=== PATIENT | male | born 1960 | race Caucasian/White ===

== ENCOUNTER 2016-12-15 13:41 | Emergency (ER) | payer BC ==
--- NOTE | 2016-12-15 13:54 | ED ---
General Adult HPI <Yury Green - Last Filed: 12/15/16 14:13> - General Source: patient, RN notes reviewed Mode of arrival: ambulatory Limitations: no limitations <Cruz Garcia - Last Filed: 12/15/16 14:43> - General Chief complaint: Extremity Problem,Nontraumatic Stated complaint: Knee Pain Time Seen by Provider: 12/15/16 13:47 - History of Present Illness Initial comments: Patient is a 56-year-old male who presents emergency room today with a chief complaint of increased swelling and pain to the left knee. He denies any specific injury or trauma to the left knee. Does admit that he sometimes pulls his left leg up when he sleeping to try to relieve his sciatic type pain. Patient does admit that his had increased swelling over the left knee. He states he didn't make an appointment with orthopedics but is not the next week. Patient denies any other complaints. Patient denies any recent fever, chills, shortness of breath, chest pain, back pain, abdominal pain, nausea or vomiting, dysuria or hematuria, constipation or diarrhea, headaches or visual changes, or any other complaints. (Cruz Garcia) - Related Data Home Medications Medication Instructions Recorded Confirmed Aspirin 162 mg PO ONCE 10/14/14 12/15/16 Atenolol/Chlorthalidone 1 tab PO DAILY 10/14/14 12/15/16 [Atenolol-Chlorthalidone 50-25] Hydrocodone/Acetaminophen 1 tab PO TID PRN 10/14/14 12/15/16 [Hydrocodon-Acetaminoph 7.5-325] Previous Rx's Medication Instructions Recorded Hydrocodone/Acetaminophen [[place] 1 each PO Q6HR PRN #15 tab 12/15/16 5-325] Allergies Allergy/AdvReac Type Severity Reaction Status Date / Time peanut Allergy Severe Anaphylaxis Verified 12/15/16 13:51 floxacillin Allergy Itching Verified 12/15/16 13:51 BRAZIL NUTS Allergy Anaphylaxis Uncoded 12/15/16 13:51 Review of Systems ROS Other: All systems not noted in ROS Statement are negative. <Yury Green - Last Filed: 12/15/16 14:13> ROS Other: All systems not noted in ROS Statement are negative. <Cruz Garcia - Last Filed: 12/15/16 14:43> ROS Statement: Those systems with pertinent positive or pertinent negative responses have been documented in the HPI. Past Medical History Past Medical History: Chest Pain / Angina, COPD, GERD/Reflux, Hypertension, Osteoarthritis (OA), Prostate Disorder, Thyroid Disorder Additional Past Medical History / Comment(s): 10/14/14 Pt presented to [facility] ER with chest pain and SOB which woke him up from sleep. He also took his B/p and it was elevated 178/101 with a pulse of 115. He also had bilateral feet tingling and sweating. Other HX Chest pain 2011 with admission to [facility]. "lumps on thyroid". Chronic back pain, diverticulitis, enlarged prostate, potassium deficiency, bilateral leg cramps, vitamin D deficiency, arthiritis bilateral feet/heels and lower back. History of Any Multi-Drug Resistant Organisms: None Reported Past Surgical History: Heart Catheterization Additional Past Surgical History / Comment(s): 2011 heart cath which was clear- done by Dr. VC Topete, colonoscopy. Past Anesthesia/Blood Transfusion Reactions: Previous Problems w/ Anesthesia Additional Past Anesthesia/Blood Transfusion Reaction / Comment(s): Pt states it took him a long time to wake up which he attributes to going into his procedures very tired. Past Psychological History: No Psychological Hx Reported Additional Psychological History / Comment(s): Pt lives with and 2 marty and grandchildren in his home. Pt is independent and very active. He drives a car Smoking Status: Current every day smoker Past Alcohol Use History: Rare Additional Past Alcohol Use History / Comment(s): Pt does not drink alcohol very often however yesterday he drank tequilla and beer. Past Drug Use History: None Reported - Past Family History Father Additional Family Medical History / Comment(s): Father of cirrhosis at age 62 yrs. Mother Additional Family Medical History / Comment(s): Mother of neck fracture at age 76yrs. Sister(s) Additional Family Medical History / Comment(s): Sister after a "leg operation" she developed a leg infection and family was told she of a lung problem. <Cruz Garcia - Last Filed: 12/15/16 14:43> General Exam <Yury Green - Last Filed: 12/15/16 14:13> Limitations: no limitations <Cruz Garcia - Last Filed: 12/15/16 14:43> - General Exam Comments Initial Comments: General: The patient is awake and alert, in no distress, and does not appear acutely ill. Neck: The neck is supple, there is no tenderness or JVD. Cardiovascular: There is a regular rate and rhythm. No murmur, rub or gallop is appreciated. Respiratory: Lungs are clear to auscultation, respirations are non-labored, breath sounds are equal. No wheezes, stridor, rales, or rhonchi. Musculoskeletal: Patient does have moderate swelling to the left knee above the left knee. There is no redness or erythema. The area is fluctuant. Mild tenderness over the patella. The bony tenderness. Sensations intact with pulses equal and 2+. Neurological: A&O x 3. CN II-XII intact, There are no obvious motor or sensory deficits. Coordination appears grossly intact. Speech is normal. Skin: Skin is warm and dry and no rashes or lesions are noted. Psychiatric: Normal mood and affect. (Cruz Garcia) Procedures <Yury Green - Last Filed: 12/15/16 14:13> <Cruz Garcia - Last Filed: 12/15/16 14:43> - Procedures Initial comment: Patient's left knee was wrapped in clean with Betadine. Left knee was superficially anesthetized with ethyl chloride along with 1% lidocaine to make a wheal at the superior aspect of the left bursa. 18-gauge needle was used to drain and aspirate the bursa. Approximately 8 mL of fluid was removed. Patient tolerated procedure well. (Cruz Garcia) Medical Decision Making <Yury Green - Last Filed: 12/15/16 14:13> <Cruz Garcia - Last Filed: 12/15/16 14:43> - Medical Decision Making The patient was seen and examined. All diagnostics were reviewed. The case was discussed with the PA and I agree with the findings as documented. (Yury Green) Patient's left knee bursitis drained here in emergency room. Advised that this may swell once again. Advised follow-up with orthopedics next week with his scheduled appointment. Also given on-call orthopedics as option. Given few days worth of his pain medicine of [place] as is requested. Advised patient to ice elevate the affected area. Advised return for any other concerns. (Cruz Garcia) Disposition <NormaYury - Last Filed: 12/15/16 14:13> Time of Disposition: 14:42 <Cruz Garcia - Last Filed: 12/15/16 14:43> Clinical Impression: Prepatellar bursitis Disposition: HOME SELF-CARE Condition: Good Instructions: Swollen Knee Joint (ED) Additional Instructions: Please follow-up with orthopedics next week with her scheduled appointment or with on-call orthopedics as discussed. Please continue to ice elevate the affected area. Please return to emergency and for any other concerns. Prescriptions: Hydrocodone/Acetaminophen [[place] 5-325] 1 each PO Q6HR PRN #15 tab PRN Reason: Pain Referrals: Neal Rowe MD [Primary Care Provider] - 1-2 days Truong Baptiste DO [Doctor of Osteopathic Medicine] - 1-2 days
--- NOTE | 2016-12-15 14:06 | XR ---
EXAMINATION TYPE: XR knee complete LT DATE OF EXAM: 12/15/2016 2:02 PM CLINICAL HISTORY: pain TECHNIQUE: Three views of the left knee are obtained. COMPARISON: None. FINDINGS: There is no acute fracture/dislocation. The tri-compartment joint spaces appear within no rmal limits. The overlying soft tissue appears unremarkable. IMPRESSION: There is no acute fracture or dislocation ICD 10 NO FRACTURE, INITIAL EVALUATION
[2016-12-15] MEDS ORDERED: ETHYL CHLORIDE 103.5 ML SPRAY TOPICAL STA (14:17)
[2016-12-15 14:55] VITALS: BP 140/72; PULSE 84; RESP 18; TEMP 97.8
== END 2016-12-15 14:54 | disposition home or self-care (01) ==
LOC: EC 13:41
DX: M70.42 Prepatellar bursitis, left knee (principal); I10 Essential (primary) hypertension; F17.200 Nicotine dependence, unspecified, uncomplicated; Z88.0 Allergy status to penicillin; Z98.61 Coronary angioplasty status; Z79.82 Long term (current) use of aspirin; Z91.018 Allergy to other foods; Z91.010 Allergy to peanuts; Z79.899 Other long term (current) drug therapy
CPT/HCPCS: 99283

== ENCOUNTER 2016-12-21 20:24 | Observation (INO) | payer BC ==
[2016-12-21] MEDS ORDERED: NITROGLYCERIN SL TABS 0.4 MG TAB SUBLINGUAL STA (20:46)
--- NOTE | 2016-12-21 20:49 | ED ---
Chest Pain HPI - General Chief Complaint: Chest Pain Stated Complaint: Chest Pain Time Seen by Provider: 12/21/16 20:35 Source: patient, family Mode of arrival: ambulatory Limitations: no limitations - History of Present Illness Initial Comments: This is a 56-year-old male with a history of hypertension, smoking of 2 packs a day, and family history for CAD who presents him in [facility] for left-sided chest pain. He states that it started as some back discomfort that he describes as having someone standing on his back and then developed into his left chest. It seems to come and go however is not related to movement or anything that he doesn't particular. He did have some associated nausea and also some shortness of breath. No lightheadedness. He states that he did not have any diaphoresis. No abdominal discomfort. He has been having some lower abdominal discomfort for the last few weeks is going to see a GI doctor for that however this is different. The patient states that he had a heart cath about 4 years ago which did not show any signs of CAD at the time. He states that he may have had a stress test since then but does not recall when. 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 He denies any history DVT or PE. No recent travel or surgery. No other complaints. - Related Data Home Medications Medication Instructions Recorded Confirmed Aspirin 650 mg PO ONCE 12/21/16 12/21/16 Atenolol/Chlorthalidone 1 tab PO DAILY 12/21/16 12/21/16 [Atenolol-Chlorthalidone 100-25] HYDROcodone/APAP 10-325MG [[place] 1 tab PO TID PRN 12/21/16 12/21/16 10-325] Potassium 99 mg PO DAILY PRN 12/21/16 12/21/16 Allergies Allergy/AdvReac Type Severity Reaction Status Date / Time peanut Allergy Severe Anaphylaxis Verified 12/21/16 21:13 floxacillin Allergy Itching Verified 12/21/16 21:13 BRAZIL NUTS Allergy Anaphylaxis Uncoded 12/21/16 20:31 Review of Systems ROS Statement: Those systems with pertinent positive or pertinent negative responses have been documented in the HPI. ROS Other: All systems not noted in ROS Statement are negative. EKG Findings - EKG Comments: EKG Findings:: EKG showing normal sinus rhythm with a rate of 83. No ST segment changes or T-wave inversions. QTC is 441. Other intervals are normal. No ectopy. Past Medical History Past Medical History: Chest Pain / Angina, COPD, GERD/Reflux, Hypertension, Osteoarthritis (OA), Prostate Disorder, Thyroid Disorder Additional Past Medical History / Comment(s): 10/14/14 Pt presented to [facility] ER with chest pain and SOB which woke him up from sleep. He also took his B/p and it was elevated 178/101 with a pulse of 115. He also had bilateral feet tingling and sweating. Other HX Chest pain 2011 with admission to [facility]. "lumps on thyroid". Chronic back pain, diverticulitis, enlarged prostate, potassium deficiency, bilateral leg cramps, vitamin D deficiency, arthiritis bilateral feet/heels and lower back. History of Any Multi-Drug Resistant Organisms: None Reported Past Surgical History: Heart Catheterization Additional Past Surgical History / Comment(s): 2011 heart cath which was clear- done by Dr. VC Topete, colonoscopy. Past Anesthesia/Blood Transfusion Reactions: Previous Problems w/ Anesthesia Additional Past Anesthesia/Blood Transfusion Reaction / Comment(s): Pt states it took him a long time to wake up which he attributes to going into his procedures very tired. Past Psychological History: No Psychological Hx Reported Additional Psychological History / Comment(s): Pt lives with and 2 marty and grandchildren in his home. Pt is independent and very active. He drives a car Smoking Status: Current every day smoker Past Alcohol Use History: Rare Additional Past Alcohol Use History / Comment(s): Pt does not drink alcohol very often however yesterday he drank tequilla and beer. Past Drug Use History: None Reported - Past Family History Father Additional Family Medical History / Comment(s): Father of cirrhosis at age 62 yrs. Mother Additional Family Medical History / Comment(s): Mother of neck fracture at age 76yrs. Sister(s) Additional Family Medical History / Comment(s): Sister after a "leg operation" she developed a leg infection and family was told she of a lung problem. General Exam - General Exam Comments Initial Comments: Constitutional: Awake alert Appears comfortable Head: Normocephalic atraumatic Eyes: no conjunctival injection No scleral icterus EOMI Neck: No JVD Supple Heart: Regular rate rhythm normal S1-S2 no murmurs Lungs: Clear to auscultation bilaterally No wheezing No rales Abdomen: Soft nondistended nontender Extremities: Non edematous DP pulses intact Radial pulses intact Neuro: A&Ox3 No focal neurologic deficits Psych: Appropriate mood and affect Limitations: no limitations Course Vital Signs 12/21/16 12/21/16 12/21/16 20:30 20:49 20:52 Temperature 97.6 F Pulse Rate 86 Pulse Rate [ 80 Right Radial] Respiratory 20 18 Rate Blood Pressure 180/80 154/91 O2 Sat by Pulse 100 Oximetry 12/21/16 20:55 Temperature Pulse Rate Pulse Rate [ Right Radial] Respiratory Rate Blood Pressure 117/72 O2 Sat by Pulse Oximetry Chest Pain MDM - MDM This is a 56-year-old male presents emergency department for chest pain. He was given nitroglycerin tablet which completely resolved his chest pain. He now has epigastric abdominal pain that he states is been going on for quite some time. He also has some back pain. This is also chronic. This time I feel the patient is not low risk to go home and needs to stay in the hospital for further evaluation. I spoke with Dr. Sky who accepts the admission. I put Dr. de leon on consult. The patient will be started on heparin and admitted for serial troponins and monitoring. The patient was updated and agrees with this plan. Disposition Clinical Impression: Unstable angina Disposition: ADMITTED IP TO THIS HOSP Condition: Stable
[2016-12-21 20:56] LABS: Basophils # (A) 0.2 k/uL (0-0.2); Basophils % (A) 1 %; CH 30.8; CHCM 35.2; Eosinophils # (A) 0.1 k/uL (0-0.7); Eosinophils % (A) 1 %; HCT 50.6 % (39.0-53.0); HDW 2.81; HGB 17.4 gm/dL (13.0-17.5); Luc # (Auto) 0.42; Luc % (Auto) 3; Lymphocytes # (A) 2.8 k/uL (1.0-4.8); Lymphocytes % (A) 17 %; MCH 30.3 pg (25.0-35.0); MCHC 34.4 g/dL (31.0-37.0); Mean Platelet Volume 7.9; Monocytes # (A) 0.6 k/uL (0-1.0); Monocytes % (A) 4 %; Neutrophils % (A) 74 %; RBC 5.74 m/uL (4.30-5.90); RDW 13.6 % (11.5-15.5); WBC 16.2 k/uL (3.8-10.6); WBC (Perox) 14.93
[2016-12-21 21:05] LABS: Partial Thromboplastin Time 26.3 sec (22.0-30.0); Prothrombin Time 10.5 sec (9.0-12.0)
[2016-12-21 21:06] LABS: ALT 51 U/L (21-72); AST 20 U/L (17-59); Alkaline Phosphatase 64 U/L (38-126); Amylase 61 U/L (30-110); Anion Gap 11 mmol/L; Blood Urea Nitrogen 16 mg/dL (9-20); Calcium 9.9 mg/dL (8.4-10.2); Carbon Dioxide 26 mmol/L (22-30); Chloride 103 mmol/L (98-107); Glucose 151 mg/dL (74-99); Magnesium 1.8 mg/dL (1.6-2.3); Non-African American GFR(MDRD) >60 (>60 ml/min/1.73 sqM); Potassium 3.5 mmol/L (3.5-5.1); Sodium 140 mmol/L (137-145); Total Bilirubin 1.1 mg/dL (0.2-1.3); Total Protein 7.6 g/dL (6.3-8.2)
--- NOTE | 2016-12-21 21:13 | XR ---
EXAMINATION TYPE: XR chest 2V DATE OF EXAM: 12/21/2016 9:10 PM HISTORY: Shortness of breath. COMPARISON: 10/14/2014 TECHNIQUE: Single view of the chest is submitted. FINDINGS: Demonstrated are scattered senescent parenchymal change. There is no evidence for focal infiltrate. Left basilar atelectasis noted. The heart is stable. Hilar and mediastinal structures are within normal limits. Degenerative changes are seen of the dorsal spine. IMPRESSION: 1. Chronic changes without evidence for acute pulmonary disease.
[2016-12-21 21:18] LABS: Creatine Kinase 42 U/L (55-170)
[2016-12-21 21:30] LABS: Creatine Kinase MB 0.9 ng/mL (0.0-2.4); Troponin I <0.012 ng/mL (0.000-0.034)
[2016-12-21] MEDS ORDERED: NITROGLYCERIN SL TABS 0.4 MG TAB SUBLINGUAL PRN (21:51)
[2016-12-21] MEDS ORDERED: HEPARIN SODIUM,PORCINE 5,000 UNIT/ML 1 ML VIAL IV ONE (21:51)
[2016-12-21] MEDS ORDERED: HYDROcodone/APAP 5-325MG 1 EACH TAB PO STA (21:54)
[2016-12-21] MEDS ORDERED: ONDANSETRON 4 MG/2 ML VIAL IVP STA (21:54)
[2016-12-21] MEDS ORDERED: HEPARIN SODIUM,PORCINE/D5W PMX 25,000 UNIT in DEXTROSE/WATER 1 500ML.BAG IV SCH (22:00)
[2016-12-21 22:46] VITALS: RESP 16
[2016-12-21] MEDS ORDERED: HEPARIN SODIUM,PORCINE 5,000 UNIT/ML 1 ML VIAL IV PRN (23:29)
[2016-12-21] MEDS ORDERED: ZOLPIDEM 5 MG TAB PO PRN (23:54)
[2016-12-22] MEDS: HYDROcodone/APAP 10-325MG 1 EACH TAB PO PRN ×2 (00:13→11:44)
[2016-12-22] MEDS: NICOTINE 21MG/24HR PATCH TRANSDERM SCH ×2 (00:13→13:53)
[2016-12-22 03:54] LABS: Cholesterol 184 mg/dL (<200); HDL Cholesterol 50 mg/dL (40-60); Triglycerides 94 mg/dL (<150)
[2016-12-22 03:58] LABS: Creatine Kinase 38 U/L (55-170)
[2016-12-22 04:11] LABS: Creatine Kinase MB 0.8 ng/mL (0.0-2.4); Troponin I <0.012 ng/mL (0.000-0.034)
[2016-12-22] MEDS ORDERED: DOBUTamine DRIP for NUC MED 500 MG in DEXTROSE/WATER 1 250ML.BAG IV ONE (06:51)
--- NOTE | 2016-12-22 08:25 | CONS ---
DATE OF CONSULTATION: Mr. Frost is a 56-year-old male with known history of hypertension, chronic tobacco use, who presented with back and chest discomfort. He has chronic back pain after an injury but yesterday the pain radiated to the front and he noted that his blood pressure was high, got concerned and came into the emergency room. The patient has not been active recently because of the injury. He denies any prior history of coronary artery disease. He has underwent cardiac catheterization in January 2012 that revealed no evidence of obstructive coronary artery disease and he had a stress test in October 2014 that showed no evidence of inducible ischemia. His left ventricular systolic function has been preserved. Patient has occasional dizziness. No syncope. No clear PND or orthopnea. He has occasional peripheral edema in the right lower extremity. His coronary risk factors are remarkable for smoking as well as history of hypertension. He is nondiabetic. His lipid profile according to him has been good. His medications at home include aspirin, hydrocodone and atenolol chlorthalidone 100/25 mg daily. REVIEW OF SYSTEMS: RESPIRATORY SYSTEM: He has mild dyspnea on exertion related to the chronic tobacco use. No significant cough. GI SYSTEM: No recent GI bleeding. He has abdominal pain and some change in the color of the stool. He is undergoing workup. There is a question of diverticulosis. SYSTEM: No dysuria or hematuria. NERVOUS SYSTEM: No stroke or seizure. PHYSICAL EXAMINATION: A 56-year-old male, alert, oriented, in no apparent distress. Blood pressure 130/74 with the heart rate in the 60s. HEAD: Normocephalic. EYES: Sclerae anicteric. NECK: Good upstroke. No bruit. No jugular venous distention. LUNGS: Clear to auscultation. HEART: Regular rate and rhythm. S1, S2, no S3, no S4, no murmur or rub. ABDOMEN: Soft, nontender, positive bowel sounds. No organomegaly. EXTREMITIES: No edema. Intact distal pulses. LAB DATA: EKG revealed sinus mechanism, normal axis and intervals cannot exclude inferior myocardial infarction. Troponin less than 0.012 for 2 samples. Cholesterol 184, LDL of 115, HDL of 50. BUN and creatinine 16 and 1.02. Hemoglobin of 17.4. His chest x-ray shows no acute infiltrate. IMPRESSION: 1. Chest and back discomfort appears to be musculoskeletal in etiology. 2. Hypertension, under better control. 3. Chronic tobacco use. RECOMMENDATIONS: I will stop the heparin, proceed with a stress dobutamine echocardiogram. If there is no evidence of inducible ischemia, then no further workup will be needed. Thank you for this consult. We will follow with you.
[2016-12-22] MEDS ORDERED: ASPIRIN 325 MG TAB PO SCH (09:00)
[2016-12-22] MEDS ORDERED: ATENOLOL 50 MG TAB PO SCH (09:00)
[2016-12-22] MEDS ORDERED: ASPIRIN 81 MG CHEW PO SCH (09:00)
[2016-12-22] MEDS ORDERED: CHLORTHALIDONE 25 MG TAB PO SCH (09:00)
[2016-12-22 09:04] LABS: Creatine Kinase 37 U/L (55-170)
[2016-12-22 09:16] LABS: Creatine Kinase MB 0.8 ng/mL (0.0-2.4); Troponin I <0.012 ng/mL (0.000-0.034)
[2016-12-22] MEDS ORDERED: METOPROLOL TARTRATE 5 MG/5 ML VIAL IVP ONE (09:55)
[2016-12-22] MEDS ORDERED: ATROPINE SULFATE 0.1 MG/ML 10ML SYRINGE ONE (09:55)
--- NOTE | 2016-12-22 11:33 | ECHOF ---
Referral Reason:cp MEASUREMENTS -------- HEIGHT: 177.8 cm WEIGHT: 101.6 kg BP: 130/74 RVIDd: 3.6 cm (< 3.3) IVSd: 1.1 cm (0.6 - 1.1) LVIDd: 4.4 cm (3.9 - 5.3) LVPWd: 1.1 cm (0.6 - 1.1) IVSs: 1.3 cm LVIDs: 2.6 cm LVPWs: 1.5 cm LA Diam: 4.0 cm (2.7 - 3.8) LAESV Index (A-L): 23.24 ml/m Ao Diam: 3.4 cm (2.0 - 3.7) AV Cusp: 2.3 cm (1.5 - 2.6) MV EXCURSION: 21.518 mm (> 18.000) MV EF SLOPE: 95 mm/s (70 - 150) EPSS: 0.4 cm MV E Ion: 0.99 m/s MV DecT: 216 ms MV A Ion: 0.97 m/s MV E/A Ratio: 1.03 RAP: 5.00 mmHg RVSP: 26.04 mmHg FINDINGS -------- Sinus rhythm. This was a technically adequate study. The left ventricular size is normal. The right ventricle is mildly enlarged. The left atrium is normal in size. Normal LA size by volume 22+/-6 ml/m2. The right atrium is normal in size. 1.5mg of Definity was utilized for enhancement of images The aortic valve is trileaflet and appears structurally normal. Mild mitral annular calcification present. Trace tricuspid regurgitation present. Right ventricular systolic pressure is normal at < 35 mmHg. Trace/mild (physiologic) pulmonic regurgitation. The aortic root size is normal. The inferior vena cava is mildly dilated. There is no pericardial effusion. CONCLUSIONS -------- 1. Sinus rhythm. 2. Trace tricuspid regurgitation present. 3. Right ventricular systolic pressure is normal at < 35 mmHg. 4. Trace/mild (physiologic) pulmonic regurgitation. 5. The aortic root size is normal. 6. The inferior vena cava is mildly dilated. 7. There is no pericardial effusion. 8. This was a technically adequate study. 9. The left ventricular size is normal. 10. The right ventricle is mildly enlarged. 11. The left atrium is normal in size. 12. The right atrium is normal in size. 13. 1.5mg of Definity was utilized for enhancement of images 14. The aortic valve is trileaflet and appears structurally normal. 15. Mild mitral annular calcification present. ACID BATH MIXER: Mahnaz Burger RDCS
--- NOTE | 2016-12-22 12:17 | ECHOS ---
DATE OF SERVICE: 12/22/2016 AGE: 56Y SEX: M HT: 70 WT: 224 lbs. Protocol Levi: Others: Dobutamine Stress Echo Stage: Dur. of Exercise: *Heart Rate Blood Pressure *Rest: 63 Rest: 106/61 * *Max. Achieved: 157 Maximum BP: 132/43 85% PMHR: 141 100% PMHR: 166 *METS: INDICATIONS: Chest pain. MEDICATIONS: [place], aspirin, atenolol. Patient was given dobutamine infusion according to the standard protocol. Peak heart rate of 157 was achieved. Maximum blood pressure of 132/43 mmHg was noted. EKG shows normal sinus rhythm with normal LA interval and QRS duration and normal ST-T waves. No ST segment depression suggestive of ischemia was noted. Occasional PVCs were noted. The baseline echocardiographic images reveal normal left ventricular chamber size with normal left ventricular systolic function. At the peak dose of peak heart rate normal increase in the wall thickness and contractility was noted. Intravenous contrast in the form of Definity was used. FINAL IMPRESSION: This dobutamine stress echocardiographic study is negative for stress-induced ischemia. EKG portion of the stress test is not suggestive of ischemia. Occasional PVCs are noted.
[2016-12-22 12:37] VITALS: BP 116/74; PULSE 71; TEMP 97.8
--- NOTE | 2016-12-22 13:06 | P.HPIM ---
History of Present Illness H&P Date: 12/22/16 Chief Complaint: Chest pain 56-year-old gentleman with history of tobacco use and chronic back pain secondary to cervical spondylosis(comes in the hospital with complaints of pain that started between her shoulder blades that was 10 out of 10 that radiated to the left side of his chest. Patient stated that the pain was constant in nature for 2 hours was not associated with any movement of his shoulder, deep breathing, cough. Patient apparently underwent a cardiac catheterization 4 years ago at that time was noted to have no significant coronary disease. Patient appears to have a lot of chronic pain issues including some mild cord compression of his C5-C6 region. Of note patient also had his left knee drained twice in the last week. At this time patient denies having any chest pain, difficulty breathing, nausea , vomiting, diarrhea. Patient denies having any severe pain in his left knee as well. EKG did not reveal. ST-T wave changes. Cardiac enzymes were negative. Review of Systems All systems: negative (noted in HPI) Past Medical History Past Medical History: Chest Pain / Angina, COPD, GERD/Reflux, Hypertension, Osteoarthritis (OA), Prostate Disorder, Thyroid Disorder Additional Past Medical History / Comment(s): Chronic back pain, diverticulitis , enlarged prostate, potassium deficiency, bilateral leg cramps, vitamin D deficiency, arthiritis bilateral feet/heels and lower back. thyroid lumps History of Any Multi-Drug Resistant Organisms: None Reported Past Surgical History: Heart Catheterization Additional Past Surgical History / Comment(s): 2011 heart cath which was clear- done by Dr. VC Topete, colonoscopy, left knee drained 12/16/2016 and 12/20/2016 Past Anesthesia/Blood Transfusion Reactions: Previous Problems w/ Anesthesia Additional Past Anesthesia/Blood Transfusion Reaction / Comment(s): Pt states it took him a long time to wake up which he attributes to going into his procedures very tired. Past Psychological History: No Psychological Hx Reported Additional Psychological History / Comment(s): Pt lives with 2 daughters and grandchildren in his home. Pt is independent and very active. He drives a car Smoking Status: Current every day smoker Past Alcohol Use History: Rare Additional Past Alcohol Use History / Comment(s): Pt does not drink alcohol very often however yesterday he drank tequilla and beer. Past Drug Use History: None Reported - Past Family History Father Additional Family Medical History / Comment(s): Father of cirrhosis at age 62 yrs. Mother Additional Family Medical History / Comment(s): Mother of neck fracture at age 76yrs. Sister(s) Additional Family Medical History / Comment(s): Sister after a "leg operation" she developed a leg infection and family was told she of a lung problem. Medications and Allergies Home Medications Medication Instructions Recorded Confirmed Type Aspirin 81 mg PO DAILY 12/21/16 12/21/16 History Atenolol/Chlorthalidone 1 tab PO DAILY 12/21/16 12/21/16 History [Atenolol-Chlorthalidone 100-25] HYDROcodone/APAP 10-325MG [[place] 1 tab PO TID PRN 12/21/16 12/21/16 History 10-325] Allergies Allergy/AdvReac Type Severity Reaction Status Date / Time peanut Allergy Severe Anaphylaxis Verified 12/21/16 21:13 floxacillin Allergy Itching Verified 12/21/16 21:13 BRAZIL NUTS Allergy Anaphylaxis Uncoded 12/21/16 20:31 Physical Exam Vitals: Vital Signs Temp Pulse Pulse Pulse Pulse Resp BP 12/22/16 12:00 97.8 F 71 16 12/22/16 08:00 97.9 F 60 16 12/22/16 04:00 97.6 F 56 L 61 16 12/22/16 00:00 98.2 F 12/21/16 23:14 16 12/21/16 22:40 61 16 12/21/16 22:20 98.0 F 67 18 112/70 BP Pulse Ox 12/22/16 12:00 116/74 96 12/22/16 08:00 108/64 98 12/22/16 04:00 130/74 97 12/22/16 00:00 12/21/16 23:14 12/21/16 22:40 145/85 100 12/21/16 22:20 98 Intake and Output 12/21/16 12/22/16 12/22/16 22:59 06:59 14:59 Intake Total 132.333 Balance 132.333 Intake: Intake, IV Titration 132.333 Amount Heparin Sodium,Porcine/ 132.333 D5w Pmx 25,000 unit In Dextrose/Water 1 500ml. bag @ 9.85 UNITS/KG/HR 20 .01 mls/hr IV .Q24H CAMMIE Rx#:[id number] Other: Voiding Method Toilet Physical exam Gen. appearance oriented 3 in no distress Neck is supple no JVD musculoskeletal tenderness along the cervical spine that is reproducible. Lungs good air entry clear to auscultation no rhonchi or wheezing Heart S1-S2 heard regular rate and rhythm no murmurs appreciated Abdomen is soft nontender no organomegaly bowel sounds are intact Neurologically cranial nerves II-12 grossly intact no focal motor or sensory deficits noted Left knee there is some mild swelling on the infrapatellar bursa region. No difficulty with range of motion. Skin no abnormalities appreciated Results CBC & Chem 7: 12/21/16 20:42 12/21/16 20:42 Labs: Abnormal Lab Results - Last 24 Hours (Table) 12/22/16 12/22/16 12/22/16 Range/Units 03:22 03:22 03:22 APTT 37.9 H (22.0-30.0) sec Total Creatine Kinase 38 L (55-170) U/L LDL Cholesterol, Calc 115 H (0-99) mg/dL 12/22/16 Range/Units 08:23 APTT (22.0-30.0) sec Total Creatine Kinase 37 L (55-170) U/L LDL Cholesterol, Calc (0-99) mg/dL Thrombosis Risk Factor Assmnt - Choose All That Apply Any of the Below Risk Factors Present?: Yes Each Factor Represents 1 point: Age 41-60 years, Hx of IBD, Obesity (BMI >25) Other Risk Factors: No Other congenital or acquired thrombophilia - If yes, enter type in comment: No Thrombosis Risk Factor Assessment Total Risk Factor Score: 3 Thrombosis Risk Factor Assessment Level: Moderate Risk Assessment and Plan Plan: #1 atypical chest pain ACS was ruled out #2 cervical spinal spondylolisthesis with mild cord compression #3 left-sided infrapatellar bursitis status post drainage #4 ongoing tobacco use. #5 history of hypertension. #6 chronic pains in her #7 dyslipidemia Plan Patient underwent a dobutamine stress which was negative. Pain does not appear to be of a cardiovascular etiology. Patient is discharged home to follow up with his primary care physician. Also did recommend patient see a neurosurgeon for his cord compression that was noted on a previous MRI.
== END 2016-12-22 13:55 | disposition home or self-care (01) ==
LOC: EC 20:24 → 3OBS 21:56
PROVIDERS: ADMIT Internal Medicine; ATTEND Internal Medicine
DX: R07.89 Other chest pain (principal); M47.892 Other spondylosis, cervical region; M43.12 Spondylolisthesis, cervical region; G95.20 Unspecified cord compression; M71.562 Other bursitis, not elsewhere classified, left knee; I10 Essential (primary) hypertension; E78.5 Hyperlipidemia, unspecified; E66.9 Obesity, unspecified; Z68.32 Body mass index [BMI] 32.0-32.9, adult; D72.829 Elevated white blood cell count, unspecified; R10.13 Epigastric pain; M19.072 Primary osteoarthritis, left ankle and foot; M19.071 Primary osteoarthritis, right ankle and foot; F17.200 Nicotine dependence, unspecified, uncomplicated; Z88.1 Allergy status to other antibiotic agents; Z91.010 Allergy to peanuts; Z91.018 Allergy to other foods; Z79.82 Long term (current) use of aspirin; Z79.899 Other long term (current) drug therapy; Z82.49 Family history of ischemic heart disease and other diseases of the circulatory system
CPT/HCPCS: 96365; 96376; 96375; 99285; 36415; 93005; 93350; 93017; 93306; 80061; 80053; 82150; 82550 ×2; 82553 ×2; 83690; 83735; 84484 ×2; 85025; 85610; 85730 ×2; 71020; G0378 ×2; S4990; J1250; J1644 ×3; J2405; J0461; Q9957; 96366

== ENCOUNTER 2017-02-08 22:55 | Emergency (ER) | payer BC ==
[2017-02-08 23:07] VITALS: RESP 18; TEMP 97.8
[2017-02-08] MEDS ORDERED: ONDANSETRON 4 MG/2 ML VIAL IVP STA (23:37)
[2017-02-08] MEDS ORDERED: SODIUM CHLORIDE 0.9% 1,000 ML IV STA (23:37)
[2017-02-08] MEDS ORDERED: FAMOTIDINE 20 MG/2 ML VIAL IV STA (23:38)
--- NOTE | 2017-02-08 23:43 | ED ---
Abdominal Pain HPI - General Chief Complaint: Abdominal Pain Stated Complaint: Abd Pain Time Seen by Provider: 02/08/17 23:09 Source: patient, RN notes reviewed Mode of arrival: ambulatory Limitations: no limitations - History of Present Illness Initial Comments: Patient is a 56-year-old male presents to the emergency room for evaluation of abdominal pain. Patient states she has a history of diverticulosis. Patient states he does have occasional flareups of diverticulitis. Patient states usually has pain in his left lower quadrant. Patient states having pain in his midepigastric area that radiates to his right lower quadrant. Patient also states been having worsening heartburn over the past few days. Patient states that he has constant burning sensation. Patient states he is supposed to have an endoscopy done but has never scheduled an appointment yet. Patient states the only thing that relieves the burning in his stomach and chest is eating. Patient states he tried taking Pepto-Bismol last night which did improve his symptoms for a short time. Patient states he thought he was constipated so he took 2 laxatives. Patient denies any blood in his stools. Patient denies back pain. Patient states he was here a month ago for chest pain. Patient states the station engineer chief looked at his heart and they did a stress test and did not find any abnormal findings in his heart. Patient does state he smokes 2 packs of cigarettes a day. Patient denies fever or chills. Patient states he feels nauseous. Patient denies headache or dizziness. Patient denies any history of abdominal surgeries. - Related Data Home Medications Medication Instructions Recorded Confirmed Atenolol/Chlorthalidone 1 tab PO DAILY 12/21/16 02/08/17 [Atenolol-Chlorthalidone 100-25] HYDROcodone/APAP 10-325MG [[place] 1 tab PO TID PRN 12/21/16 02/08/17 10-325] Ascorbic Acid [Vitamin C] 500 mg PO DAILY 02/08/17 02/08/17 Previous Rx's Medication Instructions Recorded Famotidine [Pepcid] 20 mg PO HS #12 tablet 02/09/17 Ondansetron Odt [Zofran Odt] 4 mg PO Q8HR PRN #12 tab 02/09/17 Allergies Allergy/AdvReac Type Severity Reaction Status Date / Time peanut Allergy Severe Anaphylaxis Verified 02/08/17 23:27 floxacillin Allergy Itching Verified 02/08/17 23:27 BRAZIL NUTS Allergy Anaphylaxis Uncoded 02/08/17 23:07 Review of Systems ROS Statement: Those systems with pertinent positive or pertinent negative responses have been documented in the HPI. ROS Other: All systems not noted in ROS Statement are negative. Past Medical History Past Medical History: Chest Pain / Angina, COPD, GERD/Reflux, Hypertension, Osteoarthritis (OA), Prostate Disorder, Thyroid Disorder Additional Past Medical History / Comment(s): Chronic back pain, diverticulitis , enlarged prostate, potassium deficiency, bilateral leg cramps, vitamin D deficiency, arthiritis bilateral feet/heels and lower back. thyroid lumps History of Any Multi-Drug Resistant Organisms: None Reported Past Surgical History: Heart Catheterization Additional Past Surgical History / Comment(s): 2011 heart cath which was clear- done by Dr. VC Topete, colonoscopy, left knee drained 12/16/2016 and 12/20/2016 Past Anesthesia/Blood Transfusion Reactions: Previous Problems w/ Anesthesia Additional Past Anesthesia/Blood Transfusion Reaction / Comment(s): Pt states it took him a long time to wake up which he attributes to going into his procedures very tired. Past Psychological History: No Psychological Hx Reported Additional Psychological History / Comment(s): Pt lives with 2 daughters and grandchildren in his home. Pt is independent and very active. He drives a car Smoking Status: Current every day smoker Past Alcohol Use History: Rare Additional Past Alcohol Use History / Comment(s): Pt does not drink alcohol very often however yesterday he drank tequilla and beer. Past Drug Use History: None Reported - Past Family History Father Additional Family Medical History / Comment(s): Father of cirrhosis at age 62 yrs. Mother Additional Family Medical History / Comment(s): Mother of neck fracture at age 76yrs. Sister(s) Additional Family Medical History / Comment(s): Sister after a "leg operation" she developed a leg infection and family was told she of a lung problem. General Exam - General Exam Comments Initial Comments: Laying in exam room, no acute distress. Limitations: no limitations General appearance: alert, in no apparent distress Head exam: Present: atraumatic, normocephalic, normal inspection Eye exam: Present: normal appearance ENT exam: Present: normal exam Neck exam: Present: normal inspection Respiratory exam: Present: normal lung sounds bilaterally. Absent: respiratory distress Cardiovascular Exam: Present: regular rate, normal rhythm, normal heart sounds GI/Abdominal exam: Present: soft, tenderness (diffuse), normal bowel sounds. Absent: distended, guarding, rebound, rigid Extremities exam: Present: normal inspection Back exam: Present: normal inspection Neurological exam: Present: alert, oriented X3, CN II-XII intact, normal gait Psychiatric exam: Present: normal affect, normal mood Skin exam: Present: warm, dry, intact, normal color. Absent: rash Course Vital Signs 02/08/17 23:05 Temperature 97.8 F Pulse Rate 75 Respiratory 18 Rate Blood Pressure 127/81 O2 Sat by Pulse 100 Oximetry Medical Decision Making - Medical Decision Making Patient is 56-year-old male presents to the emergency room for evaluation of abdominal pain. Patient's symptoms consistent with possible gastric or duodenal ulcer. Patient does state that his pain feels better after eating. Labs showed no concerning findings. CT abdomen/pelvis shows no evidence of diverticulitis. Patient states he is feeling better after medications given. Will send patient home with [place] advised to follow-up with GI specialist or his primary care provider. Patient does state he is supposed to schedule an endoscopy. Advised patient that he does so. Patient states he understands everything that was discussed with him. Return parameters discussed. Case discussed with Dr. Nichole. - Lab Data Result diagrams: 02/09/17 00:50 02/09/17 00:50 Lab Results 02/09/17 02/09/17 02/09/17 Range/Units 00:50 00:50 00:50 WBC 11.7 H (3.8-10.6) k/uL RBC 5.62 (4.30-5.90) m/uL Hgb 17.5 (13.0-17.5) gm/dL Hct 50.6 (39.0-53.0) % MCV 90.0 (80.0-100.0) fL MCH 31.2 (25.0-35.0) pg MCHC 34.6 (31.0-37.0) g/dL RDW 14.1 (11.5-15.5) % Plt Count 194 (150-450) k/uL Neutrophils % 68 % Lymphocytes % 22 % Monocytes % 5 % Eosinophils % 1 % Basophils % 0 % Neutrophils # 8.0 H (1.3-7.7) k/uL Lymphocytes # 2.6 (1.0-4.8) k/uL Monocytes # 0.6 (0-1.0) k/uL Eosinophils # 0.2 (0-0.7) k/uL Basophils # 0.1 (0-0.2) k/uL PT (9.0-12.0) sec INR (<1.1) APTT (22.0-30.0) sec Sodium 139 (137-145) mmol/L Potassium 3.3 L (3.5-5.1) mmol/L Chloride 106 (98-107) mmol/L Carbon Dioxide 21 L (22-30) mmol/L Anion Gap 12 mmol/L BUN 15 (9-20) mg/dL Creatinine 0.80 (0.66-1.25) mg/dL Est GFR (MDRD) Af Amer >60 (>60 ml/min/1.73 sqM) Est GFR (MDRD) Non-Af >60 (>60 ml/min/1.73 sqM) Glucose 78 (74-99) mg/dL Calcium 9.7 (8.4-10.2) mg/dL Magnesium 1.8 (1.6-2.3) mg/dL Total Bilirubin 1.3 (0.2-1.3) mg/dL AST 24 (17-59) U/L ALT 40 (21-72) U/L Alkaline Phosphatase 57 (38-126) U/L Total Creatine Kinase 49 L (55-170) U/L CK-MB (CK-2) 0.8 (0.0-2.4) ng/mL CK-MB (CK-2) Rel Index 1.6 Troponin I <0.012 (0.000-0.034) ng/mL Total Protein 7.0 (6.3-8.2) g/dL Albumin 4.2 (3.5-5.0) g/dL Amylase 67 (30-110) U/L Lipase 101 (23-300) U/L Urine Color Urine Appearance (Clear) Urine pH (5.0-8.0) Ur Specific Gre[place] (1.001-1.035) Urine Protein (Negative) Urine Glucose (UA) (Negative) Urine Ketones (Negative) Urine Blood (Negative) Urine Nitrite (Negative) Urine Bilirubin (Negative) Urine Urobilinogen (<2.0) mg/dL Ur Leukocyte Esterase (Negative) 02/09/17 02/09/17 Range/Units 00:50 02:15 WBC (3.8-10.6) k/uL RBC (4.30-5.90) m/uL Hgb (13.0-17.5) gm/dL Hct (39.0-53.0) % MCV (80.0-100.0) fL MCH (25.0-35.0) pg MCHC (31.0-37.0) g/dL RDW (11.5-15.5) % Plt Count (150-450) k/uL Neutrophils % % Lymphocytes % % Monocytes % % Eosinophils % % Basophils % % Neutrophils # (1.3-7.7) k/uL Lymphocytes # (1.0-4.8) k/uL Monocytes # (0-1.0) k/uL Eosinophils # (0-0.7) k/uL Basophils # (0-0.2) k/uL PT 10.7 (9.0-12.0) sec INR 1.1 (<1.1) APTT 25.8 (22.0-30.0) sec Sodium (137-145) mmol/L Potassium (3.5-5.1) mmol/L Chloride (98-107) mmol/L Carbon Dioxide (22-30) mmol/L Anion Gap mmol/L BUN (9-20) mg/dL Creatinine (0.66-1.25) mg/dL Est GFR (MDRD) Af Amer (>60 ml/min/1.73 sqM) Est GFR (MDRD) Non-Af (>60 ml/min/1.73 sqM) Glucose (74-99) mg/dL Calcium (8.4-10.2) mg/dL Magnesium (1.6-2.3) mg/dL Total Bilirubin (0.2-1.3) mg/dL AST (17-59) U/L ALT (21-72) U/L Alkaline Phosphatase (38-126) U/L Total Creatine Kinase (55-170) U/L CK-MB (CK-2) (0.0-2.4) ng/mL CK-MB (CK-2) Rel Index Troponin I (0.000-0.034) ng/mL Total Protein (6.3-8.2) g/dL Albumin (3.5-5.0) g/dL Amylase (30-110) U/L Lipase (23-300) U/L Urine Color Yellow Urine Appearance Clear (Clear) Urine pH 5.5 (5.0-8.0) Ur Specific Gre[place] 1.014 (1.001-1.035) Urine Protein Negative (Negative) Urine Glucose (UA) Negative (Negative) Urine Ketones 1+ H (Negative) Urine Blood Negative (Negative) Urine Nitrite Negative (Negative) Urine Bilirubin Negative (Negative) Urine Urobilinogen <2.0 (<2.0) mg/dL Ur Leukocyte Esterase Negative (Negative) 02/09/17 00:32 Normal sinus rhythm, ventricular rate 65 bpm, IN interval 184 ms, QRS duration 92 ms, QT/QTC 410/426 ms - Radiology Data Radiology results: report reviewed, image reviewed Disposition Clinical Impression: Abdominal pain, Acid reflux Disposition: HOME SELF-CARE Condition: Good Instructions: Gastroesophageal Reflux Disease (ED) Additional Instructions: Take medications as directed. Please follow up with primary care provider or GI specialist for further evaluation. If any new symptom arises or symptoms worsen, return to ER as soon as possible. Prescriptions: Ondansetron Odt [Zofran Odt] 4 mg PO Q8HR PRN #12 tab PRN Reason: Nausea Famotidine [Pepcid] 20 mg PO HS #12 tablet Referrals: Neal Rowe MD [Primary Care Provider] - 1-2 days Genaro Hightower MD [STAFF PHYSICIAN] - 1-2 days Time of Disposition: 02:32
--- NOTE | 2017-02-09 00:02 | XR ---
EXAMINATION TYPE: XR chest 2V DATE OF EXAM: 02/08/2017 11:51 PM COMPARISON: 12/21/2016 HISTORY: Chest pain TECHNIQUE: Frontal and lateral views of the chest are obtained. FINDINGS: Heart and mediastinum are normal. Costophrenic angles are clear. There is minimal subsegme ntal atelectasis in the left lower lobe. There is no pleural effusion. IMPRESSION: Minimal subsegmental atelectasis or scarring in the left lower lobe. No change.
--- NOTE | 2017-02-09 00:04 | XR ---
EXAMINATION TYPE: XR KUB DATE OF EXAM: 02/08/2017 11:51 PM COMPARISON: NONE HISTORY: Abdominal pain TECHNIQUE: 2 views FINDINGS: There is no sign of intestinal obstruction or pneumoperitoneum. Fecal pattern is normal. Th ere is no sign of a mass. There are no pathologic calcifications. IMPRESSION: Nonacute abdomen.
[2017-02-09 01:10] LABS: Basophils # (A) 0.1 k/uL (0-0.2); Basophils % (A) 0 %; CH 31.6; CHCM 35.3; Eosinophils # (A) 0.2 k/uL (0-0.7); Eosinophils % (A) 1 %; HCT 50.6 % (39.0-53.0); HDW 2.76; HGB 17.5 gm/dL (13.0-17.5); Luc # (Auto) 0.35; Luc % (Auto) 3; Lymphocytes # (A) 2.6 k/uL (1.0-4.8); Lymphocytes % (A) 22 %; MCH 31.2 pg (25.0-35.0); MCHC 34.6 g/dL (31.0-37.0); Mean Platelet Volume 7.3; Monocytes # (A) 0.6 k/uL (0-1.0); Monocytes % (A) 5 %; Neutrophils % (A) 68 %; RBC 5.62 m/uL (4.30-5.90); RDW 14.1 % (11.5-15.5); WBC 11.7 k/uL (3.8-10.6); WBC (Perox) 11.65
[2017-02-09 01:20] LABS: INR 1.1 (<1.1); Partial Thromboplastin Time 25.8 sec (22.0-30.0); Prothrombin Time 10.7 sec (9.0-12.0)
[2017-02-09 01:34] LABS: ALT 40 U/L (21-72); AST 24 U/L (17-59); Alkaline Phosphatase 57 U/L (38-126); Amylase 67 U/L (30-110); Anion Gap 12 mmol/L; Blood Urea Nitrogen 15 mg/dL (9-20); Calcium 9.7 mg/dL (8.4-10.2); Carbon Dioxide 21 mmol/L (22-30); Chloride 106 mmol/L (98-107); Glucose 78 mg/dL (74-99); Magnesium 1.8 mg/dL (1.6-2.3); Non-African American GFR(MDRD) >60 (>60 ml/min/1.73 sqM); Potassium 3.3 mmol/L (3.5-5.1); Sodium 139 mmol/L (137-145); Total Bilirubin 1.3 mg/dL (0.2-1.3)
[2017-02-09 01:46] LABS: Creatine Kinase MB 0.8 ng/mL (0.0-2.4); Troponin I <0.012 ng/mL (0.000-0.034)
[2017-02-09] MEDS ORDERED: RX INFO: IV CONTRAST WAS GIVEN 1 EACH MISC MISCELLANE PRN (01:47)
[2017-02-09 02:08] LABS: Creatine Kinase 49 U/L (55-170)
--- NOTE | 2017-02-09 02:16 | CT ---
EXAM: CT Abdomen and Pelvis With Intravenous Contrast. CLINICAL HISTORY: Reason: Pain TECHNIQUE: Axial computed tomography images of the abdomen and pelvis with intravenous contrast. CTDI is 14.8 mGy and DLP is 770.8 mGy-cm This CT exam was performed using one or more of the following dose reduction techniques: automated exposure control, adjustment of the mA and/or kV according to patient size, and/or use of iterative reconstruction technique. COMPARISON: No relevant prior studies available. FINDINGS: Lower thorax: No acute findings. ABDOMEN: Liver: Unremarkable. No mass. Gallbladder and bile ducts: Unremarkable. No calcified stones. No ductal dilation. Pancreas: Unremarkable. No ductal dilation. No mass. Spleen: Unremarkable. No splenomegaly. Adrenals: Unremarkable. No mass. Kidneys and ureters: Unremarkable. No hydronephrosis. No solid mass. PELVIS: Bladder: Unremarkable. No mass. Reproductive: Unremarkable as visualized. Appendix: No findings to suggest acute appendicitis. ABDOMEN + PELVIS: Stomach and bowel: Sigmoid diverticulosis, without evidence of diverticulitis. No obstruction. Peritoneum: Unremarkable. No significant fluid collection. No free air. Lymph nodes: Unremarkable. No enlarged lymph nodes. Vasculature: Unremarkable. No aortic aneurysm. Bones: No acute fracture. IMPRESSION: No acute findings in the abdomen or pelvis.
[2017-02-09 02:26] LABS: Appearance,Urine Clear (Clear); Bilirubin,Urine Negative (Negative); Glucose,Urine (UA) Negative (Negative); Ketones,Urine 1+ (Negative); Leukocyte Esterase,Urine Negative (Negative); Nitrite,Urine Negative (Negative); PH, Urine 5.5 (5.0-8.0); Protein,Urine Negative (Negative); Specific Gravity,Urine 1.014 (1.001-1.035); UA Billing (MACRO vs. MICRO) CHEM; Urobilinogen,Urine <2.0 mg/dL (<2.0)
[2017-02-09 03:00] VITALS: BP 124/80; PULSE 70
== END 2017-02-09 02:59 | disposition home or self-care (01) ==
LOC: EC 22:55
DX: K21.9 Gastro-esophageal reflux disease without esophagitis (principal); R11.0 Nausea; R10.13 Epigastric pain; I10 Essential (primary) hypertension; F17.210 Nicotine dependence, cigarettes, uncomplicated; Z87.19 Personal history of other diseases of the digestive system; Z91.010 Allergy to peanuts; Z88.1 Allergy status to other antibiotic agents; Z91.018 Allergy to other foods; Z79.899 Other long term (current) drug therapy
CPT/HCPCS: 99284; 96374; 96375; 96361; 36415; 93005; 80053; 82150; 82550; 82553; 83690; 83735; 84484; 85025; 85610; 85730; 81003; 71020; 74000; 74177; J2405; Q9967

== ENCOUNTER 2017-02-10 11:29 | Emergency (ER) | payer BC ==
[2017-02-10] MEDS ORDERED: SODIUM CHLORIDE 0.9% 1,000 ML IV STA (12:10)
[2017-02-10] MEDS ORDERED: PANTOPRAZOLE 40 MG/10 ML VIAL IVP STA (12:11)
--- NOTE | 2017-02-10 12:14 | ED ---
SOB HPI - General Chief Complaint: Shortness of Breath Stated Complaint: anxiety Time Seen by Provider: 02/10/17 11:30 Source: patient, EMS, RN notes reviewed Mode of arrival: EMS Limitations: no limitations - History of Present Illness Initial Comments: This is a 56-year-old male who was seen here tonight after having black tarry stools who states he felt nauseated this morning he took a Zofran he started feeling a rapid heart rate palpitations shortness of breath. He denied any overt chest pain but he did have upper abdominal pain. He also states that having black tarry stools he has a GI appointment but not for 2 weeks. No states she's had random pain is mostly in the left side of his abdomen. No overt lightheadedness or dizziness at this time. He states she's never had any heart problems or elevated heart rates like this. He was brought in by EMS. He is also complaining of back pain. He has chronic back pain from previous injuries. MD Complaint: shortness of breath, chest pain, anxiety - Related Data Home Medications Medication Instructions Recorded Confirmed Atenolol/Chlorthalidone 1 tab PO DAILY 12/21/16 02/10/17 [Atenolol-Chlorthalidone 100-25] HYDROcodone/APAP 10-325MG [[place] 1 tab PO TID PRN 12/21/16 02/10/17 10-325] Previous Rx's Medication Instructions Recorded Famotidine [Pepcid] 20 mg PO HS #12 tablet 02/09/17 Ondansetron Odt [Zofran Odt] 4 mg PO Q8HR PRN #12 tab 02/09/17 Cyclobenzaprine [Flexeril] 10 mg PO TID #14 tab 02/10/17 Magnesium 200 mg PO DAILY #14 tablet 02/10/17 Potassium 99 mg PO DAILY #14 tablet 02/10/17 predniSONE 20 mg PO BID #10 tab 02/10/17 Allergies Allergy/AdvReac Type Severity Reaction Status Date / Time peanut Allergy Severe Anaphylaxis Verified 02/10/17 14:20 Quinolones Allergy Itching Verified 02/10/17 14:20 BRAZIL NUTS Allergy Anaphylaxis Uncoded 02/10/17 11:36 Review of Systems ROS Statement: Those systems with pertinent positive or pertinent negative responses have been documented in the HPI. ROS Other: All systems not noted in ROS Statement are negative. Past Medical History Past Medical History: Chest Pain / Angina, COPD, GERD/Reflux, Hypertension, Osteoarthritis (OA), Prostate Disorder, Thyroid Disorder Additional Past Medical History / Comment(s): Chronic back pain, diverticulitis , enlarged prostate, potassium deficiency, bilateral leg cramps, vitamin D deficiency, arthiritis bilateral feet/heels and lower back. thyroid lumps History of Any Multi-Drug Resistant Organisms: None Reported Past Surgical History: Heart Catheterization Additional Past Surgical History / Comment(s): 2012 heart cath which was clear- done by Dr. VC Topete, colonoscopy, left knee drained 12/16/2016 and 12/20/2016 Past Anesthesia/Blood Transfusion Reactions: Previous Problems w/ Anesthesia Additional Past Anesthesia/Blood Transfusion Reaction / Comment(s): Pt states it took him a long time to wake up which he attributes to going into his procedures very tired. Past Psychological History: No Psychological Hx Reported Additional Psychological History / Comment(s): Pt lives with 2 daughters and grandchildren in his home. Pt is independent and very active. He drives a car Smoking Status: Current every day smoker Past Alcohol Use History: Rare Additional Past Alcohol Use History / Comment(s): Pt does not drink alcohol very often however yesterday he drank tequilla and beer. Past Drug Use History: None Reported - Past Family History Father Additional Family Medical History / Comment(s): Father of cirrhosis at age 62 yrs. Mother Additional Family Medical History / Comment(s): Mother of neck fracture at age 76yrs. Sister(s) Additional Family Medical History / Comment(s): Sister after a "leg operation" she developed a leg infection and family was told she of a lung problem. General Exam - General Exam Comments Initial Comments: This is a well-developed well-nourished awake alert oriented 3 male Limitations: no limitations General appearance: alert, anxious Head exam: Present: atraumatic, normocephalic, normal inspection Eye exam: Present: normal appearance, PERRL, EOMI. Absent: scleral icterus, conjunctival injection, periorbital swelling ENT exam: Present: normal exam, mucous membranes moist Neck exam: Present: normal inspection. Absent: tenderness, meningismus, lymphadenopathy Respiratory exam: Present: normal lung sounds bilaterally, chest wall tenderness (Reproducible chest wall pain to palpation over the left costosternal junction). Absent: respiratory distress, wheezes, rales, rhonchi, stridor Cardiovascular Exam: Present: regular rate, normal rhythm, normal heart sounds. Absent: systolic murmur, diastolic murmur, rubs, gallop, clicks GI/Abdominal exam: Present: soft, tenderness (Mild left abdominal tenderness palpation no guarding no rebound), normal bowel sounds. Absent: distended, guarding, rebound, rigid Extremities exam: Present: normal inspection, full ROM, normal capillary refill. Absent: tenderness, pedal edema, joint swelling, calf tenderness Back exam: Present: normal inspection, tenderness (Paraspinal tenderness of the lumbar region. No spinous process tenderness.) Neurological exam: Present: alert, oriented X3, CN II-XII intact Psychiatric exam: Present: normal affect, normal mood Skin exam: Present: warm, dry, intact, normal color. Absent: rash Course Vital Signs 02/10/17 02/10/17 02/10/17 11:34 12:00 12:30 Temperature 98.0 F 98.0 F 97.8 F Pulse Rate 99 88 102 H Respiratory 18 16 16 Rate Blood Pressure 152/99 133/74 127/79 O2 Sat by Pulse 98 99 Oximetry 02/10/17 02/10/17 02/10/17 13:00 13:30 14:00 Temperature 97.0 F L 97.0 F L 97.1 F L Pulse Rate 82 74 86 Respiratory 16 16 16 Rate Blood Pressure 106/57 110/74 141/71 O2 Sat by Pulse 98 97 98 Oximetry 02/10/17 02/10/17 14:30 15:01 Temperature 97.1 F L 97.0 F L Pulse Rate 86 86 Respiratory 16 16 Rate Blood Pressure 128/85 141/71 O2 Sat by Pulse 97 98 Oximetry Medical Decision Making - Medical Decision Making Reevaluation patient reveals reproducible chest pain still. I did a long discussion with the patient regarding the findings the Hemoccult was negative. Patient will still keep his follow-up with GI. We placed on appropriate medication for costochondritis. His follow-up with his doctor return when necessary we also did discuss his low end of normal potassium and magnesium he will go on supplements. - Lab Data Result diagrams: 02/10/17 11:40 02/10/17 11:40 Lab Results 0402/10/17 02/10/17 Range/Units 11:40 11:40 11:40 WBC 9.0 (3.8-10.6) k/uL RBC 5.76 (4.30-5.90) m/uL Hgb 17.6 H (13.0-17.5) gm/dL Hct 51.0 (39.0-53.0) % MCV 88.6 (80.0-100.0) fL MCH 30.6 (25.0-35.0) pg MCHC 34.5 (31.0-37.0) g/dL RDW 13.7 (11.5-15.5) % Plt Count 208 (150-450) k/uL Neutrophils % 72 % Lymphocytes % 18 % Monocytes % 5 % Eosinophils % 1 % Basophils % 0 % Neutrophils # 6.5 (1.3-7.7) k/uL Lymphocytes # 1.6 (1.0-4.8) k/uL Monocytes # 0.5 (0-1.0) k/uL Eosinophils # 0.1 (0-0.7) k/uL Basophils # 0.0 (0-0.2) k/uL PT (9.0-12.0) sec INR (<1.1) APTT (22.0-30.0) sec Sodium (137-145) mmol/L Potassium (3.5-5.1) mmol/L Chloride (98-107) mmol/L Carbon Dioxide (22-30) mmol/L Anion Gap mmol/L BUN (9-20) mg/dL Creatinine (0.66-1.25) mg/dL Est GFR (MDRD) Af Amer (>60 ml/min/1.73 sqM) Est GFR (MDRD) Non-Af (>60 ml/min/1.73 sqM) Glucose (74-99) mg/dL Calcium (8.4-10.2) mg/dL Magnesium (1.6-2.3) mg/dL Total Bilirubin (0.2-1.3) mg/dL AST (17-59) U/L ALT (21-72) U/L Alkaline Phosphatase (38-126) U/L Total Creatine Kinase 50 L (55-170) U/L CK-MB (CK-2) 0.9 (0.0-2.4) ng/mL CK-MB (CK-2) Rel Index 1.8 Troponin I <0.012 (0.000-0.034) ng/mL Total Protein (6.3-8.2) g/dL Albumin (3.5-5.0) g/dL Stool Occult Blood (Negative) Blood Type A Positive Blood Type Confirm Blood Type Recheck CABO Indicated Antibody Screen NEGATIVE Spec Expiration Date 02/13/2017233902/10/17 02/10/17 02/10/17 Range/Units 11:40 11:40 11:40 WBC (3.8-10.6) k/uL RBC (4.30-5.90) m/uL Hgb (13.0-17.5) gm/dL Hct (39.0-53.0) % MCV (80.0-100.0) fL MCH (25.0-35.0) pg MCHC (31.0-37.0) g/dL RDW (11.5-15.5) % Plt Count (150-450) k/uL Neutrophils % % Lymphocytes % % Monocytes % % Eosinophils % % Basophils % % Neutrophils # (1.3-7.7) k/uL Lymphocytes # (1.0-4.8) k/uL Monocytes # (0-1.0) k/uL Eosinophils # (0-0.7) k/uL Basophils # (0-0.2) k/uL PT 10.7 (9.0-12.0) sec INR 1.1 (<1.1) APTT 26.8 (22.0-30.0) sec Sodium 143 (137-145) mmol/L Potassium 3.8 (3.5-5.1) mmol/L Chloride 106 (98-107) mmol/L Carbon Dioxide 25 (22-30) mmol/L Anion Gap 12 mmol/L BUN 12 (9-20) mg/dL Creatinine 0.89 (0.66-1.25) mg/dL Est GFR (MDRD) Af Amer >60 (>60 ml/min/1.73 sqM) Est GFR (MDRD) Non-Af >60 (>60 ml/min/1.73 sqM) Glucose 102 H (74-99) mg/dL Calcium 9.7 (8.4-10.2) mg/dL Magnesium 1.9 (1.6-2.3) mg/dL Total Bilirubin 1.1 (0.2-1.3) mg/dL AST 19 (17-59) U/L ALT 34 (21-72) U/L Alkaline Phosphatase 62 (38-126) U/L Total Creatine Kinase (55-170) U/L CK-MB (CK-2) (0.0-2.4) ng/mL CK-MB (CK-2) Rel Index Troponin I (0.000-0.034) ng/mL Total Protein 7.2 (6.3-8.2) g/dL Albumin 4.3 (3.5-5.0) g/dL Stool Occult Blood Negative (Negative) Blood Type Blood Type Confirm Blood Type Recheck Antibody Screen Spec Expiration Date 02/10/17 Range/Units 13:46 WBC (3.8-10.6) k/uL RBC (4.30-5.90) m/uL Hgb (13.0-17.5) gm/dL Hct (39.0-53.0) % MCV (80.0-100.0) fL MCH (25.0-35.0) pg MCHC (31.0-37.0) g/dL RDW (11.5-15.5) % Plt Count (150-450) k/uL Neutrophils % % Lymphocytes % % Monocytes % % Eosinophils % % Basophils % % Neutrophils # (1.3-7.7) k/uL Lymphocytes # (1.0-4.8) k/uL Monocytes # (0-1.0) k/uL Eosinophils # (0-0.7) k/uL Basophils # (0-0.2) k/uL PT (9.0-12.0) sec INR (<1.1) APTT (22.0-30.0) sec Sodium (137-145) mmol/L Potassium (3.5-5.1) mmol/L Chloride (98-107) mmol/L Carbon Dioxide (22-30) mmol/L Anion Gap mmol/L BUN (9-20) mg/dL Creatinine (0.66-1.25) mg/dL Est GFR (MDRD) Af Amer (>60 ml/min/1.73 sqM) Est GFR (MDRD) Non-Af (>60 ml/min/1.73 sqM) Glucose (74-99) mg/dL Calcium (8.4-10.2) mg/dL Magnesium (1.6-2.3) mg/dL Total Bilirubin (0.2-1.3) mg/dL AST (17-59) U/L ALT (21-72) U/L Alkaline Phosphatase (38-126) U/L Total Creatine Kinase (55-170) U/L CK-MB (CK-2) (0.0-2.4) ng/mL CK-MB (CK-2) Rel Index Troponin I (0.000-0.034) ng/mL Total Protein (6.3-8.2) g/dL Albumin (3.5-5.0) g/dL Stool Occult Blood (Negative) Blood Type Blood Type Confirm A Positive Blood Type Recheck Antibody Screen Spec Expiration Date - EKG Data -: EKG Interpreted by Ut EKG shows normal: sinus rhythm (Sinus rhythm rate of 82 W[place] interval 156 QRS duration 82 QT/QTC of 364/425 nonspecific inferior changes) - Radiology Data Radiology results: report reviewed (Review the imaging shows no evidence of acute findings.), image reviewed Disposition Clinical Impression: Chest wall pain, Costochondritis, Palpitations Disposition: HOME SELF-CARE Condition: Good Instructions: Costochondritis (ED), Palpitations (ED) Prescriptions: Cyclobenzaprine [Flexeril] 10 mg PO TID #14 tab Magnesium 200 mg PO DAILY #14 tablet Potassium 99 mg PO DAILY #14 tablet predniSONE 20 mg PO BID #10 tab
[2017-02-10 12:39] LABS: Basophils % (A) 0 %; CH 31.4; CHCM 35.6; Eosinophils # (A) 0.1 k/uL (0-0.7); Eosinophils % (A) 1 %; HGB 17.6 gm/dL (13.0-17.5); Luc # (Auto) 0.27; Luc % (Auto) 3; Lymphocytes # (A) 1.6 k/uL (1.0-4.8); Lymphocytes % (A) 18 %; MCH 30.6 pg (25.0-35.0); MCHC 34.5 g/dL (31.0-37.0); MCV 88.6 fL (80.0-100.0); Mean Platelet Volume 7.4; Monocytes # (A) 0.5 k/uL (0-1.0); Monocytes % (A) 5 %; Neutrophils # (A) 6.5 k/uL (1.3-7.7); Neutrophils % (A) 72 %; RBC 5.76 m/uL (4.30-5.90); RDW 13.7 % (11.5-15.5); WBC (Perox) 8.94
[2017-02-10 12:48] LABS: INR 1.1 (<1.1); Partial Thromboplastin Time 26.8 sec (22.0-30.0); Prothrombin Time 10.7 sec (9.0-12.0)
[2017-02-10 12:49] LABS: ALT 34 U/L (21-72); AST 19 U/L (17-59); Alkaline Phosphatase 62 U/L (38-126); Anion Gap 12 mmol/L; Blood Urea Nitrogen 12 mg/dL (9-20); Calcium 9.7 mg/dL (8.4-10.2); Carbon Dioxide 25 mmol/L (22-30); Chloride 106 mmol/L (98-107); Glucose 102 mg/dL (74-99); Magnesium 1.9 mg/dL (1.6-2.3); Non-African American GFR(MDRD) >60 (>60 ml/min/1.73 sqM); Potassium 3.8 mmol/L (3.5-5.1); Sodium 143 mmol/L (137-145); Total Bilirubin 1.1 mg/dL (0.2-1.3); Total Protein 7.2 g/dL (6.3-8.2)
[2017-02-10 13:02] LABS: Creatine Kinase 50 U/L (55-170)
[2017-02-10 13:13] LABS: Creatine Kinase MB 0.9 ng/mL (0.0-2.4); Troponin I <0.012 ng/mL (0.000-0.034)
--- NOTE | 2017-02-10 14:25 | XR ---
EXAMINATION TYPE: XR chest 2V DATE OF EXAM: 02/10/2017 1:59 PM COMPARISON: 02/08/2017 INDICATION: Dysrhythmia irregular heartbeat high blood pressure TECHNIQUE: Single frontal view of the chest is obtained. FINDINGS: The heart size is normal. The pulmonary vasculature is normal. The lungs are clear. IMPRESSION: 1. No acute pulmonary process.
[2017-02-10 14:56] VITALS: RESP 16
[2017-02-10] MEDS ORDERED: KETOROLAC 30 MG/ML 1 ML VIAL IVP STA (15:07)
[2017-02-10 16:26] VITALS: BP 110/66; PULSE 74; TEMP 98
== END 2017-02-10 16:24 | disposition home or self-care (01) ==
LOC: EC 11:29
DX: M94.0 Chondrocostal junction syndrome [Tietze] (principal); R00.2 Palpitations; R07.81 Pleurodynia; I10 Essential (primary) hypertension; F17.200 Nicotine dependence, unspecified, uncomplicated; Z79.899 Other long term (current) drug therapy; Z91.010 Allergy to peanuts; Z91.018 Allergy to other foods; Z88.1 Allergy status to other antibiotic agents
CPT/HCPCS: 99285; 96374; 96375; 36415; 93005; 86900; 86901; 80053; 82550; 82553; 83735; 84484; 85025; 85610; 85730; 86850; 82272; 71020; 96361 ×4; J1885; C9113

== ENCOUNTER 2017-03-16 07:41 | Day surgery (SDC) | payer BC ==
[2017-03-14 10:38] VITALS: BMI 33.9
[~2017-03-16 07:41] MED LIST: LACTATED RINGERS 1,000 ML IV SCH
[2017-03-16 08:17] VITALS: RESP 16; TEMP 97.5
[2017-03-16] MEDS ORDERED: LIDOCAINE 1% 20 ML VIAL (10MG/ML) FOR IV START INTRADERMA ONE (08:26)
[2017-03-16] MEDS ORDERED: LIDOCAINE 1% INJ 10MG/ML (20 ML MDV) ONE (08:38)
[2017-03-16] MEDS ORDERED: PROPOFOL 10 MG/ML 20 ML VIAL IV ONE (08:38)
[2017-03-16 09:59] VITALS: BP 108/74; PULSE 71
--- NOTE | 2017-03-16 10:17 | P.PCN ---
Date of Procedure: 03/16/17 Preoperative Diagnosis: Postoperative Diagnosis: Procedure(s) Performed: Brief history: Patient is a pleasant 57-year-old white male, scheduled for an elective upper endoscopy as well as colonoscopy as a part of evaluation of abdominal pain mostly in epigastric and right upper quadrant area as well as change in bowel habits for the last several months duration. He has intermittent symptoms. The more than 10 years but for the last 5-6 months it has been progressively getting worse. He does have acid reflux and he takes Nexium 40 mg daily and doing well. He has occasional constipation but denies any rectal bleeding. Always complains of left lower quadrant abdominal pain. In view of his symptoms he scheduled for an upper endoscopy as well as colonoscopy to evaluate further. Procedure performed: Esophagogastroduodenoscopy with biopsy Colonoscopy snare polypectomy Preoperative diagnosis: GERD Abdominal pain Change in bowel habits Anesthesia: MAC Procedure: After informed consent was obtained from the patient was brought into the endoscopy unit and IV sedation was administered by anesthesia under continuous monitoring. Initially upper endoscopy was done. The Olympus GF 160 video endoscope was inserted inserted into the mouth and esophagus intubated without any difficulty and was gradually advanced into the stomach and duodenum and carefully examined. The bulb and second part of the duodenum appeared normal. The scope was then withdrawn into the stomach adequately insufflated with air and upon careful examination the antrum had mild mottling of the mucosa and biopsies were done from this area. The body, cardia and fundus appeared normal. The scope was then withdrawn into the esophagus. The GE junction was located at 40 cm to the incisors. It appeared regular with no erythema erosions or ulcerations. Rest of the esophagus appeared normal. Size were done from the esophagus also. Patient tolerated the procedure well. At this time the patient continued to remain sedation. Initial digital rectal examination was normal. Olympus CF 160 video colonoscope was then inserted into the rectum and gradually advanced to the cecum without any difficulty. Careful examination was performed as the scope was gradually being withdrawn. The prep was excellent. The cecum, appeared normal. In the descending colon revealed 2 small polyps measuring 5 mm in size removed by snare polypectomy. In the descending colon there was a 5 mm polyp removed by snare polypectomy. The rest of the ascending colon, transverse colon, descending colon, sigmoid colon and rectum appeared normal. In the rectum there was a 5 mL polyp removed by snare polypectomy. No diverticulosis seen.Retroflexion was performed in the rectum and no lesions were noted. Patient tolerated the procedure well. Impression: 1.Upper endoscopy revealed mild antral gastritis but no evidence of esophagitis or peptic ulcer 2.Colonoscopy revealed: A) 5 mm 2 ascending colon polyp serous was snare polypectomy B) 5 mm descending colon polyp status post polypectomy C) 5 mm rectal polyp serous was snare polypectomy Recommendations: Findings of this examination were discussed with the patient as well ashis family. He was advised to follow with the biopsy results. If the biopsy shows a tubular adenoma he can have a repeat colonoscopy in 5 years. He will be seen in office in 2-3 weeks Implants: Indications for Procedure: Operative Findings: Description of Procedure:
== END 2017-03-16 10:16 | disposition home or self-care (01) ==
LOC: ORWHC2ENDO 07:41
PROVIDERS: ATTEND Internal Medicine Gastroenterology
DX: D12.2 Benign neoplasm of ascending colon (principal); K29.50 Unspecified chronic gastritis without bleeding; K63.5 Polyp of colon; D12.4 Benign neoplasm of descending colon; I10 Essential (primary) hypertension; J44.9 Chronic obstructive pulmonary disease, unspecified; K21.0 Gastro-esophageal reflux disease with esophagitis; Z88.8 Allergy status to other drugs, medicaments and biological substances; Z79.899 Other long term (current) drug therapy; Z79.891 Long term (current) use of opiate analgesic
CPT/HCPCS: 88305; 88342; 45385; 43239; J2001; J2704

== ENCOUNTER 2017-10-29 16:51 | Emergency (ER) | payer BC, OTHER ==
[2017-10-29] MEDS ORDERED: SODIUM CHLORIDE 0.9% 1,000 ML IV STA (18:11)
[2017-10-29] MEDS ORDERED: diphenhydrAMINE 50 MG/ML 1 ML VIAL IVP STA (18:11)
[2017-10-29] MEDS ORDERED: METOCLOPRAMIDE 5 MG/ML 2 ML VIAL IVP STA (18:11)
[2017-10-29] MEDS ORDERED: MECLIZINE 12.5 MG TAB PO STA (18:12)
[2017-10-29 18:54] LABS: Basophils % (A) 0 %; Eosinophils # (A) 0.1 k/uL (0-0.7); Eosinophils % (A) 1 %; HCT 50.1 % (39.0-53.0); HGB 16.5 gm/dL (13.0-17.5); Lymphocytes # (A) 2.3 k/uL (1.0-4.8); Lymphocytes % (A) 24 %; MCH 28.9 pg (25.0-35.0); MCHC 32.9 g/dL (31.0-37.0); MCV 87.8 fL (80.0-100.0); Mean Platelet Volume 7.7; Monocytes # (A) 0.6 k/uL (0-1.0); Monocytes % (A) 6 %; Neutrophils # (A) 6.1 k/uL (1.3-7.7); Neutrophils % (A) 65 %; Platelet Count 214 k/uL (150-450); RBC 5.71 m/uL (4.30-5.90); RDW 14.7 % (11.5-15.5); WBC 9.4 k/uL (3.8-10.6)
[2017-10-29 19:00] LABS: ALT 32 U/L (21-72); AST 22 U/L (17-59); Albumin 4.2 g/dL (3.5-5.0); Alkaline Phosphatase 62 U/L (38-126); Anion Gap 14 mmol/L; Blood Urea Nitrogen 16 mg/dL (9-20); Calcium 9.6 mg/dL (8.4-10.2); Carbon Dioxide 23 mmol/L (22-30); Chloride 102 mmol/L (98-107); Glucose 79 mg/dL (74-99); Potassium 3.4 mmol/L (3.5-5.1); Sodium 139 mmol/L (137-145); Total Protein 6.8 g/dL (6.3-8.2)
[2017-10-29 19:08] VITALS: RESP 18
--- NOTE | 2017-10-29 19:20 | XR ---
EXAMINATION TYPE: XR chest 2V DATE OF EXAM: 10/29/2017 COMPARISON: 02/10/2017 HISTORY: Headache and chest pain for 2 months. COPD. TECHNIQUE: Frontal and lateral views of the chest are obtained. FINDINGS: There is no focal air space opacity, pleural effusion, or pneumothorax seen. The cardiac silhouette size is within normal limits. The osseous structures are intact. Mild multilevel degener ative changes of the thoracic spine are noted. IMPRESSION: No acute cardiopulmonary process.
--- NOTE | 2017-10-29 19:21 | XR ---
EXAMINATION TYPE: XR KUB DATE OF EXAM: 10/29/2017 CLINICAL HISTORY: Nausea and vomiting TECHNIQUE: Upright abdominal radiographs were obtained. COMPARISON: None. FINDINGS: Scattered gas is seen in non-distended small bowel loops. Gas and fecal material is seen in non-distended colon. There is no visceromegaly, pneumoperitoneum, or abnormal calcification appr eciated. The lung bases are clear and the osseous structures are intact. IMPRESSION: Nonobstructive bowel gas pattern.
--- NOTE | 2017-10-29 19:26 | CT ---
EXAMINATION TYPE: CT brain cspine wo con DATE OF EXAM: 10/29/2017 COMPARISON: NONE HISTORY: Head and neck pain without recent injury CT DLP: 1640.6 mGycm. Automated Exposure Control for Dose Reduction was Utilized. TECHNIQUE: CT scan of the head and cervical spine are performed without contrast. FINDINGS: There is no acute intracranial hemorrhage, mass effect, or midline shift identified. The ventricles and sulci are within normal limits in size. The globes are intact. Moderate mucosal thic kening is seen within the sphenoid sinus. Remaining visualized paranasal sinuses are well aerated. Ce rebellar tonsils are noted to be low-lying, incidental finding. No suspicious extra-axial fluid colle ction is seen. Dystrophic calcifications are seen within the scalp soft tissues of the right frontal region. Cervical spine is visualized in its entirety from C1 through upper thoracic levels and demonstrates s atisfactory alignment without evidence of acute fracture or dislocation. Prevertebral soft tissue ap pears within normal limits. The C1-C2 articulation is unremarkable. Mild to moderate multilevel degenerative changes of the cervical spine are noted as uncovertebral hyp ertrophy and facet arthropathy. Posterior disc ossify complexes are seen at C5-C6 and C6-7 creating m oderate spinal canal stenosis at C5-C6 and mild at C6-C7. This also results in moderate right neural foraminal narrowing at C5-C6 and mild at C6-C7 on the right as well as mild bilateral neural foramina l narrowing at C5-C6 and C6-C7 on the left. Mild paraseptal emphysematous changes are present of the lung apices. Multiple prominent but nonenlar ged lymph nodes are seen within the anterior and posterior cervical chains. IMPRESSION: 1. There is no acute fracture or dislocation evident in the cervical spine. 2. No acute intracranial hemorrhage, mass effect, or midline shift is seen. 3. Moderate sphenoid paranasal sinus disease. 4. Multilevel mild to moderate degenerative changes of the cervical spine resulting in moderate spina l canal stenosis at C5-C6 and mild at C6-C7. Neuroforaminal narrowing as described above.
[2017-10-29 19:41] LABS: Appearance,Urine Clear (Clear); Bilirubin,Urine Negative (Negative); Blood,Urine Negative (Negative); Color,Urine Light Yellow; Glucose,Urine (UA) Negative (Negative); Ketones,Urine 1+ (Negative); Leukocyte Esterase,Urine Negative (Negative); Nitrite,Urine Negative (Negative); PH, Urine 5.5 (5.0-8.0); Protein,Urine Negative (Negative); Specific Gravity,Urine 1.007 (1.001-1.035); Urobilinogen,Urine <2.0 mg/dL (<2.0)
--- NOTE | 2017-10-29 19:56 | ED ---
Headache HPI - General Chief Complaint: Headache Stated Complaint: Headache Time Seen by Provider: 10/29/17 17:58 Source: RN notes reviewed, old records reviewed Mode of arrival: ambulatory Limitations: no limitations - History of Present Illness Initial Comments: This patient is a 57-year-old male presents emergency Department stay she will complain of headache, neck pain, nonradiating in his ears. He reports his been having this headache and neck pain and spinal issues since a fall many months ago. He reports headaches been worse depression is has been worse. Patient states that he also complains of some lower abdominal pain. He reports his history of diverticulitis. Denies any fever or chills. Denies any changes in bowel habits. Patient states that he's had some lower back pain as well. - Related Data Home Medications Medication Instructions Recorded Confirmed Atenolol/Chlorthalidone 1 tab PO DAILY 12/21/16 10/29/17 [Atenolol-Chlorthalidone 100-25] HYDROcodone/APAP 10-325MG [[place] 1 tab PO TID PRN 12/21/16 10/29/17 10-325] Esomeprazole Magnesium [NexIUM] 40 mg PO DAILY PRN 03/14/17 10/29/17 Previous Rx's Medication Instructions Recorded Sulfamethox-Tmp 800-160Mg [Bactrim 1 tab PO Q12HR #20 tab 10/29/17 DS 800-160 mg] Allergies Allergy/AdvReac Type Severity Reaction Status Date / Time peanut Allergy Severe Anaphylaxis Verified 10/29/17 18:21 Quinolones Allergy Itching Verified 10/29/17 18:21 BRAZIL NUTS Allergy Anaphylaxis Uncoded 03/16/17 08:06 Review of Systems ROS Statement: Those systems with pertinent positive or pertinent negative responses have been documented in the HPI. ROS Other: All systems not noted in ROS Statement are negative. Past Medical History Past Medical History: Chest Pain / Angina, COPD, GERD/Reflux, Hypertension, Osteoarthritis (OA), Prostate Disorder, Thyroid Disorder Additional Past Medical History / Comment(s): Chronic back pain, diverticulitis , enlarged prostate, potassium deficiency, bilateral leg cramps, vitamin D deficiency, arthiritis bilateral feet/heels and lower back. thyroid lumps History of Any Multi-Drug Resistant Organisms: None Reported Past Surgical History: Heart Catheterization Additional Past Surgical History / Comment(s): 2011 heart cath which was clear- done by Dr. VC Topete, colonoscopy, left knee drained 12/16/2016 and 12/20/2016 Past Anesthesia/Blood Transfusion Reactions: Previous Problems w/ Anesthesia Additional Past Anesthesia/Blood Transfusion Reaction / Comment(s): Pt states it took him a long time to wake up which he attributes to going into his procedures very tired. Past Psychological History: No Psychological Hx Reported Smoking Status: Current every day smoker Past Alcohol Use History: None Reported Past Drug Use History: None Reported - Past Family History Father Additional Family Medical History / Comment(s): Father of cirrhosis at age 62 yrs. Mother Additional Family Medical History / Comment(s): Mother of neck fracture at age 76yrs. Sister(s) Additional Family Medical History / Comment(s): Sister after a "leg operation" she developed a leg infection and family was told she of a lung problem. General Exam - General Exam Comments Initial Comments: This is a 57-year-old male. No distress. Limitations: no limitations General appearance: alert, in no apparent distress Head exam: Present: atraumatic, normocephalic, normal inspection Eye exam: Present: normal appearance, PERRL, EOMI. Absent: scleral icterus, conjunctival injection, periorbital swelling ENT exam: Present: normal exam, mucous membranes moist Neck exam: Present: normal inspection. Absent: tenderness, meningismus, lymphadenopathy Respiratory exam: Present: normal lung sounds bilaterally. Absent: respiratory distress, wheezes, rales, rhonchi, stridor Cardiovascular Exam: Present: regular rate, normal rhythm, normal heart sounds. Absent: systolic murmur, diastolic murmur, rubs, gallop, clicks GI/Abdominal exam: Present: soft, tenderness (Minimal left lower quadrant tenderness.), normal bowel sounds. Absent: distended, guarding, rebound, rigid Extremities exam: Present: normal inspection, full ROM, normal capillary refill. Absent: tenderness, pedal edema, joint swelling, calf tenderness Back exam: Present: normal inspection Neurological exam: Present: alert, oriented X3, CN II-XII intact Psychiatric exam: Present: normal affect, normal mood Skin exam: Present: warm, dry, intact, normal color. Absent: rash Course Vital Signs 10/29/17 10/29/17 10/29/17 17:04 19:03 19:23 Temperature 99.0 F Pulse Rate 88 78 67 Respiratory 20 18 18 Rate Blood Pressure 123/82 119/73 103/53 O2 Sat by Pulse 99 98 96 Oximetry 10/29/17 20:32 Temperature 97.9 F Pulse Rate 68 Respiratory 18 Rate Blood Pressure 123/71 O2 Sat by Pulse 97 Oximetry Medical Decision Making - Medical Decision Making This patient is a 57-year-old male presents emergency Department stay she will complain of headache, neck pain, nonradiating in his ears. He reports his been having this headache and neck pain and spinal issues since a fall many months ago. He reports headaches been worse depression is has been worse. Patient states that he also complains of some lower abdominal pain. He reports his history of diverticulitis. patient had a CT of brain and C-spine. They're both negative for any acute process. He does have severe degenerative changes within cervical spine. Patient given IM the fluids, lab work was also obtained. He was also concerned that this cardiac function. He denies any specific chest pain. EKG was reviewed and normal. Negative troponin. Patient white blood cell count was normal. He did have some left lower quadrant tenderness. Discussed at length promptly to the patient for diverticulitis in regards to this with his history. Patient requests that he does not have the antibiotic of ciprofloxacin. Patient will be started on Bactrim at this time. Discussed that his cervical spine is likely issue of the headache and pain. Discussed return parameters. Patient understands treatment plan will comply. Discussed following up with primary care physician. - Lab Data Result diagrams: 10/29/17 18:38 10/29/17 18:38 Lab Results 10/29/17 10/29/17 10/29/17 Range/Units 18:38 18:38 18:38 WBC 9.4 (3.8-10.6) k/uL RBC 5.71 (4.30-5.90) m/uL Hgb 16.5 (13.0-17.5) gm/dL Hct 50.1 (39.0-53.0) % MCV 87.8 (80.0-100.0) fL MCH 28.9 (25.0-35.0) pg MCHC 32.9 (31.0-37.0) g/dL RDW 14.7 (11.5-15.5) % Plt Count 214 (150-450) k/uL Neutrophils % 65 % Lymphocytes % 24 % Monocytes % 6 % Eosinophils % 1 % Basophils % 0 % Neutrophils # 6.1 (1.3-7.7) k/uL Lymphocytes # 2.3 (1.0-4.8) k/uL Monocytes # 0.6 (0-1.0) k/uL Eosinophils # 0.1 (0-0.7) k/uL Basophils # 0.0 (0-0.2) k/uL Sodium 139 (137-145) mmol/L Potassium 3.4 L (3.5-5.1) mmol/L Chloride 102 (98-107) mmol/L Carbon Dioxide 23 (22-30) mmol/L Anion Gap 14 mmol/L BUN 16 (9-20) mg/dL Creatinine 0.93 (0.66-1.25) mg/dL Est GFR (MDRD) Af Amer >60 (>60 ml/min/1.73 sqM) Est GFR (MDRD) Non-Af >60 (>60 ml/min/1.73 sqM) Glucose 79 (74-99) mg/dL Calcium 9.6 (8.4-10.2) mg/dL Total Bilirubin 1.0 (0.2-1.3) mg/dL AST 22 (17-59) U/L ALT 32 (21-72) U/L Alkaline Phosphatase 62 (38-126) U/L Troponin I <0.012 (0.000-0.034) ng/mL Total Protein 6.8 (6.3-8.2) g/dL Albumin 4.2 (3.5-5.0) g/dL Urine Color Urine Appearance (Clear) Urine pH (5.0-8.0) Ur Specific [place] (1.001-1.035) Urine Protein (Negative) Urine Glucose (UA) (Negative) Urine Ketones (Negative) Urine Blood (Negative) Urine Nitrite (Negative) Urine Bilirubin (Negative) Urine Urobilinogen (<2.0) mg/dL Ur Leukocyte Esterase (Negative) 10/29/17 Range/Units 19:32 WBC (3.8-10.6) k/uL RBC (4.30-5.90) m/uL Hgb (13.0-17.5) gm/dL Hct (39.0-53.0) % MCV (80.0-100.0) fL MCH (25.0-35.0) pg MCHC (31.0-37.0) g/dL RDW (11.5-15.5) % Plt Count (150-450) k/uL Neutrophils % % Lymphocytes % % Monocytes % % Eosinophils % % Basophils % % Neutrophils # (1.3-7.7) k/uL Lymphocytes # (1.0-4.8) k/uL Monocytes # (0-1.0) k/uL Eosinophils # (0-0.7) k/uL Basophils # (0-0.2) k/uL Sodium (137-145) mmol/L Potassium (3.5-5.1) mmol/L Chloride (98-107) mmol/L Carbon Dioxide (22-30) mmol/L Anion Gap mmol/L BUN (9-20) mg/dL Creatinine (0.66-1.25) mg/dL Est GFR (MDRD) Af Amer (>60 ml/min/1.73 sqM) Est GFR (MDRD) Non-Af (>60 ml/min/1.73 sqM) Glucose (74-99) mg/dL Calcium (8.4-10.2) mg/dL Total Bilirubin (0.2-1.3) mg/dL AST (17-59) U/L ALT (21-72) U/L Alkaline Phosphatase (38-126) U/L Troponin I (0.000-0.034) ng/mL Total Protein (6.3-8.2) g/dL Albumin (3.5-5.0) g/dL Urine Color Light Yellow Urine Appearance Clear (Clear) Urine pH 5.5 (5.0-8.0) Ur Specific [place] 1.007 (1.001-1.035) Urine Protein Negative (Negative) Urine Glucose (UA) Negative (Negative) Urine Ketones 1+ H (Negative) Urine Blood Negative (Negative) Urine Nitrite Negative (Negative) Urine Bilirubin Negative (Negative) Urine Urobilinogen <2.0 (<2.0) mg/dL Ur Leukocyte Esterase Negative (Negative) 10/29/17 20:24 EKG shows normal sinus rhythm. Ventricular rate of 70 bpm. MA interval 170 ms. QRS duration 90 ms. QTQTC's/440 ms. - Radiology Data Radiology results: report reviewed CT brain and C-spine are reviewed and negative for any acute process. Disposition Clinical Impression: Cervical spinal stenosis, Diverticulitis Disposition: HOME SELF-CARE Condition: Good Instructions: Diverticulitis (ED), Cervical Spinal Stenosis (ED) Additional Instructions: Patient advised to follow-up with primary care provider. Watch her diet, avoid any foods that cause diverticulitis. Take antibiotics as prescribed. Return to the emergency department if any alarming signs or symptoms occur. Prescriptions: Sulfamethox-Tmp 800-160Mg [Bactrim DS 800-160 mg] 1 tab PO Q12HR #20 tab Referrals: Neal Rowe MD [Primary Care Provider] - 1-2 days Time of Disposition: 20:17
[2017-10-29] MEDS ORDERED: HYDROmorphone 1 MG/ML 1 ML SYRINGE IVP STA (20:16)
[2017-10-29] MEDS ORDERED: SULFAMETH-TMP DS STARTER PACK 2 TAB BTL PO STA (20:17)
[2017-10-29 20:33] VITALS: BP 123/71; PULSE 68; TEMP 97.9
== END 2017-10-29 20:32 | disposition home or self-care (01) ==
LOC: EC 16:51
DX: M48.02 Spinal stenosis, cervical region (principal); K57.92 Diverticulitis of intestine, part unspecified, without perforation or abscess without bleeding; R51 Headache; I10 Essential (primary) hypertension; F17.200 Nicotine dependence, unspecified, uncomplicated; Z95.5 Presence of coronary angioplasty implant and graft; Z79.899 Other long term (current) drug therapy; Z91.010 Allergy to peanuts; Z88.1 Allergy status to other antibiotic agents; Z91.018 Allergy to other foods
CPT/HCPCS: 36415; 93005; 80053; 84484; 85025; 81003; 71046; 74018; 72125; 70450; 99285; 96374; 96375 ×2; 96361; J1200; J2765; J1170

== ENCOUNTER 2017-12-05 18:09 | Emergency (ER) | payer BC, OTHER ==
[2017-12-05] MEDS ORDERED: SODIUM CHLORIDE 0.9% 1,000 ML IV STA (19:09)
--- NOTE | 2017-12-05 19:19 | ED ---
Abdominal Pain HPI - General Chief Complaint: Abdominal Pain Stated Complaint: Abdominal pain Time Seen by Provider: 12/05/17 18:58 Source: patient, RN notes reviewed Mode of arrival: ambulatory Limitations: no limitations - History of Present Illness Initial Comments: This is a 57-year-old male who presents to the emergency department with chief complaint of abdominal pain. Patient states that he was seen here last month and was concerned that he may have diverticulitis as he was having left lower quadrant pain. Patient reports a history of diverticulosis and diverticulitis. He was started on Bactrim at that time. Patient states that he stopped taking Bactrim after 4 days. He states that while taking Bactrim his legs became shaky and he was seeing spots. He checked his sugar and it was 60. He states that he googled Bactrim and it informed him that Bactrim can lower his sugar. Patient states that he began to feel better but then the abdominal pain returned. He states that he has been bloated, gassy constipated for the past month. He reports left-sided abdominal pain. He states the abdominal pain is achy in nature and that it becomes sharp pain after eating. He does report a poor diet. Patient states his last bowel movement was this morning and that he has been taking stool softeners. He denies fevers or chills. He states he has had some nausea but no vomiting. Denies chest pain or shortness of breath. - Related Data Home Medications Medication Instructions Recorded Confirmed Atenolol/Chlorthalidone 1 tab PO DAILY 12/21/16 12/05/17 [Atenolol-Chlorthalidone 100-25] HYDROcodone/APAP 10-325MG [[place] 1 tab PO TID PRN 12/21/16 12/05/17 10-325] Allergies Allergy/AdvReac Type Severity Reaction Status Date / Time peanut Allergy Severe Anaphylaxis Verified 12/05/17 19:11 Quinolones Allergy Itching Verified 12/05/17 19:11 ciprofloxacin [From Cipro] AdvReac Rash/Hives Verified 12/05/17 19:11 sulfamethoxazole AdvReac Rapid Verified 12/05/17 19:11 [From Bactrim] Heart Rate trimethoprim [From Bactrim] AdvReac Rapid Verified 12/05/17 19:11 Heart Rate BRAZIL NUTS Allergy Anaphylaxis Uncoded 12/05/17 18:23 Review of Systems ROS Statement: Those systems with pertinent positive or pertinent negative responses have been documented in the HPI. ROS Other: All systems not noted in ROS Statement are negative. Past Medical History Past Medical History: Chest Pain / Angina, COPD, GERD/Reflux, Hypertension, Osteoarthritis (OA), Prostate Disorder, Thyroid Disorder Additional Past Medical History / Comment(s): Chronic back pain, diverticulitis , enlarged prostate, potassium deficiency, bilateral leg cramps, vitamin D deficiency, arthiritis bilateral feet/heels and lower back. thyroid lumps History of Any Multi-Drug Resistant Organisms: None Reported Past Surgical History: Heart Catheterization Additional Past Surgical History / Comment(s): 2012 heart cath which was clear- done by Dr. VC Topete, colonoscopy, left knee drained 12/16/2016 and 12/20/2016 Past Anesthesia/Blood Transfusion Reactions: Previous Problems w/ Anesthesia Additional Past Anesthesia/Blood Transfusion Reaction / Comment(s): Pt states it took him a long time to wake up which he attributes to going into his procedures very tired. Past Psychological History: No Psychological Hx Reported Smoking Status: Current every day smoker Past Alcohol Use History: None Reported Past Drug Use History: None Reported - Past Family History Father Additional Family Medical History / Comment(s): Father of cirrhosis at age 62 yrs. Mother Additional Family Medical History / Comment(s): Mother of neck fracture at age 76yrs. Sister(s) Additional Family Medical History / Comment(s): Sister after a "leg operation" she developed a leg infection and family was told she of a lung problem. General Exam - General Exam Comments Initial Comments: General: Awake and alert, well-developed; in no apparent distress. HEENT: Head atraumatic, normocephalic. Pupils are equal, round and reactive to light. Extraocular movements intact. Oropharynx moist without erythema or exudate. Neck: Supple. Normal ROM. Cardiovascular: Regular rate and rhythm. No murmurs, rubs or gallops. Chest symmetrical. Respiratory: Lungs clear to auscultation bilaterally. No wheezes, rales or rhonchi. Normal respiratory effort with no use of accessory muscles. Abdomen: Soft, non-tender, non-distended. No rigidity, rebound or guarding. Normal bowel sounds in all 4 quadrants. Musculoskeletal: Normal ROM, no tenderness bilateral upper and lower extremities. Ambulating normally. Skin: [place], warm and dry without rashes or lesions. Neurological: Alert and oriented x3. CN II-XII grossly intact. Speech is fluent and answers are appropriate. No focal neuro deficits. Psychiatric: Appears anxious and overly concerned with his symptoms. Limitations: no limitations Course Vital Signs 12/05/17 18:19 Temperature 98.9 F Pulse Rate 80 Respiratory 18 Rate Blood Pressure 143/91 O2 Sat by Pulse 100 Oximetry - Reevaluation(s) Reevaluation #1: Findings were discussed with patient at this time. CBC is within normal limits and there is no white count. Patient did have a potassium of 3.0 and will receive oral supplementation. UA was within normal limits. KUB revealed a non- acute abdomen. Patient continues to complain of left lower quadrant pain and requests to have a computed tomography scan performed. Pending these results. 12/05/17 20:14 Medical Decision Making - Medical Decision Making This is a 57-year-old male who presented to the emergency department with chief complaint of left lower quadrant abdominal pain, bloating and constipation. KUB revealed a non-acute abdomen. CBC was within normal limits. UA was normal. Patient did have a potassium at 3.0 and was given oral supplementation. Computed tomography scan of abdomen and pelvis with IV contrast revealed no acute abnormalities. No constipation. Patient's vital signs are stable and he is in no acute distress. He will be discharged home. He is to follow up with his primary care provider in 1-2 days. He is in agreement with plan and voices understanding. All questions were answered. - Lab Data Result diagrams: 12/05/17 19:18 12/05/17 19:18 Lab Results 12/05/17 12/05/17 12/05/17 Range/Units 19:18 19:18 19:37 WBC 10.3 (3.8-10.6) k/uL RBC 5.70 (4.30-5.90) m/uL Hgb 17.3 (13.0-17.5) gm/dL Hct 49.2 (39.0-53.0) % MCV 86.3 (80.0-100.0) fL MCH 30.3 (25.0-35.0) pg MCHC 35.1 (31.0-37.0) g/dL RDW 13.1 (11.5-15.5) % Plt Count 226 (150-450) k/uL Neutrophils % 64 % Lymphocytes % 27 % Monocytes % 5 % Eosinophils % 1 % Basophils % 1 % Neutrophils # 6.6 (1.3-7.7) k/uL Lymphocytes # 2.8 (1.0-4.8) k/uL Monocytes # 0.5 (0-1.0) k/uL Eosinophils # 0.1 (0-0.7) k/uL Basophils # 0.1 (0-0.2) k/uL Sodium 141 (137-145) mmol/L Potassium 3.0 L* (3.5-5.1) mmol/L Chloride 101 (98-107) mmol/L Carbon Dioxide 27 (22-30) mmol/L Anion Gap 13 mmol/L BUN 9 (9-20) mg/dL Creatinine 0.90 (0.66-1.25) mg/dL Est GFR (MDRD) Af Amer >60 (>60 ml/min/1.73 sqM) Est GFR (MDRD) Non-Af >60 (>60 ml/min/1.73 sqM) Glucose 88 (74-99) mg/dL Calcium 9.6 (8.4-10.2) mg/dL Total Bilirubin 1.2 (0.2-1.3) mg/dL AST 17 (17-59) U/L ALT 31 (21-72) U/L Alkaline Phosphatase 61 (38-126) U/L Total Protein 6.6 (6.3-8.2) g/dL Albumin 4.1 (3.5-5.0) g/dL Amylase 46 (30-110) U/L Lipase 93 (23-300) U/L Urine Color Yellow Urine Appearance Clear (Clear) Urine pH 7.0 (5.0-8.0) Ur Specific [place] 1.005 (1.001-1.035) Urine Protein Negative (Negative) Urine Glucose (UA) Negative (Negative) Urine Ketones Negative (Negative) Urine Blood Negative (Negative) Urine Nitrite Negative (Negative) Urine Bilirubin Negative (Negative) Urine Urobilinogen <2.0 (<2.0) mg/dL Ur Leukocyte Esterase Negative (Negative) - Radiology Data Radiology results: report reviewed CT abdomen and pelvis with contrast impression: Negative computed tomography scan of the abdomen and pelvis. No change compared to old exam. No evidence of constipation. Disposition Clinical Impression: Abdominal pain Disposition: HOME SELF-CARE Condition: Good Instructions: Abdominal Pain (ED) Additional Instructions: Please follow up with primary care provider within 1-2 days. Return to emergency department if symptoms should worsen or any concerns arise. Referrals: Neal Rowe MD [Primary Care Provider] - 1-2 days Time of Disposition: 21:03
--- NOTE | 2017-12-05 19:32 | XR ---
EXAMINATION TYPE: XR KUB DATE OF EXAM: 12/05/2017 COMPARISON: 10/29/2017 HISTORY: Nausea and bloating TECHNIQUE: 2 views FINDINGS: There is no sign of intestinal obstruction or pneumoperitoneum. Fecal pattern is normal. Mariaa ng bases are clear. There are no pathologic calcifications over the kidneys. IMPRESSION: Nonacute abdomen. No change.
[2017-12-05 19:36] LABS: Basophils # (A) 0.1 k/uL (0-0.2); Basophils % (A) 1 %; Eosinophils # (A) 0.1 k/uL (0-0.7); Eosinophils % (A) 1 %; HCT 49.2 % (39.0-53.0); HGB 17.3 gm/dL (13.0-17.5); Lymphocytes # (A) 2.8 k/uL (1.0-4.8); Lymphocytes % (A) 27 %; MCH 30.3 pg (25.0-35.0); MCHC 35.1 g/dL (31.0-37.0); MCV 86.3 fL (80.0-100.0); Mean Platelet Volume 7.3; Monocytes # (A) 0.5 k/uL (0-1.0); Monocytes % (A) 5 %; Neutrophils # (A) 6.6 k/uL (1.3-7.7); Neutrophils % (A) 64 %; Platelet Count 226 k/uL (150-450); RDW 13.1 % (11.5-15.5); WBC 10.3 k/uL (3.8-10.6)
[2017-12-05 19:49] LABS: Appearance,Urine Clear (Clear); Bilirubin,Urine Negative (Negative); Blood,Urine Negative (Negative); Color,Urine Yellow; Glucose,Urine (UA) Negative (Negative); Ketones,Urine Negative (Negative); Leukocyte Esterase,Urine Negative (Negative); Nitrite,Urine Negative (Negative); Protein,Urine Negative (Negative); Specific Gravity,Urine 1.005 (1.001-1.035); Urobilinogen,Urine <2.0 mg/dL (<2.0)
[2017-12-05 19:58] LABS: ALT 31 U/L (21-72); AST 17 U/L (17-59); Albumin 4.1 g/dL (3.5-5.0); Alkaline Phosphatase 61 U/L (38-126); Amylase 46 U/L (30-110); Anion Gap 13 mmol/L; Blood Urea Nitrogen 9 mg/dL (9-20); Calcium 9.6 mg/dL (8.4-10.2); Carbon Dioxide 27 mmol/L (22-30); Chloride 101 mmol/L (98-107); Glucose 88 mg/dL (74-99); Lipase 93 U/L (23-300); Sodium 141 mmol/L (137-145); Total Bilirubin 1.2 mg/dL (0.2-1.3); Total Protein 6.6 g/dL (6.3-8.2)
[2017-12-05] MEDS ORDERED: POTASSIUM CHLORIDE ER 20 MEQ TAB.ER PO STA ×2 (20:06)
[2017-12-05] MEDS ORDERED: RX INFO: IV CONTRAST WAS GIVEN 1 EACH MISC MISCELLANE PRN (20:11)
--- NOTE | 2017-12-05 20:50 | CT ---
EXAMINATION TYPE: CT abdomen pelvis w con DATE OF EXAM: 12/05/2017 COMPARISON: 02/09/2017 HISTORY: Patient complains of LLQ pain and constipation. CT DLP: 1262.3 mGycm Automated exposure control for dose reduction was used. TECHNIQUE: Helical acquisition of images was performed from the lung bases through the pelvis. CONTRAST: Performed without Oral Contrast and with IV Contrast, patient injected with 100 mL of Omnipaque 300. FINDINGS: Lung bases are clear of consolidation. There is no pleural effusion. Heart size is normal. There is n o pericardial effusion. Liver spleen pancreas gallbladder appear normal. Bile ducts are not dilated. There is no adrenal mass. Kidneys show satisfactory contrast opacification. There is no hydronephrosi s. There is no retroperitoneal adenopathy. There is no ascites. Bladder distends smoothly. I see no i ntestinal wall thickening. There are no dilated loops. Appendix appears normal. There is no sign of f ree air. Bony structures are intact. There is spondylosis in the lumbar spine. IMPRESSION: NEGATIVE CT SCAN OF THE ABDOMEN AND PELVIS. NO CHANGE COMPARED TO OLD EXAM. NO EVIDENCE OF CONSTIPATI ON.
[2017-12-05 21:14] VITALS: BP 139/79; PULSE 88; RESP 16; TEMP 98
== END 2017-12-05 21:14 | disposition home or self-care (01) ==
LOC: EC 18:09
DX: R10.32 Left lower quadrant pain (principal); I10 Essential (primary) hypertension; F17.200 Nicotine dependence, unspecified, uncomplicated; Z87.19 Personal history of other diseases of the digestive system; Z98.890 Other specified postprocedural states; Z91.010 Allergy to peanuts; Z88.1 Allergy status to other antibiotic agents; Z88.2 Allergy status to sulfonamides; Z91.018 Allergy to other foods; Z79.899 Other long term (current) drug therapy
CPT/HCPCS: 99284; 96360; 96361; 36415; 80053; 82150; 83690; 85025; 81003; 87086; 74018; 74177; Q9967

== ENCOUNTER 2017-12-09 20:57 | Emergency (ER) | payer OTHER ==
[2017-12-09 21:08] VITALS: RESP 18
[2017-12-09 21:50] LABS: Basophils # (A) 0.1 k/uL (0-0.2); Basophils % (A) 0 %; Eosinophils # (A) 0.1 k/uL (0-0.7); Eosinophils % (A) 1 %; HCT 49.7 % (39.0-53.0); HGB 17.3 gm/dL (13.0-17.5); Lymphocytes % (A) 28 %; MCH 30.6 pg (25.0-35.0); MCHC 34.8 g/dL (31.0-37.0); Mean Platelet Volume 7.6; Monocytes # (A) 0.6 k/uL (0-1.0); Monocytes % (A) 6 %; Neutrophils # (A) 6.6 k/uL (1.3-7.7); Neutrophils % (A) 62 %; Platelet Count 214 k/uL (150-450); RBC 5.64 m/uL (4.30-5.90); RDW 13.3 % (11.5-15.5); WBC 10.7 k/uL (3.8-10.6)
--- NOTE | 2017-12-09 21:50 | ED ---
General Adult HPI - General Chief complaint: Abdominal Pain Stated complaint: abd pain Time Seen by Provider: 12/09/17 21:13 Source: patient, EMS Mode of arrival: EMS Limitations: no limitations - History of Present Illness Initial comments: This patient is a 57-year-old man who presents to be evaluated for a number symptoms that started this evening after he had eaten dinner. Patient states that he stood up and noticed that it felt like he was a little bit lightheaded and his heart was pounding. His ears were also ringing. He states that he felt a little bit faint so he sat back down, and he rechecked his blood pressure. His machine stated that his blood pressure was about 150/100, and he states that it found a heart rate of between 125 and 130. Patient states that when the symptoms persisted for while he felt he should be seen here. On the review of systems, the patient relates that he has been having chronic intermittent abdominal pains. He states that they will start in the left lower quadrant, and then spread up to the left upper quadrant and then across to the epigastric and symptoms of right upper quadrant area. He describes them as sharp crampy feelings like he has having gas. He states that it sometimes relieved if he belches. He states that he was having the symptoms a year ago, and then he had endoscopy with Dr. Wilkins. He states that he had some polyps removed and the symptoms resolved for probably 6 months, having recurred to months ago. Onset/Timin -: hour(s) - Related Data Home Medications Medication Instructions Recorded Confirmed HYDROcodone/APAP 10-325MG [[place] 1 tab PO TID PRN 12/21/16 12/09/17 10-325] Potassium 99 mg PO DAILY 12/09/17 12/09/17 Previous Rx's Medication Instructions Recorded Atenolol [Tenormin] 50 mg PO DAILY #15 tab 12/09/17 Dicyclomine [Bentyl] 20 mg PO QID #15 tablet 12/09/17 Allergies Allergy/AdvReac Type Severity Reaction Status Date / Time peanut Allergy Severe Anaphylaxis Verified 12/09/17 21:18 Quinolones Allergy Itching Verified 12/09/17 21:18 ciprofloxacin [From Cipro] AdvReac Rash/Hives Verified 12/09/17 21:18 sulfamethoxazole AdvReac Rapid Verified 12/09/17 21:18 [From Bactrim] Heart Rate trimethoprim [From Bactrim] AdvReac Rapid Verified 12/09/17 21:18 Heart Rate BRAZIL NUTS Allergy Anaphylaxis Uncoded 12/09/17 21:08 Review of Systems ROS Statement: Those systems with pertinent positive or pertinent negative responses have been documented in the HPI. ROS Other: All systems not noted in ROS Statement are negative. Constitutional: Denies: fever, chills Eyes: Denies: vision change ENT: Reports: other (Tinnitus). Denies: ear pain Respiratory: Denies: cough, dyspnea Cardiovascular: Reports: palpitations. Denies: chest pain, orthopnea, edema, syncope Gastrointestinal: Reports: abdominal pain (Patient reports having somewhat chronic intermittent abdominal pains in the left upper and left lower quadrants , there sharp crampy.). Denies: nausea, vomiting, diarrhea, melena, hematochezia Genitourinary: Denies: dysuria, hematuria Musculoskeletal: Denies: back pain Skin: Denies: rash Neurological: Denies: headache, weakness, numbness, paresthesias Past Medical History Past Medical History: Chest Pain / Angina, COPD, GERD/Reflux, Hypertension, Osteoarthritis (OA), Prostate Disorder, Thyroid Disorder Additional Past Medical History / Comment(s): Chronic back pain, diverticulitis , enlarged prostate, potassium deficiency, bilateral leg cramps, vitamin D deficiency, arthiritis bilateral feet/heels and lower back. thyroid lumps History of Any Multi-Drug Resistant Organisms: None Reported Past Surgical History: Heart Catheterization Additional Past Surgical History / Comment(s): 2011 heart cath which was clear- done by Dr. VC Topete, colonoscopy, left knee drained 12/16/2016 and 12/20/2016 Past Anesthesia/Blood Transfusion Reactions: Previous Problems w/ Anesthesia Additional Past Anesthesia/Blood Transfusion Reaction / Comment(s): Pt states it took him a long time to wake up which he attributes to going into his procedures very tired. Past Psychological History: No Psychological Hx Reported Smoking Status: Current every day smoker Past Alcohol Use History: None Reported Past Drug Use History: None Reported - Past Family History Father Additional Family Medical History / Comment(s): Father of cirrhosis at age 62 yrs. Mother Additional Family Medical History / Comment(s): Mother of neck fracture at age 76yrs. Sister(s) Additional Family Medical History / Comment(s): Sister after a "leg operation" she developed a leg infection and family was told she of a lung problem. General Exam Limitations: no limitations General appearance: alert, in no apparent distress Head exam: Present: atraumatic, normocephalic Eye exam: Present: normal appearance. Absent: scleral icterus, conjunctival injection ENT exam: Present: normal oropharynx Neck exam: Present: normal inspection, full ROM Respiratory exam: Present: normal lung sounds bilaterally. Absent: respiratory distress, wheezes, rales, rhonchi, stridor Cardiovascular Exam: Present: regular rate, normal rhythm, normal heart sounds. Absent: systolic murmur, diastolic murmur, rubs, gallop GI/Abdominal exam: Present: soft. Absent: distended, tenderness, guarding, rebound Extremities exam: Present: normal inspection, normal capillary refill. Absent: pedal edema, calf tenderness Back exam: Present: normal inspection. Absent: CVA tenderness (R), CVA tenderness (L) Neurological exam: Present: alert Skin exam: Present: warm, dry, intact, normal color. Absent: rash Course Vital Signs 12/09/17 12/09/17 12/09/17 21:05 21:43 22:29 Temperature 98.7 F Pulse Rate 102 H 95 92 Respiratory 18 18 18 Rate Blood Pressure 133/73 115/78 O2 Sat by Pulse 99 95 97 Oximetry 12/09/17 22:39 Temperature 98.4 F Pulse Rate 97 Respiratory 18 Rate Blood Pressure 109/56 O2 Sat by Pulse 97 Oximetry EKG Findings - EKG Results: EKG: interpreted by ERMD, sinus rhythm, normal axis, normal QRS, normal ST/T EKG shows: tachycardia (Rate 101 bpm) - ID, Pacemaker, Normal: Myocardial infarction: inferior ID (old age indeterminate) (There is Q wave in lead 3 and aVF suggestive of possible old inferior infarct.) Medical Decision Making - Medical Decision Making The patient has remained asymptomatic through the course in emergency department. I did offer admission for overnight monitoring, given that his heart rate was elevated at home, but the patient is declining. He does understand he needs to return immediately should he experience any recurrence of symptoms. He is otherwise going to follow up with his physician to see about changing his antihypertensives and to have a possible Holter monitoring. The patient did abruptly stop his atenolol/hydrochlorothiazide 2 days ago, and this may perhaps be related to the elevated blood pressure and heart rate, so I did provide prescription for half dose of his atenolol for the next few days to wean him from this medication while he sees his physician about new antihypertensive. - Lab Data Result diagrams: 12/09/17 21:03 12/09/17 21:03 Lab Results 12/09/17 12/09/17 12/09/17 Range/Units 21:03 21:03 21:03 WBC 10.7 H (3.8-10.6) k/uL RBC 5.64 (4.30-5.90) m/uL Hgb 17.3 (13.0-17.5) gm/dL Hct 49.7 (39.0-53.0) % MCV 88.0 (80.0-100.0) fL MCH 30.6 (25.0-35.0) pg MCHC 34.8 (31.0-37.0) g/dL RDW 13.3 (11.5-15.5) % Plt Count 214 (150-450) k/uL Neutrophils % 62 % Lymphocytes % 28 % Monocytes % 6 % Eosinophils % 1 % Basophils % 0 % Neutrophils # 6.6 (1.3-7.7) k/uL Lymphocytes # 3.0 (1.0-4.8) k/uL Monocytes # 0.6 (0-1.0) k/uL Eosinophils # 0.1 (0-0.7) k/uL Basophils # 0.1 (0-0.2) k/uL Sodium 143 (137-145) mmol/L Potassium 3.5 (3.5-5.1) mmol/L Chloride 106 (98-107) mmol/L Carbon Dioxide 26 (22-30) mmol/L Anion Gap 11 mmol/L BUN 8 L (9-20) mg/dL Creatinine 0.90 (0.66-1.25) mg/dL Est GFR (MDRD) Af Amer >60 (>60 ml/min/1.73 sqM) Est GFR (MDRD) Non-Af >60 (>60 ml/min/1.73 sqM) Glucose 126 H (74-99) mg/dL Calcium 9.7 (8.4-10.2) mg/dL Total Bilirubin 1.1 (0.2-1.3) mg/dL AST 20 (17-59) U/L ALT 19 L (21-72) U/L Alkaline Phosphatase 52 (38-126) U/L Troponin I 0.019 (0.000-0.034) ng/mL Total Protein 6.8 (6.3-8.2) g/dL Albumin 4.1 (3.5-5.0) g/dL Amylase 70 (30-110) U/L Lipase 280 (23-300) U/L Urine Color Urine Appearance (Clear) Urine pH (5.0-8.0) Ur Specific [place] (1.001-1.035) Urine Protein (Negative) Urine Glucose (UA) (Negative) Urine Ketones (Negative) Urine Blood (Negative) Urine Nitrite (Negative) Urine Bilirubin (Negative) Urine Urobilinogen (<2.0) mg/dL Ur Leukocyte Esterase (Negative) 12/09/17 Range/Units 22:30 WBC (3.8-10.6) k/uL RBC (4.30-5.90) m/uL Hgb (13.0-17.5) gm/dL Hct (39.0-53.0) % MCV (80.0-100.0) fL MCH (25.0-35.0) pg MCHC (31.0-37.0) g/dL RDW (11.5-15.5) % Plt Count (150-450) k/uL Neutrophils % % Lymphocytes % % Monocytes % % Eosinophils % % Basophils % % Neutrophils # (1.3-7.7) k/uL Lymphocytes # (1.0-4.8) k/uL Monocytes # (0-1.0) k/uL Eosinophils # (0-0.7) k/uL Basophils # (0-0.2) k/uL Sodium (137-145) mmol/L Potassium (3.5-5.1) mmol/L Chloride (98-107) mmol/L Carbon Dioxide (22-30) mmol/L Anion Gap mmol/L BUN (9-20) mg/dL Creatinine (0.66-1.25) mg/dL Est GFR (MDRD) Af Amer (>60 ml/min/1.73 sqM) Est GFR (MDRD) Non-Af (>60 ml/min/1.73 sqM) Glucose (74-99) mg/dL Calcium (8.4-10.2) mg/dL Total Bilirubin (0.2-1.3) mg/dL AST (17-59) U/L ALT (21-72) U/L Alkaline Phosphatase (38-126) U/L Troponin I (0.000-0.034) ng/mL Total Protein (6.3-8.2) g/dL Albumin (3.5-5.0) g/dL Amylase (30-110) U/L Lipase (23-300) U/L Urine Color Yellow Urine Appearance Clear (Clear) Urine pH 6.5 (5.0-8.0) Ur Specific [place] 1.010 (1.001-1.035) Urine Protein Negative (Negative) Urine Glucose (UA) Negative (Negative) Urine Ketones Negative (Negative) Urine Blood Negative (Negative) Urine Nitrite Negative (Negative) Urine Bilirubin Negative (Negative) Urine Urobilinogen <2.0 (<2.0) mg/dL Ur Leukocyte Esterase Negative (Negative) Disposition Clinical Impression: Abdominal pain Disposition: HOME SELF-CARE Condition: Good Instructions: Abdominal Pain (ED) Prescriptions: Atenolol [Tenormin] 50 mg PO DAILY #15 tab Dicyclomine [Bentyl] 20 mg PO QID #15 tablet Referrals: Neal Rowe MD [Primary Care Provider] - 1-2 days
[2017-12-09 21:59] LABS: ALT 19 U/L (21-72); AST 20 U/L (17-59); Albumin 4.1 g/dL (3.5-5.0); Alkaline Phosphatase 52 U/L (38-126); Amylase 70 U/L (30-110); Anion Gap 11 mmol/L; Blood Urea Nitrogen 8 mg/dL (9-20); Calcium 9.7 mg/dL (8.4-10.2); Carbon Dioxide 26 mmol/L (22-30); Chloride 106 mmol/L (98-107); Glucose 126 mg/dL (74-99); Lipase 280 U/L (23-300); Potassium 3.5 mmol/L (3.5-5.1); Sodium 143 mmol/L (137-145); Total Bilirubin 1.1 mg/dL (0.2-1.3); Total Protein 6.8 g/dL (6.3-8.2)
[2017-12-09 22:40] VITALS: BP 109/56; PULSE 97; TEMP 98.4
[2017-12-09 22:43] LABS: Appearance,Urine Clear (Clear); Bilirubin,Urine Negative (Negative); Blood,Urine Negative (Negative); Color,Urine Yellow; Glucose,Urine (UA) Negative (Negative); Ketones,Urine Negative (Negative); Leukocyte Esterase,Urine Negative (Negative); Nitrite,Urine Negative (Negative); PH, Urine 6.5 (5.0-8.0); Protein,Urine Negative (Negative); Urobilinogen,Urine <2.0 mg/dL (<2.0)
== END 2017-12-09 23:36 | disposition home or self-care (01) ==
LOC: EC 20:57
DX: R10.32 Left lower quadrant pain (principal); R10.12 Left upper quadrant pain; R10.11 Right upper quadrant pain; I10 Essential (primary) hypertension; F17.200 Nicotine dependence, unspecified, uncomplicated; Z98.890 Other specified postprocedural states; Z87.19 Personal history of other diseases of the digestive system; Z88.2 Allergy status to sulfonamides; Z91.018 Allergy to other foods; Z88.1 Allergy status to other antibiotic agents; Z91.010 Allergy to peanuts; Z79.899 Other long term (current) drug therapy
CPT/HCPCS: 36415; 80053; 81003; 82150; 83690; 84484; 85025; 93005; 99284

== ENCOUNTER → 2017-12-27 | Outpatient (CLI) | payer SELFPAY ==
[2017-12-27 16:59] LABS: ALT 27 U/L (21-72); AST 14 U/L (17-59); Albumin 4.2 g/dL (3.5-5.0); Alkaline Phosphatase 72 U/L (38-126); Anion Gap 11 mmol/L; Blood Urea Nitrogen 9 mg/dL (9-20); Calcium 9.9 mg/dL (8.4-10.2); Carbon Dioxide 29 mmol/L (22-30); Chloride 103 mmol/L (98-107); Glucose 86 mg/dL (74-99); Potassium 4.6 mmol/L (3.5-5.1); Sodium 143 mmol/L (137-145); Total Protein 6.9 g/dL (6.3-8.2)
== END | disposition home or self-care (01) ==
LOC: LABWHC1 16:17
PROVIDERS: ATTEND Family Medicine
DX: I10 Essential (primary) hypertension (principal)
CPT/HCPCS: 36415; 80053

== ENCOUNTER 2018-07-22 22:19 | Observation (INO) | payer OTHER ==
[2018-07-22 22:50] LABS: Basophils % (A) 0 %; Eosinophils # (A) 0.3 k/uL (0-0.7); Eosinophils % (A) 2 %; HCT 52.5 % (39.0-53.0); HGB 17.3 gm/dL (13.0-17.5); Lymphocytes # (A) 3.1 k/uL (1.0-4.8); Lymphocytes % (A) 25 %; MCHC 32.9 g/dL (31.0-37.0); Mean Platelet Volume 7.3; Monocytes # (A) 0.6 k/uL (0-1.0); Monocytes % (A) 5 %; Neutrophils # (A) 7.9 k/uL (1.3-7.7); Neutrophils % (A) 65 %; Platelet Count 215 k/uL (150-450); RBC 5.96 m/uL (4.30-5.90); RDW 13.8 % (11.5-15.5); WBC 12.3 k/uL (3.8-10.6)
--- NOTE | 2018-07-22 22:52 | XR ---
EXAMINATION TYPE: XR chest 2V DATE OF EXAM: 07/22/2018 COMPARISON: 10/29/2017 HISTORY: Chest pain TECHNIQUE: Frontal and lateral views of the chest are obtained. FINDINGS: Heart and mediastinum are normal. Lungs are clear. Diaphragm is normal. Bony thorax appear s normal. There are chest leads. IMPRESSION: Normal chest. No change.
[2018-07-22 22:57] LABS: Albumin 4.3 g/dL (3.5-5.0); Anion Gap 10 mmol/L; Calcium 9.6 mg/dL (8.4-10.2); Carbon Dioxide 24 mmol/L (22-30); Chloride 108 mmol/L (98-107); Glucose 94 mg/dL (74-99); Lipase 219 U/L (23-300); Sodium 142 mmol/L (137-145); Total Bilirubin 0.7 mg/dL (0.2-1.3); Total Protein 7.2 g/dL (6.3-8.2)
[2018-07-22 23:01] LABS: Creatine Kinase 42 U/L (55-170)
[2018-07-22 23:02] LABS: ALT 36 U/L (21-72); AST 28 U/L (17-59); Alkaline Phosphatase 71 U/L (38-126); Blood Urea Nitrogen 18 mg/dL (9-20); Magnesium 1.9 mg/dL (1.6-2.3); Potassium 4.2 mmol/L (3.5-5.1)
[2018-07-22 23:05] LABS: Partial Thromboplastin Time 26.8 sec (22.0-30.0); Prothrombin Time 9.8 sec (9.0-12.0)
[2018-07-22 23:14] LABS: Troponin I <0.012 ng/mL (0.000-0.034)
[2018-07-22] MEDS ORDERED: MORPHINE SULFATE 4 MG/ML SYRINGE IVP STA (23:16)
[2018-07-22] MEDS ORDERED: ONDANSETRON 4 MG/2 ML VIAL IVP STA (23:16)
[2018-07-22] MEDS ORDERED: LABETALOL 5 MG/ML VIAL MDV IVP STA (23:16)
--- NOTE | 2018-07-22 23:16 | ED ---
Chest Pain HPI - General Chief Complaint: Chest Pain Stated Complaint: chest pain Time Seen by Provider: 07/22/18 22:27 Source: patient, family, RN notes reviewed, old records reviewed Mode of arrival: ambulatory Limitations: no limitations - History of Present Illness Initial Comments: This is a 58-year-old male to the ER for evasive chest pain patient is anterior chest pain radiating to his back. 4 days of pain is been episodic but worsened tonight consistent and persistent tonight. Patient also has a history of high blood pressure high cholesterol COPD. A she also admits to nausea with episode. - Related Data Home Medications Medication Instructions Recorded Confirmed HYDROcodone/APAP 10-325MG [[place] 1 tab PO TID PRN 12/21/16 07/22/18 10-325] Aspirin [Adult Low Dose Aspirin EC] 81 mg PO DAILY 07/22/18 07/22/18 Atenolol [Tenormin] 50 mg PO BID 07/22/18 07/22/18 Dicyclomine [Bentyl] 20 mg PO QID 07/22/18 07/22/18 Allergies Allergy/AdvReac Type Severity Reaction Status Date / Time peanut Allergy Severe Anaphylaxis Verified 07/22/18 22:58 Quinolones Allergy Itching Verified 07/22/18 22:58 ciprofloxacin [From Cipro] AdvReac Rash/Hives Verified 07/22/18 22:58 sulfamethoxazole AdvReac Rapid Verified 07/22/18 22:58 [From Bactrim] Heart Rate trimethoprim [From Bactrim] AdvReac Rapid Verified 07/22/18 22:58 Heart Rate BRAZIL NUTS Allergy Anaphylaxis Uncoded 07/22/18 22:25 Review of Systems ROS Statement: Those systems with pertinent positive or pertinent negative responses have been documented in the HPI. ROS Other: All systems not noted in ROS Statement are negative. EKG Findings - EKG Comments: EKG Findings:: EKG shows sinus rhythm rate of 70, NM 1:30, QRS 90, QTC 419 Past Medical History Past Medical History: Chest Pain / Angina, COPD, GERD/Reflux, Hypertension, Osteoarthritis (OA), Prostate Disorder, Thyroid Disorder Additional Past Medical History / Comment(s): Chronic back pain, diverticulitis , enlarged prostate, potassium deficiency, bilateral leg cramps, vitamin D deficiency, arthiritis bilateral feet/heels and lower back. thyroid lumps History of Any Multi-Drug Resistant Organisms: None Reported Past Surgical History: Heart Catheterization Additional Past Surgical History / Comment(s): 2012 heart cath which was clear- done by Dr. VC Topete, colonoscopy, left knee drained 12/16/2016 and 12/20/2016 Past Anesthesia/Blood Transfusion Reactions: Previous Problems w/ Anesthesia Additional Past Anesthesia/Blood Transfusion Reaction / Comment(s): Pt states it took him a long time to wake up which he attributes to going into his procedures very tired. Past Psychological History: No Psychological Hx Reported Smoking Status: Current every day smoker Past Alcohol Use History: None Reported Past Drug Use History: None Reported - Past Family History Father Additional Family Medical History / Comment(s): Father of cirrhosis at age 62 yrs. Mother Additional Family Medical History / Comment(s): Mother of neck fracture at age 76yrs. Sister(s) Additional Family Medical History / Comment(s): Sister after a "leg operation" she developed a leg infection and family was told she of a lung problem. General Exam Limitations: no limitations General appearance: alert, in no apparent distress Head exam: Present: atraumatic, normocephalic, normal inspection Eye exam: Present: normal appearance, PERRL, EOMI. Absent: scleral icterus, conjunctival injection, periorbital swelling ENT exam: Present: normal exam, mucous membranes moist Neck exam: Present: normal inspection. Absent: tenderness, meningismus, lymphadenopathy Respiratory exam: Present: normal lung sounds bilaterally. Absent: respiratory distress, wheezes, rales, rhonchi, stridor Cardiovascular Exam: Present: regular rate, normal rhythm, normal heart sounds. Absent: systolic murmur, diastolic murmur, rubs, gallop, clicks GI/Abdominal exam: Present: soft, normal bowel sounds. Absent: distended, tenderness, guarding, rebound, rigid Extremities exam: Present: normal inspection, full ROM, normal capillary refill. Absent: tenderness, pedal edema, joint swelling, calf tenderness Back exam: Present: normal inspection Neurological exam: Present: alert, oriented X3, CN II-XII intact Psychiatric exam: Present: normal affect, normal mood Skin exam: Present: warm, dry, intact, normal color. 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 Patient has a negative CT scan, will keep for ACS, and admit for cardiology evaluation Critical Care Time Critical Care Time: Yes Total Critical Care Time: 31 Disposition Clinical Impression: Unstable angina, Chest pain Disposition: ADMITTED IP TO THIS HOSP Condition: Fair Instructions: Chest Pain (ED) Is patient prescribed a controlled substance at d/c from ED?: No Referrals: Neal Rowe MD [Primary Care Provider] - 1-2 days
[2018-07-22] MEDS ORDERED: SODIUM CHLORIDE 0.9% 1,000 ML IV STA ×2 (23:17)
--- NOTE | 2018-07-23 00:01 | CT ---
EXAMINATION TYPE: CT angio chest DATE OF EXAM: 07/22/2018 11:41 PM COMPARISON: None HISTORY: pain CT DLP: 525.50 mGycm Automated exposure control for dose reduction was used. CONTRAST: CTA scan of the thorax is performed with IV Contrast, patient injected with 100 mL of Isovue 370, pul monary embolism protocol. There are 3-D post processed images.. FINDINGS: The lungs are clear of infiltrate. There is no pleural effusion. There are small linear density at th e left posterior lung base. There is no pneumothorax. Thoracic aorta appears normal. There is no evidence of aneurysm or dissection. There is no mediastina l adenopathy. There are no hilar masses. There is normal contrast opacification of the pulmonary bigg jerry. I see no filling defect. The bony thorax is intact. IMPRESSION: NO EVIDENCE OF PULMONARY EMBOLISM. NEGATIVE EXAM.
--- NOTE | 2018-07-23 00:08 | CT ---
EXAMINATION TYPE: CT abdomen pelvis w con DATE OF EXAM: 07/22/2018 COMPARISON: 12/05/2017 HISTORY: pain CT DLP: 1555.60 mGycm Automated exposure control for dose reduction was used. TECHNIQUE: Helical acquisition of images was performed from the lung bases through the pelvis. CONTRAST: Performed without Oral Contrast and with IV Contrast, patient injected with 100 mL of Isovue 370. FINDINGS: Lung bases are clear of consolidation. There is no pleural effusion. Liver spleen pancreas gallbladde r appear normal. Bile ducts are not dilated. Stomach appears normal. There is no adrenal mass. Kidneys show satisfactory contrast opacification. There is no hydronephrosi s. There is no retroperitoneal adenopathy. There is no ascites. There is no mesenteric adenopathy or edema. Appendix appears normal. There is no inguinal adenopathy or hernia. Bladder distends smoothly. There is no evidence of pelvic mass. I see no intestinal wall thickening. There are no dilated loops. There is no ascites. There is no sign of free air. There is narrowing of L5-S1 disc space. I see no bony d estructive process. Bony pelvis appears intact. Abdominal soft tissues are unremarkable. IMPRESSION: NEGATIVE CT SCAN ABDOMEN AND PELVIS. NO ADVERSE CHANGE COMPARED TO OLD EXAM.
[2018-07-23] MEDS ORDERED: NITROGLYCERIN SL TABS 0.4 MG TAB SUBLINGUAL PRN (02:22)
[2018-07-23 03:30] VITALS: BMI 31.7
[2018-07-23] MEDS: HYDROcodone/APAP 10-325MG 1 EACH TAB PO PRN ×2 (03:35→11:56)
[2018-07-23 03:36] VITALS: RESP 18
[2018-07-23 04:57] LABS: Creatine Kinase 36 U/L (55-170)
[2018-07-23 05:09] LABS: Creatine Kinase MB 0.8 ng/mL (0.0-2.4); Troponin I <0.012 ng/mL (0.000-0.034)
[2018-07-23] MEDS ORDERED: DOBUTamine DRIP for NUC MED 500 MG in DEXTROSE/WATER 1 250ML.BAG IV ONE (07:11)
--- NOTE | 2018-07-23 07:32 | CONS ---
CONSULTATION Mr. Frost is a 58-year-old male with no known history of coronary artery disease, history of hypertension, chronic tobacco use, who has chronic back pain, who presented with back pain radiating to the front. He has been having this pain on and off in the past. Because of the severity of the pain yesterday, he came into the emergency room and subsequently admitted. The patient has been seen by Dr. Gabino Topete and according to him has underwent cardiac catheterization 4 years ago that was unremarkable. He has underwent a stress test in December of 2016 and at that time had no evidence of stress induced ischemia. He has also complaints of abdominal discomfort that radiated up to the chest. He has dyspnea on exertion. No recent palpitation. He has some dizziness. No syncope. No PND. No orthopnea. No peripheral edema. His coronary risk factors are remarkable for hypertension, chronic tobacco use. He is nondiabetic. His lipid profile is not available to me. According to him, he has been having difficulty with controlling his blood pressure. MEDICATION: His medications at home include Tenormin 50 mg twice a day, aspirin, Bentyl, and hydrocodone. REVIEW OF SYSTEMS: RESPIRATORY SYSTEM: He had dyspnea on exertion, history of chronic obstructive lung disease. GI SYSTEM: He has abdominal pain. No nausea, no vomiting. He had polypectomy done in the past. SYSTEM: He had remote history of hematuria, not recently. NERVOUS SYSTEM: No stroke or seizure. PHYSICAL EXAMINATION: A 58-year-old male, alert, oriented, in no apparent distress. Blood pressure running in the 130s to 150s. On presentation yesterday, he was up in the 180s. Heart rate in the 60s. HEAD: Normocephalic. EYES: Sclerae anicteric. NECK: Good upstroke. No bruit. No jugular venous distention. LUNGS: Clear with decreased air exchange. No wheezes. HEART: Regular rate and rhythm. S1, S2. No S3. No rub. ABDOMEN: Soft. Mild tenderness. Positive bowel sounds. No organomegaly. EXTREMITIES: No edema. Intact distal pulses. LAB DATA: Lab data revealed troponin less than 0.012. BUN and creatinine of 18 and 0.95. Potassium 4.2. Hemoglobin of 17.3, white blood cell of 12.3. EKG revealed a sinus mechanism, normal axis and intervals, normal echocardiogram. Abdominal CT scan revealed no acute changes. CT scan of the chest revealed no evidence of pulmonary embolism. Chest x-ray revealed no acute changes. IMPRESSION: 1. Chest discomfort atypical for ischemic heart disease, probable noncardiac. His symptoms most likely represent a radiating pain from the back. 2. Chronic tobacco use. 3. Chronic back pain. 4. Abdominal pain. RECOMMENDATION: I would recommend to proceed with a dobutamine stress echocardiogram. If there is no evidence of abnormality, then no further cardiac workup will be needed. In regard to his blood pressure, I will add to his regimen losartan. Depending on his progress, further recommendation will be made. Thank you for this consult. We will follow with you. MMODL / IJN: [id number] /
[2018-07-23] MEDS ORDERED: NON-FORMULARY DRUG (Aspirin [Adult Low Dose Aspirin Ec] 81 MG) PO SCH (09:00)
[2018-07-23] MEDS ORDERED: DICYCLOMINE 20 MG TAB PO SCH (09:00)
[2018-07-23] MEDS ORDERED: ATENOLOL 50 MG TAB PO SCH (09:00)
[2018-07-23] MEDS ORDERED: LOSARTAN 50 MG TAB PO SCH (09:00)
[2018-07-23] MEDS ORDERED: ATROPINE SULFATE 0.1 MG/ML 10ML SYRINGE ONE (11:16)
[2018-07-23 11:57] VITALS: BP 134/89; PULSE 89; TEMP 97.9
[2018-07-23 12:46] LABS: Creatine Kinase 36 U/L (55-170)
[2018-07-23 13:00] LABS: Creatine Kinase MB 0.7 ng/mL (0.0-2.4); Troponin I <0.012 ng/mL (0.000-0.034)
--- NOTE | 2018-07-23 13:56 | ECHOS ---
STRESS ECHOCARDIOGRAM INDICATIONS: Chest pain. MEDICATIONS: Atenolol. BASELINE HEART RATE: 90 BASELINE BLOOD PRESSURE: 146/65 MAXIMUM HEART RATE: 142 MAXIMUM BLOOD PRESSURE: 198/63 85% MPHR: 138 100% MPHR: 164 MAXIMUM STAGE REACHED: IV TOTAL EXERCISE TIME: 12:45 CLINICAL INFORMATION: Baseline rhythm is sinus mechanism, rate of 90, normal axis and intervals. Normal echocardiogram. Baseline blood pressure 146/65 mmHg. Patient received an infusion of dobutamine per protocol. Peak rate 142 beats per minute which is equal to 86% maximum predicted heart rate. Peak blood pressure 198/63 mmHg. Electrocardiographic monitoring revealed occasional PVCs. There was no evidence of diagnostic ischemic ST deviation. FINDINGS: Baseline echocardiogram revealed normal wall thickening and motion. At peak exercise there was normal wall motion augmentation with no hypokinesis or dyskinesis. CONCLUSION: 1. Normal echocardiographic response to dobutamine infusion with occasional premature ventricular contractions. 2. Normal stress echocardiogram with no evidence of stress induced ischemia. MMODL / IJN: [id number] /
--- NOTE | 2018-07-23 15:43 | P.HPIM ---
History of Present Illness H&P Date: 07/23/18 Chief Complaint: Back pain/chest pain HISTORY AND PHYSICAL AND DISCHARGE SUMMARY: This is a 58-year-old male patient of Dr. Rowe with past medical history of COPD, hyperlipidemia, hypertension, osteoarthritis, benign prostatic hypertrophy, diverticulitis, vitamin D deficiency, thyroid nodules, active tobacco use. Patient gives history of having chest pain that actually started in his back in the center of his back and went around to the front to his ribs. It started while he was at rest watching TV. He states he felt like there was a weight or pressure on his chest that is never felt before. He apparently had all night and when he came into the emergency center he did receive morphine which seemed to help. He experiences a pain when he is on his back and when he lays on his left side feels better. He does have known chronic back pain. Patient presented with blood pressure 185/97 and otherwise vital signs of been stable. He has been afebrile. White count was 12.3. Troponins negative on 3 draws. Regarding his abdominal pain in the left lower quadrant he states he has been diagnosed with diverticulitis in the past last time he had to seek treatment was 6-7 months ago. He states this pain in the left lower quadrant is always there and he has had workup done 1-2 years ago with an upper and lower endoscopy done by Dr. Carbajal. He states they found 5-6 polyps and he was feeling better for a while after that and then the pain returned. He states he has had occasional diarrhea but none recently. He denies any black or bloody stools. CT of the abdomen and pelvis showed negative findings. Patient underwent dobutamine stress test that was negative and patient was cleared for discharge by cardiology. Patient was discharged home in stable condition. Discharge Medication List HYDROcodone/APAP 10-325MG [[place] 10-325] 1 tab PO TID PRN 12/21/16 [History] Aspirin [Adult Low Dose Aspirin EC] 81 mg PO DAILY 07/22/18 [History] Atenolol [Tenormin] 50 mg PO BID 07/22/18 [History] Dicyclomine [Bentyl] 20 mg PO QID 07/22/18 [History] Losartan [Cozaar] 50 mg PO DAILY #30 tab 07/23/18 [Rx] Review of Systems All systems: negative Constitutional: Denies anorexia, Denies chills, Denies fever, Denies lethargy, Denies malaise, Denies poor appetite, Denies weakness Eyes: denies blurred vision, denies pain Ears, nose, mouth and throat: Denies headache, Denies sore throat, Denies vertigo Cardiovascular: Reports chest pain, Denies lightheadedness, Denies shortness of breath, Denies syncope Respiratory: Denies cough, Denies cough with sputum, Denies dyspnea, Denies excessive sputum, Denies hemoptysis, Denies home oxygen, Denies wheezing Gastrointestinal: Reports abdominal pain, Denies diarrhea, Denies nausea, Denies vomiting Genitourinary: Denies dysuria Musculoskeletal: Denies myalgias Integumentary: Denies pruritus, Denies rash Neurological: Denies numbness, Denies weakness Psychiatric: Denies anxiety, Denies depression Endocrine: Denies fatigue, Denies weight change Past Medical History Past Medical History: Chest Pain / Angina, COPD, GERD/Reflux, Hyperlipidemia, Hypertension, Osteoarthritis (OA), Prostate Disorder, Thyroid Disorder Additional Past Medical History / Comment(s): high chol - supposed to take cholestrol med but doesnt, Chronic back pain, diverticulitis, enlarged prostate , potassium deficiency, bilateral leg cramps, vitamin D deficiency, arthiritis bilateral feet/heels and lower back. thyroid lumps, pilonidal cyst History of Any Multi-Drug Resistant Organisms: None Reported Past Surgical History: Heart Catheterization Additional Past Surgical History / Comment(s): 2011 heart cath which was clear- done by Dr. VC Topete, colonoscopy, left knee drained 12/16/2016 and 12/20/2016 Past Anesthesia/Blood Transfusion Reactions: Previous Problems w/ Anesthesia Additional Past Anesthesia/Blood Transfusion Reaction / Comment(s): Pt states it took him a long time to wake up which he attributes to going into his procedures very tired. Past Psychological History: No Psychological Hx Reported Additional Psychological History / Comment(s): Pt lives with 2 daughters and grandchildren in his home. Pt is independent and very active. He drives a car Smoking Status: Current every day smoker Past Alcohol Use History: None Reported Additional Past Alcohol Use History / Comment(s): Patient is a smoker of 2 packs per day for 40 years. He denies any alcohol abuse at this time. No illicit drug use. Patient does not use walker or cane for ambulation. He does not have oxygen, nebulizers CPAP at home. Past Drug Use History: None Reported Additional Drug Use History / Comment(s): . - Past Family History Father Additional Family Medical History / Comment(s): Father of cirrhosis at age 62 yrs. No coronary artery disease history. Mother Additional Family Medical History / Comment(s): Mother of neck fracture at age 76yrs from an accident. She also had history of atrial fibrillation. Sister(s) Additional Family Medical History / Comment(s): Sister after a "leg operation" she developed a leg infection and family was told she of a lung problem. His sister had history of stroke as well. Patient has a second sister that is alive with COPD. Patient has children with no major medical problems. Medications and Allergies Home Medications Medication Instructions Recorded Confirmed Type HYDROcodone/APAP 10-325MG [[place] 1 tab PO TID PRN 12/21/16 07/22/18 History 10-325] Aspirin [Adult Low Dose Aspirin EC] 81 mg PO DAILY 07/22/18 07/22/18 History Atenolol [Tenormin] 50 mg PO BID 07/22/18 07/22/18 History Dicyclomine [Bentyl] 20 mg PO QID 07/22/18 07/22/18 History Losartan [Cozaar] 50 mg PO DAILY #30 tab 07/23/18 Rx Allergies Allergy/AdvReac Type Severity Reaction Status Date / Time peanut Allergy Severe Anaphylaxis Verified 07/22/18 22:58 Quinolones Allergy Itching Verified 07/22/18 22:58 ciprofloxacin [From Cipro] AdvReac Rash/Hives Verified 07/22/18 22:58 sulfamethoxazole AdvReac Rapid Verified 07/22/18 22:58 [From Bactrim] Heart Rate trimethoprim [From Bactrim] AdvReac Rapid Verified 07/22/18 22:58 Heart Rate BRAZIL NUTS Allergy Anaphylaxis Uncoded 07/22/18 22:25 Physical Exam Vitals: Vital Signs Temp Pulse Pulse Pulse Resp BP BP 07/23/18 11:56 97.9 F 89 18 07/23/18 08:45 69 07/23/18 07:20 98.3 F 63 18 121/75 07/23/18 03:50 18 07/23/18 03:33 97.6 F 69 18 07/23/18 02:41 74 17 130/78 07/23/18 00:50 97.9 F 81 18 134/73 07/22/18 23:38 18 158/74 07/22/18 23:12 67 17 164/76 07/22/18 22:54 70 07/22/18 22:22 98.4 F 72 20 185/97 BP Pulse Ox 07/23/18 11:56 134/89 96 07/23/18 08:45 07/23/18 07:20 98 07/23/18 03:50 07/23/18 03:33 158/83 99 07/23/18 02:41 100 07/23/18 00:50 99 07/22/18 23:38 99 07/22/18 23:12 97 07/22/18 22:54 07/22/18 22:22 99 Intake and Output 07/22/18 07/23/18 07/23/18 22:59 06:59 14:59 Other: Voiding Method Toilet Toilet # Voids 2 Weight 100.38 kg 100.38 kg Gen: This is a 58 year old obese male. He is on a stretcher and appears to be comfortable and in no acute distress. HEENT: Head is atraumatic, normocephalic. Pupils equal, round. Sclerae is anicteric. NECK: Supple. No JVD. No lymphadenopathy. No thyromegaly. LUNGS: Clear to auscultation. No wheezes or rhonchi. No intercostal retractions. HEART: Regular rate and rhythm. No murmur. ABDOMEN: Soft. Bowel sounds are present. No masses. No tenderness. EXTREMITIES: No pedal edema. No calf tenderness. NEUROLOGICAL: Patient is awake, alert and oriented x3. Cranial nerves 2 through 12 are grossly intact. Results CBC & Chem 7: 07/22/18 22:35 07/22/18 22:35 Labs: Abnormal Lab Results - Last 24 Hours (Table) 07/22/18 07/22/18 07/22/18 Range/Units 22:35 22:35 22:35 WBC 12.3 H (3.8-10.6) k/uL RBC 5.96 H (4.30-5.90) m/uL Neutrophils # 7.9 H (1.3-7.7) k/uL Chloride 108 H (98-107) mmol/L Total Creatine Kinase 42 L (55-170) U/L 07/23/18 07/23/18 Range/Units 04:19 11:50 WBC (3.8-10.6) k/uL RBC (4.30-5.90) m/uL Neutrophils # (1.3-7.7) k/uL Chloride (98-107) mmol/L Total Creatine Kinase 36 L 36 L (55-170) U/L Thrombosis Risk Factor Assmnt - Choose All That Apply Each Factor Represents 1 point: Abnormal pulmonary function (COPD), Obesity ( BMI >25) Thrombosis Risk Factor Assessment Total Risk Factor Score: 2 Thrombosis Risk Factor Assessment Level: Low Risk Assessment and Plan Plan: 1. Chest pain. Acute coronary syndrome ruled out. 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 2. Chronic left lower quadrant pain. Patient instructed to follow-up with Dr. Carbajal and may require repeat colonoscopy. 3. Chronic tobacco use. Smoking cessation. 4. Hypertension uncontrolled. Losartan added to his medication regime. Continue atenolol Patient placed on the observation unit. Discharge plan: Return home Impression and plan of care have been directed as dictated by the signing physician. Ade Cortez nurse practitioner acting as scribe for signing physician.
[2018-07-24] MEDS ORDERED: ASPIRIN 325 MG TAB PO SCH (09:00)
[2018-07-24] MEDS ORDERED: ASPIRIN 81 MG PO SCH (09:00)
== END 2018-07-23 16:05 | disposition home or self-care (01) ==
LOC: EC 22:19 → 3OBS 07-23 02:22
PROVIDERS: ADMIT Internal Medicine Geriatric Medicine; ATTEND Internal Medicine Geriatric Medicine
DX: R07.89 Other chest pain (principal); R10.32 Left lower quadrant pain; I10 Essential (primary) hypertension; E66.9 Obesity, unspecified; Z68.31 Body mass index [BMI] 31.0-31.9, adult; J44.9 Chronic obstructive pulmonary disease, unspecified; R42 Dizziness and giddiness; R11.0 Nausea; K57.92 Diverticulitis of intestine, part unspecified, without perforation or abscess without bleeding; F17.210 Nicotine dependence, cigarettes, uncomplicated; G89.29 Other chronic pain; M54.9 Dorsalgia, unspecified; M19.072 Primary osteoarthritis, left ankle and foot; M19.071 Primary osteoarthritis, right ankle and foot; M47.9 Spondylosis, unspecified; Z79.82 Long term (current) use of aspirin; Z79.899 Other long term (current) drug therapy; Z88.2 Allergy status to sulfonamides; Z88.1 Allergy status to other antibiotic agents; Z91.010 Allergy to peanuts; Z91.018 Allergy to other foods; Z82.49 Family history of ischemic heart disease and other diseases of the circulatory system; Z82.3 Family history of stroke; Z83.79 Family history of other diseases of the digestive system
CPT/HCPCS: 99291; 96374 ×2; 96375 ×3; 96361 ×5; 36415; 93005; 93351; 80053; 82550 ×2; 82553 ×2; 83690; 83735; 84484 ×2; 85025; 85610; 85730; 71046; 71275; 74177; G0378; J1250; J2270; J2405; J0461; Q9967

== ENCOUNTER → 2019-05-13 | Outpatient (CLI) | payer SELFPAY ==
[2019-05-13 11:51] LABS: Basophils # (A) 0.1 k/uL (0-0.2); Basophils % (A) 1 %; Eosinophils # (A) 0.2 k/uL (0-0.7); Eosinophils % (A) 2 %; HCT 53.6 % (39.0-53.0); HGB 17.2 gm/dL (13.0-17.5); Lymphocytes # (A) 2.4 k/uL (1.0-4.8); Lymphocytes % (A) 22 %; MCH 28.8 pg (25.0-35.0); MCHC 32.1 g/dL (31.0-37.0); MCV 89.9 fL (80.0-100.0); Mean Platelet Volume 7.2; Monocytes # (A) 0.5 k/uL (0-1.0); Monocytes % (A) 4 %; Neutrophils # (A) 7.4 k/uL (1.3-7.7); Neutrophils % (A) 68 %; Platelet Count 257 k/uL (150-450); RBC 5.96 m/uL (4.30-5.90)
[2019-05-13 11:59] LABS: ALT 33 U/L (21-72); AST 23 U/L (17-59); African American GFR (CKD) >90 (>60 ml/min/1.73 sqM); Albumin 4.5 g/dL (3.5-5.0); Alkaline Phosphatase 75 U/L (38-126); Anion Gap 8 mmol/L; Blood Urea Nitrogen 17 mg/dL (9-20); Calcium 9.8 mg/dL (8.4-10.2); Carbon Dioxide 28 mmol/L (22-30); Chloride 104 mmol/L (98-107); Cholesterol 166 mg/dL (<200); Glucose 102 mg/dL (74-99); HDL Cholesterol 46 mg/dL (40-60); LDL Cholesterol,Calculated 101 mg/dL (0-99); Potassium 4.4 mmol/L (3.5-5.1); Sodium 140 mmol/L (137-145); Total Bilirubin 0.9 mg/dL (0.2-1.3); Total Protein 7.2 g/dL (6.3-8.2); Triglycerides 94 mg/dL (<150)
== END | disposition home or self-care (01) ==
LOC: LAB 11:21
PROVIDERS: ATTEND Family Medicine
DX: E78.5 Hyperlipidemia, unspecified (principal); I10 Essential (primary) hypertension; E03.9 Hypothyroidism, unspecified; D64.9 Anemia, unspecified
CPT/HCPCS: 80053; 80061; 84443; 85025

== ENCOUNTER → 2020-08-18 | Outpatient (CLI) | payer MEDICARE, OTHER ==
[2020-08-18 16:18] LABS: Basophils # (A) 0.1 k/uL (0-0.2); Basophils % (A) 1 %; Eosinophils # (A) 0.3 k/uL (0-0.7); Eosinophils % (A) 3 %; HCT 54.5 % (39.0-53.0); HGB 17.3 gm/dL (13.0-17.5); Lymphocytes # (A) 2.9 k/uL (1.0-4.8); Lymphocytes % (A) 28 %; MCH 29.1 pg (25.0-35.0); MCHC 31.7 g/dL (31.0-37.0); MCV 91.8 fL (80.0-100.0); Mean Platelet Volume 7.7; Monocytes # (A) 0.3 k/uL (0-1.0); Monocytes % (A) 3 %; Neutrophils # (A) 6.4 k/uL (1.3-7.7); Neutrophils % (A) 63 %; Platelet Count 209 k/uL (150-450); RBC 5.93 m/uL (4.30-5.90); RDW 14.1 % (11.5-15.5); WBC 10.2 k/uL (3.8-10.6)
[2020-08-19 02:11] LABS: % Iron Saturation 27.42 (15.00-50.00); African American GFR (CKD) 85.3 (60.0-200.0); Albumin 4.5 g/dL (3.80-4.90); Albumin/Globulin Ratio 2.25 (1.60-3.17); BUN/Creat Ratio 10.91 Ratio (12.00-20.00); Calcium 9.7 mg/dL (8.7-10.3); Chol/HDL Ratio 3.87; Non-African American GFR(CKD) 73.6 (60.0-200.0); Potassium 4.7 mmol/L (3.5-5.5); Total Bilirubin 0.7 mg/dL (0.3-1.2); Total Protein 6.5 g/dL (6.2-8.2)
[2020-08-19 02:21] LABS: Prostate Specific Antigen 0.5 ng/mL (0.0-3.5)
[2020-08-19 02:22] LABS: Folate, Serum 6.8 ng/mL
== END | disposition home or self-care (01) ==
LOC: LABWHC1 15:09
PROVIDERS: ATTEND Nurse Practitioner Family
DX: E78.5 Hyperlipidemia, unspecified (principal); E03.9 Hypothyroidism, unspecified; E55.9 Vitamin D deficiency, unspecified; E61.1 Iron deficiency; D53.9 Nutritional anemia, unspecified; I10 Essential (primary) hypertension; N41.9 Inflammatory disease of prostate, unspecified
CPT/HCPCS: 36415; 80053; 80061; 82306; 82607; 82728; 82746; 83540; 83550; 84153; 84443; 85025

== ENCOUNTER → 2021-06-13 | Outpatient (CLI) | payer MEDICARE ==
[2021-06-13 19:06] LABS: Basophils # (A) 0.05 X 10*3/uL (0.00-0.10); Basophils % (A) 0.4 %; Eosinophils # (A) 0.08 X 10*3/uL (0.04-0.35); Eosinophils % (A) 0.7 %; HCT 51.5 % (39.6-50.0); HGB 16.8 g/dL (13.0-17.0); Lymphocytes # (A) 3.24 X 10*3/uL (0.90-5.00); Lymphocytes % (A) 27.2 %; MCH 29.3 pg (27.0-32.0); MCHC 32.6 g/dL (32.0-37.0); MCV 89.9 fL (80.0-97.0); Mean Platelet Volume 11.1 fL (9.5-12.2); Monocytes # (A) 0.75 X 10*3/uL (0.20-1.00); Monocytes % (A) 6.3 %; Neutrophils # (A) 7.76 X 10*3/uL (1.80-7.70); Platelet Count 237 X 10*3/uL (140-440); RBC 5.73 X 10*6/uL (4.40-5.60); RDW 13.2 % (11.5-14.5); WBC 11.93 X 10*3/uL (4.50-10.00)
[2021-06-13 23:41] LABS: African American GFR (CKD) 95.1 (60.0-200.0); Albumin 4.3 g/dL (3.80-4.90); Albumin/Globulin Ratio 1.87 (1.60-3.17); Anion Gap 10.2 mmol/L (4.00-12.00); Calcium 9.2 mg/dL (8.7-10.3); Carbon Dioxide 25.8 mmol/L (21.6-31.8); Chol/HDL Ratio 3.76; Globulin 2.3 g/dL (1.6-3.3); LDL Cholesterol,Calculated 84.8 mg/dL (0.0-131.0); Potassium 4.1 mmol/L (3.5-5.5); Total Bilirubin 0.9 mg/dL (0.2-1.2); Total Protein 6.6 g/dL (6.2-8.2); VLDL Calculation 20.2 mg/dL (5.00-40.00)
== END | disposition home or self-care (01) ==
LOC: LABWHC1 13:54
PROVIDERS: ATTEND Orthopaedic Surgery
DX: E78.5 Hyperlipidemia, unspecified (principal); D64.9 Anemia, unspecified; E03.9 Hypothyroidism, unspecified; E55.9 Vitamin D deficiency, unspecified
CPT/HCPCS: 36415; 80053; 80061; 82306; 84443; 85025

== ENCOUNTER → 2021-07-18 | Outpatient (CLI) | payer MEDICARE ==
[2021-07-18 22:04] LABS: Amylase 50 U/L (23-121); Lipase 36 U/L (14-60)
== END | disposition home or self-care (01) ==
LOC: LABWHC1 11:37
PROVIDERS: ATTEND Student in an Organized Health Care Education/Training Program
DX: R10.9 Unspecified abdominal pain (principal)
CPT/HCPCS: 36415; 82150; 82378; 83605; 83690

== ENCOUNTER → 2022-04-10 | Outpatient (CLI) | payer MEDICARE ==
[2022-04-10 18:53] LABS: ALT 17 U/L (10-49); AST 14 U/L (14-35); African American GFR (CKD) 107.2 (60.0-200.0); Albumin 4.6 g/dL (3.8-4.9); Alkaline Phosphatase 84 U/L (41-126); BUN/Creat Ratio 15.11 Ratio (12.00-20.00); Blood Urea Nitrogen 13.6 mg/dL (9.0-27.0); Calcium 9.9 mg/dL (8.7-10.3); Carbon Dioxide 26.4 mmol/L (20.0-27.5); Chloride 101 mmol/L (96-109); Chol/HDL Ratio 4.83 Ratio; Globulin 2.3 g/dL (1.6-3.3); Glucose 89 mg/dL (70-110); LDL Cholesterol,Calculated 133.7 mg/dL (0.0-131.0); Non-African American GFR(CKD) 92.5 (60.0-200.0); Potassium 4.5 mmol/L (3.5-5.5); Rheumatoid Factor, Qnt <10 IU/mL (0-15); Sodium 141 mmol/L (135-145); Total Protein 6.9 g/dL (6.2-8.2); VLDL Calculation 19.32 mg/dL (5.00-40.00)
[2022-04-10 20:46] LABS: HCT 53.7 % (39.6-50.0); HGB 17.1 g/dL (13.0-17.0); MCH 28.8 pg (27.0-32.0); MCHC 31.8 g/dL (32.0-37.0); MCV 90.6 fL (80.0-97.0); Mean Platelet Volume 11.2 fL (9.5-12.2); NRBC Per 100 WBC 0 /100 WBCS (0.0-0.0); Platelet Count 239 X 10*3/uL (140-440); RBC 5.93 X 10*6/uL (4.40-5.60); RDW 13.7 % (11.5-14.5)
== END | disposition home or self-care (01) ==
LOC: LABWHC1 11:41
PROVIDERS: ATTEND Family Medicine Adult Medicine
DX: Z12.5 Encounter for screening for malignant neoplasm of prostate (principal); R79.89 Other specified abnormal findings of blood chemistry; M79.89 Other specified soft tissue disorders; I10 Essential (primary) hypertension
CPT/HCPCS: 36415; 80053; 80061; 82306; 84153; 84443; 85027; 86431

== ENCOUNTER 2022-11-01 19:30 | Emergency (ER) | payer MEDICARE ==
[2022-11-01 19:58] VITALS: RESP 16
[2022-11-01] MEDS ORDERED: ORPHENADRINE 30 MG/ML 2 ML VIAL IM STA (20:29)
[2022-11-01] MEDS ORDERED: DEXAMETHASONE SOD PHOSPHATE 10 MG/ML 1 ML VIAL IM STA (20:29)
[2022-11-01] MEDS ORDERED: KETOROLAC 15 MG/ML 1 ML VIAL IM STA (20:29)
[2022-11-01] MEDS ORDERED: HYDROmorphone 1 MG/ML 1 ML SYRINGE IM STA (21:46)
--- NOTE | 2022-11-01 22:07 | ED ---
Back Pain HPI - General Chief Complaint: Back Pain/Injury Stated Complaint: Back Pain Time Seen by Provider: 11/01/22 20:20 Source: patient - History of Present Illness Initial Comments: Patient is a 62-year-old male presenting with chief complaint of back pain. Patient has a history of lower back pain. He was recently taken off of his pain medication. He has been without his medication for the last 2 weeks and states that his pain is grown progressively worse. Pain radiates down his left leg. No loss of bowel or bladder control or saddle paresthesia. No abdominal pain, chest pain, difficulty breathing. No fever or chills. No nausea or vomiting. No recent injury or trauma. - Related Data Home Medications Medication Instructions Recorded Confirmed HYDROcodone/APAP 10-325MG [[place] 1 tab PO TID PRN 12/21/16 07/22/18 10-325] Aspirin [Adult Low Dose Aspirin EC] 81 mg PO DAILY 07/22/18 07/22/18 Dicyclomine [Bentyl] 20 mg PO QID 07/22/18 07/22/18 atenoloL [Tenormin] 50 mg PO BID 07/22/18 07/22/18 Previous Rx's Medication Instructions Recorded Losartan [Cozaar] 50 mg PO DAILY #30 tab 07/23/18 HYDROcodone/APAP 7.5-325MG [[place] 1 tab PO Q6HR PRN 3 Days #12 tab 11/01/22 7.5-325] Allergies Allergy/AdvReac Type Severity Reaction Status Date / Time peanut Allergy Severe Anaphylaxis Verified 11/01/22 19:58 Quinolones Allergy Itching Verified 11/01/22 19:58 ciprofloxacin [From Cipro] AdvReac Rash/Hives Verified 11/01/22 19:58 sulfamethoxazole AdvReac Rapid Verified 11/01/22 19:58 [From Bactrim] Heart Rate trimethoprim [From Bactrim] AdvReac Rapid Verified 11/01/22 19:58 Heart Rate BRAZIL NUTS Allergy Anaphylaxis Uncoded 07/22/18 22:25 Review of Systems ROS Statement: Those systems with pertinent positive or pertinent negative responses have been documented in the HPI. ROS Other: All systems not noted in ROS Statement are negative. Past Medical History Past Medical History: Chest Pain / Angina, COPD, GERD/Reflux, Hyperlipidemia, Hypertension, Osteoarthritis (OA), Prostate Disorder, Thyroid Disorder Additional Past Medical History / Comment(s): high chol - supposed to take cholestrol med but doesnt, Chronic back pain, diverticulitis, enlarged prostate, potassium deficiency, bilateral leg cramps, vitamin D deficiency, arthiritis bilateral feet/heels and lower back. thyroid lumps, pilonidal cyst History of Any Multi-Drug Resistant Organisms: None Reported Past Surgical History: Heart Catheterization Additional Past Surgical History / Comment(s): 2012 heart cath which was clear- done by Dr. VC Topete, colonoscopy, left knee drained 12/16/2016 and 12/20/2016 Past Anesthesia/Blood Transfusion Reactions: Previous Problems w/ Anesthesia Additional Past Anesthesia/Blood Transfusion Reaction / Comment(s): Pt states it took him a long time to wake up which he attributes to going into his procedures very tired. Past Psychological History: No Psychological Hx Reported Past Alcohol Use History: None Reported Past Drug Use History: None Reported - Past Family History Father Additional Family Medical History / Comment(s): Father of cirrhosis at age 62 yrs. No coronary artery disease history. Mother Additional Family Medical History / Comment(s): Mother of neck fracture at age 76yrs from an accident. She also had history of atrial fibrillation. Sister(s) Additional Family Medical History / Comment(s): Sister after a "leg operation" she developed a leg infection and family was told she of a lung problem. His sister had history of stroke as well. Patient has a second sister that is alive with COPD. Patient has children with no major medical problems. General Exam Limitations: no limitations General appearance: alert, in no apparent distress Head exam: Present: atraumatic, normocephalic, normal inspection Eye exam: Present: normal appearance Neck exam: Present: normal inspection Respiratory exam: Present: normal lung sounds bilaterally. Absent: respiratory distress, wheezes, rales, rhonchi, stridor Cardiovascular Exam: Present: regular rate, normal rhythm, normal heart sounds. Absent: systolic murmur, diastolic murmur, rubs, gallop, clicks Back exam: Present: normal inspection Neurological exam: Present: alert, oriented X3, CN II-XII intact Psychiatric exam: Present: normal affect, normal mood Skin exam: Present: warm, dry, intact, normal color. Absent: rash Course Vital Signs 11/01/22 11/01/22 19:54 22:34 Temperature 98.2 F 98 F Pulse Rate 82 78 Respiratory 16 16 Rate Blood Pressure 132/83 130/78 O2 Sat by Pulse 98 99 Oximetry Medical Decision Making - Medical Decision Making Was pt. sent in by a medical professional or institution (, LADONAN, ELECTRICITY TRADING ANALYST, urgent care, hospital, or snf...) When possible be specific @ -No Did you speak to anyone other than the patient for history (EMS, parent, family, police, friend...)? What history was obtained from this source @ -No Did you review nursing and triage notes (agree or disagree)? Why? @ -I reviewed and agree with nursing and triage notes Were old charts reviewed (outside hosp., previous admission, EMS record, old EKG, old radiological studies, urgent care reports/EKG's, snf records)? Report findings @ -No old charts were reviewed Differential Diagnosis (chest pain, altered mental status, abdominal pain women, abdominal pain men, vaginal bleeding, weakness, fever, dyspnea, syncope, headache, dizziness, GI bleed, back pain, seizure, CVA, palpatations, mental health)? @ - MDM Differential Back Pain: Strain, zoster, cauda equina syndrome, epidural abscess, vertebral osteomyelitis, discitis, fracture, subluxation, disc herniation, DJD, spinal stenosis, this is not meant to be an all-inclusive list. EKG interpreted by me (3pts min.). @ -None X-rays interpreted by me (1pt min.). @ -None done CT interpreted by me (1pt min.). @ -None done U/S interpreted by me (1pt. min.). @ -None done What testing was considered but not performed or refused? (CT, X-rays, U/S, labs)? Why? @ -X-ray of the lumbar spine was considered, however patient does not have any new injury or trauma and states the pain is consistent with his chronic pain. What meds were considered but not given or refused? Why? @ -None Did you discuss the management of the patient with other professionals (professionals i.e. LADONNA Thorne, ELECTRICITY TRADING ANALYST, lab, RT, psych nurse, social service liaison, lead sql developer, teacher, consumer loan officer, case management assistant)? Give summary @ -No Was smoking cessation discussed for >3mins.? @ -No Was critical care preformed (if so, how long)? @ -No Were there social determinants of health that impacted care today? How? (Homelessness, low income, unemployed, alcoholism, drug addiction, transportation, low edu. Level, literacy, decrease access to med. care, half-way, rehab)? @ -No Was there de-escalation of care discussed even if they declined (Discuss DNR or withdrawal of care, Hospice)? DNR status @ -No What co-morbidities impacted this encounter? (DM, HTN, Smoking, COPD, CAD, Cancer, CVA, ARF, Chemo, Hep., AIDS, mental health diagnosis, sleep apnea, m orbid obesity)? @ -None Was patient admitted / discharged? Hospital course, mention meds given and route, prescriptions, significant lab abnormalities, going to OR and other pertinent info. @ -Patient is a 8-year-old male with chronic back pain presenting with chief complaint of back pain. Patient was recently taken off of his pain medication. No loss of bowel or bladder control or saddle paresthesia. Patient was given Toradol, Decadron, Norflex, and Dilaudid. On reassessment he reports improvement in his symptoms. He wishes to be discharged home at this time. Follow-up with PCP. Report back to ER with any new or worsening symptoms. Discussed return parameters and answered all questions. Patient conveyed verbal understanding and agreed to the plan. I discussed this case in detail with my attending Dr. Jeter Undiagnosed new problem with uncertain prognosis? @ -No Drug Therapy requiring intensive monitoring for toxicity (Heparin, Nitro, Insulin, Cardizem)? @ -No Were any procedures done? @ -No Diagnosis/symptom? @ -Acute on chronic back pain Acute, or Chronic, or Acute on Chronic? @ -Acute on chronic Uncomplicated (without systemic symptoms) or Complicated (systemic symptoms)? @ -default Side effects of treatment? @ -No Exacerbation, Progression, or Severe Exacerbation? @ -No Poses a threat to life or bodily function? How? (Chest pain, [place], [place], pneumonia, PE, COPD, DKA, ARF, appy, cholecystitis, CVA, Diverticulitis, Homicidal, Suicidal, threat to staff... and all critical care pts) @ -No Disposition Clinical Impression: Mechanical back pain, Chronic back pain Disposition: HOME SELF-CARE Condition: Good Instructions (If sedation given, give patient instructions): Chronic Back Pain (DC) Additional Instructions: Follow-up with PCP. If you need recommendations some has been provided for you. Report back to ER with any new or worsening symptoms. Take medication as prescribed. Prescriptions: HYDROcodone/APAP 7.5-325MG [[place] 7.5-325] 1 tab PO Q6HR PRN 3 Days #12 tab PRN Reason: Pain Is patient prescribed a controlled substance at d/c from ED?: No Referrals: None,Stated [Primary Care Provider] - 1-2 days Inder Camara MD [REFERRING] - 1-2 days Jen Steiner MD [STAFF PHYSICIAN] - 1-2 days Nba Kearns MD [STAFF PHYSICIAN] - 1-2 days Time of Disposition: 22:30
[2022-11-01 22:35] VITALS: BP 130/78; PULSE 78; TEMP 98
== END 2022-11-01 22:34 | disposition home or self-care (01) ==
LOC: EC 19:30
DX: M54.9 Dorsalgia, unspecified (principal); G89.29 Other chronic pain; J44.9 Chronic obstructive pulmonary disease, unspecified; I10 Essential (primary) hypertension; M19.90 Unspecified osteoarthritis, unspecified site; E07.9 Disorder of thyroid, unspecified; Z88.2 Allergy status to sulfonamides; Z91.010 Allergy to peanuts; Z88.8 Allergy status to other drugs, medicaments and biological substances; Z79.82 Long term (current) use of aspirin
CPT/HCPCS: 99283; 96372 ×4; J1100; J2360; J1170; J1885

== ENCOUNTER 2024-02-12 18:20 | Emergency (ER) | payer MEDICARE ==
--- NOTE | 2024-02-12 18:36 | ED ---
General Adult HPI - General Source: patient Mode of arrival: ambulatory Limitations: no limitations <Neyda Davidson - Last Filed: 02/12/24 18:34> <Den Bailon - Last Filed: 02/12/24 20:10> - General Stated complaint: R hip pain Time Seen by Provider: 02/12/24 18:34 - History of Present Illness Initial comments: Quick note: 63-year-old male presents to the emergency department for evaluation of "boil" on his right hip. He notes that has been there for around 1 month. He notes that he thought it was improving but today notes that it burst. He reports drainage from this area today. He states that there is burning pain to this area. (Neyda Davidson) 63-year-old male presenting to the ED with a chief complaint of skin problem. Patient reports over the past month has had a lesion to his right hip. Reports over the past few days it has burst and has been draining clear fluid. Denies fever or chills. No chest pain shortness of breath. No other complaints at this time. (Den Bailon) - Related Data Home Medications Medication Instructions Recorded Confirmed HYDROcodone/APAP 10-325MG [[place] 1 tab PO TID PRN 12/21/16 07/22/18 10-325] Aspirin [Adult Low Dose Aspirin EC] 81 mg PO DAILY 07/22/18 07/22/18 Dicyclomine [Bentyl] 20 mg PO QID 07/22/18 07/22/18 atenoloL [Tenormin] 50 mg PO BID 07/22/18 07/22/18 Previous Rx's Medication Instructions Recorded Losartan [Cozaar] 50 mg PO DAILY #30 tab 07/23/18 HYDROcodone/APAP 7.5-325MG [[place] 1 tab PO Q6HR PRN 3 Days #12 tab 11/01/22 7.5-325] Doxycycline [Vibramycin] 100 mg PO BID #20 capsule 02/12/24 Allergies Allergy/AdvReac Type Severity Reaction Status Date / Time peanut Allergy Severe Anaphylaxis Verified 02/12/24 18:48 Quinolones Allergy Itching Verified 02/12/24 18:48 ciprofloxacin [From Cipro] AdvReac Rash/Hives Verified 02/12/24 18:48 sulfamethoxazole AdvReac Rapid Verified 02/12/24 18:48 [From Bactrim] Heart Rate trimethoprim [From Bactrim] AdvReac Rapid Verified 02/12/24 18:48 Heart Rate BRAZIL NUTS Allergy Anaphylaxis Uncoded 02/12/24 18:48 Review of Systems ROS Other: All systems not noted in ROS Statement are negative. <Neyda Davidson - Last Filed: 02/12/24 18:34> ROS Other: All systems not noted in ROS Statement are negative. <Den Bailon - Last Filed: 02/12/24 20:10> ROS Statement: Those systems with pertinent positive or pertinent negative responses have been documented in the HPI. Past Medical History Past Medical History: Chest Pain / Angina, COPD, GERD/Reflux, Hyperlipidemia, Hypertension, Osteoarthritis (OA), Prostate Disorder, Thyroid Disorder Additional Past Medical History / Comment(s): high chol - supposed to take cholestrol med but doesnt, Chronic back pain, diverticulitis, enlarged prostate, potassium deficiency, bilateral leg cramps, vitamin D deficiency, arthiritis bilateral feet/heels and lower back. thyroid lumps, pilonidal cyst History of Any Multi-Drug Resistant Organisms: None Reported Past Surgical History: Heart Catheterization Additional Past Surgical History / Comment(s): 2011 heart cath which was clear- done by Dr. VC Topete, colonoscopy, left knee drained 12/16/2016 and 12/20/2016 Past Anesthesia/Blood Transfusion Reactions: Previous Problems w/ Anesthesia Additional Past Anesthesia/Blood Transfusion Reaction / Comment(s): Pt states it took him a long time to wake up which he attributes to going into his procedures very tired. Past Psychological History: No Psychological Hx Reported Past Alcohol Use History: None Reported Past Drug Use History: None Reported - Past Family History Father Additional Family Medical History / Comment(s): Father of cirrhosis at age 62 yrs. No coronary artery disease history. Mother Additional Family Medical History / Comment(s): Mother of neck fracture at age 76yrs from an accident. She also had history of atrial fibrillation. Sister(s) Additional Family Medical History / Comment(s): Sister after a "leg operation" she developed a leg infection and family was told she of a lung problem. His sister had history of stroke as well. Patient has a second sister that is alive with COPD. Patient has children with no major medical problems. <Neyda Davidson - Last Filed: 02/12/24 18:34> General Exam <Neyda Davidson - Last Filed: 02/12/24 18:34> General appearance: alert, in no apparent distress Eye exam: Present: normal appearance Neck exam: Present: normal inspection Respiratory exam: Present: normal lung sounds bilaterally Cardiovascular Exam: Present: regular rate GI/Abdominal exam: Present: soft Extremities exam: Present: other (On the right hip appears to be a linear cystic lesion with scab formation without warmth, erythema, tenderness to palpation approximately 4 cm in length and 2 cm in width) Neurological exam: Present: alert, oriented X3 Skin exam: Present: warm, dry <Den Bailon - Last Filed: 02/12/24 20:10> - General Exam Comments Initial Comments: Visual Physical Exam Vital signs reviewed General: Well-appearing, nontoxic, no acute distress. Head: Normocephalic, atraumatic Eyes: PERRLA, EOMI ENT: Airway patent Chest: Nonlabored breathing Skin: No visual rash, normal skin tone Neuro: Alert and oriented 3 Musculoskeletal: No gross abnormalities (Neyda Davidson) Course Vital Signs 02/12/24 18:45 Temperature 97.8 F Pulse Rate 98 Respiratory 18 Rate Blood Pressure 141/66 O2 Sat by Pulse 100 Oximetry Medical Decision Making <Neyda Davidson - Last Filed: 02/12/24 18:34> <Den Bailon - Last Filed: 02/12/24 20:10> - Medical Decision Making Quick note preformed and electronically signed by Neyda Davidson PA-C (Neyda Davidson) Was pt. sent in by a medical professional or institution ([facility], [employer], urgent care, hospital, or residential...) When possible be specific @ -No Did you speak to anyone other than the patient for history (EMS, parent, family, police, friend...)? What history was obtained from this source @ -No Did you review nursing and triage notes (agree or disagree)? Why? @ -I reviewed and agree with nursing and triage notes Were old charts reviewed (outside hosp., previous admission, EMS record, old EKG, old radiological studies, urgent care reports/EKG's, residential records)? Report findings @ -No old charts were reviewed Differential Diagnosis (chest pain, altered mental status, abdominal pain women, abdominal pain men, vaginal bleeding, weakness, fever, dyspnea, syncope, headache, dizziness, GI bleed, back pain, seizure, CVA, palpatations, mental health, musculoskeletal)? @ -MRSA, abscess, cellulitis. This is not meant to be an all-inclusive list. EKG interpreted by me (3pts min.). @ -None X-rays interpreted by me (1pt min.). @ -None done CT interpreted by me (1pt min.). @ -None done U/S interpreted by me (1pt. min.). @ -None done What testing was considered but not performed or refused? (CT, X-rays, U/S, labs)? Why? @ -None What meds were considered but not given or refused? Why? @ -None Did you discuss the management of the patient with other professionals (professionals i.e. , PA, [employer], lab, RT, psych nurse, social sciences professor, trucker, teacher, community liaison officer, case specialist)? Give summary @ -No Was smoking cessation discussed for >3mins.? @ -No Was critical care preformed (if so, how long)? @ -No Were there social determinants of health that impacted care today? How? (Homelessness, low income, unemployed, alcoholism, drug addiction, transportation, low edu. Level, literacy, decrease access to med. care, half-way, rehab)? @ -No Was there de-escalation of care discussed even if they declined (Discuss DNR or withdrawal of care, Hospice)? DNR status @ -No What co-morbidities impacted this encounter? (DM, HTN, Smoking, COPD, CAD, Cancer, CVA, ARF, Chemo, Hep., AIDS, mental health diagnosis, sleep apnea, morbid obesity)? @ -None Was patient admitted / discharged? Hospital course, mention meds given and route, prescriptions, significant lab abnormalities, going to OR and other pertinent info. @ -Discharge 63-year-old male presented to the ED with complaints of skin problem. Patient reports over the past few months has had a cyst on his right hip. He notes over the past few days this has burst open and started to drain clear fluid. On examination there is a linear like cystic lesion measuring about 4 x 2 cm without warmth, erythema or tenderness to palpation. Vital signs reviewed. Patient afebrile hemodynamically stable. Lesion is concerning for hidradenitis suppurativa. Provided prescription for doxycycline and provided referral to general surgery. Advise close follow-up with general surgery and his primary care provider. Discharged home in stable condition. Discussed strict return precautions with patient who verbalized agreement. Undiagnosed new problem with uncertain prognosis? @ -No Drug Therapy requiring intensive monitoring for toxicity (Heparin, Nitro, Insulin, Cardizem)? @ -No Were any procedures done? @ -No Diagnosis/symptom? @ -Skin lesion Acute, or Chronic, or Acute on Chronic? @ -Acute on chronic Uncomplicated (without systemic symptoms) or Complicated (systemic symptoms)? @ -Uncomplicated Side effects of treatment? @ -No Exacerbation, Progression, or Severe Exacerbation? @ -No Poses a threat to life or bodily function? How? (Chest pain, [place], [place], pneumonia, PE, COPD, DKA, ARF, appy, cholecystitis, CVA, Diverticulitis, Homicidal, Suicidal, threat to staff... and all critical care pts) @ -No (Den Bailon) Disposition <Neyda Davidson - Last Filed: 02/12/24 18:34> Is patient prescribed a controlled substance at d/c from ED?: No Time of Disposition: 20:10 <Den Bailon - Last Filed: 02/12/24 20:10> Clinical Impression: Skin lesion Disposition: HOME SELF-CARE Condition: Good Instructions (If sedation given, give patient instructions): Hidradenitis Suppurativa (ED) Additional Instructions: Please return to the Emergency Department if symptoms worsen or any other concerns. Please follow-up with your PCP and general surgery. Prescriptions: Doxycycline [Vibramycin] 100 mg PO BID #20 capsule Referrals: None,Stated [Primary Care Provider] - 1-2 days Cruz Daniel MD [Medical Doctor] - 1-2 days Divina Smith MD [STAFF PHYSICIAN] - 1-2 days
[2024-02-12] MEDS: DOXYCYCLINE 100 MG CAP PO STA (20:50)
[2024-02-12 21:05] VITALS: BP 140/60; PULSE 82; RESP 16; TEMP 98
== END 2024-02-12 20:51 | disposition home or self-care (01) ==
LOC: EC 18:20
DX: L98.9 Disorder of the skin and subcutaneous tissue, unspecified (principal); Z91.010 Allergy to peanuts; Z88.1 Allergy status to other antibiotic agents; Z88.2 Allergy status to sulfonamides; Z88.8 Allergy status to other drugs, medicaments and biological substances
CPT/HCPCS: 99283

== ENCOUNTER 2024-07-10 10:43 | Inpatient (IN) | payer MEDICARE ==
--- NOTE | 2024-07-10 11:43 | ED ---
Abdominal Pain HPI - General Chief Complaint: Abdominal Pain Stated Complaint: abd pain Time Seen by Provider: 07/10/24 11:02 Source: patient, RN notes reviewed Mode of arrival: ambulatory Limitations: no limitations - History of Present Illness Initial Comments: 64-year-old male with a history of diverticulosis presents emergency department chief complaint of lower abdominal pain over the past day. Patient states he was concerned as the pain is present in the left lower quadrant and the right lower quadrant. Endorses vomiting, fevers and chills. Denies diarrhea. Patient states that he will occasionally experience dark-colored stools and this has been normal for him due to recurrent colon infections. Patient has taken 3 tablets of clindamycin that has been prescribed before by his primary care provider for diverticulitis. - Related Data Home Medications Medication Instructions Recorded Confirmed atenoloL [Tenormin] 50 mg PO DAILY 07/22/18 07/10/24 Acetaminophen Tab [Tylenol] 650 mg PO Q4H PRN 07/10/24 07/10/24 Esomeprazole Magnesium [NexIUM 20 mg PO DAILY PRN 07/10/24 07/10/24 24Hr] Triamterene-Hctz 37.5-25Mg 1 tab PO HS 07/10/24 07/10/24 [Maxzide 37.5-25] Allergies Allergy/AdvReac Type Severity Reaction Status Date / Time peanut Allergy Severe Anaphylaxis Verified 07/10/24 14:54 [place] nut Allergy Anaphylaxis Verified 07/10/24 14:54 Quinolones Allergy Itching Verified 07/10/24 14:54 ciprofloxacin [From Cipro] AdvReac Rash/Hives Verified 07/10/24 14:54 sulfamethoxazole AdvReac Rapid Verified 07/10/24 14:54 [From Bactrim] Heart Rate trimethoprim [From Bactrim] AdvReac Rapid Verified 07/10/24 14:54 Heart Rate Review of Systems ROS Statement: Those systems with pertinent positive or pertinent negative responses have been documented in the HPI. ROS Other: All systems not noted in ROS Statement are negative. Past Medical History Past Medical History: Chest Pain / Angina, COPD, GERD/Reflux, Hyperlipidemia, Hypertension, Osteoarthritis (OA), Prostate Disorder, Thyroid Disorder Additional Past Medical History / Comment(s): high chol - supposed to take cholestrol med but doesnt, Chronic back pain, diverticulitis, enlarged prostate, potassium deficiency, bilateral leg cramps, vitamin D deficiency, arthiritis bilateral feet/heels and lower back. thyroid lumps, pilonidal cyst History of Any Multi-Drug Resistant Organisms: None Reported Past Surgical History: Heart Catheterization Additional Past Surgical History / Comment(s): 2011 heart cath which was clear- done by Dr. VC Topete, colonoscopy, left knee drained 12/16/2016 and 12/20/2016 Past Anesthesia/Blood Transfusion Reactions: Previous Problems w/ Anesthesia Additional Past Anesthesia/Blood Transfusion Reaction / Comment(s): Pt states it took him a long time to wake up which he attributes to going into his procedures very tired. Past Psychological History: No Psychological Hx Reported Smoking Status: Current every day smoker Past Alcohol Use History: None Reported Past Drug Use History: None Reported - Past Family History Father Additional Family Medical History / Comment(s): Father of cirrhosis at age 62 yrs. No coronary artery disease history. Mother Additional Family Medical History / Comment(s): Mother of neck fracture at age 76yrs from an accident. She also had history of atrial fibrillation. Sister(s) Additional Family Medical History / Comment(s): Sister after a "leg operation" she developed a leg infection and family was told she of a lung problem. His sister had history of stroke as well. Patient has a second sister that is alive with COPD. Patient has children with no major medical problems. General Exam - General Exam Comments Initial Comments: Visual Physical Exam Vital signs reviewed General: Well-appearing, nontoxic, no acute distress. Head: Normocephalic, atraumatic Eyes: PERRLA, EOMI ENT: Airway patent Chest: Nonlabored breathing Skin: No visual rash, normal skin tone Neuro: Alert and oriented 3 Musculoskeletal: No gross abnormalities Limitations: no limitations General appearance: alert, in no apparent distress ENT exam: Present: normal exam, mucous membranes moist Neck exam: Present: normal inspection. Absent: tenderness, meningismus, lymphadenopathy Respiratory exam: Present: normal lung sounds bilaterally. Absent: respiratory distress, wheezes, rales, rhonchi, stridor Cardiovascular Exam: Present: regular rate, normal rhythm, normal heart sounds. Absent: systolic murmur, diastolic murmur, rubs, gallop, clicks GI/Abdominal exam: Present: soft, tenderness (RLQ, LLQ), rebound, normal bowel sounds. Absent: distended, guarding, rigid Extremities exam: Present: normal inspection, full ROM, normal capillary refill. Absent: tenderness, pedal edema, joint swelling, calf tenderness Back exam: Present: normal inspection Skin exam: Present: warm, dry, intact, normal color. Absent: rash Course Vital Signs 07/10/24 07/10/24 07/10/24 10:45 14:56 15:10 Temperature 98 F 98.5 F 98.5 F Pulse Rate 18 L 91 91 Respiratory 18 18 Rate Blood Pressure 130/79 106/72 106/72 O2 Sat by Pulse 90 L 95 95 Oximetry Medical Decision Making - Medical Decision Making Was pt. sent in by a medical professional or institution (, PA, [employer], urgent care, hospital, or correction...) When possible be specific @ -No Did you speak to anyone other than the patient for history (EMS, parent, family, police, friend...)? What history was obtained from this source @ -No Did you review nursing and triage notes (agree or disagree)? Why? @ -I reviewed and agree with nursing and triage notes Were old charts reviewed (outside hosp., previous admission, EMS record, old EK G, old radiological studies, urgent care reports/EKG's, correction records)? Report findings @ -No old charts were reviewed Differential Diagnosis (chest pain, altered mental status, abdominal pain women, abdominal pain men, vaginal bleeding, weakness, fever, dyspnea, syncope, headache, dizziness, GI bleed, back pain, seizure, CVA, palpatations, mental health, musculoskeletal)? @ -Differential Abdominal Pain Men: Appendicitis, cholecystitis, diverticulosis, ischemic bowel, pancreatitis, hepa titis, UTI, gastroenteritis, AAA, incarcerated hernia, bowel obstruction, constipation, inflammatory bowel, hepatitis, peptic ulcer disease, splenic infarction, perforated viscus, testicular torsion, this is not meant to be an all-inclusive list EKG interpreted by me (3pts min.). @ -None X-rays interpreted by me (1pt min.). @ -None done CT interpreted by me (1pt min.). @ -CT of the abdomen and pelvis with IV contrast reveals acute appendicitis with moderate associated inflammation with no abscess or free air and a possible secondary mild ileus U/S interpreted by me (1pt. min.). @ -None done What testing was considered but not performed or refused? (CT, X-rays, U/S, lab s)? Why? @ -None What meds were considered but not given or refused? Why? @ -None Did you discuss the management of the patient with other professionals (professionals i.e. , PA, [employer], lab, RT, psych nurse, professor of social work, police shift commander, teacher, security officers and guards, immigration case worker)? Give summary @ -i spoke with the general surgeon collection systems modeler, Dr. Cerda, regard to the patient's leukocytosis and CT findings concerning for appendicitis, patient is accepted for admission Was smoking cessation discussed for >3mins.? @ -No Was critical care preformed (if so, how long)? @ -No Were there social determinants of health that impacted care today? How? (Homelessness, low income, unemployed, alcoholism, drug addiction, t ransportation, low edu. Level, literacy, decrease access to med. care, senior care, rehab)? @ -No Was there de-escalation of care discussed even if they declined (Discuss DNR or withdrawal of care, Hospice)? DNR status @ -No What co-morbidities impacted this encounter? (DM, HTN, Smoking, COPD, CAD, Cancer, CVA, ARF, Chemo, Hep., AIDS, mental health diagnosis, sleep apnea, morbid obesity)? @ -None Was patient admitted / discharged? Hospital course, mention meds given and route, prescriptions, significant lab abnormalities, going to OR and other pertinent info. @ - Admitted. 62-year-old male with abdominal pain. Physical examination reveals rebound tenderness and tenderness palpation of the right lower quadrant left lower quadrant. Abdomen is soft with no signs of rigidity. Patient is symptomatically treated with antiemetics and analgesics pending laboratory results and CT imaging. He is in agreement this plan. CBC reveals leukocytosis of 18 and neutrophilia of 15.5, mild hyponatremia of 134, bilirubin 2.5, pancreatic enzymes within normal limits. CT concerning for acute appendicitis with moderate inflammation no signs of abscess or free air. On reevaluation patient states that abdominal pain has not subsided much and he was offered additional medication but he has declined at this time. Patient will be admitted for general surgery consultation. Undiagnosed new problem with uncertain prognosis? @ -No Drug Therapy requiring intensive monitoring for toxicity (Heparin, Nitro, Insulin, Cardizem)? @ -No Were any procedures done? @ -No Diagnosis/symptom? @ -acute appendicitis Acute, or Chronic, or Acute on Chronic? @ -acute Uncomplicated (without systemic symptoms) or Complicated (systemic symptoms)? @ -complicated Side effects of treatment? @ -No Exacerbation, Progression, or Severe Exacerbation? @ -No Poses a threat to life or bodily function? How? (Chest pain, [place], [place], pneumonia, PE, COPD, DKA, ARF, appy, cholecystitis, CVA, Diverticulitis, Homicidal, Suicidal, threat to staff... and all critical care pts) @ -No - Lab Data Result diagrams: 07/10/24 14:50 07/10/24 14:50 Lab Results 07/10/24 07/10/24 07/10/24 Range/Units 11:41 11:41 11:42 WBC 18.0 H (3.8-10.6) k/uL RBC 5.84 (4.30-5.90) m/uL Hgb 17.1 (13.0-17.5) gm/dL Hct 52.0 (39.0-53.0) % MCV 89.1 (80.0-100.0) fL MCH 29.2 (25.0-35.0) pg MCHC 32.8 (31.0-37.0) g/dL RDW 13.7 (11.5-15.5) % Plt Count 205 (150-450) k/uL MPV 7.8 Neutrophils % 86 % Lymphocytes % 8 % Monocytes % 4 % Eosinophils % 0 % Basophils % 0 % Neutrophils # 15.5 H (1.3-7.7) k/uL Lymphocytes # 1.4 (1.0-4.8) k/uL Monocytes # 0.8 (0-1.0) k/uL Eosinophils # 0.0 (0-0.7) k/uL Basophils # 0.0 (0-0.2) k/uL Sodium 134 L (137-145) mmol/L Potassium 4.1 (3.5-5.1) mmol/L Chloride 100 (98-107) mmol/L Carbon Dioxide 28 (22-30) mmol/L Anion Gap 6 mmol/L BUN 12 (9-20) mg/dL Creatinine 1.05 (0.66-1.25) mg/dL Est GFR (CKD-EPI)AfAm 88 (>60 ml/min/1.73 sqM) Est GFR (CKD-EPI)NonAf 76 (>60 ml/min/1.73 sqM) Glucose 87 (74-99) mg/dL Plasma Lactic Acid Andres 1.2 (0.7-2.0) mmol/L Calcium 9.0 (8.4-10.2) mg/dL Total Bilirubin 2.5 H (0.2-1.3) mg/dL AST 21 (17-59) U/L ALT 18 (4-49) U/L Alkaline Phosphatase 63 (38-126) U/L Total Protein 6.4 (6.3-8.2) g/dL Albumin 3.9 (3.5-5.0) g/dL Amylase 45 (30-110) U/L Lipase 48 (23-300) U/L Urine Color Urine Appearance (Clear) Urine pH (5.0-8.0) Ur Specific [place] (1.001-1.035) Urine Protein (Negative) Urine Glucose (UA) (Negative) Urine Ketones (Negative) Urine Blood (Negative) Urine Nitrite (Negative) Urine Bilirubin (Negative) Urine Urobilinogen (<2.0) mg/dL Ur Leukocyte Esterase (Negative) Urine RBC (0-5) /hpf Urine WBC (0-5) /hpf Urine Mucus (None) /hpf 07/10/24 Range/Units 12:26 WBC (3.8-10.6) k/uL RBC (4.30-5.90) m/uL Hgb (13.0-17.5) gm/dL Hct (39.0-53.0) % MCV (80.0-100.0) fL MCH (25.0-35.0) pg MCHC (31.0-37.0) g/dL RDW (11.5-15.5) % Plt Count (150-450) k/uL MPV Neutrophils % % Lymphocytes % % Monocytes % % Eosinophils % % Basophils % % Neutrophils # (1.3-7.7) k/uL Lymphocytes # (1.0-4.8) k/uL Monocytes # (0-1.0) k/uL Eosinophils # (0-0.7) k/uL Basophils # (0-0.2) k/uL Sodium (137-145) mmol/L Potassium (3.5-5.1) mmol/L Chloride (98-107) mmol/L Carbon Dioxide (22-30) mmol/L Anion Gap mmol/L BUN (9-20) mg/dL Creatinine (0.66-1.25) mg/dL Est GFR (CKD-EPI)AfAm (>60 ml/min/1.73 sqM) Est GFR (CKD-EPI)NonAf (>60 ml/min/1.73 sqM) Glucose (74-99) mg/dL Plasma Lactic Acid Andres (0.7-2.0) mmol/L Calcium (8.4-10.2) mg/dL Total Bilirubin (0.2-1.3) mg/dL AST (17-59) U/L ALT (4-49) U/L Alkaline Phosphatase (38-126) U/L Total Protein (6.3-8.2) g/dL Albumin (3.5-5.0) g/dL Amylase (30-110) U/L Lipase (23-300) U/L Urine Color Colorless Urine Appearance Clear (Clear) Urine pH 5.5 (5.0-8.0) Ur Specific [place] >1.050 H (1.001-1.035) Urine Protein Negative (Negative) Urine Glucose (UA) Negative (Negative) Urine Ketones 2+ H (Negative) Urine Blood Small H (Negative) Urine Nitrite Negative (Negative) Urine Bilirubin Negative (Negative) Urine Urobilinogen <2.0 (<2.0) mg/dL Ur Leukocyte Esterase Negative (Negative) Urine RBC 1 (0-5) /hpf Urine WBC <1 (0-5) /hpf Urine Mucus Rare H (None) /hpf Disposition Clinical Impression: Acute appendicitis, Leukocytosis Disposition: ADMITTED IP TO THIS [facility] Condition: Stable Decision to Admit Reason: Admit from EC Decision Date: 07/10/24 Decision Time: 14:25
[2024-07-10] MEDS: HYDROmorphone 0.5 MG/0.5 ML SYRINGE IVP STA (12:34)
[2024-07-10] MEDS: ONDANSETRON 4 MG/2 ML VIAL IVP STA (12:34)
[2024-07-10 12:42] LABS: Basophils % (A) 0 %; Eosinophils % (A) 0 %; HGB 17.1 gm/dL (13.0-17.5); Lymphocytes # (A) 1.4 k/uL (1.0-4.8); Lymphocytes % (A) 8 %; MCH 29.2 pg (25.0-35.0); MCHC 32.8 g/dL (31.0-37.0); MCV 89.1 fL (80.0-100.0); Mean Platelet Volume 7.8; Monocytes # (A) 0.8 k/uL (0-1.0); Monocytes % (A) 4 %; Neutrophils # (A) 15.5 k/uL (1.3-7.7); Neutrophils % (A) 86 %; Platelet Count 205 k/uL (150-450); RBC 5.84 m/uL (4.30-5.90); RDW 13.7 % (11.5-15.5)
[2024-07-10 13:12] LABS: ALT 18 U/L (4-49); AST 21 U/L (17-59); African American GFR (CKD) 88 (>60 ml/min/1.73 sqM); Albumin 3.9 g/dL (3.5-5.0); Alkaline Phosphatase 63 U/L (38-126); Amylase 45 U/L (30-110); Anion Gap 6 mmol/L; Blood Urea Nitrogen 12 mg/dL (9-20); Carbon Dioxide 28 mmol/L (22-30); Chloride 100 mmol/L (98-107); Glucose 87 mg/dL (74-99); Lipase 48 U/L (23-300); Non-African American GFR(CKD) 76 (>60 ml/min/1.73 sqM); Potassium 4.1 mmol/L (3.5-5.1); Sodium 134 mmol/L (137-145); Total Bilirubin 2.5 mg/dL (0.2-1.3); Total Protein 6.4 g/dL (6.3-8.2)
--- NOTE | 2024-07-10 13:40 | CT ---
EXAMINATION TYPE: CT abdomen pelvis w con DATE OF EXAM: 07/10/2024 COMPARISON: 07/22/2018 HISTORY: 64-year-old male abdominal pain, nausea/vomiting TECHNIQUE: Contiguous axial scanning of the abdomen and pelvis following administration of 100 ml Iso sanna 300 IV contrast. Delayed images through the kidneys and coronal/sagittal reconstructions perform ed. CT DLP: 1583.7 mGycm Automated exposure control for dose reduction was used. FINDINGS: The heart is upper limits of normal in size without pericardial effusion. Prominent strandy dependent atelectasis without pleural effusion. Liver mildly enlarged 18.6 cm. Possible vague hypodense lesion central left liver lobe measuring 1.6 cm may have been subtly present measuring 1.3 cm back on 2018. This favors a benign etiology. Portal venous system is patent. No re iary ductal dilatation. Gallbladder, right adrenal gland, kidneys, and pancreas within normal limits. Spleen upper limits of normal in size at 13.1 cm. Tiny 1 cm cortical cyst upper pole left kidney. Otherwise, symmetric uptake and excretion of contrast from both kidneys. There is 1.1 cm nodularity left adrenal gland that may have measured 9 mm back in 2018. Relative stab ility favors a benign etiology. No dilated small bowel, free fluid, or free air. A few prominent fluid-filled loops of small bowel are noted in the mid to lower abdomen. The appendix is abnormally thickened, inflamed, and fluid-filled, dilated up to 1.3 cm. Moderate maty appendiceal fat stranding and edema. Some fluid is noted within the cecum and ascending colon. Scattered minimal to mild stool. Mild sigmoid diverticulosis. No pericolonic inflammatory change otherwise seen. Bladder urine distended. A couple pelvic phleboliths are present. Prostate gland mildly enlarged at 4.5 cm wide. No abnormal fluid collection in the pelvis or pelvic l ymphadenopathy. Bones: Moderate degenerative disc disease lower thoracic spine. Hypertrophic facet arthropathy mid to lower lumbar spine. Degenerative grade 1 anterolisthesis L5-S1. Mild degenerative change of both hips. IMPRESSION: 1. EXAM POSITIVE FOR ACUTE APPENDICITIS. MODERATE ASSOCIATED INFLAMMATION. NO ABSCESS OR FREE AIR. 2. SUSPECT A SECONDARY MILD ILEUS. [facility], , 07/10/2024 1:37 PM
[2024-07-10] MEDS ORDERED: NALOXONE 0.4 MG/ML 1 ML VIAL IV PRN (14:25)
--- NOTE | 2024-07-10 14:49 | P.GSHP ---
History of Present Illness H&P Date: 07/10/24 64-year-old male with a history of diverticulosis presents emergency department chief complaint of lower abdominal pain over the past day. Patient states he was concerned as the pain is present in the left lower quadrant and the right lower quadrant. Endorses vomiting, fevers and chills. Denies diarrhea. Patient states that he will occasionally experience dark-colored stools and this has been normal for him due to recurrent colon infections. Patient has taken 3 tablets of clindamycin that has been prescribed before by his primary care provider for diverticulitis. Review of Systems ROS Statement: Those systems with pertinent positive or pertinent negative responses have been documented in the HPI. ROS Other: All systems not noted in ROS Statement are negative. Past Medical History Past Medical History: Chest Pain / Angina, COPD, GERD/Reflux, Hyperlipidemia, Hypertension, Osteoarthritis (OA), Prostate Disorder, Thyroid Disorder Additional Past Medical History / Comment(s): high chol - supposed to take cholestrol med but doesnt, Chronic back pain, diverticulitis, enlarged prostate, potassium deficiency, bilateral leg cramps, vitamin D deficiency, arthiritis bilateral feet/heels and lower back. thyroid lumps, pilonidal cyst History of Any Multi-Drug Resistant Organisms: None Reported Past Surgical History: Heart Catheterization Additional Past Surgical History / Comment(s): 2011 heart cath which was clear- done by Dr. VC Topete, colonoscopy, left knee drained 12/16/2016 and 12/20/2016 Past Anesthesia/Blood Transfusion Reactions: Previous Problems w/ Anesthesia Additional Past Anesthesia/Blood Transfusion Reaction / Comment(s): Pt states it took him a long time to wake up which he attributes to going into his procedures very tired. Past Psychological History: No Psychological Hx Reported Smoking Status: Current every day smoker Past Alcohol Use History: None Reported Past Drug Use History: None Reported - Past Family History Father Additional Family Medical History / Comment(s): Father of cirrhosis at age 62 yrs. No coronary artery disease history. Mother Additional Family Medical History / Comment(s): Mother of neck fracture at age 76yrs from an accident. She also had history of atrial fibrillation. Sister(s) Additional Family Medical History / Comment(s): Sister after a "leg operation" she developed a leg infection and family was told she of a lung problem. His sister had history of stroke as well. Patient has a second sister that is alive with COPD. Patient has children with no major medical problems. General Exam - General Exam Comments Initial Comments: Visual Physical Exam General: Well-appearing, nontoxic, no acute distress. Head: Normocephalic, atraumatic Eyes: PERRLA, EOMI ENT: Airway patent Chest: Nonlabored breathing Skin: No visual rash, normal skin tone Neuro: Alert and oriented 3 Musculoskeletal: No gross abnormalities Limitations: no limitations General appearance: alert, in no apparent distress ENT exam: Present: normal exam, mucous membranes moist Neck exam: Present: normal inspection. Absent: tenderness, meningismus, lymphadenopathy Respiratory exam: Present: normal lung sounds bilaterally. Absent: respiratory distress, wheezes, rales, rhonchi, stridor Cardiovascular Exam: Present: regular rate, normal rhythm, normal heart sounds. Absent: systolic murmur, diastolic murmur, rubs, gallop, clicks GI/Abdominal exam: Present: soft, tenderness (RLQ, LLQ), rebound, normal bowel sounds. Absent: distended, guarding, rigid Extremities exam: Present: normal inspection, full ROM, normal capillary refill. Absent: tenderness, pedal edema, joint swelling, calf tenderness Back exam: Present: normal inspection Skin exam: Present: warm, dry, intact, normal color. Absent: rash 64 year old male with appendecitis -OR for appendectomy Past Medical History Past Medical History: Chest Pain / Angina, COPD, GERD/Reflux, Hyperlipidemia, Hypertension, Osteoarthritis (OA), Prostate Disorder, Thyroid Disorder Additional Past Medical History / Comment(s): high chol - supposed to take cholestrol med but doesnt, Chronic back pain, diverticulitis, enlarged prostate, potassium deficiency, bilateral leg cramps, vitamin D deficiency, arthiritis bi lateral feet/heels and lower back. thyroid lumps, pilonidal cyst History of Any Multi-Drug Resistant Organisms: None Reported Past Surgical History: Heart Catheterization Additional Past Surgical History / Comment(s): 2011 heart cath which was clear- done by Dr. VC Topete, colonoscopy, left knee drained 12/16/2016 and 12/20/2016 Past Anesthesia/Blood Transfusion Reactions: Previous Problems w/ Anesthesia Additional Past Anesthesia/Blood Transfusion Reaction / Comment(s): Pt states it took him a long time to wake up which he attributes to going into his procedures very tired. Past Psychological History: No Psychological Hx Reported Smoking Status: Current every day smoker Past Alcohol Use History: None Reported Past Drug Use History: None Reported - Past Family History Father Additional Family Medical History / Comment(s): Father of cirrhosis at age 62 yrs. No coronary artery disease history. Mother Additional Family Medical History / Comment(s): Mother of neck fracture at age 76yrs from an accident. She also had history of atrial fibrillation. Sister(s) Additional Family Medical History / Comment(s): Sister after a "leg opera tion" she developed a leg infection and family was told she of a lung problem. His sister had history of stroke as well. Patient has a second sister that is alive with COPD. Patient has children with no major medical problems. Medications and Allergies Home Medications Medication Instructions Recorded Confirmed Type HYDROcodone/APAP 10-325MG [[place] 1 tab PO TID PRN 12/21/16 07/22/18 History 10-325] Aspirin [Adult Low Dose Aspirin EC] 81 mg PO DAILY 07/22/18 07/22/18 History Dicyclomine [Bentyl] 20 mg PO QID 07/22/18 07/22/18 History atenoloL [Tenormin] 50 mg PO BID 07/22/18 07/22/18 History Losartan [Cozaar] 50 mg PO DAILY #30 tab 07/23/18 Rx HYDROcodone/APAP 7.5-325MG [[place] 1 tab PO Q6HR PRN 3 Days #12 tab 11/01/22 Rx 7.5-325] Doxycycline [Vibramycin] 100 mg PO BID #20 capsule 02/12/24 Rx Allergies Allergy/AdvReac Type Severity Reaction Status Date / Time peanut Allergy Severe Anaphylaxis Verified 07/10/24 10:47 Quinolones Allergy Itching Verified 07/10/24 10:47 ciprofloxacin [From Cipro] AdvReac Rash/Hives Verified 07/10/24 10:47 sulfamethoxazole AdvReac Rapid Verified 07/10/24 10:47 [From Bactrim] Heart Rate trimethoprim [From Bactrim] AdvReac Rapid Verified 07/10/24 10:47 Heart Rate BRAZIL NUTS Allergy Anaphylaxis Uncoded 07/10/24 10:47 Surgical - Exam Vital Signs Temp Pulse Resp BP Pulse Ox 98 F 18 L 18 130/79 90 L 07/10/24 10:45 07/10/24 10:45 07/10/24 10:45 07/10/24 10:45 07/10/24 10:45 Results - Labs 07/10/24 11:41 07/10/24 11:41 Abnormal Lab Results - Last 24 Hours (Table) 07/10/24 07/10/24 Range/Units 11:41 11:41 WBC 18.0 H (3.8-10.6) k/uL Neutrophils # 15.5 H (1.3-7.7) k/uL Sodium 134 L (137-145) mmol/L Total Bilirubin 2.5 H (0.2-1.3) mg/dL Diabetes panel 07/10/24 Range/Units 11:41 Sodium 134 L (137-145) mmol/L Potassium 4.1 (3.5-5.1) mmol/L Chloride 100 (98-107) mmol/L Carbon Dioxide 28 (22-30) mmol/L BUN 12 (9-20) mg/dL Creatinine 1.05 (0.66-1.25) mg/dL Glucose 87 (74-99) mg/dL Calcium 9.0 (8.4-10.2) mg/dL AST 21 (17-59) U/L ALT 18 (4-49) U/L Alkaline Phosphatase 63 (38-126) U/L Total Protein 6.4 (6.3-8.2) g/dL Albumin 3.9 (3.5-5.0) g/dL Calcium panel 07/10/24 Range/Units 11:41 Calcium 9.0 (8.4-10.2) mg/dL Albumin 3.9 (3.5-5.0) g/dL Pituitary panel 07/10/24 Range/Units 11:41 Sodium 134 L (137-145) mmol/L Potassium 4.1 (3.5-5.1) mmol/L Chloride 100 (98-107) mmol/L Carbon Dioxide 28 (22-30) mmol/L BUN 12 (9-20) mg/dL Creatinine 1.05 (0.66-1.25) mg/dL Glucose 87 (74-99) mg/dL Calcium 9.0 (8.4-10.2) mg/dL Adrenal panel 07/10/24 Range/Units 11:41 Sodium 134 L (137-145) mmol/L Potassium 4.1 (3.5-5.1) mmol/L Chloride 100 (98-107) mmol/L Carbon Dioxide 28 (22-30) mmol/L BUN 12 (9-20) mg/dL Creatinine 1.05 (0.66-1.25) mg/dL Glucose 87 (74-99) mg/dL Calcium 9.0 (8.4-10.2) mg/dL Total Bilirubin 2.5 H (0.2-1.3) mg/dL AST 21 (17-59) U/L ALT 18 (4-49) U/L Alkaline Phosphatase 63 (38-126) U/L Total Protein 6.4 (6.3-8.2) g/dL Albumin 3.9 (3.5-5.0) g/dL
[2024-07-10] MEDS: PIPERACILLIN-TAZOBACTAM 3.375 GM in SODIUM CHLORIDE 0.9% 100 ML IVPB STA (15:03)
[2024-07-10] MEDS: SODIUM CHLORIDE 0.9% 1,000 ML IV SCH (15:04)
[2024-07-10 15:19] LABS: Basophils % (A) 0 %; Eosinophils # (A) 0.1 k/uL (0-0.7); Eosinophils % (A) 0 %; HCT 49.9 % (39.0-53.0); HGB 16.6 gm/dL (13.0-17.5); Lymphocytes # (A) 1.7 k/uL (1.0-4.8); Lymphocytes % (A) 9 %; MCH 29.6 pg (25.0-35.0); MCHC 33.3 g/dL (31.0-37.0); MCV 88.9 fL (80.0-100.0); Monocytes % (A) 5 %; Neutrophils # (A) 15.4 k/uL (1.3-7.7); Neutrophils % (A) 84 %; Platelet Count 208 k/uL (150-450); RBC 5.61 m/uL (4.30-5.90); RDW 13.7 % (11.5-15.5); WBC 18.4 k/uL (3.8-10.6)
[2024-07-10 15:27] LABS: Appearance,Urine Clear (Clear); Bilirubin,Urine Negative (Negative); Blood,Urine Small (Negative); Color,Urine Colorless; Glucose,Urine (UA) Negative (Negative); Ketones,Urine 2+ (Negative); Leukocyte Esterase,Urine Negative (Negative); Mucus,Urine Rare /hpf; Nitrite,Urine Negative (Negative); PH, Urine 5.5 (5.0-8.0); Protein,Urine Negative (Negative); RBC,Urine 1 /hpf (0-5); Urobilinogen,Urine <2.0 mg/dL (<2.0); WBC,Urine <1 /hpf (0-5)
[2024-07-10 15:28] LABS: Specific Gravity,Urine >1.050 (1.001-1.035)
[2024-07-10 15:29] LABS: African American GFR (CKD) >90 (>60 ml/min/1.73 sqM); Anion Gap 9 mmol/L; Blood Urea Nitrogen 11 mg/dL (9-20); Calcium 8.9 mg/dL (8.4-10.2); Carbon Dioxide 24 mmol/L (22-30); Chloride 101 mmol/L (98-107); Glucose 74 mg/dL (74-99); Non-African American GFR(CKD) >90 (>60 ml/min/1.73 sqM); Potassium 3.8 mmol/L (3.5-5.1); Sodium 134 mmol/L (137-145)
[2024-07-10] MEDS: HYDROmorphone 1 MG/ML 1 ML SYRINGE IVP PRN (18:08)
[2024-07-10] MEDS ORDERED: HYDROmorphone (PF) 1 MG/ML ONE (20:50)
[2024-07-10] MEDS ORDERED: PROPOFOL 10 MG/ML 20 ML VIAL IV ONE (20:50)
[2024-07-10] MEDS ORDERED: fentaNYL (PF) 50 MCG/ML 2 ML AMP ONE (20:50)
[2024-07-10] MEDS ORDERED: MIDAZOLAM 2 MG/2 ML VIAL ONE (20:50)
[2024-07-10] MEDS ORDERED: SUCCINYLCHOLINE CHLORIDE 200 MG/10 ML VIAL IV ONE (20:50)
[2024-07-10] MEDS ORDERED: PHENYLEPHRINE 10 MG/ML VIAL ONE (20:50)
[2024-07-10] MEDS ORDERED: LIDOCAINE 1% INJ 10MG/ML (20 ML MDV) ONE (20:50)
[2024-07-10] MEDS ORDERED: ROCURONIUM 10 MG/ML (5 ML VIAL) IV ONE (20:50)
[2024-07-10] MEDS: IV FLUID CONTINUATION 1,000 ML IV ONE ×2 (20:52→22:04)
[2024-07-10] MEDS: HYDROmorphone 0.5 MG/0.5 ML SYRINGE IVP ONE (22:46)
--- NOTE | 2024-07-10 23:13 | P.OP ---
Date of Procedure: 07/10/24 Preoperative Diagnosis: Perforated Appendicitis Postoperative Diagnosis: Perforated Appendictis Procedure(s) Performed: Laparoscopic Converted to Open Ileocecectomy Anesthesia: MAC Surgeon: Rodrick Cerda Estimated Blood Loss (ml): 100 Pathology: other (Small Bowel, Appendix, and Colon) Condition: stable Disposition: PACU Operative Findings: The patient was brought to the operating suite and placed in supine position. After anesthesia was given the patient was prepped and draped in usual sterile fashion. A timeout was performed before the procedure. An incisions was made at [facility] and a 5 mm optiview was used to gain access to the abdomen. Additional working ports were placed on the left side of the abdomen and the 5 mm port at [place] was replaced with a 12 mm port. The abdomen was insufflated. On inspection, the appendix was perforated at its base and there was spillage of stool into the abdomen. At this point, it became apparent the patient would require ileocecectomy. A Mcburney incision was made in the right lower quadrant. Dissection was carried down to the external oblique which were split and the abdomen cavity was entered. A mesenteric window was made in both the terminal ileum and the right colon. Both the right colon and the terminal ileum were divided with multiple firings of an Endo TRISHA 60 mm purple staple load. A side to side functional end to end anastomosis was then fashioned between the ileum and colon forming an ilecolonic anatomosis. Prior to this the mesentery of the portion of the bowel removed was taken down the specimen was passed off. The abdomen was then thoroughly irrigated. The fascia was then closed with #0 Looped PDS. Skin stapled were applied. Sterile dressings were placed. Patient tolerated the procedure well and was sent to the PACU in stable condition.
[2024-07-10] MEDS: LACTATED RINGERS 1,000 ML IV SCH (23:40)
--- NOTE | 2024-07-11 01:56 | P.PN ---
Progress Note - Text Progress Note Date: 07/11/24 Patient Resting Comfortable. Pain is controlled VSS General-NAD Abdomen-soft, incisions C/D/I, appropriate TTP, ND 64 year old male POD #1 Laparoscopic Converted to Open Ileocecectomy for Perforated Appendicitis -NPO -Zosyn -IV fluids -Pain and Nausea Control Rodrick Cerda DO [facility] [phone]
[2024-07-11] MEDS: ACETAMINOPHEN TAB 500 MG TAB PO PRN (08:42)
[2024-07-11 08:48] LABS: HCT 48.9 % (39.6-50.0); MCH 29.5 pg (27.0-32.0); MCHC 32.7 g/dL (32.0-37.0); MCV 90.2 FL (80.0-97.0); Mean Platelet Volume 10.8 FL (9.5-12.2); NRBC Per 100 WBC 0 X 10*3/uL (0.00-0.01); Platelet Count 177 X 10*3/uL (140-440); RBC 5.42 X 10*6/uL (4.40-5.60); RDW 13.8 % (11.5-14.5); WBC 22.89 X 10*3/uL (4.50-10.00)
[2024-07-11 09:23] LABS: Blood Urea Nitrogen 11.2 mg/dL (9.0-27.0); Calcium 8.2 mg/dL (8.7-10.3); Carbon Dioxide 19.5 mmol/L (21.6-31.8); Chloride 102 mmol/L (96-109); Glucose 104 mg/dL (70-110); Potassium 4.4 mmol/L (3.5-5.5); Sodium 136 mmol/L (135-145)
[2024-07-11 09:50] LABS: Basophils # (A) 0.07 X 10*3/uL (0.00-0.10); Basophils % (A) 0.3 %; Eosinophils # (A) 0.07 X 10*3/uL (0.04-0.35); Eosinophils % (A) 0.3 %; Lymphocytes # (A) 0.85 X 10*3/uL (0.90-5.00); Lymphocytes % (A) 3.7 %; Monocytes # (A) 0.92 X 10*3/uL (0.20-1.00); Neutrophils # (A) 20.83 X 10*3/uL (1.80-7.70)
[2024-07-11] MEDS: atenoloL 50 MG TAB PO SCH (11:02)
[2024-07-11] MEDS: ENOXAPARIN 40 MG/0.4 ML SYRINGE SQ SCH (11:02)
[2024-07-11] MEDS: NICOTINE 21MG/24HR PATCH TRANSDERM SCH (11:02)
[2024-07-11] MEDS: IPRATROPIUM-ALBUTEROL 3 ML NEB INHALATION SCH (15:15)
--- NOTE | 2024-07-11 17:00 | P.CONS ---
History of Present Illness - Reason for Consult Consult date: 07/11/24 Medical management Requesting physician: Rodrick Cerda - Chief Complaint Abdominal pain - History of Present Illness This is a pleasant 64-year-old patient, with no family doctor. Patient takes medication for hypertension. Will also taking for hyperlipidemia is unclear why patient discontinued the medications. Takes medication for GERD occasionally. Has arthritic symptoms in many joints. Also history of diverticulitis. Patient had right-sided abdominal pain on and off for about 9 months. Around 330 t yesterday morning patient had increasing pain in the right lower abdomen. With nausea vomiting febrile. Brought into the ER. CT scan the ER showed acute appendicitis with moderate associated inflammation. No abscess or free air was reported. Patient was taken to the operating room last night. A laparoscopic surgery was done which was converted to open. Appendix was perforated at this base and there was spillage of stool into the abdomen. Patient had a end to end anastomosis carried out after ileocecectomy. Today patient is having pain at the point. No vomiting. Up in the chair. at the bedside. Patient denies any cardiac history. Review of systems: GEN.: Tired EYES: None HEENT: None NECK: None RESPIRATORY: Occasional wheezing e CARDIOVASCULAR: None GASTROINTESTINAL: As above e GENITOURINARY: None MUSCULOSKELETAL: Pain in multiple joints e LYMPHATICS: None HEMATOLOGICAL: None PSYCHIATRY: [Bit anxious NEUROLOGICAL: None Social history: . 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 EYES: Pupils equal. Conjunctiva adarsh l. HEENT: External appearance of nose and ears normal, oral cavity grossly normal. NECK: JVD not raised; masses not palpable. HEART: First and second heart sounds are normal; no edema. LUNGS: Respiratory rate increased, decreased breath sound mild wheezing. ABDOMEN: Soft tender, dressing over the right lower abdomen, liver spleen not palpable, no masses palpable. PSYCH: Alert and oriented x3; mood and affect anxious l. MUSCULOSKELETAL:No Clubbing/cyanosis;muscles-grossly intact NEUROLOGICAL: Cranial nerves grossly intact; no facial asymmetry, power and sensation grossly intact. LYMPHATICS: No lymph nodes palpable in the axilla and neck INVESTIGATIONS, reviewed in the clinical context: July 11: White count 22.8 hemoglobin 16 platelets 177 sodium 136 potassium 4.4 BUN 11.[address] scan abdomen pelvis: Acute appendicitis moderate associated inflammation. No abscess or free air. Evidence of DJD lower thoracic spine. Assessment plan: -Acute perforated appendix with spillage of fecal content into the abdomen. Patient has to open ileocecectomy. N.p.o. -Suspect secondary peritonitis from fecal contamination from perforation, causing sepsis IV Zosyn. IV Flagyl. IV fluids Zosyn -Sepsis secondary to above IV antibiotics. IV fluids -COPD with some exacerbation in a current smoker DuoNeb. 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 Questions answered. Thank Dr. Cerda Past Medical History Past Medical History: Chest Pain / Angina, COPD, GERD/Reflux, Hyperlipidemia, Hypertension, Osteoarthritis (OA), Prostate Disorder, Thyroid Disorder Additional Past Medical History / Comment(s): high chol - supposed to take cholestrol med but doesnt, Chronic back pain, diverticulitis, enlarged prostate, potassium deficiency, bilateral leg cramps, vitamin D deficiency, arthiritis bilateral feet/heels and lower back. thyroid lumps, pilonidal cyst History of Any Multi-Drug Resistant Organisms: None Reported Past Surgical History: Heart Catheterization Additional Past Surgical History / Comment(s): 2011 heart cath which was clear- done by Dr. VC Topete, colonoscopy, left knee drained 12/16/2016 and 12/20/2016 Past Anesthesia/Blood Transfusion Reactions: Previous Problems w/ Anesthesia Additional Past Anesthesia/Blood Transfusion Reaction / Comm: Pt states it took him a long time to wake up which he attributes to going into his procedures very tired. Past Psychological History: No Psychological Hx Reported Smoking Status: Current every day smoker Past Alcohol Use History: None Reported Past Drug Use History: None Reported - Past Family History Father Additional Family Medical History / Comment(s): Father of cirrhosis at age 62 yrs. No coronary artery disease history. Mother Additional Family Medical History / Comment(s): Mother of neck fracture at age 76yrs from an accident. She also had history of atrial fibrillation. Sister(s) Additional Family Medical History / Comment(s): Sister after a "leg operation" she developed a leg infection and family was told she of a lung problem. His sister had history of stroke as well. Patient has a second sister that is alive with COPD. Patient has children with no major medical problems. Medications and Allergies Home Medications Medication Instructions Recorded Confirmed Type atenoloL [Tenormin] 50 mg PO DAILY 07/22/18 07/10/24 History Acetaminophen Tab [Tylenol] 650 mg PO Q4H PRN 07/10/24 07/10/24 History Esomeprazole Magnesium [NexIUM 20 mg PO DAILY PRN 07/10/24 07/10/24 History 24Hr] Triamterene-Hctz 37.5-25Mg 1 tab PO HS 07/10/24 07/10/24 History [Maxzide 37.5-25] Allergies Allergy/AdvReac Type Severity Reaction Status Date / Time peanut Allergy Severe Anaphylaxis Verified 07/10/24 14:54 [place] nut Allergy Anaphylaxis Verified 07/10/24 14:54 Quinolones Allergy Itching Verified 07/10/24 14:54 ciprofloxacin [From Cipro] AdvReac Rash/Hives Verified 07/10/24 14:54 sulfamethoxazole AdvReac Rapid Verified 07/10/24 14:54 [From Bactrim] Heart Rate trimethoprim [From Bactrim] AdvReac Rapid Verified 07/10/24 14:54 Heart Rate Physical Exam Vitals: Vital Signs Temp Pulse Pulse Resp BP BP Pulse Ox 07/11/24 02:12 102 H 17 105/72 91 L 07/11/24 01:57 94 17 139/89 94 L 07/11/24 01:27 98 16 116/77 96 07/11/24 01:13 98 13 105/74 97 07/11/24 00:57 17 113/74 94 L 07/10/24 23:42 15 104/68 93 L 07/10/24 23:41 14 111/72 91 L 07/10/24 23:27 98 14 111/72 93 L 07/10/24 23:15 100 16 103/67 96 07/10/24 23:00 98 16 108/68 96 07/10/24 22:45 98 F 98 16 111/61 96 07/10/24 19:57 13 07/10/24 19:20 99.4 F 88 17 106/65 94 L 07/10/24 16:32 99.1 F 87 17 106/67 95 07/10/24 15:10 98.5 F 91 106/72 95 07/10/24 14:56 98.5 F 91 18 106/72 95 07/10/24 10:45 98 F 18 L 18 130/79 90 L Intake and Output 07/10/24 07/11/24 07/11/24 22:59 06:59 14:59 Intake Total 1700 875 Output Total 100 400 Balance 1600 475 Intake: IV 1700 Intake, IV Titration 875 Amount Lactated Ringers 1,000 ml 875 @ 125 mls/hr IV .Q8H [facility] Rx#:[id number] Output: Urine 400 Estimated Blood Loss 100 Other: Voiding Method Toilet # Voids 2 1 Weight 101.605 kg Results CBC & Chem 7: 07/11/24 06:12 07/11/24 06:12 Labs: Abnormal Lab Results - Last 24 Hours (Table) 07/10/24 07/10/24 07/10/24 Range/Units 11:41 11:41 12:26 WBC 18.0 H (3.8-10.6) k/uL Neutrophils # 15.5 H (1.3-7.7) k/uL Sodium 134 L (137-145) mmol/L Total Bilirubin 2.5 H (0.2-1.3) mg/dL Ur Specific [place] >1.050 H (1.001-1.035) Urine Ketones 2+ H (Negative) Urine Blood Small H (Negative) Urine Mucus Rare H (None) /hpf 07/10/24 07/10/24 07/11/24 Range/Units 14:50 14:50 06:12 WBC 18.4 H 22.89 H (3.8-10.6) k/uL Neutrophils # 15.4 H (1.3-7.7) k/uL Sodium 134 L (137-145) mmol/L Total Bilirubin (0.2-1.3) mg/dL Ur Specific [place] (1.001-1.035) Urine Ketones (Negative) Urine Blood (Negative) Urine Mucus (None) /hpf
[2024-07-11] MEDS: metroNIDAZOLE-NS PMX 500 MG in SALINE 1 100ML.BAG IVPB SCH (18:34)
[2024-07-11] MEDS: FAMOTIDINE 20 MG/2 ML VIAL IV SCH (18:43)
[2024-07-11] MEDS: PIPERACILLIN-TAZOBACTAM 3.375 GM in SODIUM CHLORIDE 0.9% 100 ML IVPB SCH (19:58)
[2024-07-11] MEDS: BUDESONIDE 1 MG/2 ML NEBU INHALATION SCH (20:39)
[2024-07-12 03:48] LABS: Appearance,Urine Turbid (Clear); Bilirubin,Urine Negative (Negative); Blood,Urine Small (Negative); Budding Yeast,Urine Rare /hpf; Color,Urine Light Orange; Glucose,Urine (UA) Negative (Negative); Ketones,Urine 3+ (Negative); Leukocyte Esterase,Urine Negative (Negative); Nitrite,Urine Negative (Negative); PH, Urine 5.5 (5.0-8.0); Protein,Urine 1+ (Negative); RBC,Urine 11 /hpf (0-5); Specific Gravity,Urine 1.026 (1.001-1.035); Urobilinogen,Urine <2.0 mg/dL (<2.0)
[2024-07-12 05:17] LABS: Basophils % (A) 0 %; Eosinophils % (A) 0 %; HGB 14.4 gm/dL (13.0-17.5); Lymphocytes # (A) 0.8 k/uL (1.0-4.8); Lymphocytes % (A) 6 %; MCH 29.2 pg (25.0-35.0); MCV 91.2 fL (80.0-100.0); Mean Platelet Volume 8.2; Monocytes # (A) 0.6 k/uL (0-1.0); Monocytes % (A) 4 %; Neutrophils # (A) 12.3 k/uL (1.3-7.7); Neutrophils % (A) 88 %; Platelet Count 167 k/uL (150-450); RBC 4.94 m/uL (4.30-5.90); RDW 13.7 % (11.5-15.5)
[2024-07-12 05:31] LABS: ALT 13 U/L (4-49); AST 20 U/L (17-59); African American GFR (CKD) >90 (>60 ml/min/1.73 sqM); Albumin 2.9 g/dL (3.5-5.0); Albumin/Globulin Ratio 1.3; Alkaline Phosphatase 73 U/L (38-126); Anion Gap -2 mmol/L; Blood Urea Nitrogen 12 mg/dL (9-20); Calcium 8.2 mg/dL (8.4-10.2); Carbon Dioxide 24 mmol/L (22-30); Chloride 106 mmol/L (98-107); Globulin 2.3 g/dL; Glucose 102 mg/dL (74-99); Non-African American GFR(CKD) >90 (>60 ml/min/1.73 sqM); Potassium 3.8 mmol/L (3.5-5.1); Sodium 128 mmol/L (137-145); Total Bilirubin 1.7 mg/dL (0.2-1.3); Total Protein 5.2 g/dL (6.3-8.2)
--- NOTE | 2024-07-12 09:30 | P.PN ---
Progress Note - Text Progress Note Date: 07/12/24 Patient Resting Comfortable. Pain is controlled. Passing some gas. VSS General-NAD Abdomen-soft, incisions C/D/I, appropriate TTP, ND 64 year old male POD #2 Laparoscopic Converted to Open Ileocecectomy for Perforated Appendicitis -Sips of Clears -Zosyn -IV fluids -Pain and Nausea Control -Medicine consulted for medical management Rodrick Cerda [facility] [phone]
--- NOTE | 2024-07-12 15:13 | P.PN ---
Subjective Progress Note Date: 07/12/24 Interval History: This is a pleasant 64-year-old patient, with no family doctor. Patient takes medication for hypertension. Will also taking for hyperlipidemia is unclear why patient discontinued the medications. Takes medication for GERD occasionally. Has arthritic symptoms in many joints. Also history of diverticulitis. Patient had right-sided abdominal pain on and off for about 9 months. Around 330 t yesterday morning patient had increasing pain in the right lower abdomen. With nausea vomiting febrile. Brought into the ER. CT scan the ER showed acute appendicitis with moderate associated inflammation. No abscess or free air was reported. Patient was taken to the operating room last night. A laparoscopic surgery was done which was converted to open. Appendix was perforated at this base and there was spillage of stool into the abdomen. Patient had a end to end anastomosis carried out after ileocecectomy. Today patient is having pain at the point. No vomiting. Up in the chair. at the bedside. Patient denies any cardiac history. --patient was seen and examined today. Tolerating clear liquid diet. No issues overnight. Complaining of lower abdominal pain, unsure of passing flatus, no bowel movement. Afebrile, heart rate 89, respiratory rate 16, blood pressure 123/77, on room air saturating 94%. WBCs 14.0, trending down, hemoglobin is 14.4, platelets 167. Sodium 128, started on IV fluids. BUN/creatinine normal. Total bilirubin mildly elevated 1.7. Assessment and plan: -Acute perforated appendix with spillage of fecal content into the abdomen. Patient has to open ileocecectomy. N.p.o. -Suspect secondary peritonitis from fecal contamination from perforation, causing sepsis IV Zosyn. IV fluids. Zosyn -Sepsis secondary to above IV antibiotics. IV fluids Hyponatremia: Hypovolemic Continue IV fluids Monitor sodium. -COPD with some exacerbation in a current smoker DuoNeb. 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 CARDIOVASCULAR: S1, S2 present. No murmurs, rubs, or gallops. ABDOMEN: Soft, nontender, nondistended, normoactive bowel sounds. No guarding or rebound tenderness. MUSCULOSKELETAL: No edema, No cyanosis. No clubbing. Normal ROM. Intact peripheral pulses. EXTREMITIES: No cyanosis, clubbing, or pedal edema. NEUROLOGICAL: CN 2-12 grossly intact. No FND Skin: No Rash REVIEW OF SYSTEMS: CONSTITUTIONAL: No fever or chills. CARDIOVASCULAR: No chest pain, palpitations or syncope. PULMONARY: No shortness of breath, no cough, sore throat. GASTROINTESTINAL: No nausea, vomiting, diarrhea, abdominal pain. : No Dysuria, urgency, frequency. Extremities: No edema. NEUROLOGICAL: No headaches, no weakness, or numbness Dictation was produced using [employer] dictation software. please excuse any grammatical, word or spelling errors. Objective - Vital Signs Vital signs: Vital Signs Temp 98.7 F 07/12/24 14:00 Pulse 89 07/12/24 14:00 Resp 16 07/12/24 14:00 BP 123/77 07/12/24 14:00 Pulse Ox 94 L 07/12/24 14:00 FiO2 Intake & Output 07/11/24 07/12/24 07/12/24 18:59 06:59 18:59 Output Total 600 Balance -600 Output: Urine 600 Other: Voiding Method Toilet Toilet # Voids 1 - Labs CBC & Chem 7: 07/12/24 04:24 07/12/24 04:24 Labs: Abnormal Lab Results - Last 24 Hours (Table) 07/12/24 07/12/24 07/12/24 Range/Units 01:37 04:24 04:24 WBC 14.0 H (3.8-10.6) k/uL Neutrophils # 12.3 H (1.3-7.7) k/uL Lymphocytes # 0.8 L (1.0-4.8) k/uL Sodium 128 L (137-145) mmol/L Glucose 102 H (74-99) mg/dL Calcium 8.2 L (8.4-10.2) mg/dL Total Bilirubin 1.7 H (0.2-1.3) mg/dL Total Protein 5.2 L (6.3-8.2) g/dL Albumin 2.9 L (3.5-5.0) g/dL Urine Protein 1+ H (Negative) Urine Ketones 3+ H (Negative) Urine Blood Small H (Negative) Urine RBC 11 H (0-5) /hpf Urine Yeast (Budding) Rare H (None) /hpf
[2024-07-12] MEDS: SODIUM CHLORIDE 0.9% 1,000 ML IV SCH (15:58)
[2024-07-12] MEDS: PIPERACILLIN-TAZOBACTAM 3.375 GM in SODIUM CHLORIDE 0.9% 100 ML IVPB SCH (17:28)
--- NOTE | 2024-07-13 04:27 | P.PN ---
Progress Note - Text Progress Note Date: 07/13/24 Patient Resting Comfortable. Pain is controlled. Passing some gas. VSS General-NAD Abdomen-soft, incisions C/D/I, appropriate TTP, ND 64 year old male POD #3 Laparoscopic Converted to Open Ileocecectomy for Perforated Appendicitis -Sips of Clears -Zosyn -IV fluids -Pain and Nausea Control -Medicine consulted for medical management Rodrick Cerda [facility] [phone]
[2024-07-13 10:03] LABS: BUN/Creat Ratio 12.56 Ratio (12.00-20.00); Blood Urea Nitrogen 11.3 mg/dL (9.0-27.0); Calcium 8.2 mg/dL (8.7-10.3); Carbon Dioxide 20.6 mmol/L (21.6-31.8); Chloride 106 mmol/L (96-109); Glucose 109 mg/dL (70-110); Potassium 3.7 mmol/L (3.5-5.5); Sodium 140 mmol/L (135-145)
[2024-07-13 10:07] LABS: Basophils # (A) 0.05 X 10*3/uL (0.00-0.10); Basophils % (A) 0.3 %; Eosinophils # (A) 0.45 X 10*3/uL (0.04-0.35); Eosinophils % (A) 2.7 %; HCT 44.3 % (39.6-50.0); HGB 14.8 g/dL (13.0-17.0); Lymphocytes # (A) 1.33 X 10*3/uL (0.90-5.00); Lymphocytes % (A) 7.9 %; MCH 29.2 pg (27.0-32.0); MCHC 33.4 g/dL (32.0-37.0); MCV 87.5 FL (80.0-97.0); Mean Platelet Volume 10.6 FL (9.5-12.2); Monocytes # (A) 0.87 X 10*3/uL (0.20-1.00); Monocytes % (A) 5.2 %; NRBC Per 100 WBC 0 X 10*3/uL (0.00-0.01); Neutrophils # (A) 14.08 X 10*3/uL (1.80-7.70); Neutrophils % (A) 83.4 %; Platelet Count 187 X 10*3/uL (140-440); RBC 5.06 X 10*6/uL (4.40-5.60); RDW 14.2 % (11.5-14.5); WBC 16.87 X 10*3/uL (4.50-10.00)
--- NOTE | 2024-07-13 13:55 | P.PN ---
Subjective Progress Note Date: 07/13/24 Interval History: This is a pleasant 64-year-old patient, with no family doctor. Patient takes medication for hypertension. Will also taking for hyperlipidemia is unclear why patient discontinued the medications. Takes medication for GERD occasionally. Has arthritic symptoms in many joints. Also history of diverticulitis. Patient had right-sided abdominal pain on and off for about 9 months. Around 330 t yesterday morning patient had increasing pain in the right lower abdomen. With nausea vomiting febrile. Brought into the ER. CT scan the ER showed acute appendicitis with moderate associated inflammation. No abscess or free air was reported. Patient was taken to the operating room last night. A laparoscopic surgery was done which was converted to open. Appendix was perforated at this base and there was spillage of stool into the abdomen. Patient had a end to end anastomosis carried out after ileocecectomy. Today patient is having pain at the point. No vomiting. Up in the chair. at the bedside. Patient denies any cardiac history. 07/12/2024--patient was seen and examined today. Tolerating clear liquid diet. No issues overnight. Complaining of lower abdominal pain, unsure of passing flatus, no bowel movement. Afebrile, heart rate 89, respiratory rate 16, blood pressure 123/77, on room air saturating 94%. WBCs 14.0, trending down, hemoglobin is 14.4, platelets 167. Sodium 128, started on IV fluids. BUN/creatinine normal. Total bilirubin mildly elevated 1.7. 07/13/24--patient seen and examined today. Pain is controlled. Patient feeling better today. No bowel movement. Reported flatus. General surgery following, remains on IV fluids, Zosyn. On sips of clears. Vital stable. WBCs went up to 16.8 today. Hemoglobin 14.8, platelet normal. Sodium improved to 140 today, normal BUN/creatinine. Assessment and plan: -Acute perforated appendix with spillage of fecal content into the abdomen. Patient has to open ileocecectomy. Management per general surgery, pain control, on IV Zosyn, on sips of clears. -Suspect secondary peritonitis from fecal contamination from perforation, causing sepsis IV Zosyn. IV fluids. Zosyn -Sepsis secondary to above IV antibiotics. IV fluids Hyponatremia: Solved Hypovolemic Continue IV fluids Monitor sodium. -COPD with some exacerbation in a current smoker DuoNeb. 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 CARDIOVASCULAR: S1, S2 present. No murmurs, rubs, or gallops. ABDOMEN: Soft, tenderness around incision, nondistended, normoactive bowel sounds. No guarding or rebound tenderness. MUSCULOSKELETAL: No edema, No cyanosis. No clubbing. Normal ROM. Intact peripheral pulses. EXTREMITIES: No cyanosis, clubbing, or pedal edema. NEUROLOGICAL: CN 2-12 grossly intact. No FND Skin: No Rash REVIEW OF SYSTEMS: CONSTITUTIONAL: No fever or chills. CARDIOVASCULAR: No chest pain, palpitations or syncope. PULMONARY: No shortness of breath, no cough, sore throat. GASTROINTESTINAL: No nausea, vomiting, diarrhea, abdominal pain. : No Dysuria, urgency, frequency. Extremities: No edema. NEUROLOGICAL: No headaches, no weakness, or numbness Dictation was produced using [employer] dictation software. please excuse any grammatical, word or spelling errors. Objective - Vital Signs Vital signs: Vital Signs Temp 98.7 F 07/13/24 07:31 Pulse 84 07/13/24 07:31 Resp 16 07/13/24 07:31 BP 118/72 07/13/24 07:31 Pulse Ox 93 L 07/13/24 07:31 FiO2 Intake & Output 07/12/24 07/13/24 07/13/24 18:59 06:59 18:59 Other: Voiding Method Toilet # Voids 4 2 - Labs CBC & Chem 7: 07/13/24 04:55 07/13/24 04:55 Labs: Abnormal Lab Results - Last 24 Hours (Table) 07/13/24 07/13/24 Range/Units 04:55 04:55 WBC 16.87 H (4.50-10.00) X 10*3/uL Immature Gran # 0.09 H (0.00-0.04) X 10*3/uL Neutrophils # 14.08 H (1.80-7.70) X 10*3/uL Eosinophils # 0.45 H (0.04-0.35) X 10*3/uL Carbon Dioxide 20.6 L (21.6-31.8) mmol/L Anion Gap 13.40 H (4.00-12.00) mmol/L Calcium 8.2 L (8.7-10.3) mg/dL
[2024-07-13] MEDS: ONDANSETRON 4 MG/2 ML VIAL IVP PRN (14:36)
[2024-07-14 08:47] LABS: Basophils # (A) 0.04 X 10*3/uL (0.00-0.10); Basophils % (A) 0.3 %; Eosinophils # (A) 0.27 X 10*3/uL (0.04-0.35); HCT 44.7 % (39.6-50.0); HGB 14.5 g/dL (13.0-17.0); Lymphocytes # (A) 1.56 X 10*3/uL (0.90-5.00); Lymphocytes % (A) 11.5 %; MCH 29.1 pg (27.0-32.0); MCHC 32.4 g/dL (32.0-37.0); MCV 89.6 FL (80.0-97.0); Mean Platelet Volume 10.8 FL (9.5-12.2); Monocytes % (A) 5.1 %; NRBC Per 100 WBC 0 X 10*3/uL (0.00-0.01); Neutrophils # (A) 10.95 X 10*3/uL (1.80-7.70); Neutrophils % (A) 80.4 %; Platelet Count 225 X 10*3/uL (140-440); RBC 4.99 X 10*6/uL (4.40-5.60); RDW 14.4 % (11.5-14.5); WBC 13.61 X 10*3/uL (4.50-10.00)
[2024-07-14 10:30] LABS: ALT 15 U/L (10-49); AST 13 U/L (14-35); Albumin/Globulin Ratio 1.43 Ratio (1.60-3.17); Alkaline Phosphatase 73 U/L (41-126); BUN/Creat Ratio 13.33 Ratio (12.00-20.00); Calcium 8.2 mg/dL (8.7-10.3); Carbon Dioxide 25.1 mmol/L (21.6-31.8); Chloride 104 mmol/L (96-109); Globulin 2.1 g/dL (1.6-3.3); Glucose 93 mg/dL (70-110); Potassium 3.8 mmol/L (3.5-5.5); Sodium 141 mmol/L (135-145); Total Bilirubin 1.2 mg/dL (0.3-1.2); Total Protein 5.1 g/dL (6.2-8.2)
[2024-07-14] MEDS: diphenhydrAMINE 25 MG CAP PO PRN (11:04)
--- NOTE | 2024-07-14 13:52 | P.PN ---
Subjective Progress Note Date: 07/14/24 CHIEF COMPLAINT: Perforated appendicitis HISTORY OF PRESENT ILLNESS: Postop day #4 status post laparoscopic converted to open ileocecectomy for perforated appendicitis. Patient is having flatus. Denies any nausea or vomiting currently. He is complaining of itching along the incisional dressing. Afebrile. WBC is down from 16.8-13.6 PHYSICAL EXAM: VITAL SIGNS: Reviewed. GENERAL: Well-developed in no acute distress. ABDOMEN: Soft. Nondistended. Mild tenderness at incision site. Incisional dr essing was pulled back. There was some serosanguineous drainage at incision site. This was cleaned away. No further drainage noted. There was 2 tiny areas of blood noted in incisional area. Mild erythema and ecchymosis lateral aspect of the incision. Mild erythema noted on the right flank appears skin to be irritated from a bandage NEUROLOGIC: Alert and oriented. Cranial nerves II through XII grossly intact. ASSESSMENT: 1. Perforated appendicitis PLAN: -Continue to monitor incision site. Incisional dressing changed. -Benadryl added for itching -Encourage patient to increase activity level -Continue pain management -Pattison added for oral pain medication -Continue clear liquid diet -Continue antibiotics -Repeat CBC in a.m. -DVT prophylaxis Lovenox and GI prophylaxis Pepcid Physician Career Development Coordinator/Teacher note has been reviewed by physician. Signing provider agrees with the documented findings, assessment, and plan of care. Objective - Vital Signs Vital signs: Vital Signs Temp 97.5 F L 07/14/24 08:00 Pulse 81 07/14/24 08:00 Resp 18 07/14/24 08:00 BP 114/76 07/14/24 08:00 Pulse Ox 91 L 07/14/24 08:00 FiO2 Intake & Output 07/13/24 07/14/24 07/14/24 18:59 06:59 18:59 Other: Voiding Method Toilet Toilet # Voids 3 2 - Labs CBC & Chem 7: 07/14/24 06:14 07/14/24 06:14 Labs: Abnormal Lab Results - Last 24 Hours (Table) 07/14/24 07/14/24 Range/Units 06:14 06:14 WBC 13.61 H (4.50-10.00) X 10*3/uL Immature Gran # 0.09 H (0.00-0.04) X 10*3/uL Neutrophils # 10.95 H (1.80-7.70) X 10*3/uL Calcium 8.2 L (8.7-10.3) mg/dL AST 13 L (14-35) U/L Total Protein 5.1 L (6.2-8.2) g/dL Albumin 3.0 L (3.8-4.9) g/dL Albumin/Globulin Ratio 1.43 L (1.60-3.17) Ratio
[2024-07-14] MEDS: HYDROcodone/APAP 5-325MG 1 EACH TAB PO PRN (13:59)
--- NOTE | 2024-07-14 15:06 | P.PN ---
Subjective Progress Note Date: 07/14/24 Interval History: This is a pleasant 64-year-old patient, with no family doctor. Patient takes medication for hypertension. Will also taking for hyperlipidemia is unclear why patient discontinued the medications. Takes medication for GERD occasionally. Has arthritic symptoms in many joints. Also history of diverticulitis. Patient had right-sided abdominal pain on and off for about 9 months. Around 330 t yesterday morning patient had increasing pain in the right lower abdomen. With nausea vomiting febrile. Brought into the ER. CT scan the ER showed acute appendicitis with moderate associated inflammation. No abscess or free air was reported. Patient was taken to the operating room last night. A laparoscopic surgery was done which was converted to open. Appendix was perforated at this base and there was spillage of stool into the abdomen. Patient had a end to end anastomosis carried out after ileocecectomy. Today patient is having pain at the point. No vomiting. Up in the chair. at the bedside. Patient denies any cardiac history. 07/12/2024--patient was seen and examined today. Tolerating clear liquid diet. No issues overnight. Complaining of lower abdominal pain, unsure of passing flatus, no bowel movement. Afebrile, heart rate 89, respiratory rate 16, blood pressure 123/77, on room air saturating 94%. WBCs 14.0, trending down, hemoglobin is 14.4, platelets 167. Sodium 128, started on IV fluids. BUN/creatinine normal. Total bilirubin mildly elevated 1.7. 07/13/24--patient seen and examined today. Pain is controlled. Patient feeling better today. No bowel movement. Reported flatus. General surgery following, remains on IV fluids, Zosyn. On sips of clears. Vital stable. WBCs went up to 16.8 today. Hemoglobin 14.8, platelet normal. Sodium improved to 140 today, normal BUN/creatinine. 07/14/24--was seen and examined today. Pain is controlled. Feeling better. On clear liquids per general surgery. On IV Zosyn and IV fluids. Passing flatus, no bowel movement. WBCs trending down. Encourage ambulation. Assessment and plan: -Acute perforated appendix with spillage of fecal content into the abdomen. Patient has to open ileocecectomy. Management per general surgery, pain control, on IV Zosyn, on sips of clears. -Suspect secondary peritonitis from fecal contamination from perforation, causing sepsis IV Zosyn. IV fluids. Zosyn -Sepsis secondary to above IV antibiotics. IV fluids Hyponatremia: Solved Hypovolemic Continue IV fluids Monitor sodium. -COPD with some exacerbation in a current smoker Kaitlin. 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 CARDIOVASCULAR: S1, S2 present. No murmurs, rubs, or gallops. ABDOMEN: Soft, tenderness around incision, nondistended, normoactive bowel sounds. No guarding or rebound tenderness. MUSCULOSKELETAL: No edema, No cyanosis. No clubbing. Normal ROM. Intact peripheral pulses. EXTREMITIES: No cyanosis, clubbing, or pedal edema. NEUROLOGICAL: CN 2-12 grossly intact. No FND Skin: No Rash REVIEW OF SYSTEMS: CONSTITUTIONAL: No fever or chills. CARDIOVASCULAR: No chest pain, palpitations or syncope. PULMONARY: No shortness of breath, no cough, sore throat. GASTROINTESTINAL: No nausea, vomiting, diarrhea, abdominal pain. : No Dysuria, urgency, frequency. Extremities: No edema. NEUROLOGICAL: No headaches, no weakness, or numbness Dictation was produced using [employer] dictation software. please excuse any grammatical, word or spelling errors. Objective - Vital Signs Vital signs: Vital Signs Temp 97.5 F L 07/14/24 08:00 Pulse 81 07/14/24 08:00 Resp 18 07/14/24 08:00 BP 114/76 07/14/24 08:00 Pulse Ox 91 L 07/14/24 08:00 FiO2 Intake & Output 07/13/24 07/14/24 07/14/24 18:59 06:59 18:59 Other: Voiding Method Toilet Toilet # Voids 3 2 - Labs CBC & Chem 7: 07/14/24 06:14 07/14/24 06:14 Labs: Abnormal Lab Results - Last 24 Hours (Table) 07/14/24 07/14/24 Range/Units 06:14 06:14 WBC 13.61 H (4.50-10.00) X 10*3/uL Immature Gran # 0.09 H (0.00-0.04) X 10*3/uL Neutrophils # 10.95 H (1.80-7.70) X 10*3/uL Calcium 8.2 L (8.7-10.3) mg/dL AST 13 L (14-35) U/L Total Protein 5.1 L (6.2-8.2) g/dL Albumin 3.0 L (3.8-4.9) g/dL Albumin/Globulin Ratio 1.43 L (1.60-3.17) Ratio
[2024-07-15 08:48] LABS: Basophils # (A) 0.04 X 10*3/uL (0.00-0.10); Basophils % (A) 0.3 %; Eosinophils # (A) 0.46 X 10*3/uL (0.04-0.35); Eosinophils % (A) 3.3 %; HGB 13.2 g/dL (13.0-17.0); Lymphocytes # (A) 1.86 X 10*3/uL (0.90-5.00); Lymphocytes % (A) 13.5 %; MCH 29.6 pg (27.0-32.0); MCV 89.7 FL (80.0-97.0); Mean Platelet Volume 10.9 FL (9.5-12.2); Monocytes # (A) 0.88 X 10*3/uL (0.20-1.00); Monocytes % (A) 6.4 %; NRBC Per 100 WBC 0 X 10*3/uL (0.00-0.01); Neutrophils # (A) 10.36 X 10*3/uL (1.80-7.70); Neutrophils % (A) 75.5 %; Platelet Count 225 X 10*3/uL (140-440); RBC 4.46 X 10*6/uL (4.40-5.60); RDW 14.5 % (11.5-14.5); WBC 13.74 X 10*3/uL (4.50-10.00)
[2024-07-15] MEDS: TRIAMTERENE-HCTZ 37.5-25MG 1 EACH CAP PO SCH (12:18)
--- NOTE | 2024-07-15 12:34 | CDI ---
Documentation Clarification Form Date: 07/15/2024 11:42:54 AM From: Alexia Galvez RN, CCDS Phone: [phone] Admit Date: 07/10/2024 01:50:00 PM Patient Name: Blu Frost Visit Number: [id number] Discharge Date: ATTENTION: The Clinical Documentation Specialists (CDI) and [facility] Coding Staff appreciate your assistance in clarifying documentation. Please respond to the clarification below the line at the bottom and electronically sign. The CDI & [facility] Coding staff will review the response and follow-up if needed. Please note: Queries are made part of the Legal Health Record. If you have any questions, please contact the author of this message via ITS. Doctor/Provider: Rodrick Cerda The patient had an acute perforated appendix with spillage of fecal content into the abdomen. Based on this information and the findings below, is there an additional diagnosis that is clinically appropriate for this patient? History/Risk Factors: Chest Pain / Angina, COPD, GERD/Reflux, Hyperlipidemia, Hypertension, Osteoarthritis (OA), Prostate Disorder, Thyroid Disorder Clinical Indicators: 64-year-old male who present with abdominal pain over the past day. He was ruled in for appendicitis. 07/10/24 had a laparoscopic converted to open Ileocecectomy. On inspection, the appendix was perforated at its base and there into the abdomen. WBC 18.0, Neutrophils 15.5, Na 134 07/10 Vitals: 106/72 91 18 99.1 95% RA 07/11 Vitals: 102/67 11 18 100.1 91% RA, WBC 22.89 07/11 Medicine consult: Acute perforated appendix with spillage of fecal content into the abdomen. -Suspect secondary peritonitis from fecal contamination from perforation, causing sepsis Treatment: Zosyn 3.375 GM IVPB Q 8 HRS Is there an additional diagnosis that is clinically appropriate for this patient? [ ] Sepsis, secondary peritonitis from perforated appendix present on admission [ ] Sepsis ruled out [ ] No additional diagnosis/not clinically significant [ ] Other, please specify [ ] Unable to determine SIRS Criteria: 2 or more of the following may indicate SIRS Temperature < 96.8F (36C) or > 101.0F (38.3C) Heart Rate > 90 bpm Respiratory Rate > 20 breaths/min or PaCO2 < 32 mmHg White Blood Cell Count > 12,000 or < 4,000 cells/mm3 or > 10% bands (Template Last Reviewed: October 2022) MTDD
--- NOTE | 2024-07-15 13:40 | P.PN ---
Subjective Progress Note Date: 07/15/24 CHIEF COMPLAINT: Perforated appendicitis HISTORY OF PRESENT ILLNESS: Postop day #5 status post laparoscopic converted to open ileocecectomy for perforated appendicitis. Patient is having flatus and had BM. Denies any nausea or vomiting. His itching at the incision site has improved after cleaning the incision and new dressing applied. Patient again is having some bleeding from the incision which is noted on the dressing. Dressing changed twice by nursing staff due to the bleeding. Patient has been up and ambulating. He reports that his pain is controlled. Afebrile. WBC 13.7 for remaining about the same. Hgb 13.2 PHYSICAL EXAM: VITAL SIGNS: Reviewed. GENERAL: Well-developed in no acute distress. ABDOMEN: Soft. Nondistended. Incision site with mild erythema and ecchymosis laterally to the right of the incision. The bandage was saturated through with blood. No active bleeding noted with palpation of the incision. There is a firmness noted to the lateral aspect of the incision. NEUROLOGIC: Alert and oriented. Cranial nerves II through XII grossly intact. ASSESSMENT: 1. Perforated appendicitis PLAN: -Continue to monitor incision site. Incisional dressing changed. ABD dressing to be applied -Continue to monitor leukocytosis. Repeat CBC in a.m. -Continue antibiotics -Encourage patient to increase activity level -Continue pain management -Advance diet to regular -DVT prophylaxis Lovenox and GI prophylaxis Pepcid Physician Change Director note has been reviewed by physician. Signing provider agrees with the documented findings, assessment, and plan of care. Attestation Patient seen and examined at bedside. Postop day #5 open ileocecectomy secondary to perforated appendicitis. White count 13.7, lateral from yesterday. Patient states he is doing well. On regular diet and tolerating this. He is having bowel function. We will plan to repeat CBC in AM. Patient having some blood on dressing with no active bleeding at this time. Plan to repeat CBC tomorrow, if continues to be elevated, we will consider CT for abscess evaluation. Continue IV antibiotics. Discharge planning. Jeanine Cruz DO Objective - Vital Signs Vital signs: Vital Signs Temp 97.9 F 07/15/24 12:11 Pulse 73 07/15/24 12:11 Resp 16 07/15/24 12:11 BP 113/78 07/15/24 12:11 Pulse Ox 97 07/15/24 12:11 FiO2 Intake & Output 07/14/24 07/15/24 07/15/24 18:59 06:59 18:59 Intake Total 540 Balance 540 Intake: Oral 540 Other: Voiding Method Toilet Toilet # Voids 2 2 - Labs CBC & Chem 7: 07/15/24 06:18 07/14/24 06:14 Labs: Abnormal Lab Results - Last 24 Hours (Table) 07/15/24 Range/Units 06:18 WBC 13.74 H (4.50-10.00) X 10*3/uL Immature Gran # 0.14 H (0.00-0.04) X 10*3/uL Neutrophils # 10.36 H (1.80-7.70) X 10*3/uL Eosinophils # 0.46 H (0.04-0.35) X 10*3/uL
--- NOTE | 2024-07-15 14:06 | P.PN ---
Subjective Progress Note Date: 07/15/24 Interval History: This is a pleasant 64-year-old patient, with no family doctor. Patient takes medication for hypertension. Will also taking for hyperlipidemia is unclear why patient discontinued the medications. Takes medication for GERD occasionally. Has arthritic symptoms in many joints. Also history of diverticulitis. Patient had right-sided abdominal pain on and off for about 9 months. Around 330 t yesterday morning patient had increasing pain in the right lower abdomen. With nausea vomiting febrile. Brought into the ER. CT scan the ER showed acute appendicitis with moderate associated inflammation. No abscess or free air was reported. Patient was taken to the operating room last night. A laparoscopic surgery was done which was converted to open. Appendix was perforated at this base and there was spillage of stool into the abdomen. Patient had a end to end anastomosis carried out after ileocecectomy. Today patient is having pain at the point. No vomiting. Up in the chair. at the bedside. Patient denies any cardiac history. 07/12/2024--patient was seen and examined today. Tolerating clear liquid diet. No issues overnight. Complaining of lower abdominal pain, unsure of passing flatus, no bowel movement. Afebrile, heart rate 89, respiratory rate 16, blood pressure 123/77, on room air saturating 94%. WBCs 14.0, trending down, hemoglobin is 14.4, platelets 167. Sodium 128, started on IV fluids. BUN/creatinine normal. Total bilirubin mildly elevated 1.7. 07/13/24--patient seen and examined today. Pain is controlled. Patient feeling better today. No bowel movement. Reported flatus. General surgery following, remains on IV fluids, Zosyn. On sips of clears. Vital stable. WBCs went up to 16.8 today. Hemoglobin 14.8, platelet normal. Sodium improved to 140 today, normal BUN/creatinine. 07/14/24--was seen and examined today. Pain is controlled. Feeling better. On clear liquids per general surgery. On IV Zosyn and IV fluids. Passing flatus, no bowel movement. WBCs trending down. Encourage ambulation. 07/15/24--patient was seen and examined today. Pain is controlled. Feeling better. Remains on IV Zosyn, continue atenolol, restarted patient's Dyazide home dose, diet advanced to regular diet per general surgery. Passing flatus, had bowel movement. Assessment and plan: -Acute perforated appendix with spillage of fecal content into the abdomen. Patient has to open ileocecectomy. Management per general surgery, pain control, on IV Zosyn, diet advanced to regular diet 07/15. -Suspect secondary peritonitis from fecal contamination from perforation, causing sepsis IV Zosyn. IV fluids -Sepsis secondary to above IV antibiotics. IV fluids Hyponatremia: Solved Hypovolemic Continue IV fluids Monitor sodium. -COPD with some exacerbation in a current smoker DuoNeb. Nebulized Pulmicort -Chronic nicotine dependence, cigarette smoker Nicotine patch 21 -Lumbar DJD primary and in other joints Pain medication as needed -Essential hypertension Tenormin 50 mg a day Resume Dyazide. -GERD IV Pepcid 20 mg twice daily -Full code DVT prophylaxis: Subcutaneous Lovenox PHYSICAL EXAMINATION: GENERAL: The patient is A&O x3, NAD HEENT: EOMI, Sclerae anicteric, Moist Mucous membranes Neck: Supple, Non tender, No JVD PULMONARY: Equal breath souds B/L, No wheezing, No crackles. CARDIOVASCULAR: S1, S2 present. No murmurs, rubs, or gallops. ABDOMEN: Soft, Mild tenderness around incision, nondistended, normoactive bowel sounds. No guarding or rebound tenderness. MUSCULOSKELETAL: No edema, No cyanosis. No clubbing. Normal ROM. Intact periphe ral pulses. EXTREMITIES: No cyanosis, clubbing, or pedal edema. NEUROLOGICAL: CN 2-12 grossly intact. No FND Skin: No Rash REVIEW OF SYSTEMS: CONSTITUTIONAL: No fever or chills. CARDIOVASCULAR: No chest pain, palpitations or syncope. PULMONARY: No shortness of breath, no cough, sore throat. GASTROINTESTINAL: No nausea, vomiting, diarrhea, abdominal pain. : No Dysuria, urgency, frequency. Extremities: No edema. NEUROLOGICAL: No headaches, no weakness, or numbness Dictation was produced using [employer] dictation software. please excuse any grammatical, word or spelling errors. Objective - Vital Signs Vital signs: Vital Signs Temp 97.9 F 07/15/24 12:11 Pulse 73 07/15/24 12:11 Resp 16 07/15/24 12:11 BP 113/78 07/15/24 12:11 Pulse Ox 97 07/15/24 12:11 FiO2 Intake & Output 07/14/24 07/15/24 07/15/24 18:59 06:59 18:59 Intake Total 540 Balance 540 Intake: Oral 540 Other: Voiding Method Toilet Toilet # Voids 2 2 - Labs CBC & Chem 7: 07/15/24 06:18 07/14/24 06:14 Labs: Abnormal Lab Results - Last 24 Hours (Table) 07/15/24 Range/Units 06:18 WBC 13.74 H (4.50-10.00) X 10*3/uL Immature Gran # 0.14 H (0.00-0.04) X 10*3/uL Neutrophils # 10.36 H (1.80-7.70) X 10*3/uL Eosinophils # 0.46 H (0.04-0.35) X 10*3/uL
[2024-07-16 09:07] LABS: Basophils # (A) 0.06 X 10*3/uL (0.00-0.10); Basophils % (A) 0.5 %; Eosinophils # (A) 0.27 X 10*3/uL (0.04-0.35); Eosinophils % (A) 2.2 %; HCT 42.6 % (39.6-50.0); Lymphocytes # (A) 0.97 X 10*3/uL (0.90-5.00); Lymphocytes % (A) 7.8 %; MCH 29.5 pg (27.0-32.0); MCHC 32.9 g/dL (32.0-37.0); MCV 89.9 FL (80.0-97.0); Mean Platelet Volume 11.2 FL (9.5-12.2); Monocytes # (A) 0.28 X 10*3/uL (0.20-1.00); Monocytes % (A) 2.2 %; NRBC Per 100 WBC 0 X 10*3/uL (0.00-0.01); Neutrophils # (A) 10.73 X 10*3/uL (1.80-7.70); Neutrophils % (A) 85.8 %; Platelet Count 240 X 10*3/uL (140-440); RBC 4.74 X 10*6/uL (4.40-5.60); RDW 14.4 % (11.5-14.5)
[2024-07-16] MEDS: IOPAMIDOL CONTRAST (ORAL USE) VIAL PO PRN (10:40)
--- NOTE | 2024-07-16 12:13 | P.PN ---
Subjective Progress Note Date: 07/16/24 Patient seen and examined at bedside. States he feels swollen today. No further drainage from incision site. Objective - Vital Signs Vital signs: Vital Signs Temp 97.4 F L 07/16/24 07:47 Pulse 92 07/16/24 07:56 Resp 16 07/16/24 07:47 BP 94/60 07/16/24 07:47 Pulse Ox 92 L 07/16/24 07:47 FiO2 Intake & Output 07/15/24 07/16/24 07/16/24 18:59 06:59 18:59 Intake Total 1600 1080 Output Total 750 200 Balance 1600 330 -200 Intake: Intake, IV Titration 800 Amount Piperacillin-Tazobactam 3 200 .375 gm In Sodium Chloride 0.9% 100 ml @ 25 mls/hr IVPB Q8HR [facility] Rx# :[id number] Sodium Chloride 0.9% 1, 600 000 ml @ 75 mls/hr IV . [id number] [facility] Rx#:[id number] Oral 800 1080 Output: Urine 750 200 Other: Voiding Method Toilet Urinal # Voids 3 - Constitutional General appearance: Present: cooperative, no acute distress - Respiratory Details: No difficulty with respiration - Gastrointestinal Gastrointestinal Comment(s): Soft, nontender, nondistended, right lower quadrant incision site with padma intact with some erythema on the inferior portion of the incision, anasarca noted with edematous changes - Psychiatric Psychiatric: Present: A&O x's 3 - Labs CBC & Chem 7: 07/16/24 02:59 07/14/24 06:14 Labs: Abnormal Lab Results - Last 24 Hours (Table) 07/16/24 Range/Units 02:59 WBC 12.50 H (4.50-10.00) X 10*3/uL Immature Gran # 0.19 H (0.00-0.04) X 10*3/uL Neutrophils # 10.73 H (1.80-7.70) X 10*3/uL Assessment and Plan Plan: 64-year-old male status post ileocecectomy. Leukocytosis mildly improved today. With edema and erythema around the incision site along with persistent gareth kocytosis, we will plan for CT of the abdomen pelvis for further evaluation. Continue with current management. Discontinue IV fluids.
--- NOTE | 2024-07-16 13:07 | CT ---
EXAMINATION TYPE: CT abdomen pelvis w con CT DLP: 1696.1 mGycm, Automated exposure control for dose reduction was used. DATE OF EXAM: 07/16/2024 12:47 PM COMPARISON: CT abdomen pelvis 07/10/2024. CLINICAL INDICATION:Male, 64 years old with history of abdominal pain, leukocytosis; recent appendect heladio, abdominal pain, leukocytosis TECHNIQUE: Standard CT of the abdomen and pelvis following the administration of 100 cc of Isovue 3 00 IV contrast material and oral contrast. Coronal and sagittal reformats were performed. FINDINGS: LOWER CHEST: Bilateral lower lobe dependent subsegmental atelectasis. ABDOMEN LIVER: Unremarkable GALLBLADDER AND BILE DUCTS: Unremarkable. PANCREAS: Unremarkable. SPLEEN: Unremarkable. ADRENAL GLANDS: Unremarkable. KIDNEYS AND URETERS: No evidence of hydronephrosis or renal calculus. The kidneys enhance symmetrical ly. Contrast is demonstrated within both collecting systems on the delayed phase. PELVIS BLADDER: Unremarkable REPRODUCTIVE: Unremarkable. ABDOMEN & PELVIS STOMACH AND BOWEL: Stomach and duodenum are unremarkable. Postsurgical changes from appendectomy. Ent flo contrast reaches the mid small bowel. No extravasation of contrast however this does not reach t he surgical site. The small bowel is dilated with air-fluid levels identified measuring up to 3.7 cm. No focal transition point. Stranding changes involving the sigmoid colon and rectum. Inflammatory ch anges with wall thickening involving the right lower quadrant small bowel. No evidence of bowel obstr uction. PERITONEUM: No evidence of pneumoperitoneum. Fluid identified within the rectovesical pouch measuring grossly 4.3 x 3.0 cm with stranding. Stranding is identified within the right lower quadrant and harish gical intervention site. There is a fluid collection measuring 2.4 x 2.2 cm in the right lower quadra nt inferior to the appendectomy site (series 201, image 55). Additional fluid tracks into the right l ower pelvis inferiorly (series 201, image 62). Trace fluid identified within the left lower quadrant with organization. VASCULATURE: No evidence of aortic aneurysm. Pelvic phleboliths. MUSCULOSKELETAL: No acute osseous abnormalities. Mild multilevel degenerative disc disease. LYMPH NODES: No gross evidence for lymphadenopathy. SOFT TISSUE/ABDOMINAL WALL: Diffuse anasarca. Postsurgical changes with skin padma involving the lo wer anterior abdominal wall. Small amount of fluid identified within the right anterior abdominal wal l with a focus of gas likely related to postsurgical change. IMPRESSION: 1. Post surgical changes from appendectomy with small organized fluid collections within the right l ower quadrant inferior to the appendectomy site and within the rectovesical pouch. Raises concern for developing abscesses. 2. Dilated small bowel without focal transition point suggestive of postoperative ileus. Additional r eactive changes involving the small bowel in the right lower quadrant. 3. Inflammatory changes involving the distal sigmoid colon and rectum which is likely secondary to #1 . [facility], , 07/16/2024 1:05 PM
--- NOTE | 2024-07-16 16:21 | P.PN ---
Progress Note - Text Progress Note Date: 07/16/24 - Chief Complaint Abdominal pain - History of Present Illness This is a pleasant 64-year-old patient, with no family doctor. Patient takes medication for hypertension. Will also taking for hyperlipidemia is unclear why patient discontinued the medications. Takes medication for GERD occasionally. Has arthritic symptoms in many joints. Also history of diverticulitis. Patient had right-sided abdominal pain on and off for about 9 months. Around 330 t yesterday morning patient had increasing pain in the right lower abdomen. With nausea vomiting febrile. Brought into the ER. CT scan the ER showed acute appendicitis with moderate associated inflammation. No abscess or free air was reported. Patient was taken to the operating room last night. A laparoscopic surgery was done which was converted to open. Appendix was perforated at this base and there was spillage of stool into the abdomen. Patient had a end to end anastomosis carried out after ileocecectomy. Today patient is having pain at the point. No vomiting. Up in the chair. at the bedside. Patient denies any cardiac history. 07/12/2024--patient was seen and examined today. Tolerating clear liquid diet. No issues overnight. Complaining of lower abdominal pain, unsure of passing flatus, no bowel movement. Afebrile, heart rate 89, respiratory rate 16, blood pressure 123/77, on room air saturating 94%. WBCs 14.0, trending down, hemoglobin is 14.4, platelets 167. Sodium 128, started on IV fluids. BUN/creatinine normal. Total bilirubin mildly elevated 1.7. 07/13/24--patient seen and examined today. Pain is controlled. Patient feeling better today. No bowel movement. Reported flatus. General surgery following, remains on IV fluids, Zosyn. On sips of clears. Vital stable. WBCs went up to 16.8 today. Hemoglobin 14.8, platelet normal. Sodium improved to 140 today, normal BUN/creatinine. 07/14/24--was seen and examined today. Pain is controlled. Feeling better. On clear liquids per general surgery. On IV Zosyn and IV fluids. Passing flatus, no bowel movement. WBCs trending down. Encourage ambulation. 07/15/24--patient was seen and examined today. Pain is controlled. Feeling better. Remains on IV Zosyn, continue atenolol, restarted patient's Dyazide home dose, diet advanced to regular diet per general surgery. Passing flatus, had bowel movement. July 16: Saw the patient this afternoon. Short time ago patient had a very large bowel movement. Watery. Explosive. Abdomen feels much better. Patient otherwise much smaller bowel movement 2 days ago. Had been having abdominal pain for last 2 3 days. Now feels much better. CT scan done prior to that showed dilated small bowel without focal transition. Some inflammatory changes involving the distal sigmoid colon and rectum. Active Medications Acetaminophen (Acetaminophen Tab 500 Mg Tab) 500 mg PO Q6HR PRN PRN Reason: Fever and/ or Pain Last Admin: 07/16/24 05:48 Dose: 500 mg Hydrocodone Bitart/Acetaminophen (Hydrocodone/Apap 5-325mg 1 Each Tab) 1 each PO Q4HR PRN PRN Reason: Pain Last Admin: 07/16/24 10:37 Dose: 1 each Albuterol/Ipratropium (Ipratropium-Albuterol 3 Ml Neb) 3 ml INHALATION RT-TID [facility] Last Admin: 07/16/24 14:52 Dose: Not Given Atenolol (Atenolol 50 Mg Tab) 50 mg PO DAILY [facility] Last Admin: 07/16/24 10:48 Dose: 50 mg Budesonide (Budesonide 1 Mg/2 Ml Nebu) 1 mg INHALATION RT-BID [facility] Last Admin: 07/16/24 07:41 Dose: 1 mg Diphenhydramine HCl (Diphenhydramine 25 Mg Cap) 25 mg PO QID PRN PRN Reason: Itching Last Admin: 07/14/24 11:04 Dose: 25 mg Enoxaparin Sodium (Enoxaparin 40 Mg/0.4 Ml Syringe) 40 mg SQ DAILY [facility] Last Admin: 07/16/24 10:36 Dose: 40 mg Famotidine (Famotidine 20 Mg/2 Ml Vial) 20 mg IV Q12HR [facility] Last Admin: 07/16/24 10:48 Dose: 20 mg Hydromorphone HCl (Hydromorphone 1 Mg/Ml 1 Ml Syringe) 1 mg IVP Q3HR PRN PRN Reason: Pain Last Admin: 07/16/24 13:43 Dose: 1 mg Piperacillin Sod/Tazobactam (Sod 3.375 gm/ Sodium Chloride) 100 mls @ 25 mls/hr IVPB Q8HR [facility]; Protocol Last Admin: 07/16/24 10:36 Dose: 25 mls/hr Naloxone HCl (Naloxone 0.4 Mg/Ml 1 Ml Vial) 0.2 mg IV Q2M PRN PRN Reason: Opioid Reversal Nicotine (Nicotine 21mg/24hr Patch) 1 patch TRANSDERM DAILY [facility] Last Admin: 07/16/24 10:40 Dose: 1 patch Ondansetron HCl (Ondansetron 4 Mg/2 Ml Vial) 4 mg IVP Q6HR PRN PRN Reason: Nausea And Vomiting Last Admin: 07/13/24 14:36 Dose: 4 mg Triamterene/Hydrochlorothiazide (Triamterene-Hctz 37.5-25mg 1 Each Cap) 1 each PO HS [facility] Last Admin: 07/15/24 12:18 Dose: 1 each Social history: . 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 Conjunctiva adarsh l. HEENT: External appearance of nose and ears normal, oral cavity grossly normal. NECK: JVD not raised; masses not palpable. HEART: First and second heart sounds are normal; no edema. LUNGS: Respiratory rate increased, decreased breath sound mild wheezing. ABDOMEN: Soft, mild tender,, liver spleen not palpable, no masses palpable. PSYCH: Alert and oriented x3; mood and affect anxious l. INVESTIGATIONS, reviewed in the clinical context: CT scan abdomen pelvis: [July 16] dilated small bowel without focal transition. Some inflammatory changes involving the distal sigmoid colon and rectum July 16: White count 12.5 hemoglobin 14 platelets 240 July 11: White count 22.8 hemoglobin 16 platelets 177 sodium 136 potassium 4.4 BUN 11.[address] scan abdomen pelvis: Acute appendicitis moderate associated inflammation. No abscess or free air. Evidence of DJD lower thoracic spine. Assessment plan: -Acute perforated appendix with spillage of fecal content into the abdomen. - open ileocecectomy. Patient been having regular diet up till this morning when he became n.p.o. -Suspect secondary peritonitis from fecal contamination from perforation, ca using sepsis: Much better IV Zosyn. -Sepsis secondary to above: Improved IV antibiotics. IV fluids -COPD with some exacerbation in a current smoker DuoNeb. 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 Pepcid -Full code Patient with large explosive BM today. Abdominal symptoms much better. CT scan done today was prior to this episode. Hopefully would continue to improve. Increase activity Thank Dr. Cerda Past Medical History Past Medical History: Chest Pain / Angina, COPD, GERD/Reflux, Hyperlipidemia, Hypertension, Osteoarthritis (OA), Prostate Disorder, Thyroid Disorder Additional Past Medical History / Comment(s): high chol - supposed to take cholestrol med but doesnt, Chronic back pain, diverticulitis, enlarged prostate, potassium deficiency, bilateral leg cramps, vitamin D deficiency, arthiritis bilateral feet/heels and lower back. thyroid lumps, pilonidal cyst History of Any Multi-Drug Resistant Organisms: None Reported Past Surgical History: Heart Catheterization Additional Past Surgical History / Comment(s): 2011 heart cath which was clear- done by Dr. VC Topete, colonoscopy, left knee drained 12/16/2016 and 12/20/2016 Past Anesthesia/Blood Transfusion Reactions: Previous Problems w/ Anesthesia Additional Past Anesthesia/Blood Transfusion Reaction / Comm: Pt states it took him a long time to wake up which he attributes to going into his procedures very tired. Past Psychological History: No Psychological Hx Reported Smoking Status: Current every day smoker Past Alcohol Use History: None Reported Past Drug Use History: None Reported
[2024-07-16 18:11] LABS: INR 1.1 (<1.2); Prothrombin Time 12.1 sec (10.0-12.5)
[2024-07-16] MEDS: FAMOTIDINE 20 MG TAB PO SCH (21:33)
[2024-07-17 09:58] LABS: Basophils % (A) 0 %; Eosinophils # (A) 0.3 k/uL (0-0.7); Eosinophils % (A) 2 %; HCT 42.6 % (39.0-53.0); HGB 13.7 gm/dL (13.0-17.5); Lymphocytes # (A) 1.1 k/uL (1.0-4.8); Lymphocytes % (A) 6 %; MCH 29.5 pg (25.0-35.0); MCHC 32.1 g/dL (31.0-37.0); MCV 91.9 fL (80.0-100.0); Mean Platelet Volume 8.1; Monocytes # (A) 1.4 k/uL (0-1.0); Monocytes % (A) 8 %; Neutrophils # (A) 14.6 k/uL (1.3-7.7); Neutrophils % (A) 82 %; Platelet Count 253 k/uL (150-450); RBC 4.64 m/uL (4.30-5.90); WBC 17.8 k/uL (3.8-10.6)
--- NOTE | 2024-07-17 13:04 | P.PN ---
Subjective Progress Note Date: 07/17/24 CHIEF COMPLAINT: Perforated appendicitis HISTORY OF PRESENT ILLNESS: Postop day #6 status post laparoscopic converted to open ileocecectomy for perforated appendicitis. Patient is having flatus and did have a bowel movement yesterday. He has had no further drainage from the incision site. He had a CT scan abdomen and pelvis completed yesterday that reported postsurgical changes from appendectomy with small organized fluid collections within the right lower quadrant inferior to the appendectomy site and within the rectovesical pouch. Raises concern for developing abscesses. Dilated small bowel without focal transition point suggestive of postoperative ileus inflammatory changes involving the distal sigmoid colon and rectum which is likely secondary to #1. Afebrile. WBC is up from 12.5-17.8 hemoglobin 13.7 PHYSICAL EXAM: VITAL SIGNS: Reviewed. GENERAL: Well-developed in no acute distress. ABDOMEN: Soft. Nondistended. Incision site with erythema below the incision. Erythema appears to be redder and slightly above the incision. it is warm to touch. No drainage from the incision noted. The dressing was clean dry and intact. NEUROLOGIC: Alert and oriented. Cranial nerves II through XII grossly intact. ASSESSMENT: 1. Perforated appendicitis with fluid collections noted on CAT scan with possible developing abscess 2. Leukocytosis PLAN: -Discussed with interventional radiology service. They recommend no drain placement. One of the fluid collections is too small and the other fluid collection they are unable to reach. -Continue to monitor incision site. Surgeon did remove incisional dressing and tape. Will monitor if dressing and tape were irritating patient's skin. -Consult infectious disease for antibiotic recommendations -Continue antibiotics -Encourage patient to increase activity level -Continue pain management -Continue regular diet -DVT prophylaxis Lovenox and GI prophylaxis Pepcid [facility] note has been reviewed by physician. Signing provider agrees with the documented findings, assessment, and plan of care. Objective - Vital Signs Vital signs: Vital Signs Temp 99.6 F 07/17/24 07:18 Pulse 98 07/17/24 07:18 Resp 17 07/17/24 07:18 BP 109/66 07/17/24 07:18 Pulse Ox 94 L 07/17/24 07:18 FiO2 Intake & Output 07/16/24 07/17/24 07/17/24 18:59 06:59 18:59 Output Total 380 600 Balance -380 -600 Output: Urine 380 600 Other: Voiding Method Urinal - Labs CBC & Chem 7: 07/17/24 09:45 07/14/24 06:14 Labs: Abnormal Lab Results - Last 24 Hours (Table) 07/17/24 Range/Units 09:45 WBC 17.8 H (3.8-10.6) k/uL Neutrophils # 14.6 H (1.3-7.7) k/uL Monocytes # 1.4 H (0-1.0) k/uL
[2024-07-17 13:41] VITALS: BMI 32.1
[2024-07-17] MEDS: DAPTOmycin 500 MG in SODIUM CHLORIDE 0.9% 50 ML IVPB SCH (15:37)
--- NOTE | 2024-07-17 18:17 | P.PN ---
Progress Note - Text Progress Note Date: 07/17/24 - Chief Complaint Abdominal pain - History of Present Illness This is a pleasant 64-year-old patient, with no family doctor. Patient takes medication for hypertension. Will also taking for hyperlipidemia is unclear why patient discontinued the medications. Takes medication for GERD occasionally. Has arthritic symptoms in many joints. Also history of diverticulitis. Patient had right-sided abdominal pain on and off for about 9 months. Around 330 t yesterday morning patient had increasing pain in the right lower abdomen. With nausea vomiting febrile. Brought into the ER. CT scan the ER showed acute appendicitis with moderate associated inflammation. No abscess or free air was reported. Patient was taken to the operating room last night. A laparoscopic surgery was done which was converted to open. Appendix was perforated at this base and there was spillage of stool into the abdomen. Patient had a end to end anastomosis carried out after ileocecectomy. Today patient is having pain at the point. No vomiting. Up in the chair. at the bedside. Patient denies any cardiac history. 07/12/2024--patient was seen and examined today. Tolerating clear liquid diet. No issues overnight. Complaining of lower abdominal pain, unsure of passing flatus, no bowel movement. Afebrile, heart rate 89, respiratory rate 16, blood pressure 123/77, on room air saturating 94%. WBCs 14.0, trending down, hemoglobin is 14.4, platelets 167. Sodium 128, started on IV fluids. BUN/creatinine normal. Total bilirubin mildly elevated 1.7. 07/13/24--patient seen and examined today. Pain is controlled. Patient feeling better today. No bowel movement. Reported flatus. General surgery following, remains on IV fluids, Zosyn. On sips of clears. Vital stable. WBCs went up to 16.8 today. Hemoglobin 14.8, platelet normal. Sodium improved to 140 today, normal BUN/creatinine. 07/14/24--was seen and examined today. Pain is controlled. Feeling better. On clear liquids per general surgery. On IV Zosyn and IV fluids. Passing flatus, no bowel movement. WBCs trending down. Encourage ambulation. 07/15/24--patient was seen and examined today. Pain is controlled. Feeling better. Remains on IV Zosyn, continue atenolol, restarted patient's Dyazide home dose, diet advanced to regular diet per general surgery. Passing flatus, had bowel movement. July 16: Saw the patient this afternoon. Short time ago patient had a very large bowel movement. Watery. Explosive. Abdomen feels much better. Patient otherwise much smaller bowel movement 2 days ago. Had been having abdominal pain for last 2 3 days. Now feels much better. CT scan done prior to that showed dilated small bowel without focal transition. Some inflammatory changes involving the distal sigmoid colon and rectum. July 17: Overnight patient had another bowel movement. Eating about half his meals. Told the patient to stay on a soft diet. Increase activity. Remains on IV Zosyn. IV daptomycin added by ID. Discussed with Dr. Hensley from surgery. He will discuss with interventional radiology see if there is a s area of fluid collection that can be drained. Active Medications Acetaminophen (Acetaminophen Tab 500 Mg Tab) 500 mg PO Q6HR PRN PRN Reason: Fever and/ or Pain Last Admin: 07/16/24 05:48 Dose: 500 mg Hydrocodone Bitart/Acetaminophen (Hydrocodone/Apap 5-325mg 1 Each Tab) 1 each PO Q4HR PRN PRN Reason: Pain Last Admin: 07/17/24 18:11 Dose: 1 each Albuterol/Ipratropium (Ipratropium-Albuterol 3 Ml Neb) 3 ml INHALATION RT-TID [facility] Last Admin: 07/17/24 11:58 Dose: Not Given Atenolol (Atenolol 50 Mg Tab) 50 mg PO DAILY [facility] Last Admin: 07/17/24 08:37 Dose: 50 mg Budesonide (Budesonide 1 Mg/2 Ml Nebu) 1 mg INHALATION RT-BID [facility] Last Admin: 07/17/24 08:42 Dose: Not Given Diphenhydramine HCl (Diphenhydramine 25 Mg Cap) 25 mg PO QID PRN PRN Reason: Itching Last Admin: 07/14/24 11:04 Dose: 25 mg Enoxaparin Sodium (Enoxaparin 40 Mg/0.4 Ml Syringe) 40 mg SQ DAILY [facility] Last Admin: 07/17/24 07:43 Dose: Not Given Famotidine (Famotidine 20 Mg Tab) 20 mg PO BID [facility] Last Admin: 07/17/24 08:37 Dose: 20 mg Hydromorphone HCl (Hydromorphone 1 Mg/Ml 1 Ml Syringe) 1 mg IVP Q3HR PRN PRN Reason: Pain Last Admin: 07/17/24 15:37 Dose: 1 mg Piperacillin Sod/Tazobactam (Sod 3.375 gm/ Sodium Chloride) 100 mls @ 25 mls/hr IVPB Q8HR [facility]; Protocol Last Admin: 07/17/24 17:07 Dose: 25 mls/hr Daptomycin 500 mg/ Sodium (Chloride) 50 mls @ 100 mls/hr IVPB Q24H [facility]; Protocol Last Admin: 07/17/24 15:37 Dose: 100 mls/hr Naloxone HCl (Naloxone 0.4 Mg/Ml 1 Ml Vial) 0.2 mg IV Q2M PRN PRN Reason: Opioid Reversal Nicotine (Nicotine 21mg/24hr Patch) 1 patch TRANSDERM DAILY [facility] Last Admin: 07/17/24 08:37 Dose: 1 patch Ondansetron HCl (Ondansetron 4 Mg/2 Ml Vial) 4 mg IVP Q6HR PRN PRN Reason: Nausea And Vomiting Last Admin: 07/13/24 14:36 Dose: 4 mg Triamterene/Hydrochlorothiazide (Triamterene-Hctz 37.5-25mg 1 Each Cap) 1 each PO HS [facility] Last Admin: 07/16/24 21:32 Dose: 1 each Social history: . 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 Conjunctiva adarsh l. HEENT: External appearance of nose and ears normal, oral cavity grossly normal. NECK: JVD not raised; masses not palpable. HEART: First and second heart sounds are normal; no edema. LUNGS: Respiratory rate increased, decreased breath sound mild wheezing. ABDOMEN: Soft, mild tender,, liver spleen not palpable, no masses palpable. Right sided padma on a linear operative scar. PSYCH: Alert and oriented x3; mood and affect anxious l. INVESTIGATIONS, reviewed in the clinical context: July 17: White count 7.8 hemoglobin 13.[address] scan abdomen pelvis: [July 16] dilated small bowel without focal transition. Some inflammatory changes involving the distal sigmoid colon and rectum July 16: White count 12.5 hemoglobin 14 platelets 240 July 11: White count 22.8 hemoglobin 16 platelets 177 sodium 136 potassium 4.4 BUN 11.[address] scan abdomen pelvis: Acute appendicitis moderate associated inflammation. No abscess or free air. Evidence of DJD lower thoracic spine. Assessment plan: -Acute perforated appendix with spillage of fecal content into the abdomen. - open ileocecectomy. Chopped diet. -Suspect secondary peritonitis from fecal contamination from perforation, causing sepsis: IV Zosyn. Increasing white count. IV daptomycin added by ID. Area fluid collection in the perioperative area.-Surgery will talk to IR to see if that can be drained -Sepsis secondary to above: Improved IV antibiotics. IV fluids -COPD with some exacerbation in a current smoker DuoNeb. 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 Pepcid -Full code Soft diet. IV Zosyn. IV daptomycin added by ID. Surgery will talk to IR to see if the area can be drained. Thank Dr. Cerda Past Medical History Past Medical History: Chest Pain / Angina, COPD, GERD/Reflux, Hyperlipidemia, Hypertension, Osteoarthritis (OA), Prostate Disorder, Thyroid Disorder Additional Past Medical History / Comment(s): high chol - supposed to take cholestrol med but doesnt, Chronic back pain, diverticulitis, enlarged prostate, potassium deficiency, bilateral leg cramps, vitamin D deficiency, arthiritis bilateral feet/heels and lower back. thyroid lumps, pilonidal cyst History of Any Multi-Drug Resistant Organisms: None Reported Past Surgical History: Heart Catheterization Additional Past Surgical History / Comment(s): 2011 heart cath which was clear- done by Dr. VC Topete, colonoscopy, left knee drained 12/16/2016 and 12/20/2016 Past Anesthesia/Blood Transfusion Reactions: Previous Problems w/ Anesthesia Additional Past Anesthesia/Blood Transfusion Reaction / Comm: Pt states it took him a long time to wake up which he attributes to going into his procedures very tired. Past Psychological History: No Psychological Hx Reported Smoking Status: Current every day smoker Past Alcohol Use History: None Reported Past Drug Use History: None Reported
--- NOTE | 2024-07-17 23:05 | P.CONS ---
History of Present Illness - Reason for Consult Consult date: 07/17/24 Perforated appendicitis Requesting physician: Laurel Be - Chief Complaint Abdominal pain x few days - History of Present Illness Patient is a 64-year-old male with a past medical history significant for hypertension hyperlipidemia osteoarthritis COPD presenting to the hospital a week ago with abdominal pain patient has been diagnosed with acute appendicitis perforated in this patient who is status post laparoscopic converted to open ileocecectomy no cultures were done and the patient has been treated with Zosyn patient on presentation to the hospital was afebrile he did have a low-grade fever 100.1 on 07/11/2024 no fever have been recorded subsequently patient has been tachycardic on 07/16/2024 but not hypotensive or hypoxic he did have a white count of 18 on admission was subsequently came down to 12.5 however the white count is up to 17.8 today creatinine has been normal patient did have abdominal pelvis CT that was completed yesterday and did shows postsurgical changes from appendectomy with small organized fluid collection within the right lower quadrant inferior to the appendectomy site raises concern for developing abscess that has prompted this consultation patient also noticed to have increasing erythema around the incision site to the right lower quadrant but no drainage patient denies having any fever or any chills has been complaining of pain to the right lower quadrant area to be mostly dull aching to sharp moderate intensity no radiation did have some nausea but no vomiting denies any diarrhea or constipation Review of Systems Positive point and negatives has been mentioned in the HPI, complete review of systems was performed and all other systems are negative Past Medical History Past Medical History: Chest Pain / Angina, COPD, GERD/Reflux, Hyperlipidemia, Hypertension, Osteoarthritis (OA), Prostate Disorder, Thyroid Disorder Additional Past Medical History / Comment(s): high chol - supposed to take cholestrol med but doesnt, Chronic back pain, diverticulitis, enlarged prostate, potassium deficiency, bilateral leg cramps, vitamin D deficiency, arthiritis bilateral feet/heels and lower back. thyroid lumps, pilonidal cyst History of Any Multi-Drug Resistant Organisms: None Reported Past Surgical History: Heart Catheterization Additional Past Surgical History / Comment(s): 2011 heart cath which was clear- done by Dr. VC Topete, colonoscopy, left knee drained 12/16/2016 and 12/20/2016 Past Anesthesia/Blood Transfusion Reactions: Previous Problems w/ Anesthesia Additional Past Anesthesia/Blood Transfusion Reaction / Comm: Pt states it took him a long time to wake up which he attributes to going into his procedures very tired. Past Psychological History: No Psychological Hx Reported Smoking Status: Current every day smoker Past Alcohol Use History: None Reported Past Drug Use History: None Reported - Past Family History Father Additional Family Medical History / Comment(s): Father of cirrhosis at age 62 yrs. No coronary artery disease history. Mother Additional Family Medical History / Comment(s): Mother of neck fracture at age 76yrs from an accident. She also had history of atrial fibrillation. Sister(s) Additional Family Medical History / Comment(s): Sister after a "leg operation" she developed a leg infection and family was told she of a lung problem. His sister had history of stroke as well. Patient has a second sister that is alive with COPD. Patient has children with no major medical problems. Medications and Allergies Home Medications Medication Instructions Recorded Confirmed Type atenoloL [Tenormin] 50 mg PO DAILY 07/22/18 07/10/24 History Acetaminophen Tab [Tylenol] 650 mg PO Q4H PRN 07/10/24 07/10/24 History Esomeprazole Magnesium [NexIUM 20 mg PO DAILY PRN 07/10/24 07/10/24 History 24Hr] Triamterene-Hctz 37.5-25Mg 1 tab PO HS 07/10/24 07/10/24 History [Maxzide 37.5-25] Allergies Allergy/AdvReac Type Severity Reaction Status Date / Time peanut Allergy Severe Anaphylaxis Verified 07/10/24 14:54 Moca nut Allergy Anaphylaxis Verified 07/10/24 14:54 Quinolones Allergy Itching Verified 07/10/24 14:54 ciprofloxacin [From Cipro] AdvReac Rash/Hives Verified 07/10/24 14:54 sulfamethoxazole AdvReac Rapid Verified 07/10/24 14:54 [From Bactrim] Heart Rate trimethoprim [From Bactrim] AdvReac Rapid Verified 07/10/24 14:54 Heart Rate Physical Exam Vitals: Vital Signs Temp Pulse Resp BP Pulse Ox 07/17/24 07:18 99.6 F 98 17 109/66 94 L 07/17/24 01:25 99.0 F 100 17 105/66 91 L 07/16/24 21:30 90 121/77 95 07/16/24 19:40 98.4 F 87 16 107/70 93 L 07/16/24 14:00 98.7 F 86 16 120/76 95 Intake and Output 07/16/24 07/17/24 07/17/24 22:59 06:59 14:59 Output Total 180 600 Balance -180 -600 Output: Urine 180 600 GENERAL DESCRIPTION: Middle-aged male lying in bed, no distress. No tachypnea or accessory muscle of respiration use. HEENT: Shows Pallor , no scleral icterus. Oral mucous membrane is dry. No pharyngeal erythema or thrush NECK: Trachea central, no thyromegaly. LUNGS: Unlabored breathing. Clear to auscultation anteriorly. No wheeze or c rackle. HEART: S1, S2, regular rate and rhythm. No loud murmur ABDOMEN: Soft, patient did have erythema around the right lower quadrant incision but no drainage EXTREMITIES: No edema of feet. SKIN: No rash, no masses palpable. NEUROLOGICAL: The patient is awake, alert, oriented x3, mood and affect normal. Results CBC & Chem 7: 07/17/24 09:45 07/14/24 06:14 Labs: Abnormal Lab Results - Last 24 Hours (Table) 07/17/24 Range/Units 09:45 WBC 17.8 H (3.8-10.6) k/uL Neutrophils # 14.6 H (1.3-7.7) k/uL Monocytes # 1.4 H (0-1.0) k/uL Assessment and Plan (1) Intra-abdominal abscess Current Visit: Yes Status: Acute Code(s): K65.1 - PERITONEAL ABSCESS SNOMED Code(s): 11002515 (2) Allergy to multiple antibiotics Current Visit: Yes Status: Acute Code(s): Z88.1 - ALLERGY STATUS TO OTHER ANTIBIOTIC AGENTS SNOMED Code(s): 383048414 (3) Appendicitis with perforation Current Visit: Yes Status: Acute Code(s): K35.32 - AC APPENDICITIS W PERF, LOC PERITONITIS, & GANGR, W/O ABSCS SNOMED Code(s): 11798854 Plan: 1patient initially presented to the hospital with abdominal pain has been diagnosed with perforated appendicitis in this patient who is status post open appendectomy now with evidence of right lower quadrant abscess and cellulitis to the right lower quadrant incision in this patient who has been on on a good gram-negative coverage concern for possible gram-positive bacteria 2-we will check blood cultures nursing staff has been advised if the area started to drain to get local culture and also to tina the area of the redness 3-as per discussion with the surgical PSYCHOLOGIST CHIEF this collection cannot be drained by IR 4-we will continue the patient on Zosyn we will add daptomycin for gram-positive coverage Family the bedside question concern answered We will follow on clinical condition and cultures to further adjust medication if needed Thank you for this consultation we will follow the patient along with you Dictation was produced using [employer] dictation software. please excuse any grammatical, word or spelling errors. Time with Patient: Greater than 30
[2024-07-18 07:34] LABS: Basophils # (A) 0.1 k/uL (0-0.2); Basophils % (A) 0 %; Eosinophils # (A) 0.4 k/uL (0-0.7); Eosinophils % (A) 2 %; HCT 40.4 % (39.0-53.0); HGB 13.4 gm/dL (13.0-17.5); Lymphocytes # (A) 1.3 k/uL (1.0-4.8); Lymphocytes % (A) 7 %; MCH 29.9 pg (25.0-35.0); MCHC 33.1 g/dL (31.0-37.0); MCV 90.4 fL (80.0-100.0); Mean Platelet Volume 8.4; Monocytes # (A) 1.1 k/uL (0-1.0); Monocytes % (A) 6 %; Neutrophils # (A) 14.6 k/uL (1.3-7.7); Neutrophils % (A) 82 %; Platelet Count 261 k/uL (150-450); RBC 4.47 m/uL (4.30-5.90); RDW 14.4 % (11.5-15.5); WBC 17.8 k/uL (3.8-10.6)
[2024-07-18 07:52] LABS: African American GFR (CKD) >90 (>60 ml/min/1.73 sqM); Anion Gap 6 mmol/L; Blood Urea Nitrogen 9 mg/dL (9-20); Carbon Dioxide 25 mmol/L (22-30); Chloride 100 mmol/L (98-107); Glucose 98 mg/dL (74-99); Non-African American GFR(CKD) >90 (>60 ml/min/1.73 sqM); Potassium 3.7 mmol/L (3.5-5.1); Sodium 131 mmol/L (137-145)
--- NOTE | 2024-07-18 14:33 | P.PN ---
Subjective Progress Note Date: 07/18/24 CHIEF COMPLAINT: Perforated appendicitis HISTORY OF PRESENT ILLNESS: Postop day #7 status post laparoscopic converted to open ileocecectomy for perforated appendicitis. Patient having flatus. Has been a couple days since last bowel movement. Denies any nausea or vomiting. Tolerating diet. White count stayed the same at 17.8 he is afebrile. Patient was seen by infectious disease and antibiotics adjusted. Patient did report some drainage from the incision site earlier that did stop. Unfortunately they did not get a culture of it. IR service unable to drain fluid collections noted on CT. PHYSICAL EXAM: VITAL SIGNS: Reviewed. GENERAL: Well-developed in no acute distress. ABDOMEN: Soft. Nondistended. Incision wound site with erythema that is slightly less red. No increase in erythema. No drainage from incision currently. I NEUROLOGIC: Alert and oriented. Cranial nerves II through XII grossly intact. ASSESSMENT: 1. Perforated appendicitis with fluid collections noted on CAT scan with possible developing abscess 2. Leukocytosis PLAN: -Antibiotic management per infectious disease -Continue to monitor incision site. If there is drainage, patient and nursing staff have been educated to obtain culture -Repeat CBC in a.m. -Encourage patient to increase activity level -Continue pain management -Continue regular diet -DVT prophylaxis Lovenox and GI prophylaxis Pepcid Physician Energy Consultant note has been reviewed by physician. Signing provider agrees with the documented findings, assessment, and plan of care. Objective - Vital Signs Vital signs: Vital Signs Temp 98.5 F 07/18/24 13:12 Pulse 80 07/18/24 13:39 Resp 17 07/18/24 13:12 BP 114/77 07/18/24 13:12 Pulse Ox 97 07/18/24 13:12 FiO2 Intake & Output 07/17/24 07/18/24 07/18/24 18:59 06:59 18:59 Output Total 1100 Balance -1100 Weight 101.605 kg Output: Urine 1100 Other: # Voids 3 - Labs CBC & Chem 7: 07/18/24 06:58 07/18/24 06:58 Labs: Abnormal Lab Results - Last 24 Hours (Table) 07/18/24 07/18/24 Range/Units 06:58 06:58 WBC 17.8 H (3.8-10.6) k/uL Neutrophils # 14.6 H (1.3-7.7) k/uL Monocytes # 1.1 H (0-1.0) k/uL Sodium 131 L (137-145) mmol/L Calcium 8.0 L (8.4-10.2) mg/dL Assessment and Plan Assessment: Continue to trend cbc, lateralizing wbc, monitor bowel function, ID recs Time with Patient: Less than 30
--- NOTE | 2024-07-18 16:37 | P.PN ---
Progress Note - Text Progress Note Date: 07/18/24 - Chief Complaint Abdominal pain - History of Present Illness This is a pleasant 64-year-old patient, with no family doctor. Patient takes medication for hypertension. Will also taking for hyperlipidemia is unclear why patient discontinued the medications. Takes medication for GERD occasionally. Has arthritic symptoms in many joints. Also history of diverticulitis. Patient had right-sided abdominal pain on and off for about 9 months. Around 330 t yesterday morning patient had increasing pain in the right lower abdomen. With nausea vomiting febrile. Brought into the ER. CT scan the ER showed acute appendicitis with moderate associated inflammation. No abscess or free air was reported. Patient was taken to the operating room last night. A laparoscopic surgery was done which was converted to open. Appendix was perforated at this base and there was spillage of stool into the abdomen. Patient had a end to end anastomosis carried out after ileocecectomy. Today patient is having pain at the point. No vomiting. Up in the chair. at the bedside. Patient denies any cardiac history. 07/12/2024--patient was seen and examined today. Tolerating clear liquid diet. No issues overnight. Complaining of lower abdominal pain, unsure of passing flatus, no bowel movement. Afebrile, heart rate 89, respiratory rate 16, blood pressure 123/77, on room air saturating 94%. WBCs 14.0, trending down, hemoglobin is 14.4, platelets 167. Sodium 128, started on IV fluids. BUN/creatinine normal. Total bilirubin mildly elevated 1.7. 07/13/24--patient seen and examined today. Pain is controlled. Patient feeling better today. No bowel movement. Reported flatus. General surgery following, remains on IV fluids, Zosyn. On sips of clears. Vital stable. WBCs went up to 16.8 today. Hemoglobin 14.8, platelet normal. Sodium improved to 140 today, normal BUN/creatinine. 07/14/24--was seen and examined today. Pain is controlled. Feeling better. On clear liquids per general surgery. On IV Zosyn and IV fluids. Passing flatus, no bowel movement. WBCs trending down. Encourage ambulation. 07/15/24--patient was seen and examined today. Pain is controlled. Feeling better. Remains on IV Zosyn, continue atenolol, restarted patient's Dyazide home dose, diet advanced to regular diet per general surgery. Passing flatus, had bowel movement. July 16: Saw the patient this afternoon. Short time ago patient had a very large bowel movement. Watery. Explosive. Abdomen feels much better. Patient otherwise much smaller bowel movement 2 days ago. Had been having abdominal pain for last 2 3 days. Now feels much better. CT scan done prior to that showed dilated small bowel without focal transition. Some inflammatory changes involving the distal sigmoid colon and rectum. July 17: Overnight patient had another bowel movement. Eating about half his meals. Told the patient to stay on a soft diet. Increase activity. Remains on IV Zosyn. IV daptomycin added by ID. Discussed with Dr. Hensley from surgery. He will discuss with interventional radiology see if there is a s area of fluid collection that can be drained. July 18: Patient started eating yesterday chopped diet. Passing flatus. On IV daptomycin and IV Zosyn. Some redness around the staple site felt to be could be from the tape. Some abdominal pain. Oral intake about 75%. Active Medications Acetaminophen (Acetaminophen Tab 500 Mg Tab) 500 mg PO Q6HR PRN PRN Reason: Fever and/ or Pain Last Admin: 07/16/24 05:48 Dose: 500 mg Hydrocodone Bitart/Acetaminophen (Hydrocodone/Apap 5-325mg 1 Each Tab) 1 each PO Q4HR PRN PRN Reason: Pain Last Admin: 07/18/24 05:59 Dose: 1 each Albuterol/Ipratropium (Ipratropium-Albuterol 3 Ml Neb) 3 ml INHALATION RT-TID [facility] Last Admin: 07/18/24 13:28 Dose: 3 ml Atenolol (Atenolol 50 Mg Tab) 50 mg PO DAILY [facility] Last Admin: 07/18/24 08:54 Dose: 50 mg Budesonide (Budesonide 1 Mg/2 Ml Nebu) 1 mg INHALATION RT-BID [facility] Last Admin: 07/18/24 09:08 Dose: 1 mg Diphenhydramine HCl (Diphenhydramine 25 Mg Cap) 25 mg PO QID PRN PRN Reason: Itching Last Admin: 07/14/24 11:04 Dose: 25 mg Enoxaparin Sodium (Enoxaparin 40 Mg/0.4 Ml Syringe) 40 mg SQ DAILY [facility] Last Admin: 07/18/24 08:53 Dose: 40 mg Famotidine (Famotidine 20 Mg Tab) 20 mg PO BID [facility] Last Admin: 07/18/24 08:54 Dose: 20 mg Hydromorphone HCl (Hydromorphone 1 Mg/Ml 1 Ml Syringe) 1 mg IVP Q3HR PRN PRN Reason: Pain Last Admin: 07/18/24 14:34 Dose: 1 mg Piperacillin Sod/Tazobactam (Sod 3.375 gm/ Sodium Chloride) 100 mls @ 25 mls/hr IVPB Q8HR [facility]; Protocol Last Admin: 07/18/24 16:18 Dose: 25 mls/hr Daptomycin 500 mg/ Sodium (Chloride) 50 mls @ 100 mls/hr IVPB Q24H [facility]; Protocol Last Admin: 07/18/24 14:40 Dose: 100 mls/hr Naloxone HCl (Naloxone 0.4 Mg/Ml 1 Ml Vial) 0.2 mg IV Q2M PRN PRN Reason: Opioid Reversal Nicotine (Nicotine 21mg/24hr Patch) 1 patch TRANSDERM DAILY [facility] Last Admin: 07/18/24 08:54 Dose: 1 patch Ondansetron HCl (Ondansetron 4 Mg/2 Ml Vial) 4 mg IVP Q6HR PRN PRN Reason: Nausea And Vomiting Last Admin: 07/13/24 14:36 Dose: 4 mg Triamterene/Hydrochlorothiazide (Triamterene-Hctz 37.5-25mg 1 Each Cap) 1 each PO HS [facility] Last Admin: 07/17/24 22:04 Dose: 1 each Social history: . 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 Conjunctiva adarsh l. HEENT: External appearance of nose and ears normal, oral cavity grossly normal. NECK: JVD not raised; masses not palpable. HEART: First and second heart sounds are normal; no edema. LUNGS: Respiratory rate increased, decreased breath sound mild wheezing. ABDOMEN: Soft, mild tender,, liver spleen not palpable, no masses palpable. Right sided padma on a linear operative scar.-Some redness surrounding that. PSYCH: Alert and oriented x3; mood and affect anxious l. INVESTIGATIONS, reviewed in the clinical context: July 18: White count 7.8 hemoglobin 13.4 potassium 3.7 July 17: White count 7.8 hemoglobin 13.[address] scan abdomen pelvis: [July 16] dilated small bowel without focal transition. Some inflammatory changes involving the distal sigmoid colon and rectum July 16: White count 12.5 hemoglobin 14 platelets 240 July 11: White count 22.8 hemoglobin 16 platelets 177 sodium 136 potassium 4.4 BUN 11.[address] scan abdomen pelvis: Acute appendicitis moderate associated inflammation. No abscess or free air. Evidence of DJD lower thoracic spine. Assessment plan: -Acute perforated appendix with spillage of fecal content into the abdomen. - open ileocecectomy. Chopped diet. -Suspect secondary peritonitis from fecal contamination from perforation, causing sepsis: IV Zosyn. IV daptomycin . Area fluid collection in the perioperative area.-Per IR per surgical notes unable to be drained -Sepsis secondary to above: IV antibiotics. IV fluids -COPD with some exacerbation in a current smoker DuoNeb. 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 Pepcid -Full code Continue with diet, IV antibiotics. Increase activity. Discussed Thank Dr. Cerda Past Medical History Past Medical History: Chest Pain / Angina, COPD, GERD/Reflux, Hyperlipidemia, Hypertension, Osteoarthritis (OA), Prostate Disorder, Thyroid Disorder Additional Past Medical History / Comment(s): high chol - supposed to take cholestrol med but doesnt, Chronic back pain, diverticulitis, enlarged prostate, potassium deficiency, bilateral leg cramps, vitamin D deficiency, arthiritis bilateral feet/heels and lower back. thyroid lumps, pilonidal cyst History of Any Multi-Drug Resistant Organisms: None Reported Past Surgical History: Heart Catheterization Additional Past Surgical History / Comment(s): 2011 heart cath which was clear- done by Dr. VC Topete, colonoscopy, left knee drained 12/16/2016 and 12/20/2016 Past Anesthesia/Blood Transfusion Reactions: Previous Problems w/ Anesthesia Additional Past Anesthesia/Blood Transfusion Reaction / Comm: Pt states it took him a long time to wake up which he attributes to going into his procedures very tired. Past Psychological History: No Psychological Hx Reported Smoking Status: Current every day smoker Past Alcohol Use History: None Reported Past Drug Use History: None Reported
[2024-07-19 09:47] LABS: Basophils # (A) 0.07 X 10*3/uL (0.00-0.10); Basophils % (A) 0.4 %; Eosinophils # (A) 0.16 X 10*3/uL (0.04-0.35); HCT 39.6 % (39.6-50.0); HGB 12.9 g/dL (13.0-17.0); Lymphocytes # (A) 1.85 X 10*3/uL (0.90-5.00); Lymphocytes % (A) 11.5 %; MCH 29.3 pg (27.0-32.0); MCHC 32.6 g/dL (32.0-37.0); Mean Platelet Volume 11.1 FL (9.5-12.2); Monocytes # (A) 0.87 X 10*3/uL (0.20-1.00); Monocytes % (A) 5.4 %; NRBC Per 100 WBC 0 X 10*3/uL (0.00-0.01); Neutrophils # (A) 12.67 X 10*3/uL (1.80-7.70); Neutrophils % (A) 79.1 %; Platelet Count 293 X 10*3/uL (140-440); RDW 14.5 % (11.5-14.5); WBC 16.03 X 10*3/uL (4.50-10.00)
--- NOTE | 2024-07-19 15:00 | P.PN ---
Subjective Progress Note Date: 07/18/24 Principal diagnosis: Reason for follow up with intra-abdominal abscess and abdominal wall cellulitis Patient is a 64-year-old male with a past medical history significant for hypertension hyperlipidemia osteoarthritis COPD presenting to the hospital with abdominal pain has been diagnosed with acute perforated appendicitis status post open appendectomy subsequent CAT scan did shows evidence of an abdominal abscess prompting this consultation. On today's evaluation that is 07/18/2024, Patient is afebrile patient is currently on room air and denies having any shortness of breath, the patient denies any chest pain or cough, the patient denies any nausea vomiting abdominal pain slightly decreased. Patient white count 17.8, creatinine 0.72 Objective - Vital Signs Vital signs: Vital Signs Temp 98.5 F 07/18/24 07:21 Pulse 84 07/18/24 09:24 Resp 16 07/18/24 07:21 BP 99/66 07/18/24 07:21 Pulse Ox 96 07/18/24 07:21 FiO2 Intake & Output 07/17/24 07/18/24 07/18/24 18:59 06:59 18:59 Output Total 1100 Balance -1100 Weight 101.605 kg Output: Urine 1100 Other: # Voids 3 - Exam GENERAL DESCRIPTION: An elderly male lying in bed in no distress RESPIRATORY SYSTEM: Unlabored breathing , decreased breath sounds at bases HEART: S1 S2 regular rate and rhythm , ABDOMEN: Soft , right-sided abdominal wall redness EXTREMITIES: No edema feet - Labs CBC & Chem 7: 07/18/24 06:58 07/18/24 06:58 Labs: Abnormal Lab Results - Last 24 Hours (Table) 07/18/24 07/18/24 Range/Units 06:58 06:58 WBC 17.8 H (3.8-10.6) k/uL Neutrophils # 14.6 H (1.3-7.7) k/uL Monocytes # 1.1 H (0-1.0) k/uL Sodium 131 L (137-145) mmol/L Calcium 8.0 L (8.4-10.2) mg/dL Assessment and Plan (1) Intra-abdominal abscess Current Visit: Yes Status: Acute Code(s): K65.1 - PERITONEAL ABSCESS SNOMED Code(s): 56546003 (2) Allergy to multiple antibiotics Current Visit: Yes Status: Acute Code(s): Z88.1 - ALLERGY STATUS TO OTHER ANTIBIOTIC AGENTS SNOMED Code(s): 348416651 (3) Appendicitis with perforation Current Visit: Yes Status: Acute Code(s): K35.32 - AC APPENDICITIS W PERF, LOC PERITONITIS, & GANGR, W/O ABSCS SNOMED Code(s): 65699462 Plan: 1patient initially presented to the hospital with abdominal pain has been diagnosed with perforated appendicitis in this patient who is status post open appendectomy now with evidence of right lower quadrant abscess and cellulitis to the right lower quadrant incision in this patient who has been on on a good gram-negative coverage concern for possible gram-positive bacteria 2-blood culture has been obtained which are currently pending 4-patient to continue with Zosyn and daptomycin started yesterday and monitor clinical course closely Dictation was produced using [employer] dictation software. please excuse any grammatical, word or spelling errors. Time with Patient: Less than 30
--- NOTE | 2024-07-19 15:29 | P.PN ---
Progress Note - Text Progress Note Date: 07/19/24 - Chief Complaint Abdominal pain - History of Present Illness This is a pleasant 64-year-old patient, with no family doctor. Patient takes medication for hypertension. Will also taking for hyperlipidemia is unclear why patient discontinued the medications. Takes medication for GERD occasionally. Has arthritic symptoms in many joints. Also history of diverticulitis. Patient had right-sided abdominal pain on and off for about 9 months. Around 330 t yesterday morning patient had increasing pain in the right lower abdomen. With nausea vomiting febrile. Brought into the ER. CT scan the ER showed acute appendicitis with moderate associated inflammation. No abscess or free air was reported. Patient was taken to the operating room last night. A laparoscopic surgery was done which was converted to open. Appendix was perforated at this base and there was spillage of stool into the abdomen. Patient had a end to end anastomosis carried out after ileocecectomy. Today patient is having pain at the point. No vomiting. Up in the chair. at the bedside. Patient denies any cardiac history. 07/12/2024--patient was seen and examined today. Tolerating clear liquid diet. No issues overnight. Complaining of lower abdominal pain, unsure of passing flatus, no bowel movement. Afebrile, heart rate 89, respiratory rate 16, blood pressure 123/77, on room air saturating 94%. WBCs 14.0, trending down, hemoglobin is 14.4, platelets 167. Sodium 128, started on IV fluids. BUN/creatinine normal. Total bilirubin mildly elevated 1.7. 07/13/24--patient seen and examined today. Pain is controlled. Patient feeling better today. No bowel movement. Reported flatus. General surgery following, remains on IV fluids, Zosyn. On sips of clears. Vital stable. WBCs went up to 16.8 today. Hemoglobin 14.8, platelet normal. Sodium improved to 140 today, normal BUN/creatinine. 07/14/24--was seen and examined today. Pain is controlled. Feeling better. On clear liquids per general surgery. On IV Zosyn and IV fluids. Passing flatus, no bowel movement. WBCs trending down. Encourage ambulation. 07/15/24--patient was seen and examined today. Pain is controlled. Feeling better. Remains on IV Zosyn, continue atenolol, restarted patient's Dyazide home dose, diet advanced to regular diet per general surgery. Passing flatus, had bowel movement. July 16: Saw the patient this afternoon. Short time ago patient had a very large bowel movement. Watery. Explosive. Abdomen feels much better. Patient otherwise much smaller bowel movement 2 days ago. Had been having abdominal pain for last 2 3 days. Now feels much better. CT scan done prior to that showed dilated small bowel without focal transition. Some inflammatory changes involving the distal sigmoid colon and rectum. July 17: Overnight patient had another bowel movement. Eating about half his meals. Told the patient to stay on a soft diet. Increase activity. Remains on IV Zosyn. IV daptomycin added by ID. Discussed with Dr. Hensley from surgery. He will discuss with interventional radiology see if there is a s area of fluid collection that can be drained. July 18: Patient started eating yesterday chopped diet. Passing flatus. On IV daptomycin and IV Zosyn. Some redness around the staple site felt to be could be from the tape. Some abdominal pain. Oral intake about 75%. July 19: Patient tolerating a chopped diet. No bowel movement yesterday or today. Has been up and about in the hallway. Remains on IV daptomycin and IV Zosyn. Some abdominal pain present to better. Repeat blood culture on July 17 pending. Active Medications Acetaminophen (Acetaminophen Tab 500 Mg Tab) 500 mg PO Q6HR PRN PRN Reason: Fever and/ or Pain Last Admin: 07/16/24 05:48 Dose: 500 mg Hydrocodone Bitart/Acetaminophen (Hydrocodone/Apap 5-325mg 1 Each Tab) 1 each PO Q4HR PRN PRN Reason: Pain Last Admin: 07/18/24 19:55 Dose: 1 each Albuterol/Ipratropium (Ipratropium-Albuterol 3 Ml Neb) 3 ml INHALATION RT-TID [facility] Last Admin: 07/19/24 12:11 Dose: 3 ml Atenolol (Atenolol 50 Mg Tab) 50 mg PO DAILY [facility] Last Admin: 07/19/24 08:51 Dose: 50 mg Budesonide (Budesonide 1 Mg/2 Ml Nebu) 1 mg INHALATION RT-BID [facility] Last Admin: 07/19/24 08:00 Dose: 1 mg Diphenhydramine HCl (Diphenhydramine 25 Mg Cap) 25 mg PO QID PRN PRN Reason: Itching Last Admin: 07/14/24 11:04 Dose: 25 mg Enoxaparin Sodium (Enoxaparin 40 Mg/0.4 Ml Syringe) 40 mg SQ DAILY [facility] Last Admin: 07/19/24 08:50 Dose: 40 mg Famotidine (Famotidine 20 Mg Tab) 20 mg PO BID [facility] Last Admin: 07/19/24 08:51 Dose: 20 mg Hydromorphone HCl (Hydromorphone 1 Mg/Ml 1 Ml Syringe) 1 mg IVP Q3HR PRN PRN Reason: Pain Last Admin: 07/19/24 15:13 Dose: 1 mg Piperacillin Sod/Tazobactam (Sod 3.375 gm/ Sodium Chloride) 100 mls @ 25 mls/hr IVPB Q8HR [facility]; Protocol Last Admin: 07/19/24 08:50 Dose: 25 mls/hr Daptomycin 500 mg/ Sodium (Chloride) 50 mls @ 100 mls/hr IVPB Q24H [facility]; Protocol Last Admin: 07/18/24 14:40 Dose: 100 mls/hr Naloxone HCl (Naloxone 0.4 Mg/Ml 1 Ml Vial) 0.2 mg IV Q2M PRN PRN Reason: Opioid Reversal Nicotine (Nicotine 21mg/24hr Patch) 1 patch TRANSDERM DAILY [facility] Last Admin: 07/19/24 08:50 Dose: 1 patch Ondansetron HCl (Ondansetron 4 Mg/2 Ml Vial) 4 mg IVP Q6HR PRN PRN Reason: Nausea And Vomiting Last Admin: 07/13/24 14:36 Dose: 4 mg Triamterene/Hydrochlorothiazide (Triamterene-Hctz 37.5-25mg 1 Each Cap) 1 each PO HS [facility] Last Admin: 07/18/24 19:55 Dose: 1 each Social history: . 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 Conjunctiva adarsh l. HEENT: External appearance of nose and ears normal, oral cavity grossly normal. NECK: JVD not raised; masses not palpable. HEART: First and second heart sounds are normal; no edema. LUNGS: Respiratory rate increased, decreased breath sound mild wheezing. ABDOMEN: Soft, mild tender,, liver spleen not palpable, no masses palpable. Right sided padma on a linear operative scar.-Some redness surrounding that. PSYCH: Alert and oriented x3; mood and affect anxious l. INVESTIGATIONS, reviewed in the clinical context: July 18: White count 7.8 hemoglobin 13.4 potassium 3.7 July 17: White count 7.8 hemoglobin 13.[address] scan abdomen pelvis: [July 16] dilated small bowel without focal transition. Some inflammatory changes involving the distal sigmoid colon and rectum July 16: White count 12.5 hemoglobin 14 platelets 240 July 11: White count 22.8 hemoglobin 16 platelets 177 sodium 136 potassium 4.4 BUN 11.[address] scan abdomen pelvis: Acute appendicitis moderate associated inflammation. No abscess or free air. Evidence of DJD lower thoracic spine. Assessment plan: -Acute perforated appendix with spillage of fecal content into the abdomen. - open ileocecectomy. Tolerating chopped diet. -Suspect secondary peritonitis from fecal contamination from perforation, causing sepsis: IV Zosyn. IV daptomycin . -Localized area fluid collection in the perioperative area.-Per IR per surgical notes unable to be drained -Sepsis secondary to above: IV antibiotics. IV fluids -COPD with some exacerbation in a current smoker DuoNeb. 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 Pepcid -Full code Discussed with patient. Creep activity as tolerated. Blood cultures pending. Follow with surgery and ID. Thank Dr. Cerda Past Medical History Past Medical History: Chest Pain / Angina, COPD, GERD/Reflux, Hyperlipidemia, Hypertension, Osteoarthritis (OA), Prostate Disorder, Thyroid Disorder Additional Past Medical History / Comment(s): high chol - supposed to take cholestrol med but doesnt, Chronic back pain, diverticulitis, enlarged prostate, potassium deficiency, bilateral leg cramps, vitamin D deficiency, arthiritis bilateral feet/heels and lower back. thyroid lumps, pilonidal cyst History of Any Multi-Drug Resistant Organisms: None Reported Past Surgical History: Heart Catheterization Additional Past Surgical History / Comment(s): 2011 heart cath which was clear- done by Dr. VC Topete, colonoscopy, left knee drained 12/16/2016 and 12/20/2016 Past Anesthesia/Blood Transfusion Reactions: Previous Problems w/ Anesthesia Additional Past Anesthesia/Blood Transfusion Reaction / Comm: Pt states it took him a long time to wake up which he attributes to going into his procedures very tired. Past Psychological History: No Psychological Hx Reported Smoking Status: Current every day smoker Past Alcohol Use History: None Reported Past Drug Use History: None Reported
--- NOTE | 2024-07-19 16:19 | P.PN ---
Subjective Patient seen and evaluated at bedside. Patient doing well, admits to some drainage from wound but denies abdominal pain. Objective - Vital Signs Vital signs: Vital Signs Temp 97.9 F 07/19/24 13:09 Pulse 83 07/19/24 13:09 Resp 17 07/19/24 13:09 BP 97/66 07/19/24 13:09 Pulse Ox 94 L 07/19/24 13:09 FiO2 Intake & Output 07/18/24 07/19/24 07/19/24 18:59 06:59 18:59 Output Total 400 300 Balance -400 -300 Output: Urine 400 300 Other: Voiding Method Urinal - Labs CBC & Chem 7: 07/19/24 02:59 07/18/24 06:58 Labs: Abnormal Lab Results - Last 24 Hours (Table) 07/19/24 Range/Units 02:59 WBC 16.03 H (4.50-10.00) X 10*3/uL Hgb 12.9 L (13.0-17.0) g/dL Immature Gran # 0.41 H (0.00-0.04) X 10*3/uL Neutrophils # 12.67 H (1.80-7.70) X 10*3/uL Microbiology - Last 24 Hours (Table) 07/17/24 14:52 Blood Culture - Preliminary Blood Assessment and Plan Assessment: 64 yo male w/ ileocectomy -tolerating regular diet -awaiting ID final recs -discharge planning after possible home iv abx Time with Patient: Less than 30
--- NOTE | 2024-07-19 17:10 | P.PN ---
Subjective Progress Note Date: 07/19/24 Principal diagnosis: Reason for follow up with intra-abdominal abscess and abdominal wall cellulitis Patient is a 64-year-old male with a past medical history significant for hypertension hyperlipidemia osteoarthritis COPD presenting to the hospital with abdominal pain has been diagnosed with acute perforated appendicitis status post open appendectomy subsequent CAT scan did shows evidence of an abdominal abscess prompting this consultation. On today's evaluation that is 07/19/2024, patient has been afebrile, patient is breathing comfortably and is currently on room air, patient denies having any significant cough no chest pain shortness of breath, patient denies nausea vomiting right lower quadrant abdominal pain has slightly decreased he did have some drainage last night and the area has been cultured. Patient white count slightly down to 16.03, creatinine 0.72 Objective - Vital Signs Vital signs: Vital Signs Temp 97.9 F 07/19/24 13:09 Pulse 83 07/19/24 13:09 Resp 17 07/19/24 13:09 BP 97/66 07/19/24 13:09 Pulse Ox 94 L 07/19/24 13:09 FiO2 Intake & Output 07/18/24 07/19/24 07/19/24 18:59 06:59 18:59 Output Total 400 300 Balance -400 -300 Output: Urine 400 300 Other: Voiding Method Urinal - Exam GENERAL DESCRIPTION: An elderly male lying in bed in no distress RESPIRATORY SYSTEM: Unlabored breathing , decreased breath sounds at bases HEART: S1 S2 regular rate and rhythm , ABDOMEN: Soft , right-sided abdominal wall redness did have some drainage on the dressing EXTREMITIES: No edema feet - Labs CBC & Chem 7: 07/19/24 02:59 07/18/24 06:58 Labs: Abnormal Lab Results - Last 24 Hours (Table) 07/19/24 Range/Units 02:59 WBC 16.03 H (4.50-10.00) X 10*3/uL Hgb 12.9 L (13.0-17.0) g/dL Immature Gran # 0.41 H (0.00-0.04) X 10*3/uL Neutrophils # 12.67 H (1.80-7.70) X 10*3/uL Microbiology - Last 24 Hours (Table) 07/17/24 14:52 Blood Culture - Preliminary Blood Assessment and Plan (1) Intra-abdominal abscess Current Visit: Yes Status: Acute Code(s): K65.1 - PERITONEAL ABSCESS SNOMED Code(s): 12243064 (2) Allergy to multiple antibiotics Current Visit: Yes Status: Acute Code(s): Z88.1 - ALLERGY STATUS TO OTHER ANTIBIOTIC AGENTS SNOMED Code(s): 169453242 (3) Appendicitis with perforation Current Visit: Yes Status: Acute Code(s): K35.32 - AC APPENDICITIS W PERF, LOC PERITONITIS, & GANGR, W/O ABSCS SNOMED Code(s): 00021182 Plan: 1patient initially presented to the hospital with abdominal pain has been diagnosed with perforated appendicitis in this patient who is status post open appendectomy now with evidence of right lower quadrant abscess and cellulitis to the right lower quadrant incision in this patient who has been on on a good gram-negative coverage concern for possible gram-positive bacteria 2-blood culture has been obtained which are currently pending, the patient did have some drainage from his incision which has been cultured 4-patient to continue with Zosyn and daptomycin while waiting for the culture to finalize to determine discharge antibiotics which may be IV Dictation was produced using [employer] dictation software. please excuse any grammatical, word or spelling errors. Time with Patient: Less than 30
--- NOTE | 2024-07-20 15:04 | P.PN ---
Subjective Progress Note Date: 07/20/24 Principal diagnosis: Reason for follow up with intra-abdominal abscess and abdominal wall cellulitis Patient is a 64-year-old male with a past medical history significant for hypertension hyperlipidemia osteoarthritis COPD presenting to the hospital with abdominal pain has been diagnosed with acute perforated appendicitis status post open appendectomy subsequent CAT scan did shows evidence of an abdominal abscess prompting this consultation. On today's evaluation that is 07/20/2024, Patient is afebrile this morning patient denies having any chest pain shortness of breath or cough, the patient is breathing comfortably on room air, patient right-sided abdominal pain has slightly decreased intensity still having drainage from incision site no nausea no vomiting or diarrhea. Blood and abdominal cultures are currently pending Objective - Vital Signs Vital signs: Vital Signs Temp 98.3 F 07/20/24 07:13 Pulse 83 07/20/24 08:21 Resp 18 07/20/24 07:13 BP 100/66 07/20/24 07:13 Pulse Ox 96 07/20/24 07:13 FiO2 Intake & Output 07/19/24 07/20/24 07/20/24 18:59 06:59 18:59 Output Total 300 550 Balance -300 -550 Output: Urine 300 550 Other: Voiding Method Toilet Toilet Urinal Urinal # Voids 4 - Exam GENERAL DESCRIPTION: An elderly male lying in bed in no distress RESPIRATORY SYSTEM: Unlabored breathing , decreased breath sounds at bases HEART: S1 S2 regular rate and rhythm , ABDOMEN: Soft , right-sided abdominal wall redness did have some drainage on the dressing EXTREMITIES: No edema feet - Labs CBC & Chem 7: 07/19/24 02:59 07/18/24 06:58 Labs: Microbiology - Last 24 Hours (Table) 07/18/24 23:57 Gram Stain - Preliminary Incision Wound Culture - Preliminary 07/17/24 14:52 Blood Culture - Preliminary Blood Assessment and Plan (1) Intra-abdominal abscess Current Visit: Yes Status: Acute Code(s): K65.1 - PERITONEAL ABSCESS SNOMED Code(s): 20527216 (2) Allergy to multiple antibiotics Current Visit: Yes Status: Acute Code(s): Z88.1 - ALLERGY STATUS TO OTHER ANTIBIOTIC AGENTS SNOMED Code(s): 642083587 (3) Appendicitis with perforation Current Visit: Yes Status: Acute Code(s): K35.32 - AC APPENDICITIS W PERF, LOC PERITONITIS, & GANGR, W/O ABSCS SNOMED Code(s): 14956162 Plan: 1patient initially presented to the hospital with abdominal pain has been diagnosed with perforated appendicitis in this patient who is status post open appendectomy now with evidence of right lower quadrant abscess and cellulitis to the right lower quadrant incision in this patient who has been on on a good gram-negative coverage concern for possible gram-positive bacteria 2-blood culture has been obtained which are currently pending, the patient did have some drainage from his incision which has been cultured which are currently pending 4-patient to continue with Zosyn and daptomycin while waiting for the culture to finalize to determine discharge antibiotics and monitor clinical course closely Dictation was produced using [employer] dictation software. please excuse any grammatical, word or spelling errors. Time with Patient: Less than 30
--- NOTE | 2024-07-20 20:21 | P.PN ---
Progress Note - Text Progress Note Date: 07/20/24 - Chief Complaint Abdominal pain - History of Present Illness This is a pleasant 64-year-old patient, with no family doctor. Patient takes medication for hypertension. Will also taking for hyperlipidemia is unclear why patient discontinued the medications. Takes medication for GERD occasionally. Has arthritic symptoms in many joints. Also history of diverticulitis. Patient had right-sided abdominal pain on and off for about 9 months. Around 330 t yesterday morning patient had increasing pain in the right lower abdomen. With nausea vomiting febrile. Brought into the ER. CT scan the ER showed acute appendicitis with moderate associated inflammation. No abscess or free air was reported. Patient was taken to the operating room last night. A laparoscopic surgery was done which was converted to open. Appendix was perforated at this base and there was spillage of stool into the abdomen. Patient had a end to end anastomosis carried out after ileocecectomy. Today patient is having pain at the point. No vomiting. Up in the chair. at the bedside. Patient denies any cardiac history. 07/12/2024--patient was seen and examined today. Tolerating clear liquid diet. No issues overnight. Complaining of lower abdominal pain, unsure of passing flatus, no bowel movement. Afebrile, heart rate 89, respiratory rate 16, blood pressure 123/77, on room air saturating 94%. WBCs 14.0, trending down, hemoglobin is 14.4, platelets 167. Sodium 128, started on IV fluids. BUN/creatinine normal. Total bilirubin mildly elevated 1.7. 07/13/24--patient seen and examined today. Pain is controlled. Patient feeling better today. No bowel movement. Reported flatus. General surgery following, remains on IV fluids, Zosyn. On sips of clears. Vital stable. WBCs went up to 16.8 today. Hemoglobin 14.8, platelet normal. Sodium improved to 140 today, normal BUN/creatinine. 07/14/24--was seen and examined today. Pain is controlled. Feeling better. On clear liquids per general surgery. On IV Zosyn and IV fluids. Passing flatus, no bowel movement. WBCs trending down. Encourage ambulation. 07/15/24--patient was seen and examined today. Pain is controlled. Feeling better. Remains on IV Zosyn, continue atenolol, restarted patient's Dyazide home dose, diet advanced to regular diet per general surgery. Passing flatus, had bowel movement. July 16: Saw the patient this afternoon. Short time ago patient had a very large bowel movement. Watery. Explosive. Abdomen feels much better. Patient otherwise much smaller bowel movement 2 days ago. Had been having abdominal pain for last 2 3 days. Now feels much better. CT scan done prior to that showed dilated small bowel without focal transition. Some inflammatory changes involving the distal sigmoid colon and rectum. July 17: Overnight patient had another bowel movement. Eating about half his meals. Told the patient to stay on a soft diet. Increase activity. Remains on IV Zosyn. IV daptomycin added by ID. Discussed with Dr. Hensley from surgery. He will discuss with interventional radiology see if there is a s area of fluid collection that can be drained. July 18: Patient started eating yesterday chopped diet. Passing flatus. On IV daptomycin and IV Zosyn. Some redness around the staple site felt to be could be from the tape. Some abdominal pain. Oral intake about 75%. July 19: Patient tolerating a chopped diet. No bowel movement yesterday or today. Has been up and about in the hallway. Remains on IV daptomycin and IV Zosyn. Some abdominal pain present to better. Repeat blood culture on July 17 pending. July 20: Patient remains on a chopped diet. Abdominal pain is bit better. Could just have increased drainage through the abdominal incision site. Complains of less pain. Had somewhat more solid BM last evening. On IV Zosyn and IV daptomycin. White count still up at 16.03. Overall feels much better. Very keen to go home. Did tell him that will depend upon surgery and ID. Active Medications Acetaminophen (Acetaminophen Tab 500 Mg Tab) 500 mg PO Q6HR PRN PRN Reason: Fever and/ or Pain Last Admin: 07/16/24 05:48 Dose: 500 mg Hydrocodone Bitart/Acetaminophen (Hydrocodone/Apap 5-325mg 1 Each Tab) 1 each PO Q4HR PRN PRN Reason: Pain Last Admin: 07/20/24 18:30 Dose: 1 each Albuterol/Ipratropium (Ipratropium-Albuterol 3 Ml Neb) 3 ml INHALATION RT-TID CAMMIE Last Admin: 07/20/24 13:25 Dose: Not Given Atenolol (Atenolol 50 Mg Tab) 50 mg PO DAILY [facility] Last Admin: 07/20/24 08:54 Dose: 50 mg Budesonide (Budesonide 1 Mg/2 Ml Nebu) 1 mg INHALATION RT-BID [facility] Last Admin: 07/20/24 08:08 Dose: 1 mg Diphenhydramine HCl (Diphenhydramine 25 Mg Cap) 25 mg PO QID PRN PRN Reason: Itching Last Admin: 07/14/24 11:04 Dose: 25 mg Enoxaparin Sodium (Enoxaparin 40 Mg/0.4 Ml Syringe) 40 mg SQ DAILY [facility] Last Admin: 07/20/24 08:55 Dose: 40 mg Famotidine (Famotidine 20 Mg Tab) 20 mg PO BID [facility] Last Admin: 07/20/24 08:54 Dose: 20 mg Hydromorphone HCl (Hydromorphone 1 Mg/Ml 1 Ml Syringe) 1 mg IVP Q3HR PRN PRN Reason: Pain Last Admin: 07/19/24 23:12 Dose: 1 mg Piperacillin Sod/Tazobactam (Sod 3.375 gm/ Sodium Chloride) 100 mls @ 25 mls/hr IVPB Q8HR [facility]; Protocol Last Admin: 07/20/24 16:31 Dose: 25 mls/hr Daptomycin 500 mg/ Sodium (Chloride) 50 mls @ 100 mls/hr IVPB Q24H [facility]; Protocol Last Admin: 07/20/24 14:39 Dose: 100 mls/hr Naloxone HCl (Naloxone 0.4 Mg/Ml 1 Ml Vial) 0.2 mg IV Q2M PRN PRN Reason: Opioid Reversal Nicotine (Nicotine 21mg/24hr Patch) 1 patch TRANSDERM DAILY [facility] Last Admin: 07/20/24 08:54 Dose: 1 patch Ondansetron HCl (Ondansetron 4 Mg/2 Ml Vial) 4 mg IVP Q6HR PRN PRN Reason: Nausea And Vomiting Last Admin: 07/13/24 14:36 Dose: 4 mg Triamterene/Hydrochlorothiazide (Triamterene-Hctz 37.5-25mg 1 Each Cap) 1 each PO HS [facility] Last Admin: 07/19/24 20:03 Dose: 1 each Social history: . 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 Conjunctiva adarsh l. HEENT: External appearance of nose and ears normal, oral cavity grossly normal. NECK: JVD not raised; masses not palpable. HEART: First and second heart sounds are normal; no edema. LUNGS: Respiratory rate increased, decreased breath sound mild wheezing. ABDOMEN: Soft, mild tender,, liver spleen not palpable, no masses palpable. Right sided padma on a linear operative scar.-Some redness surrounding that. PSYCH: Alert and oriented x3; mood and affect anxious l. INVESTIGATIONS, reviewed in the clinical context: July 18: White count 7.8 hemoglobin 13.4 potassium 3.7 July 17: White count 7.8 hemoglobin 13.[address] scan abdomen pelvis: [July 16] dilated small bowel without focal transition. Some inflammatory changes involving the distal sigmoid colon and rectum July 16: White count 12.5 hemoglobin 14 platelets 240 July 11: White count 22.8 hemoglobin 16 platelets 177 sodium 136 potassium 4.4 BUN 11.[address] scan abdomen pelvis: Acute appendicitis moderate associated inflammation. No abscess or free air. Evidence of DJD lower thoracic spine. Assessment plan: -Acute perforated appendix with spillage of fecal content into the abdomen. - open ileocecectomy. Tolerating chopped diet. -Suspect secondary peritonitis from fecal contamination from perforation, causing sepsis: IV Zosyn. IV daptomycin . -Localized area fluid collection in the perioperative area.-Per IR per surgical notes unable to be drained Antibiotics -Sepsis secondary to above:: Clinically much improved IV antibiotics. IV fluids -COPD with some exacerbation in a current smoker DuoNeb. 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 Changed to Lopressor 25 twice daily. -GERD p.o. Pepcid -Full code Discussed. Discharge as per surgery and ID. Changed atenolol to Lopressor. Thank Dr. Cerda Past Medical History Past Medical History: Chest Pain / Angina, COPD, GERD/Reflux, Hyperlipidemia, Hypertension, Osteoarthritis (OA), Prostate Disorder, Thyroid Disorder Additional Past Medical History / Comment(s): high chol - supposed to take cholestrol med but doesnt, Chronic back pain, diverticulitis, enlarged prostate, potassium deficiency, bilateral leg cramps, vitamin D deficiency, arthiritis bilateral feet/heels and lower back. thyroid lumps, pilonidal cyst History of Any Multi-Drug Resistant Organisms: None Reported Past Surgical History: Heart Catheterization Additional Past Surgical History / Comment(s): 2011 heart cath which was clear- done by Dr. VC Topete, colonoscopy, left knee drained 12/16/2016 and 12/20/2016 Past Anesthesia/Blood Transfusion Reactions: Previous Problems w/ Anesthesia Additional Past Anesthesia/Blood Transfusion Reaction / Comm: Pt states it took him a long time to wake up which he attributes to going into his procedures very tired. Past Psychological History: No Psychological Hx Reported Smoking Status: Current every day smoker Past Alcohol Use History: None Reported Past Drug Use History: None Reported
--- NOTE | 2024-07-20 21:47 | P.PN ---
Subjective Patient seen and evaluated at bedside. Patient doing well, admits to minimal abd pain, persistent drainage from wound Objective - Vital Signs Vital signs: Vital Signs Temp 98 F 07/20/24 20:00 Pulse 84 07/20/24 20:41 Resp 17 07/20/24 12:53 BP 122/77 07/20/24 20:00 Pulse Ox 98 07/20/24 20:00 FiO2 Intake & Output 07/20/24 07/20/24 07/21/24 06:59 18:59 06:59 Output Total 550 Balance -550 Output: Urine 550 Other: Voiding Method Toilet Toilet Toilet Urinal Urinal Urinal # Voids 4 1 - Exam gen: nad cv: rrr pul: non labored breathing, abd soft, non distended, min tenderness, surgical incision draining - Labs CBC & Chem 7: 07/19/24 02:59 07/18/24 06:58 Labs: Microbiology - Last 24 Hours (Table) 07/18/24 23:57 Gram Stain - Preliminary Incision Wound Culture - Preliminary 07/17/24 14:52 Blood Culture - Preliminary Blood Assessment and Plan Assessment: 64 yo male s/p ileocectomy -continue regular diet -follow picc line placement with anticipation of home abx -follow up case management/social work Time with Patient: Less than 30
[2024-07-21 04:23] LABS: Basophils # (A) 0.1 k/uL (0-0.2); Basophils % (A) 1 %; Eosinophils # (A) 0.3 k/uL (0-0.7); Eosinophils % (A) 2 %; HCT 41.9 % (39.0-53.0); HGB 13.3 gm/dL (13.0-17.5); Hypochromasia Slight; Lymphocytes # (A) 2.1 k/uL (1.0-4.8); Lymphocytes % (A) 15 %; MCH 29.2 pg (25.0-35.0); MCHC 31.6 g/dL (31.0-37.0); MCV 92.2 fL (80.0-100.0); Mean Platelet Volume 7.7; Monocytes # (A) 0.7 k/uL (0-1.0); Monocytes % (A) 5 %; Neutrophils # (A) 10.2 k/uL (1.3-7.7); Neutrophils % (A) 74 %; Platelet Count 341 k/uL (150-450); RBC 4.55 m/uL (4.30-5.90); RDW 14.1 % (11.5-15.5); WBC 13.7 k/uL (3.8-10.6)
[2024-07-21 04:36] LABS: African American GFR (CKD) >90 (>60 ml/min/1.73 sqM); Anion Gap 6 mmol/L; Blood Urea Nitrogen 7 mg/dL (9-20); Calcium 8.7 mg/dL (8.4-10.2); Carbon Dioxide 25 mmol/L (22-30); Chloride 106 mmol/L (98-107); Glucose 97 mg/dL (74-99); Non-African American GFR(CKD) >90 (>60 ml/min/1.73 sqM); Sodium 137 mmol/L (137-145)
[2024-07-21 07:52] VITALS: RESP 16
[2024-07-21] MEDS: METOPROLOL TARTRATE 25 MG TAB PO SCH (08:43)
--- NOTE | 2024-07-21 12:26 | P.PN ---
Subjective Progress Note Date: 07/21/24 Principal diagnosis: Reason for follow up with intra-abdominal abscess and abdominal wall cellulitis Patient is a 64-year-old male with a past medical history significant for hypertension hyperlipidemia osteoarthritis COPD presenting to the hospital with abdominal pain has been diagnosed with acute perforated appendicitis status post open appendectomy subsequent CAT scan did shows evidence of an abdominal abscess prompting this consultation. On today's evaluation that is 07/21/2024,the patient denies any fever or any chills, patient is breathing comfortably on room air, the patient denies chest pain shortness of breath and no significant cough, patient right-sided abdominal pain has decreased and still have significant drainage. The patient white count is down to 13.7, creatinine 0.87 culture have been negative so far Objective - Vital Signs Vital signs: Vital Signs Temp 98.1 F 07/21/24 07:14 Pulse 80 07/21/24 08:08 Resp 16 07/21/24 07:14 BP 100/67 07/21/24 07:14 Pulse Ox 97 07/21/24 07:14 FiO2 Intake & Output 07/20/24 07/21/24 07/21/24 18:59 06:59 18:59 Intake Total 200 Balance 200 Intake: Oral 200 Other: Voiding Method Toilet Toilet Urinal Urinal # Voids 1 - Exam GENERAL DESCRIPTION: An elderly male lying in bed in no distress RESPIRATORY SYSTEM: Unlabored breathing , decreased breath sounds at bases HEART: S1 S2 regular rate and rhythm , ABDOMEN: Soft , right-sided abdominal wall redness did have some drainage on the dressing EXTREMITIES: No edema feet - Labs CBC & Chem 7: 07/21/24 03:22 07/21/24 03:22 Labs: Abnormal Lab Results - Last 24 Hours (Table) 07/21/24 07/21/24 Range/Units 03:22 03:22 WBC 13.7 H (3.8-10.6) k/uL Neutrophils # 10.2 H (1.3-7.7) k/uL BUN 7 L (9-20) mg/dL Microbiology - Last 24 Hours (Table) 07/18/24 23:57 Gram Stain - Final Incision Wound Culture - Final Assessment and Plan (1) Intra-abdominal abscess Current Visit: Yes Status: Acute Code(s): K65.1 - PERITONEAL ABSCESS SN OMED Code(s): 19116564 (2) Allergy to multiple antibiotics Current Visit: Yes Status: Acute Code(s): Z88.1 - ALLERGY STATUS TO OTHER ANTIBIOTIC AGENTS SNOMED Code(s): 376806163 (3) Appendicitis with perforation Current Visit: Yes Status: Acute Code(s): K35.32 - AC APPENDICITIS W PERF, LOC PERITONITIS, & GANGR, W/O ABSCS SNOMED Code(s): 84788129 Plan: 1patient initially presented to the hospital with abdominal pain has been diagnosed with perforated appendicitis in this patient who is status post open appendectomy now with evidence of right lower quadrant abscess and cellulitis to the right lower quadrant incision in this patient who has been on on a good gram-negative coverage concern for possible gram-positive bacteria 2-blood culture has been negative so far, local superficial culture negative but not indicated of the intra-abdominal component keeping in mind improvement in the Zosyn and daptomycin will consider 10-day course with a plan for a CT abdominal pelvis before completion of his antibiotics in the close outpatient follow-up Dictation was produced using [employer] dictation software. please excuse any grammatical, word or spelling errors. Time with Patient: Less than 30
[2024-07-21] MEDS: ERTAPENEM 1 GM in SODIUM CHLORIDE 0.9% 50 ML IVPB STA (12:40)
--- NOTE | 2024-07-21 14:20 | P.DS ---
Providers Date of admission: 07/10/24 13:50 Expected date of discharge: 07/21/24 Attending physician: Rodrick Cerda DO Consults: 07/10/24 19:18 Consult Physician Routine Consulting Provider: Kole Su Consult Reason/Comments: medical management Do you want consulting provider notified?: Yes 07/17/24 12:17 Consult Physician Routine Consulting Provider: Naveen Kumar Consult Reason/Comments: Perforated appendicitis Do you want consulting provider notified?: Yes Primary care physician: Stated None Hospital Course: Discharge diagnosis 1. Perforated appendicitis status post ileocecectomy with abdominal abscess and drainage from incision site 2. Leukocytosis Hospital course This is a 64-year-old male who presented with right and left lower quadrant abdominal pain. Patient had CT scan completed with evidence of acute appendicitis. Patient was taken to the OR and diagnosed with a perforated appendicitis and is status post laparoscopic converted to open ileocecectomy for perforated appendicitis. Patient did develop abdominal abscess and had drainage from the incision site. He was seen and followed by infectious disease. He will be discharged with IV antibiotics. Patient's pain is controlled. He is tolerating diet. He is having bowel movements. He is afebrile. He is stable for discharge. Patient followed by infectious disease and cleared for discharge with a 10-day course of IV antibiotics and plan for repeat CT scan abdomen pelvis at the completion of his antibiotics. Patient is stable for discharge. Please refer to chart for any further details. Physician Settlement Technician note has been reviewed by physician. Signing provider agrees with the documented findings, assessment, and plan of care. Patient Condition at Discharge: Stable Plan - Discharge Summary Discharge Rx Participant: Yes New Discharge Prescriptions: New HYDROcodone/APAP 5-325MG [Astatula 5-325] 1 tab PO Q6HR PRN 3 Days #12 tab PRN Reason: Pain Continue atenoloL [Tenormin] 50 mg PO DAILY Esomeprazole Magnesium [NexIUM 24Hr] 20 mg PO DAILY PRN PRN Reason: Heartburn Triamterene-Hctz 37.5-25Mg [Maxzide 37.5-25] 1 tab PO HS No Action Acetaminophen Tab [Tylenol] 650 mg PO Q4H PRN PRN Reason: Fever And/ Or Pain Discharge Medication List atenoloL [Tenormin] 50 mg PO DAILY 07/22/18 [History] Acetaminophen Tab [Tylenol] 650 mg PO Q4H PRN 07/10/24 [History] Esomeprazole Magnesium [NexIUM 24Hr] 20 mg PO DAILY PRN 07/10/24 [History] Triamterene-Hctz 37.5-25Mg [Maxzide 37.5-25] 1 tab PO HS 07/10/24 [History] HYDROcodone/APAP 5-325MG [Astatula 5-325] 1 tab PO Q6HR PRN 3 Days #12 tab 07/21/24 [Rx] Follow up Appointment(s)/Referral(s): None,Stated [Primary Care Provider] - 1-2 days Rodrick Cerda DO [Medical Doctor] - 1 Week Infusion [facility] [REFERRING] - As Needed ([facility] will deliver outpatient IV antibiotic supplies to your house on the evening of discharge. ) [facility] [NON[facility]STAFF] - ([facility] will call you to schedule your in home nursing visits for begin outpatient IV antibiotic teaching. Your first visit will be tomorrow. ) Naveen Kumar MD [STAFF PHYSICIAN] - 1 Week Ambulatory/Diagnostic Orders: Miscellaneous Radiology Order [RAD.AMB] Time Frame: 07/30/24, Location: None Selected Activity/Diet/Wound Care/Special Instructions: Abdominal incision: Cover with ABD pads - change daily and as needed. No driving while taking Astatula No lifting over 10 pounds You may shower. No soaking or tub baths for 2 weeks Very light activity until you are reevaluated at your follow up appointment with your surgeon Discharge IV antibiotics per infectious disease Discharge/Stand Alone Forms: Area PCPs Discharge Disposition: HOME WITH HOME HEALTH SERVICES
[2024-07-21 15:56] VITALS: BP 111/72; PULSE 69; TEMP 97.9
--- NOTE | 2024-07-21 20:15 | P.PN ---
Progress Note - Text Progress Note Date: 07/21/24 - Chief Complaint Abdominal pain - History of Present Illness This is a pleasant 64-year-old patient, with no family doctor. Patient takes medication for hypertension. Will also taking for hyperlipidemia is unclear why patient discontinued the medications. Takes medication for GERD occasionally. Has arthritic symptoms in many joints. Also history of diverticulitis. Patient had right-sided abdominal pain on and off for about 9 months. Around 330 t yesterday morning patient had increasing pain in the right lower abdomen. With nausea vomiting febrile. Brought into the ER. CT scan the ER showed acute appendicitis with moderate associated inflammation. No abscess or free air was reported. Patient was taken to the operating room last night. A laparoscopic surgery was done which was converted to open. Appendix was perforated at this base and there was spillage of stool into the abdomen. Patient had a end to end anastomosis carried out after ileocecectomy. Today patient is having pain at the point. No vomiting. Up in the chair. at the bedside. Patient denies any cardiac history. 07/12/2024--patient was seen and examined today. Tolerating clear liquid diet. No issues overnight. Complaining of lower abdominal pain, unsure of passing flatus, no bowel movement. Afebrile, heart rate 89, respiratory rate 16, blood pressure 123/77, on room air saturating 94%. WBCs 14.0, trending down, hemoglobin is 14.4, platelets 167. Sodium 128, started on IV fluids. BUN/creatinine normal. Total bilirubin mildly elevated 1.7. 07/13/24--patient seen and examined today. Pain is controlled. Patient feeling better today. No bowel movement. Reported flatus. General surgery following, remains on IV fluids, Zosyn. On sips of clears. Vital stable. WBCs went up to 16.8 today. Hemoglobin 14.8, platelet normal. Sodium improved to 140 today, normal BUN/creatinine. 07/14/24--was seen and examined today. Pain is controlled. Feeling better. On clear liquids per general surgery. On IV Zosyn and IV fluids. Passing flatus, no bowel movement. WBCs trending down. Encourage ambulation. 07/15/24--patient was seen and examined today. Pain is controlled. Feeling better. Remains on IV Zosyn, continue atenolol, restarted patient's Dyazide home dose, diet advanced to regular diet per general surgery. Passing flatus, had bowel movement. July 16: Saw the patient this afternoon. Short time ago patient had a very large bowel movement. Watery. Explosive. Abdomen feels much better. Patient otherwise much smaller bowel movement 2 days ago. Had been having abdominal pain for last 2 3 days. Now feels much better. CT scan done prior to that showed dilated small bowel without focal transition. Some inflammatory changes involving the distal sigmoid colon and rectum. July 17: Overnight patient had another bowel movement. Eating about half his meals. Told the patient to stay on a soft diet. Increase activity. Remains on IV Zosyn. IV daptomycin added by ID. Discussed with Dr. Hensley from surgery. He will discuss with interventional radiology see if there is a s area of fluid collection that can be drained. July 18: Patient started eating yesterday chopped diet. Passing flatus. On IV daptomycin and IV Zosyn. Some redness around the staple site felt to be could be from the tape. Some abdominal pain. Oral intake about 75%. July 19: Patient tolerating a chopped diet. No bowel movement yesterday or today. Has been up and about in the hallway. Remains on IV daptomycin and IV Zosyn. Some abdominal pain present to better. Repeat blood culture on July 17 pending. July 20: Patient remains on a chopped diet. Abdominal pain is bit better. Could just have increased drainage through the abdominal incision site. Complains of less pain. Had somewhat more solid BM last evening. On IV Zosyn and IV daptomycin. White count still up at 16.03. Overall feels much better. Very keen to go home. Did tell him that will depend upon surgery and ID. July 21: Tolerating a diet. Had a bowel movement. Has been cleared by surgery and ID for discharge. Got a PICC line. Still having significant drainage through the staple site. Spoke to Dr. Hensley. And then call the nurse to see if he can get a colostomy/drainage back over the incision site. Questions answered Social history: . 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 Conjunctiva adarsh l. HEENT: External appearance of nose and ears normal, oral cavity grossly normal. NECK: JVD not raised; masses not palpable. HEART: First and second heart sounds are normal; no edema. LUNGS: Respiratory rate increased, decreased breath sound mild wheezing. ABDOMEN: Soft, mild tender,, liver spleen not palpable, no masses palpable. Right sided padma on a linear operative scar.-Some redness surrounding that. PSYCH: Alert and oriented x3; mood and affect anxious l. INVESTIGATIONS, reviewed in the clinical context: July 21: White count 13.7 hemoglobin 13.3 potassium [address] scan abdomen pelvis: [July 16] dilated small bowel without focal transition. Some inflammatory changes involving the distal sigmoid colon and rectum July 16: White count 12.5 hemoglobin 14 platelets 240 July 11: White count 22.8 hemoglobin 16 platelets 177 sodium 136 potassium 4.4 BUN 11.[address] scan abdomen pelvis: Acute appendicitis moderate associated inflammation. No abscess or free air. Evidence of DJD lower thoracic spine. Assessment plan: -Acute perforated appendix with spillage of fecal content into the abdomen. - open ileocecectomy. Tolerating chopped diet. -Suspect secondary peritonitis from fecal contamination from perforation, causing sepsis: IV Zosyn. IV daptomycin Discharge antibiotics per ID . -Localized area fluid collection in the perioperative area.-Per IR per surgical notes unable to be drained Antibiotics for discharge per ID -Sepsis secondary to above:: Clinically much improved IV antibiotics. IV fluids -COPD with some exacerbation in a current smoker DuoNeb. 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 Changed to Lopressor 25 twice daily. -GERD p.o. Pepcid -Full code Follow-up as per ID and surgery. And PCP. Thank Dr. Cerda Past Medical History Past Medical History: Chest Pain / Angina, COPD, GERD/Reflux, Hyperlipidemia, Hypertension, Osteoarthritis (OA), Prostate Disorder, Thyroid Disorder Additional Past Medical History / Comment(s): high chol - supposed to take cholestrol med but doesnt, Chronic back pain, diverticulitis, enlarged prostate, potassium deficiency, bilateral leg cramps, vitamin D deficiency, arthiritis bilateral feet/heels and lower back. thyroid lumps, pilonidal cyst History of Any Multi-Drug Resistant Organisms: None Reported Past Surgical History: Heart Catheterization Additional Past Surgical History / Comment(s): 2012 heart cath which was clear- done by Dr. VC Topete, colonoscopy, left knee drained 12/16/2016 and 12/20/2016 Past Anesthesia/Blood Transfusion Reactions: Previous Problems w/ Anesthesia Additional Past Anesthesia/Blood Transfusion Reaction / Comm: Pt states it took him a long time to wake up which he attributes to going into his procedures very tired. Past Psychological History: No Psychological Hx Reported Smoking Status: Current every day smoker Past Alcohol Use History: None Reported Past Drug Use History: None Reported
--- NOTE | 2024-07-25 15:08 | CDI ---
Documentation Clarification Form Date: 07/15/2024 11:42:00 AM From: Alexia Galvez RN, CCDS Phone: [phone] Admit Date: 07/10/2024 01:50:00 PM Patient Name: Blu Frost Visit Number: [id number] Discharge Date: 07/21/2024 04:09:00 PM ATTENTION: The Clinical Documentation Specialists (CDI) and [facility] Coding Staff appreciate your assistance in clarifying documentation. Please respond to the clarification below the line at the bottom and electronically sign. The CDI & [facility] Coding staff will review the response and follow-up if needed. Please note: Queries are made part of the Legal Health Record. If you have any questions, please contact the author of this message via ITS. Doctor/Provider: Rodrick Cerda The patient had an acute perforated appendix with spillage of fecal content into the abdomen. Based on this information and the findings below, is there an additional diagnosis that is clinically appropriate for this patient? History/Risk Factors: Chest Pain / Angina, COPD, GERD/Reflux, Hyperlipidemia, Hypertension, Osteoarthritis (OA), Prostate Disorder, Thyroid Disorder Clinical Indicators: 64-year-old male who present with abdominal pain over the past day. he was ruled in for appendicitis. 07/10/24 had a laparoscopic converted to open Ileocecectomy. On inspection, the appendix was perforated at its base and there into the abdomen. WBC 18.0, Neutrophils 15.5, Na 134 07/10 Vitals: 106/72 91 18 99.1 95% RA 07/11 Vitals: 102/67 11 18 100.1 91% RA, WBC 22.89 07/11 Medicine consult: Acute perforated appendix with spillage of fecal content into the abdomen. -Suspect secondary peritonitis from fecal contamination from perforation, causing sepsis Treatment: Zosyn 3.375 GM IVPB Q 8 HRS Is there an additional diagnosis that is clinically appropriate for this patient? [ ] Sepsis, secondary peritonitis from perforated appendix present on admission [ ] Sepsis ruled out [ ] No additional diagnosis/not clinically significant [ ] Other, please specify [ ] Unable to determine SIRS Criteria: 2 or more of the following may indicate SIRS Temperature < 96.8F (36C) or > 101.0F (38.3C) Heart Rate > 90 bpm Respiratory Rate > 20 breaths/min or PaCO2 < 32 mmHg White Blood Cell Count > 12,000 or < 4,000 cells/mm3 or > 10% bands (Template Last Reviewed: October 2022) [facility]
== END 2024-07-21 16:09 | disposition home health service (06) | DRG 853 ==
LOC: EC 10:43 → 4SSUR 13:50
PROVIDERS: ADMIT Surgery; ATTEND Surgery
PROC: 0DTJ0ZZ Resection of Appendix, Open Approach (ICD-10-PCS; 2024-07-10)
PROC: 0DBB0ZZ Excision of Ileum, Open Approach (ICD-10-PCS; 2024-07-10)
PROC: 0DJD4ZZ Inspection of Lower Intestinal Tract, Percutaneous Endoscopic Approach (ICD-10-PCS; 2024-07-10)
PROC: 0DTH0ZZ Resection of Cecum, Open Approach (ICD-10-PCS; principal; 2024-07-10 09:15)
DX: A41.9 Sepsis, unspecified organism (principal); K35.33 Acute appendicitis with perforation, localized peritonitis, and gangrene, with abscess; E87.1 Hypo-osmolality and hyponatremia; J44.1 Chronic obstructive pulmonary disease with (acute) exacerbation; I10 Essential (primary) hypertension; E86.1 Hypovolemia; N40.0 Benign prostatic hyperplasia without lower urinary tract symptoms; Z53.31 Laparoscopic surgical procedure converted to open procedure; E78.5 Hyperlipidemia, unspecified; F17.210 Nicotine dependence, cigarettes, uncomplicated; K21.9 Gastro-esophageal reflux disease without esophagitis; M47.816 Spondylosis without myelopathy or radiculopathy, lumbar region; Z87.19 Personal history of other diseases of the digestive system; Z79.82 Long term (current) use of aspirin; Z79.899 Other long term (current) drug therapy; Z88.1 Allergy status to other antibiotic agents; Z88.2 Allergy status to sulfonamides
CPT/HCPCS: 36415; 36573; 74177; 80048; 80053; 81001; 82150; 83605; 83690; 83735; 84145; 85025; 85347; 85610; 87040; 87070; 87075; 87205; 88307; 94640; 96365; 96375; 99285

== ENCOUNTER 2024-08-04 15:04 | Inpatient (IN) | payer MEDICARE ==
--- NOTE | 2024-08-04 15:49 | ED ---
General Adult HPI - General Chief complaint: Abdominal Pain Stated complaint: post op-poss infection Time Seen by Provider: 08/04/24 15:31 Source: patient, RN/MD Mode of arrival: ambulatory Limitations: no limitations - History of Present Illness Initial comments: Patient is a 64-year-old male present to the emergency department with concerns with infection. Patient did have appendicitis with appendectomy as well as bowel resection a couple of weeks ago. Patient has had drainage from his surgical site however that has improved. Patient has developed redness and discomfort. Patient did go to see infectious disease doctor today and was advised to come to the emergency department. - Related Data Home Medications Medication Instructions Recorded Confirmed atenoloL [Tenormin] 50 mg PO DAILY 07/22/18 08/04/24 Acetaminophen Tab [Tylenol] 650 mg PO Q4H PRN 07/10/24 08/04/24 Esomeprazole Magnesium [NexIUM 20 mg PO DAILY PRN 07/10/24 08/04/24 24Hr] Triamterene-Hctz 37.5-25Mg 1 tab PO HS@199907/10/24 08/04/24 [Maxzide 37.5-25] DAPTOmycin [Cubicin] 500 mg INJ DAILY 08/04/24 08/04/24 Zosyn 4.5gm 4.5 gm IV TID@0600,1400,2200 08/04/24 08/04/24 Allergies Allergy/AdvReac Type Severity Reaction Status Date / Time peanut Allergy Severe Anaphylaxis Verified 08/04/24 17:56 [place] nut Allergy Anaphylaxis Verified 08/04/24 17:56 Quinolones Allergy Itching Verified 08/04/24 17:56 ciprofloxacin [From Cipro] AdvReac Rash/Hives Verified 08/04/24 17:56 sulfamethoxazole AdvReac Rapid Verified 08/04/24 17:56 [From Bactrim] Heart Rate trimethoprim [From Bactrim] AdvReac Rapid Verified 08/04/24 17:56 Heart Rate Review of Systems ROS Statement: Those systems with pertinent positive or pertinent negative responses have been documented in the HPI. ROS Other: All systems not noted in ROS Statement are negative. Constitutional: Denies: fever Eyes: Denies: eye pain ENT: Denies: ear pain Gastrointestinal: Reports: abdominal pain Skin: Reports: rash Past Medical History Past Medical History: Chest Pain / Angina, COPD, GERD/Reflux, Hyperlipidemia, Hypertension, Osteoarthritis (OA), Prostate Disorder, Thyroid Disorder Additional Past Medical History / Comment(s): high chol - supposed to take cholestrol med but doesnt, Chronic back pain, diverticulitis, enlarged prostate, potassium deficiency, bilateral leg cramps, vitamin D deficiency, arthiritis bilateral feet/heels and lower back. thyroid lumps, pilonidal cyst History of Any Multi-Drug Resistant Organisms: None Reported Past Surgical History: Heart Catheterization Additional Past Surgical History / Comment(s): 2012 heart cath which was clear- done by Dr. VC Topete, colonoscopy, left knee drained 12/16/2016 and 12/20/2016 Past Anesthesia/Blood Transfusion Reactions: Previous Problems w/ Anesthesia Additional Past Anesthesia/Blood Transfusion Reaction / Comment(s): Pt states it took him a long time to wake up which he attributes to going into his procedures very tired. Past Psychological History: No Psychological Hx Reported Smoking Status: Current every day smoker Past Alcohol Use History: None Reported Past Drug Use History: None Reported - Past Family History Father Additional Family Medical History / Comment(s): Father of cirrhosis at age 62 yrs. No coronary artery disease history. Mother Additional Family Medical History / Comment(s): Mother of neck fracture at age 76yrs from an accident. She also had history of atrial fibrillation. Sister(s) Additional Family Medical History / Comment(s): Sister after a "leg operation" she developed a leg infection and family was told she of a lung problem. His sister had history of stroke as well. Patient has a second sister that is alive with COPD. Patient has children with no major medical problems. General Exam Limitations: no limitations General appearance: alert, in no apparent distress Head exam: Present: normocephalic Neck exam: Present: normal inspection Respiratory exam: Present: normal lung sounds bilaterally Cardiovascular Exam: Present: regular rate, normal rhythm GI/Abdominal exam: Present: soft, tenderness (Right lower abdomen incisional wound with surrounding erythema and tenderness) Extremities exam: Present: normal inspection Neurological exam: Present: alert Psychiatric exam: Present: normal affect, normal mood Skin exam: Present: erythema (Right lower abdomen) Course Vital Signs 08/04/24 08/04/24 15:16 18:37 Temperature 98.1 F 98.2 F Pulse Rate 69 69 Respiratory 18 16 Rate Blood Pressure 123/84 114/72 O2 Sat by Pulse 100 99 Oximetry EKG Findings - EKG Results: EKG: interpreted by ERMD (Inferior Q waves with T wave inversion lead III), sinus rhythm, normal axis Medical Decision Making - Medical Decision Making Was pt. sent in by a medical professional or institution (, PA, DRUG DISCOVERY INFORMATICS SPECIALIST, urgent care, hospital, or prison...) When possible be specific @ -Patient was sent over by Dr. iTan's office Did you speak to anyone other than the patient for history (EMS, parent, family, police, friend...)? What history was obtained from this source @ -I did speak with Dr. Tian regarding patient history and presentation and plan Did you review nursing and triage notes (agree or disagree)? Why? @ -I reviewed and agree with nursing and triage notes Were old charts reviewed (outside hosp., previous admission, EMS record, old EKG, old radiological studies, urgent care reports/EKG's, prison records)? Report findings @ -Previous admission reviewed Differential Diagnosis (chest pain, altered mental status, abdominal pain women, abdominal pain men, vaginal bleeding, weakness, fever, dyspnea, syncope, headache, dizziness, GI bleed, back pain, seizure, CVA, palpatations, mental health, musculoskeletal)? @ -Differential Fever: Pneumonia, viral URI, endocarditis, myocarditis, pericarditis, otitis, sinusitis, peritonsillar Abscess, retropharyngeal Abscess, epiglottitis, peritonitis, appendicitis, Tanya cystitis, diverticulitis, hepatitis, colitis, UTI, PID, TOA, pyelonephritis, prostatitis, epididymitis, meningitis, encephalitis, pulmonary embolism, CVA, thyroid storm, pancreatitis, adrenal crisis, cavernous sinus thrombosis, this is not meant to be an all-inclusive list. EKG interpreted by me (3pts min.). @ -As above X-rays interpreted by me (1pt min.). @ -None done CT interpreted by me (1pt min.). @ -CT scan abdomen pelvis does show fluid collection, possible seroma versus abscess subcutaneous near incision site U/S interpreted by me (1pt. min.). @ -None done What testing was considered but not performed or refused? (CT, X-rays, U/S, labs)? Why? @ -None What meds were considered but not given or refused? Why? @ -None Did you discuss the management of the patient with other professionals (professionals i.e. , PA, DRUG DISCOVERY INFORMATICS SPECIALIST, lab, RT, psych nurse, elementary school social worker, pump installer, teacher, child support officer, immigration case worker)? Give summary @ -Case discussed with Dr. Rahman as well who will admit covering hospital call. Case earlier discussed with Sayed Was smoking cessation discussed for >3mins.? @ -No Was critical care preformed (if so, how long)? @ -No Were there social determinants of health that impacted care today? How? (Homelessness, low income, unemployed, alcoholism, drug addiction, transportation, low edu. Level, literacy, decrease access to med. care, [place] [facility], rehab)? @ -No Was there de-escalation of care discussed even if they declined (Discuss DNR or withdrawal of care, Hospice)? DNR status @ -No What co-morbidities impacted this encounter? (DM, HTN, Smoking, COPD, CAD, Cancer, CVA, ARF, Chemo, Hep., AIDS, mental health diagnosis, sleep apnea, morbid obesity)? @ -Postoperative Was patient admitted / discharged? Hospital course, mention meds given and route, prescriptions, significant lab abnormalities, going to OR and other pertinent info. @ -Patient presents post appendectomy with bowel resection with cellulitis. Patient will be admitted. Admission orders written. Blood culture and lactic acid and IV antibiotics have already been ordered. Consults will be placed Undiagnosed new problem with uncertain prognosis? @ -No Drug Therapy requiring intensive monitoring for toxicity (Heparin, Nitro, Insulin, Cardizem)? @ -No Were any procedures done? @ -No Diagnosis/symptom? @ -Cellulitis Acute, or Chronic, or Acute on Chronic? @ -Acute Uncomplicated (without systemic symptoms) or Complicated (systemic symptoms)? @ -Complicated with recent postoperative state Side effects of treatment? @ -No Exacerbation, Progression, or Severe Exacerbation? @ -No Poses a threat to life or bodily function? How? (Chest pain, [place], GA, pneumonia, PE, COPD, DKA, ARF, appy, cholecystitis, CVA, Diverticulitis, Homicidal, Suarez icidal, threat to staff... and all critical care pts) @ -Threat to develop sepsis - Lab Data Result diagrams: 10/14/24 16:13 08/04/24 16:13 Lab Results 08/04/24 08/04/24 08/04/24 Range/Units 16:13 16:13 16:13 WBC 8.7 (3.8-10.6) k/uL RBC 4.78 (4.30-5.90) m/uL Hgb 14.1 (13.0-17.5) gm/dL Hct 41.8 (39.0-53.0) % MCV 87.4 (80.0-100.0) fL MCH 29.6 (25.0-35.0) pg MCHC 33.8 (31.0-37.0) g/dL RDW 14.8 (11.5-15.5) % Plt Count 246 (150-450) k/uL MPV 8.1 Neutrophils % 66 % Lymphocytes % 22 % Monocytes % 5 % Eosinophils % 4 % Basophils % 0 % Neutrophils # 5.8 (1.3-7.7) k/uL Lymphocytes # 1.9 (1.0-4.8) k/uL Monocytes # 0.4 (0-1.0) k/uL Eosinophils # 0.3 (0-0.7) k/uL Basophils # 0.0 (0-0.2) k/uL PT 10.2 (10.0-12.5) sec INR 0.9 (<1.2) APTT 27.2 (22.0-30.0) sec Sodium 141 (137-145) mmol/L Potassium 3.8 (3.5-5.1) mmol/L Chloride 107 (98-107) mmol/L Carbon Dioxide 25 (22-30) mmol/L Anion Gap 9 mmol/L BUN 9 (9-20) mg/dL Creatinine 0.88 (0.66-1.25) mg/dL Est GFR (CKD-EPI)AfAm >90 (>60 ml/min/1.73 sqM) Est GFR (CKD-EPI)NonAf >90 (>60 ml/min/1.73 sqM) Glucose 82 (74-99) mg/dL Plasma Lactic Acid Andres (0.7-2.0) mmol/L Calcium 9.0 (8.4-10.2) mg/dL Total Bilirubin 0.6 (0.2-1.3) mg/dL AST 18 (17-59) U/L ALT 18 (4-49) U/L Alkaline Phosphatase 59 (38-126) U/L Total Protein 6.1 L (6.3-8.2) g/dL Albumin 3.6 (3.5-5.0) g/dL 08/04/24 Range/Units 16:13 WBC (3.8-10.6) k/uL RBC (4.30-5.90) m/uL Hgb (13.0-17.5) gm/dL Hct (39.0-53.0) % MCV (80.0-100.0) fL MCH (25.0-35.0) pg MCHC (31.0-37.0) g/dL RDW (11.5-15.5) % Plt Count (150-450) k/uL MPV Neutrophils % % Lymphocytes % % Monocytes % % Eosinophils % % Basophils % % Neutrophils # (1.3-7.7) k/uL Lymphocytes # (1.0-4.8) k/uL Monocytes # (0-1.0) k/uL Eosinophils # (0-0.7) k/uL Basophils # (0-0.2) k/uL PT (10.0-12.5) sec INR (<1.2) APTT (22.0-30.0) sec Sodium (137-145) mmol/L Potassium (3.5-5.1) mmol/L Chloride (98-107) mmol/L Carbon Dioxide (22-30) mmol/L Anion Gap mmol/L BUN (9-20) mg/dL Creatinine (0.66-1.25) mg/dL Est GFR (CKD-EPI)AfAm (>60 ml/min/1.73 sqM) Est GFR (CKD-EPI)NonAf (>60 ml/min/1.73 sqM) Glucose (74-99) mg/dL Plasma Lactic Acid Andres 1.0 (0.7-2.0) mmol/L Calcium (8.4-10.2) mg/dL Total Bilirubin (0.2-1.3) mg/dL AST (17-59) U/L ALT (4-49) U/L Alkaline Phosphatase (38-126) U/L Total Protein (6.3-8.2) g/dL Albumin (3.5-5.0) g/dL Disposition Clinical Impression: Cellulitis Disposition: ADMITTED IP TO THIS HOSP Is patient prescribed a controlled substance at d/c from ED?: No Referrals: None,Stated [Primary Care Provider] - 1-2 days Time of Disposition: 20:16
[2024-08-04] MEDS: SODIUM CHLORIDE 0.9% 1,000 ML IV SCH (16:18)
[2024-08-04] MEDS: PIPERACILLIN-TAZOBACTAM 3.375 GM in SODIUM CHLORIDE 0.9% 100 ML IVPB SCH (16:32)
[2024-08-04 16:43] LABS: Basophils % (A) 0 %; Eosinophils # (A) 0.3 k/uL (0-0.7); Eosinophils % (A) 4 %; HCT 41.8 % (39.0-53.0); HGB 14.1 gm/dL (13.0-17.5); Lymphocytes # (A) 1.9 k/uL (1.0-4.8); Lymphocytes % (A) 22 %; MCH 29.6 pg (25.0-35.0); MCHC 33.8 g/dL (31.0-37.0); MCV 87.4 fL (80.0-100.0); Mean Platelet Volume 8.1; Monocytes # (A) 0.4 k/uL (0-1.0); Monocytes % (A) 5 %; Neutrophils # (A) 5.8 k/uL (1.3-7.7); Neutrophils % (A) 66 %; Platelet Count 246 k/uL (150-450); RBC 4.78 m/uL (4.30-5.90); RDW 14.8 % (11.5-15.5); WBC 8.7 k/uL (3.8-10.6)
[2024-08-04 16:50] LABS: INR 0.9 (<1.2); Partial Thromboplastin Time 27.2 sec (22.0-30.0); Prothrombin Time 10.2 sec (10.0-12.5)
[2024-08-04 16:52] LABS: ALT 18 U/L (4-49); AST 18 U/L (17-59); African American GFR (CKD) >90 (>60 ml/min/1.73 sqM); Albumin 3.6 g/dL (3.5-5.0); Alkaline Phosphatase 59 U/L (38-126); Anion Gap 9 mmol/L; Blood Urea Nitrogen 9 mg/dL (9-20); Carbon Dioxide 25 mmol/L (22-30); Chloride 107 mmol/L (98-107); Glucose 82 mg/dL (74-99); Non-African American GFR(CKD) >90 (>60 ml/min/1.73 sqM); Potassium 3.8 mmol/L (3.5-5.1); Sodium 141 mmol/L (137-145); Total Bilirubin 0.6 mg/dL (0.2-1.3); Total Protein 6.1 g/dL (6.3-8.2)
[2024-08-04] MEDS: HYDROmorphone 1 MG/ML 1 ML SYRINGE IVP STA ×2 (17:54→17:55)
[2024-08-04] MEDS: DAPTOmycin 500 MG in SODIUM CHLORIDE 0.9% 50 ML IVPB SCH (18:39)
--- NOTE | 2024-08-04 20:11 | CT ---
EXAMINATION TYPE: CT abdomen pelvis w con CT DLP: 1532.9 mGycm, Automated exposure control for dose reduction was used. DATE OF EXAM: 08/04/2024 5:46 PM COMPARISON: 07/16/2024 CT CLINICAL INDICATION:Male, 64 years old with history of cellulitis, infection; abdominal pain, infecti on TECHNIQUE: Axial CT of the abdomen and pelvis. Sagittal and coronal reformats were created on a [id number] workstation. Contrast used:100 mL of Isovue 300 with IV Contrast, (none if empty) Oral contrast used: without Oral Contrast (none if empty) FINDINGS: LOWER CHEST: Lungs appear somewhat widened in the AP dimension, can be seen with COPD. There is mild bibasilar stranding suggesting subsegmental atelectasis. Heart size upper normal. ABDOMEN LIVER: Stable. GALLBLADDER AND BILE DUCTS: Gallbladder appears mildly distended without evidence of calcified stones or discrete pericholecystic inflammation. PANCREAS: Unremarkable. SPLEEN: Unremarkable. ADRENAL GLANDS: Unremarkable. KIDNEYS AND URETERS: Kidneys enhance symmetrically. No evidence of hydronephrosis or visible renal ca lculus. The ureters are unremarkable. PELVIS BLADDER: Unremarkable REPRODUCTIVE: Unremarkable prostate. There are pelvic phleboliths. ABDOMEN & PELVIS STOMACH AND BOWEL: Stomach and small bowel are nondistended, no evidence of obstruction. There are postop changes in the right lower quadrant with anastomotic suture and the appendix is not seen, cons istent with recent appendectomy. Previously seen right lower quadrant and rectovesical intraperitonea l fluid collections appear diminished, essentially resolved, with mild residual inflammatory changes. In the right lower quadrant body wall anteriorly there is an elongated obliquely oriented fluid alicia ection in the subcutaneous fat which seems to underlie and follow the skin staple line. Longitudinall y this is up to 14.3 cm, and axially is up to 4.7 x 4.1 cm. The depth of this extends along the outer surface of the abdominal wall musculature. There is mild adjacent subcutaneous fat stranding. A coup le loops of small bowel intraperitoneally near this region appear mildly inflamed, less than previous . PERITONEUM/RETROPERITONEUM: No evidence of pneumoperitoneum or free fluid. No intraperitoneal fluid collection seen at present. VASCULATURE: Mild to moderate atherosclerotic calcifications are present throughout the abdominal aor ta and its branches. No evidence of aortic aneurysm. Portal veins are enhancing. Splenic vein is pa tent. LYMPH NODES: No enlarged nodes by CT size criteria. SOFT TISSUE/ABDOMINAL WALL: As above MUSCULOSKELETAL: No acute osseous abnormalities. Moderate disc degeneration changes are present throu ghout the thoracolumbar spine. IMPRESSION: 1. Postoperative changes in the RLQ, likely from recent appendectomy. 2. Previously seen right lower quadrant and rectovesical intraperitoneal fluid collections appear di minished, essentially resolved, with mild residual inflammatory changes. 3. Significant interval enlargement of subcutaneous fluid collection in the right anterior abdominal wall underlying the skin staple line, could be related to seroma versus abscess. [facility], , 08/04/2024 8:08 PM
[2024-08-04] MEDS ORDERED: ACETAMINOPHEN TAB 325 MG TAB PO PRN (20:17)
[2024-08-04] MEDS ORDERED: NALOXONE 0.4 MG/ML 1 ML VIAL IV PRN (20:17)
[2024-08-04] MEDS ORDERED: PANTOPRAZOLE 40 MG TABLET PO PRN (20:18)
[2024-08-04] MEDS ORDERED: FAMOTIDINE 20 MG TAB PO SCH (21:00)
[2024-08-05] MEDS: HYDROmorphone 0.5 MG/0.5 ML SYRINGE IVP PRN (02:11)
--- NOTE | 2024-08-05 04:17 | HP ---
HISTORY AND PHYSICAL HISTORY OF PRESENT ILLNESS: A 64-year-old white male came to the hospital status post surgery 2 weeks ago for cellulitis of the abdomen for possible perforated bowel versus appendix. He had surgery last 2 weeks ago. He was admitted due to severe cellulitis and redness around the wound with some yellow crusty exudate in between stitches. CAT scan of his abdomen and pelvis today for possible abscess shows some COPD atelectasis, mildly distended gallbladder. Abdomen and pelvis shows postop changes, right lower quadrant, anastomotic suture and appendix is not seen. Rectovesicular infected peritoneal fluid collections appear diminished, it resolved with mild residual inflammatory changes. In the right lower quadrant body wall anterior, there is elongated obliquely oriented fluid collection, subcu tissue, fat below the skin staple line about 14.3 cm up to 4.7 x 4.1 cm deep. PHYSICAL EXAMINATION: CARDIOVASCULAR: S1, S2. LUNGS: Transmitted upper sounds. HEMATOLOGY: Negative Homans. PSYCH: Fair mood and affect. NEUROLOGIC: Alert and oriented x3. OPHTHALMOLOGIC: Pupils equal, round, reactive. SKIN: Intact over the elongated elliptical wound in the right lower quadrant with 4 to 5 inches of redness on both sides of the wound, all on the wound line. ASSESSMENT: Significant interval enlargement of subcutaneous fluid collection could be related to a seroma versus an abscess. Suspect abscess, cellulitis of the abdomen. Broad-spectrum antibiotics. Possible opening of the wound for drainage will be needed. Wait for surgical consultation as well as possible interventional radiologist. Dr. Kumar involved. Please see further orders. MMODL / IJN: [id number] /
[2024-08-05] MEDS: IPRATROPIUM-ALBUTEROL 3 ML NEB INHALATION SCH (07:48)
[2024-08-05] MEDS: atenoloL 50 MG TAB PO SCH (08:15)
[2024-08-05 09:31] LABS: Basophils # (A) 0.07 X 10*3/uL (0.00-0.10); Basophils % (A) 0.9 %; Eosinophils # (A) 0.43 X 10*3/uL (0.04-0.35); Eosinophils % (A) 5.3 %; HCT 42.3 % (39.6-50.0); HGB 13.9 g/dL (13.0-17.0); Lymphocytes # (A) 2.26 X 10*3/uL (0.90-5.00); Lymphocytes % (A) 27.9 %; MCH 28.9 pg (27.0-32.0); MCHC 32.9 g/dL (32.0-37.0); MCV 87.9 FL (80.0-97.0); Mean Platelet Volume 10.3 FL (9.5-12.2); Monocytes # (A) 0.58 X 10*3/uL (0.20-1.00); Monocytes % (A) 7.2 %; NRBC Per 100 WBC 0 X 10*3/uL (0.00-0.01); Neutrophils # (A) 4.73 X 10*3/uL (1.80-7.70); Neutrophils % (A) 58.2 %; Platelet Count 214 X 10*3/uL (140-440); RBC 4.81 X 10*6/uL (4.40-5.60); RDW 14.2 % (11.5-14.5); WBC 8.11 X 10*3/uL (4.50-10.00)
--- NOTE | 2024-08-05 15:13 | P.GSCN ---
History of Present Illness Consult date: 08/05/24 History of present illness: CHIEF COMPLAINT: Abdominal pain HISTORY OF PRESENT ILLNESS: This is a 64-year-old male with a history of a perforated appendix status post laparoscopic converted to open ileocecectomy on 07/10/[address] Cerda. Patient had developed abscess at surgical site. He had been on IV antibiotics at home. It appears that he may have not been taking the antibiotics as prescribed. He reports missing a few days of one of the antibiotics. He then had increased redness and pain at the surgical site on the right side of the abdomen. He went into see Dr. Tian for his routine visit and Dr. Kmuar sent him to the ER for further evaluation. CT scan of abdomen and pelvis reported previously seen right lower quadrant intraperitoneal fluid alicia ection appear diminished. Significantly enlarged meant of subcutaneous fluid collection in the right anterior abdominal wall underlying the skin staple line could be a related seroma versus abscess. Surgical service consulted in regards to possible abdominal abscess. PAST MEDICAL HISTORY: See below PAST SURGICAL HISTORY: See below MEDICATIONS: See below ALLERGIES: See below SOCIAL HISTORY: No illicit drug use. REVIEW OF SYSTEMS: CONSTITUTIONAL: Denies fever or chills. HEENT: Denies blurred vision, vision changes, or eye pain. Denies hemoptysis CARDIOVASCULAR: Denies chest pain or pressure. RESPIRATORY: No shortness of breath. GASTROINTESTINAL: See HPI for pertinent findings HEMATOLOGIC: Denies bleeding disorders. GENITOURINARY: Denies any blood in urine or increased urinary frequency. SKIN: Denies pruitis. Denies rash. PHYSICAL EXAM: VITAL SIGNS: Reviewed GENERAL: Well-developed in no acute distress. HEENT: No sclera icterus. Extraocular movements grossly intact. Moist buccal mucosa. Head is atraumatic, normocephalic. No nasal drainage. ABDOMEN: Soft. Nondistended. Incision along the right lower quadrant of the abdomen with no drainage. Tender with palpation. Erythema below the incision line warm to touch NEUROLOGIC: Alert and oriented. Cranial nerves II through XII grossly intact. LABORATORY DATA: WBC 8.11 Hgb 13.9 platelets 214 Sodium 141 potassium 3.8 creatinine 0.88 Lactic acid 1.0 IMAGING: CT scan abdomen pelvis postoperative changes right lower quadrant likely from recent appendectomy. Previously seen right lower quadrant and right vesicle intraperitoneal fluid collections appear diminished, essentially resolved with mild residual inflammatory changes. Significant interval enlargement of subcutaneous fluid collection in the right anterior abdominal wall underlying the skin staple line. This could be related to seroma versus abscess ASSESSMENT: 1. Recent perforated appendix status post open ileocecectomy with significant interval enlargement of subcutaneous fluid collection in the right anterior abdominal wall underlying the skin staple line. Possible seroma versus abscess noted on CT scan PLAN: -Consult IR service for possible drainage of abdominal fluid collection -Antibiotics per infectious disease Physician Shells Inspector note has been reviewed by physician. Signing provider agrees with the documented findings, assessment, and plan of care. Past Medical History Past Medical History: Chest Pain / Angina, GERD/Reflux, Hyperlipidemia, Hypertension, Osteoarthritis (OA), Prostate Disorder, Thyroid Disorder Additional Past Medical History / Comment(s): high chol - supposed to take cholestrol med but doesnt, Chronic back pain, diverticulitis, enlarged prostate, nodules on thyroid, pilonidal cyst History of Any Multi-Drug Resistant Organisms: None Reported Past Surgical History: Appendectomy, Bowel Resection, Heart Catheterization Additional Past Surgical History / Comment(s): 2011 heart cath which was clear- done by Dr. VC Topete, colonoscopy, left knee drained 12/16/2016 and 12/20/2016 Past Anesthesia/Blood Transfusion Reactions: Previous Problems w/ Anesthesia Additional Past Anesthesia/Blood Transfusion Reaction / Comm: Pt states it took him a long time to wake up which he attributes to going into his procedures very tired. Past Psychological History: No Psychological Hx Reported Additional Psychological History / Comment(s): Pt lives with hiw , 2 daug hters and grandchildren in his home. Pt is independent and very active. He drives a car Smoking Status: Current every day smoker Past Alcohol Use History: None Reported Additional Past Alcohol Use History / Comment(s): Patient is a smoker of 2 packs per day for 47 years, currently smokes about 1 pack per day He denies any alcohol abuse at this time. No illicit drug use. Patient does not use walker or cane for ambulation. He does not have oxygen, nebulizers CPAP at home. Past Drug Use History: None Reported Additional Drug Use History / Comment(s): . - Past Family History Father Additional Family Medical History / Comment(s): Father of cirrhosis at age 62 yrs. No coronary artery disease history. Mother Additional Family Medical History / Comment(s): Mother of neck fracture at age 76yrs from an accident. She also had history of atrial fibrillation. Sister(s) Additional Family Medical History / Comment(s): Sister after a "leg operation" she developed a leg infection and family was told she of a lung problem. His sister had history of stroke as well. Patient has a second sister that is alive with COPD. Patient has children with no major medical problems. Medications and Allergies Home Medications Medication Instructions Recorded Confirmed Type atenoloL [Tenormin] 50 mg PO DAILY 07/22/18 08/04/24 History Acetaminophen Tab [Tylenol] 650 mg PO Q4H PRN 07/10/24 08/04/24 History Esomeprazole Magnesium [NexIUM 20 mg PO DAILY PRN 07/10/24 08/04/24 History 24Hr] Triamterene-Hctz 37.5-25Mg 1 tab PO HS@199907/10/24 08/04/24 History [Maxzide 37.5-25] DAPTOmycin [Cubicin] 500 mg INJ DAILY 08/04/24 08/04/24 History Zosyn 4.5gm 4.5 gm IV TID@0600,1400,2200 08/04/24 08/04/24 History Allergies Allergy/AdvReac Type Severity Reaction Status Date / Time peanut Allergy Severe Anaphylaxis Verified 08/04/24 17:56 [place] nut Allergy Anaphylaxis Verified 08/04/24 17:56 Quinolones Allergy Itching Verified 08/04/24 17:56 ciprofloxacin [From Cipro] AdvReac Rash/Hives Verified 08/04/24 17:56 sulfamethoxazole AdvReac Rapid Verified 08/04/24 17:56 [From Bactrim] Heart Rate trimethoprim [From Bactrim] AdvReac Rapid Verified 08/04/24 17:56 Heart Rate Surgical - Exam Osteopathic Statement: *. No significant issues noted on an osteopathic structural exam other than those noted in the History and Physical/Consult. Vital Signs Temp Pulse Resp BP Pulse Ox 98.1 F 69 18 123/84 100 08/04/24 15:16 08/04/24 15:16 08/04/24 15:16 08/04/24 15:16 08/04/24 15:16 Results - Labs 08/05/24 04:14 08/04/24 16:13 Abnormal Lab Results - Last 24 Hours (Table) 08/04/24 08/05/24 Range/Units 16:13 04:14 Eosinophils # 0.43 H (0.04-0.35) X 10*3/uL Total Protein 6.1 L (6.3-8.2) g/dL Microbiology - Last 24 Hours (Table) 08/04/24 16:13 Gram Stain - Preliminary Abdomen Diabetes panel 08/04/24 Range/Units 16:13 Sodium 141 (137-145) mmol/L Potassium 3.8 (3.5-5.1) mmol/L Chloride 107 (98-107) mmol/L Carbon Dioxide 25 (22-30) mmol/L BUN 9 (9-20) mg/dL Creatinine 0.88 (0.66-1.25) mg/dL Glucose 82 (74-99) mg/dL Calcium 9.0 (8.4-10.2) mg/dL AST 18 (17-59) U/L ALT 18 (4-49) U/L Alkaline Phosphatase 59 (38-126) U/L Total Protein 6.1 L (6.3-8.2) g/dL Albumin 3.6 (3.5-5.0) g/dL Calcium panel 08/04/24 Range/Units 16:13 Calcium 9.0 (8.4-10.2) mg/dL Albumin 3.6 (3.5-5.0) g/dL Pituitary panel 08/04/24 Range/Units 16:13 Sodium 141 (137-145) mmol/L Potassium 3.8 (3.5-5.1) mmol/L Chloride 107 (98-107) mmol/L Carbon Dioxide 25 (22-30) mmol/L BUN 9 (9-20) mg/dL Creatinine 0.88 (0.66-1.25) mg/dL Glucose 82 (74-99) mg/dL Calcium 9.0 (8.4-10.2) mg/dL Adrenal panel 08/04/24 Range/Units 16:13 Sodium 141 (137-145) mmol/L Potassium 3.8 (3.5-5.1) mmol/L Chloride 107 (98-107) mmol/L Carbon Dioxide 25 (22-30) mmol/L BUN 9 (9-20) mg/dL Creatinine 0.88 (0.66-1.25) mg/dL Glucose 82 (74-99) mg/dL Calcium 9.0 (8.4-10.2) mg/dL Total Bilirubin 0.6 (0.2-1.3) mg/dL AST 18 (17-59) U/L ALT 18 (4-49) U/L Alkaline Phosphatase 59 (38-126) U/L Total Protein 6.1 L (6.3-8.2) g/dL Albumin 3.6 (3.5-5.0) g/dL Assessment and Plan Assessment: s/p IR drainage defer to ID regarding discharge planning, stable from surgery standpoint. Time with Patient: Less than 30
--- NOTE | 2024-08-05 15:16 | US ---
ULTRASOUND GUIDED SUBCUTANEOUS FLUID DRAINAGE CATHETER INSERTION: CLINICAL HISTORY: Postop subcutaneous fluid collection FINDINGS: The procedure was explained to the patient. The risks, complications, benefits and alternatives were discussed and any questions were answered. Informed consent was obtained. Patient was placed supin e on the ultrasound table and prepped and draped in the usual sterile fashion. Utilizing a 8F cathet er gauge trocar drainage catheter system direct access was achieved under ultrasound guidance into th e fluid collection. Approximately 40 cc of serous fluid was aspirated and sent to pathology for kalyani sis. Patient was stable throughout the procedure. Pathology is pending. All elements of maximal barrier and sterile technique were utilized. IMPRESSION: 1. Successful ultrasound guided subcutaneous drainage catheter insertion under ultrasound guidance. [facility], , 08/05/2024 3:14 PM
[2024-08-05] MEDS: HYDROmorphone 1 MG/ML 1 ML SYRINGE IVP PRN (20:13)
[2024-08-05] MEDS: TRIAMTERENE-HCTZ 37.5-25MG 1 EACH CAP PO SCH (20:15)
--- NOTE | 2024-08-05 23:04 | P.CONS ---
History of Present Illness - Reason for Consult Consult date: 08/05/24 Abdominal wall cellulitis Requesting physician: Rg Yu - Chief Complaint Abdominal wall pain swelling and redness x 3 days - History of Present Illness Patient is a 64-year-old male with a recent admission to the hospital for perforated appendicitis in this patient was status post open appendectomy subsequently developing abdominal wall intra-abdominal abscess which could not be drained CT-guided surgery recommended due to the course of IV antibiotic ins tead of opening the patient up again, patient did get a PICC line and was discharged on daptomycin and Zosyn and on the last office visit the patient was seen to be doing well and he was scheduled for a follow-up CT which was supposed to be completed tomorrow patient came to the office yesterday concerning for worsening swelling and redness around incision site that apparently was getting worse for the last 3 days patient unfortunately did not get his daptomycin mistakenly and was getting his Zosyn patient was not complaining of any fever or any chills was complaining of mostly pain describing it to be sharp moderate intensity without radiation and did not have any drainage patient was sent to the ER and case was discussed with the ER physician on presentation to the hospital the patient was afebrile patient did have a CT of abdominal pelvis which did show resolution of the right lower quadrant and rectal presacral intraperitoneal fluid collection there was significant delay development of subcutaneous fluid collection in the right anterior abdominal wall underlying the skin staple line patient has been continue Zosyn and daptomycin infectious disease was consulted for further management of antibiotic therapy Review of Systems Positive point and negatives has been mentioned in the HPI, complete review of systems was performed and all other systems are negative Past Medical History Past Medical History: Chest Pain / Angina, GERD/Reflux, Hyperlipidemia, Hypertension, Osteoarthritis (OA), Prostate Disorder, Thyroid Disorder Additional Past Medical History / Comment(s): high chol - supposed to take cholestrol med but doesnt, Chronic back pain, diverticulitis, enlarged prostate, nodules on thyroid, pilonidal cyst History of Any Multi-Drug Resistant Organisms: None Reported Past Surgical History: Appendectomy, Bowel Resection, Heart Catheterization Additional Past Surgical History / Comment(s): 2011 heart cath which was clear- done by Dr. VC Topete, colonoscopy, left knee drained 12/16/2016 and 12/20/2016 Past Anesthesia/Blood Transfusion Reactions: Previous Problems w/ Anesthesia Additional Past Anesthesia/Blood Transfusion Reaction / Comm: Pt states it took him a long time to wake up which he attributes to going into his procedures very tired. Past Psychological History: No Psychological Hx Reported Additional Psychological History / Comment(s): Pt lives with hiw , 2 daughters and grandchildren in his home. Pt is independent and very active. He drives a car Smoking Status: Current every day smoker Past Alcohol Use History: None Reported Additional Past Alcohol Use History / Comment(s): Patient is a smoker of 2 packs per day for 47 years, currently smokes about 1 pack per day He denies any alcohol abuse at this time. No illicit drug use. Patient does not use walker or cane for ambulation. He does not have oxygen, nebulizers CPAP at home. Past Drug Use History: None Reported Additional Drug Use History / Comment(s): . - Past Family History Father Additional Family Medical History / Comment(s): Father of cirrhosis at age 62 yrs. No coronary artery disease history. Mother Additional Family Medical History / Comment(s): Mother of neck fracture at age 76yrs from an accident. She also had history of atrial fibrillation. Sister(s) Additional Family Medical History / Comment(s): Sister after a "leg operation" she developed a leg infection and family was told she of a lung problem. His sister had history of stroke as well. Patient has a second sister that is alive with COPD. Patient has children with no major medical problems. Medications and Allergies Home Medications Medication Instructions Recorded Confirmed Type atenoloL [Tenormin] 50 mg PO DAILY 07/22/18 08/04/24 History Acetaminophen Tab [Tylenol] 650 mg PO Q4H PRN 07/10/24 08/04/24 History Esomeprazole Magnesium [NexIUM 20 mg PO DAILY PRN 07/10/24 08/04/24 History 24Hr] Triamterene-Hctz 37.5-25Mg 1 tab PO HS@199907/10/24 08/04/24 History [Maxzide 37.5-25] DAPTOmycin [Cubicin] 500 mg INJ DAILY 08/04/24 08/04/24 History Zosyn 4.5gm 4.5 gm IV TID@0600,1400,2200 08/04/24 08/04/24 History Allergies Allergy/AdvReac Type Severity Reaction Status Date / Time peanut Allergy Severe Anaphylaxis Verified 08/04/24 17:56 [place] nut Allergy Anaphylaxis Verified 08/04/24 17:56 Quinolones Allergy Itching Verified 08/04/24 17:56 ciprofloxacin [From Cipro] AdvReac Rash/Hives Verified 08/04/24 17:56 sulfamethoxazole AdvReac Rapid Verified 08/04/24 17:56 [From Bactrim] Heart Rate trimethoprim [From Bactrim] AdvReac Rapid Verified 08/04/24 17:56 Heart Rate Physical Exam Vitals: Vital Signs Temp Pulse Pulse Resp BP BP Pulse Ox 08/05/24 15:00 67 12 130/76 99 08/05/24 14:43 67 12 148/77 98 08/05/24 12:05 97.9 F 16 99/63 98 08/05/24 11:57 75 08/05/24 11:49 76 08/05/24 07:10 97.9 F 61 16 113/65 98 08/05/24 01:51 97.7 F 64 16 113/72 96 08/04/24 22:08 98.4 F 62 16 114/72 97 08/04/24 21:13 60 18 119/73 98 08/04/24 18:37 98.2 F 69 16 114/72 99 Intake and Output 08/05/24 08/05/24 08/05/24 06:59 14:59 22:59 Other: Voiding Method Toilet # Voids 3 Weight 102.058 kg GENERAL DESCRIPTION: Middle-aged male lying in bed, no distress. No tachypnea or accessory muscle of respiration use. HEENT: Shows Pallor , no scleral icterus. Oral mucous membrane is dry. No pharyngeal erythema or thrush NECK: Trachea central, no thyromegaly. LUNGS: Unlabored breathing. Clear to auscultation anteriorly. No wheeze or crackle. HEART: S1, S2, regular rate and rhythm. No loud murmur ABDOMEN: Soft, right lower quadrant abdominal wall redness seem to have slight decrease than yesterday no open wound or any drainage EXTREMITIES: No edema of feet. SKIN: No rash, no masses palpable. NEUROLOGICAL: The patient is awake, alert, oriented x3, mood and affect normal. Results CBC & Chem 7: 08/05/24 04:14 08/04/24 16:13 Labs: Abnormal Lab Results - Last 24 Hours (Table) 08/04/24 08/05/24 Range/Units 16:13 04:14 Eosinophils # 0.43 H (0.04-0.35) X 10*3/uL Total Protein 6.1 L (6.3-8.2) g/dL Microbiology - Last 24 Hours (Table) 08/04/24 16:13 Gram Stain - Preliminary Abdomen Assessment and Plan (1) Abdominal wall abscess Current Visit: Yes Status: Acute Code(s): L02.211 - CUTANEOUS ABSCESS OF ABDOMINAL WALL SNOMED Code(s): 82307255 (2) Abdominal wall cellulitis Current Visit: Yes Status: Acute Code(s): L03.311 - CELLULITIS OF ABDOMINAL WALL SNOMED Code(s): 42810397 (3) Allergy to multiple antibiotics Current Visit: No Status: Acute Code(s): Z88.1 - ALLERGY STATUS TO OTHER ANTIBIOTIC AGENTS SNOMED Code(s): 224133200 Plan: 1patient presented to hospital with abdominal wall swelling redness and pain in this patient who did have a recent history of perforated appendicitis status post open appendectomy subsequent developing intra-abdominal abscess that seem to have resolved on the last CT however did have worsening of abdominal wall abscess. 2General Surgery has seen the patient recommending IR drainage of this abscess await recommendation and drainage fluid should be sent for the culture. 3I will continue patient on daptomycin and Zosyn while waiting for the culture to be finalized and workup completed multiple question concern answered we will follow on clinical condition and cultures to further adjust medication if needed Thank you for this consultation we will follow the patient along with you Dictation was produced using [employer] dictation software. please excuse any grammatical, word or spelling errors. Time with Patient: Greater than 30
--- NOTE | 2024-08-06 12:37 | PN ---
PROGRESS NOTE 64-year-old white male, admitted with severe cellulitis of the abdomen, status post drainage to prevent discharge of pus or seroma or hematoma in the abdomen. Remains on his home medicines for his breathing treatments, Protonix, antibiotics. His redness around his wound is greatly improved today. White count is normal. OBJECTIVE: CARDIOVASCULAR: S1, S2. LUNGS: Clear. GI: Soft. Redness around the abdomen is improved. Prognosis guarded, possible to go home in next day or two with drainage tube intact Infectious Disease recommendations. For abscess/cellulitis of the abdomen, status post open appendectomy, prognosis guarded. Please see further orders. MMODL / IJN: [id number] /
--- NOTE | 2024-08-06 13:19 | P.PN ---
Subjective Progress Note Date: 08/06/24 CHIEF COMPLAINT: Seroma HISTORY OF PRESENT ILLNESS: Patient with recent perforated appendix status post open ileocecectomy on 07/10/2024. Patient is status post IR drain placement for subcutaneous fluid collection on the right anterior abdominal wall. Patient reports improvement in his pain. He denies any nausea or vomiting. He is afebrile. White count 8.11 Hgb 13.9. Drain had 20 mL serosanguineous output. PHYSICAL EXAM: VITAL SIGNS: Reviewed. GENERAL: Well-developed in no acute distress. ABDOMEN: Soft. Nondistended. Less tenderness with palpation on the right side of the abdomen. The erythema below the incision line in the right lower abdomen is decreasing. And drainage tube in place with serosanguineous output. NEUROLOGIC: Alert and oriented. Cranial nerves II through XII grossly intact. ASSESSMENT: 1. Seroma at abdominal incision site status post IR drain placement 2. Recent perforated appendix status post open ileocecectomy PLAN: -Okay to discharge from surgical standpoint -Discharge antibiotics per infectious disease Physician Second Operator note has been reviewed by physician. Signing provider agrees with the documented findings, assessment, and plan of care. Objective - Vital Signs Vital signs: Vital Signs Temp 97.7 F 08/06/24 07:22 Pulse 61 08/06/24 07:22 Resp 15 08/06/24 07:22 BP 124/71 08/06/24 07:22 Pulse Ox 100 08/06/24 07:22 FiO2 Intake & Output 08/05/24 08/06/24 08/06/24 18:59 06:59 18:59 Output Total 400 365 400 Balance -400 -365 -400 Output: Drainage 20 Right Lower Abdomen 20 Urine 400 325 400 Other 20 Other: Voiding Method Toilet - Labs CBC & Chem 7: 08/05/24 04:14 08/04/24 16:13 Labs: Microbiology - Last 24 Hours (Table) 08/04/24 16:13 Blood Culture - Preliminary Blood 08/04/24 16:13 Gram Stain - Preliminary Abdomen Wound Culture - Preliminary Assessment and Plan Assessment: stable for discharge Time with Patient: Less than 30
--- NOTE | 2024-08-07 13:07 | P.PN ---
Subjective Progress Note Date: 08/06/24 Principal diagnosis: Reason for follow-up is abdominal wall abscess Patient is a 64-year-old male with a recent admission to the hospital for perforated appendicitis in this patient was status post open appendectomy subsequently developing abdominal wall intra-abdominal abscess for the patient was on IV biotic in the outpatient setting, presenting to the hospital with worsening swelling redness to the right lower quadrant area CT did shows evidence of abdominal wall abscess status post IR drainage completed on 08/05/2024. On today's evaluation that is 08/06/2024, patient has been afebrile, patient is breathing comfortably and is currently on room air, patient denies having any significant cough no chest pain, patient denies nausea vomiting or diarrhea right lower quadrant abdominal pain has decreased intensity he did have mostly bloodstained drainage in the drainage catheter. The patient white count 8.1 as of yesterday no CBC was done today cultures are c urrently pending Objective - Vital Signs Vital signs: Vital Signs Temp 97.7 F 08/06/24 07:22 Pulse 61 08/06/24 07:22 Resp 15 08/06/24 07:22 BP 124/71 08/06/24 07:22 Pulse Ox 100 08/06/24 07:22 FiO2 Intake & Output 08/05/24 08/06/24 08/06/24 18:59 06:59 18:59 Output Total 400 365 400 Balance -400 -365 -400 Output: Drainage 20 Right Lower Abdomen 20 Urine 400 325 400 Other 20 Other: Voiding Method Toilet - Exam GENERAL DESCRIPTION: Middle-age male up in the chair in no distress RESPIRATORY SYSTEM: Unlabored breathing , decreased breath sounds at bases HEART: S1 S2 regular rate and rhythm , ABDOMEN: Soft , right lower quadrant redness has decreased did have mostly bloodstained drainage in the drainage catheter EXTREMITIES: No edema feet - Labs CBC & Chem 7: 08/05/24 04:14 08/04/24 16:13 Labs: Microbiology - Last 24 Hours (Table) 08/04/24 16:13 Blood Culture - Preliminary Blood 08/04/24 16:13 Gram Stain - Preliminary Abdomen Wound Culture - Preliminary Assessment and Plan (1) Abdominal wall abscess Current Visit: Yes Status: Acute Code(s): L02.211 - CUTANEOUS ABSCESS OF ABDOMINAL WALL SNOMED Code(s): 31501877 (2) Abdominal wall cellulitis Current Visit: Yes Status: Acute Code(s): L03.311 - CELLULITIS OF ABDOMINAL WALL SNOMED Code(s): 57765841 (3) Allergy to multiple antibiotics Current Visit: No Status: Acute Code(s): Z88.1 - ALLERGY STATUS TO OTHER AN TIBIOTIC AGENTS SNOMED Code(s): 974230810 Plan: 1patient presented to hospital with abdominal wall swelling redness and pain in this patient who did have a recent history of perforated appendicitis status post open appendectomy subsequent developing intra-abdominal abscess that seem to have resolved on the last CT however did have worsening of abdominal wall abscess. 2patient is status post IR drainage of the abdominal wall abscess's mostly bloodstained drainage with a question of possible hematoma cultures are currently pending 3patient to continue with daptomycin and Zosyn while waiting for the culture to be finalized and workup completed Dictation was produced using [employer] dictation software. please excuse any grammatical, word or spelling errors. Time with Patient: Less than 30
--- NOTE | 2024-08-07 13:08 | P.PN ---
Subjective Progress Note Date: 08/07/24 Principal diagnosis: Reason for follow-up is abdominal wall abscess Patient is a 64-year-old male with a recent admission to the hospital for perforated appendicitis in this patient was status post open appendectomy subsequently developing abdominal wall intra-abdominal abscess for the patient was on IV biotic in the outpatient setting, presenting to the hospital with worsening swelling redness to the right lower quadrant area CT did shows evidence of abdominal wall abscess status post IR drainage completed on 08/05/2024. On today's evaluation that is 08/07/2024, the patient continues to be afebrile, the patient is on room air and breathing comfortably, the Pt denies having any chest pain or cough, the patient denies having any abdominal pain no vomiting or any diarrhea patient right lower quadrant abdominal pain has decreased intensity patient is feeling better has been insisting on going home. No CBC was done today cultures so far pending Objective - Vital Signs Vital signs: Vital Signs Temp 97.9 F 08/07/24 12:34 Pulse 61 08/07/24 12:34 Resp 20 08/07/24 12:34 BP 103/65 08/07/24 12:34 Pulse Ox 95 08/07/24 12:34 FiO2 Intake & Output 08/06/24 08/07/24 08/07/24 18:59 06:59 18:59 Intake Total 540 3375 Output Total 440 1020 Balance 100 2355 Intake: Intake, IV Titration 3375 Amount DAPTOmycin 500 mg In 50 Sodium Chloride 0.9% 50 ml @ 100 mls/hr IVPB Q24H [facility] Rx#:[id number] Piperacillin-Tazobactam 3 400 .375 gm In Sodium Chloride 0.9% 100 ml @ 25 mls/hr IVPB Q8HR [facility] Rx# :[id number] Sodium Chloride 0.9% 1, 2925 000 ml @ 130 mls/hr IV . Q7H42M [facility] Rx#:[id number] Oral 540 Output: Drainage 40 20 Right Lower Abdomen 40 20 Urine 400 1000 Other: Voiding Method Toilet - Exam GENERAL DESCRIPTION: Middle-age male up in the chair in no distress RESPIRATORY SYSTEM: Unlabored breathing , decreased breath sounds at bases HEART: S1 S2 regular rate and rhythm , ABDOMEN: Soft , right lower quadrant redness has decreased did have mostly bloodstained drainage in the drainage catheter EXTREMITIES: No edema feet - Labs CBC & Chem 7: 08/05/24 04:14 08/04/24 16:13 Labs: Microbiology - Last 24 Hours (Table) 08/04/24 16:13 Gram Stain - Preliminary Abdomen Wound Culture - Preliminary 08/04/24 16:13 Blood Culture - Preliminary Blood 08/05/24 14:50 Body Fluid Culture - Preliminary Aspirate Assessment and Plan (1) Abdominal wall abscess Current Visit: Yes Status: Acute Code(s): L02.211 - CUTANEOUS ABSCESS OF ABDOMINAL WALL SNOMED Code(s): 49870953 (2) Abdominal wall cellulitis Current Visit: Yes Status: Acute Code(s): L03.311 - CELLULITIS OF ABDOMINAL WALL SNOMED Code(s): 18891248 (3) Allergy to multiple antibiotics Current Visit: No Status: Acute Code(s): Z88.1 - ALLERGY STATUS TO OTHER ANTIBIOTIC AGENTS SNOMED Code(s): 131893549 Plan: 1patient presented to hospital with abdominal wall swelling redness and pain in this patient who did have a recent history of perforated appendicitis status post open appendectomy subsequent developing intra-abdominal abscess that seem to have resolved on the last CT however did have worsening of abdominal wall abscess. 2patient is status post IR drainage of the abdominal wall abscess's mostly bloodstained drainage with a question of possible hematoma cultures are currently pending 3patient to continue with daptomycin and Zosyn for at least another 24 hours however if the cultures are negative by tomorrow we will plan on a short course of oral antibiotic and will discontinue his PICC line plan discussed with the patient agreed Dictation was produced using [employer] dictation software. please excuse any grammatical, word or spelling errors. Time with Patient: Less than 30
--- NOTE | 2024-08-07 16:21 | P.PN ---
Progress Note - Text Progress Note Date: 08/07/24 CHIEF COMPLAINT: Seroma HISTORY OF PRESENT ILLNESS: Patient with recent perforated appendix status post open ileocecectomy on 07/10/2024. Patient is status post IR drain placement for subcutaneous fluid collection on the right anterior abdominal wall. Patient reports improvement in his pain. He denies any nausea or vomiting. He is afebrile. He is tolerating diet. PHYSICAL EXAM: VITAL SIGNS: Reviewed. GENERAL: Well-developed in no acute distress. ABDOMEN: Soft. Nondistended. Less tenderness with palpation on the right side of the abdomen. The erythema below the incision line in the right lower abdomen is decreasing. And drainage tube in place with serosanguineous output. NEUROLOGIC: Alert and oriented. Cranial nerves II through XII grossly intact. ASSESSMENT: 1. Seroma at abdominal incision site status post IR drain placement 2. Recent perforated appendix status post open ileocecectomy PLAN: -Okay to discharge from surgical standpoint -Discharge antibiotics/plan per infectious disease Rodrick Cerda [facility] [phone]
[2024-08-07] MEDS: traMADol 50 MG TAB PO PRN (22:59)
--- NOTE | 2024-08-08 04:05 | PN ---
PROGRESS NOTE SUBJECTIVE: A 64-year-old white male, cellulitis of the abdomen, status post incision and drainage. OBJECTIVE: CARDIOVASCULAR: S1, S2. LUNGS: Transmitted upper sounds. HEMATOLOGY: Negative Homans. PSYCH: Fair mood and affect. NEUROLOGIC: Alert and oriented x3. OPHTHALMOLOGIC: Pupils equal, round, reactive. VITAL SIGNS: Stable, afebrile. GI: Soft. PLAN: Continue current treatment. IV antibiotics. Possible discharge home on oral antibiotics next day or 2. Prognosis guarded. MMODL / IJN: [id number] /
[2024-08-08 12:33] VITALS: BP 124/78; PULSE 59; RESP 20; TEMP 98.1
--- NOTE | 2024-08-08 14:47 | P.PN ---
Subjective Progress Note Date: 08/08/24 CHIEF COMPLAINT: Seroma HISTORY OF PRESENT ILLNESS: Patient with recent perforated appendix status post open ileocecectomy on 07/10/2024. Patient is status post IR drain placement for subcutaneous fluid collection on the right anterior abdominal wall. Patient is feeling better. He is scheduled for discharge today. Afebrile. Drain with 30 mL output last night and 5 mL AM PHYSICAL EXAM: VITAL SIGNS: Reviewed. GENERAL: Well-developed in no acute distress. ABDOMEN: Soft. Nondistended. Less tenderness with palpation on the right side of the abdomen. The erythema below the incision line in the right lower abdomen is decreasing. And drainage tube in place with serosanguineous output. NEUROLOGIC: Alert and oriented. Cranial nerves II through XII grossly intact. ASSESSMENT: 1. Seroma at abdominal incision site status post IR drain placement 2. Recent perforated appendix status post open ileocecectomy PLAN: -Okay to discharge from surgical standpoint -Discharge antibiotics per infectious disease -Continue drain at discharge Physician Field Recorder note has been reviewed by physician. Signing provider agrees with the documented findings, assessment, and plan of care. Objective - Vital Signs Vital signs: Vital Signs Temp 98.1 F 08/08/24 12:28 Pulse 59 L 08/08/24 12:28 Resp 20 08/08/24 12:28 BP 124/78 08/08/24 12:28 Pulse Ox 99 08/08/24 12:28 FiO2 Intake & Output 08/07/24 08/08/24 08/08/24 18:59 06:59 18:59 Intake Total 1830 650 Output Total 30 1100 930 Balance 1800 -450 -930 Intake: Intake, IV Titration 750 650 Amount DAPTOmycin 500 mg In 50 Sodium Chloride 0.9% 50 ml @ 100 mls/hr IVPB Q24H [facility] Rx#:[id number] Piperacillin-Tazobactam 3 200 100 .375 gm In Sodium Chloride 0.9% 100 ml @ 25 mls/hr IVPB Q8HR [facility] Rx# :[id number] Sodium Chloride 0.9% 1, 500 550 000 ml @ 130 mls/hr IV . Q7H42M [facility] Rx#:[id number] Oral 1080 Output: Drainage 30 5 Right Lower Abdomen 30 5 Urine 1100 925 Other: Voiding Method Toilet # Voids 1 - Labs CBC & Chem 7: 08/05/24 04:14 08/04/24 16:13 Labs: Microbiology - Last 24 Hours (Table) 08/04/24 16:13 Blood Culture - Preliminary Blood 08/05/24 14:50 Gram Stain - Preliminary Aspirate Body Fluid Culture - Preliminary
--- NOTE | 2024-08-12 20:17 | P.DS ---
Providers Date of admission: 08/04/24 20:17 Attending physician: Robert Rahman Consults: 08/04/24 20:17 Consult Physician Routine Consulting Provider: Naveen Kumar Consult Reason/Comments: cellulitis Do you want consulting provider notified?: Yes Consult Physician Urgent Consulting Provider: Rodrick Cerda Consult Reason/Comments: Cellulitis, evaluate for abcess Do you want consulting provider notified?: Yes Primary care physician: Stated None Hospital Course: Final Diagnosis Seroma at abdominal incision site status post IR drain placement Recent appendicitis with a perforated appendix status post open ileocecectomy Gastroesophageal reflux disease Hypertension Thyroid disorder Chronic nicotine use Discharge Disposition Patient stable for discharge home he has been cleared by infectious disease and general surgery. Patient will continue with the drainage catheter to the right lower quadrant until follow-up with general surgery. Patient to discharge today pending course of oral Augmentin. Patient will resume home medications. His PICC line has been discontinued on discharge and the daptomycin and Zosyn he was previously receiving will be discontinued Hospital Course This is a 64-year-old male medical history of chest pain, acid reflux, hypertension, hyperlipidemia, thyroid disorder, current daily smoker. Patient comes in with concern for infection at his recent appendectomy site. Patient was found to have acute appendicitis with an appendectomy as well as a bowel resection secondary to an abscess a couple weeks ago. Patient has had increased drainage from the surgical site as well as redness and discomfort. He was into see his infectious disease doctor and came to the hospital as recommended. Abdominal pelvis CT at admission shows postoperative changes in the right lower quadrant likely from recent appendectomy. The previously seen right lower quadrant and rectal vesicle intraperitoneal fluid collections appear diminished essentially resolved with mild residual temporary changes. There is a significant interval enlargement of spontaneous fluid collection in the right anterior abdominal wall under 1 skin staple line could be related to a seroma versus abscess. Patient was admitted to the hospital with consult placed to general surgery. Patient did have an ultrasound guided d drainage of the fluid collection. 40 cc of serous fluid was aspirated pathology shows negative cultures. Patient's white blood cell count has remained normal his electrolytes are within normal limits as well. His pain is managed with oral pain medications. He was cleared for discharge and will continue with the drainage catheter in place until follow-up with general surgery. Please see medication reconciliation for a list of current medications. Thank you for allowing us to participate in the care of this patient. The impression and plan of care has been dictated by Lore Adamson, Nurse Practitioner as directed. Dr. Derrick MD I have performed a history and physical examination and medical decision making of this patient, discussed the same with the dictator, and agree with the dictators assessment and plan as written, documented as a scribe. Based on total visit time, I have performed more than 50% of this visit. Patient Condition at Discharge: Good Plan - Discharge Summary Discharge Rx Participant: Yes New Discharge Prescriptions: New traMADol HCl [Ultram] 50 mg PO Q6H PRN #12 tab PRN Reason: Moderate Pain (Scale 4 To 6) Amoxic-Pot Clav 875-125Mg [Augmentin 875-125] 1 tab PO Q12HR 10 Days #20 tab Doxycycline [Vibramycin] 100 mg PO BID 10 Days #20 capsule Continue atenoloL [Tenormin] 50 mg PO DAILY Esomeprazole Magnesium [NexIUM 24Hr] 20 mg PO DAILY PRN PRN Reason: Heartburn Acetaminophen Tab [Tylenol] 650 mg PO Q4H PRN PRN Reason: Fever And/ Or Pain Triamterene-Hctz 37.5-25Mg [Maxzide 37.5-25] 1 tab PO HS@1999 Discontinued DAPTOmycin [Cubicin] 500 mg INJ DAILY Zosyn 4.5gm 4.5 gm IV TID@0600,1400,2200 Discharge Medication List atenoloL [Tenormin] 50 mg PO DAILY 07/22/18 [History] Acetaminophen Tab [Tylenol] 650 mg PO Q4H PRN 07/10/24 [History] Esomeprazole Magnesium [NexIUM 24Hr] 20 mg PO DAILY PRN 07/10/24 [History] Triamterene-Hctz 37.5-25Mg [Maxzide 37.5-25] 1 tab PO HS@199907/10/24 [History] Amoxic-Pot Clav 875-125Mg [Augmentin 875-125] 1 tab PO Q12HR 10 Days #20 tab 08/08/24 [Rx] Doxycycline [Vibramycin] 100 mg PO BID 10 Days #20 capsule 08/08/24 [Rx] traMADol HCl [Ultram] 50 mg PO Q6H PRN #12 tab 08/08/24 [Rx] Follow up Appointment(s)/Referral(s): Liana Garcia MD [REFERRING] - 1 Week (please call for appointment, office closed) Rodrick Cerda DO [Medical Doctor] - 08/19/24 8:45 am [facility] [REFERRING] - 1 Week [facility] [NON-STAFF] - 1 Week Naveen Kumar MD [STAFF PHYSICIAN] - 1 Week (make appointment for 1 week, office closed.) Patient Instructions/Handouts: Cellulitis (GEN) Activity/Diet/Wound Care/Special Instructions: Continue the drainage bag on discharge. Keep record of output by the mLs and keep log for follow up with Dr Cerda in the office. Discharge/Stand Alone Forms: Area PCPs Discharge Disposition: HOME SELF-CARE
--- NOTE | 2024-08-15 15:08 | P.PN ---
Subjective Progress Note Date: 08/08/24 Principal diagnosis: Reason for follow-up is abdominal wall abscess Patient is a 64-year-old male with a recent admission to the hospital for perforated appendicitis in this patient was status post open appendectomy subsequently developing abdominal wall intra-abdominal abscess for the patient was on IV biotic in the outpatient setting, presenting to the hospital with worsening swelling redness to the right lower quadrant area CT did shows evidence of abdominal wall abscess status post IR drainage completed on 08/05/2024. On today's evaluation that is 08/08/2024, the patient remains to be afebrile, the patient is breathing comfortably on room air, the patient denies having any chest pain or cough, the patient denies having any vomiting or any diarrhea, the right lower abdominal pain and redness has resolved there is no drainage. No new lab has been obtained today culture remains to be negative Objective - Vital Signs Vital signs: Vital Signs Temp 97.6 F 08/08/24 07:44 Pulse 57 L 08/08/24 07:44 Resp 18 08/08/24 07:44 BP 118/70 08/08/24 08:44 Pulse Ox 97 08/08/24 07:44 FiO2 Intake & Output 08/07/24 08/08/24 08/08/24 18:59 06:59 18:59 Intake Total 1830 650 Output Total 30 1100 930 Balance 1800 -450 -930 Intake: Intake, IV Titration 750 650 Amount DAPTOmycin 500 mg In 50 Sodium Chloride 0.9% 50 ml @ 100 mls/hr IVPB Q24H [facility] Rx#:[id number] Piperacillin-Tazobactam 3 200 100 .375 gm In Sodium Chloride 0.9% 100 ml @ 25 mls/hr IVPB Q8HR [facility] Rx# :[id number] Sodium Chloride 0.9% 1, 500 550 000 ml @ 130 mls/hr IV . Q7H42M [facility] Rx#:[id number] Oral 1080 Output: Drainage 30 5 Right Lower Abdomen 30 5 Urine 1100 925 Other: Voiding Method Toilet # Voids 1 - Exam GENERAL DESCRIPTION: Middle-age male up in the chair in no distress RESPIRATORY SYSTEM: Unlabored breathing , decreased breath sounds at bases HEART: S1 S2 regular rate and rhythm , ABDOMEN: Soft , right lower quadrant redness has significant decrease in intensity EXTREMITIES: No edema feet - Labs CBC & Chem 7: 10/15/24 04:14 08/04/24 16:13 Labs: Microbiology - Last 24 Hours (Table) 08/04/24 16:13 Blood Culture - Preliminary Blood 08/05/24 14:50 Gram Stain - Preliminary Aspirate Body Fluid Culture - Preliminary Assessment and Plan (1) Abdominal wall abscess Status: Acute Code(s): L02.211 - CUTANEOUS ABSCESS OF ABDOMINAL WALL SNOMED Code(s): 84771584 (2) Abdominal wall cellulitis Status: Acute Code(s): L03.311 - CELLULITIS OF ABDOMINAL WALL SNOMED Code(s): 61512662 (3) Allergy to multiple antibiotics Status: Acute Code(s): Z88.1 - ALLERGY STATUS TO OTHER ANTIBIOTIC AGENTS SNOMED Code(s): 593748764 Plan: 1patient presented to hospital with abdominal wall swelling redness and pain in this patient who did have a recent history of perforated appendicitis status po st open appendectomy subsequent developing intra-abdominal abscess that seem to have resolved on the last CT however did have worsening of abdominal wall abscess. 2patient is status post IR drainage of the abdominal wall abscess's mostly bloodstained drainage with a question of possible hematoma cultures are currently pending 3patient culture remained negative and resistant pathogen culture possible hematoma we will consider a short course of oral Augmentin doxycycline at discharge and close outpatient follow-up PICC line to be discontinued on discharge prescription was sent to the pharmacy discussed with admitting team Dictation was produced using [employer] dictation software. please excuse any grammatical, word or spelling errors. Time with Patient: Less than 30
== END 2024-08-08 13:33 | disposition home or self-care (01) | DRG 920 ==
LOC: EC 15:04 → 5NMEDONC 20:17
PROVIDERS: ADMIT Family Medicine; ATTEND Family Medicine
PROC: 0J9830Z Drainage of Abdomen Subcutaneous Tissue and Fascia with Drainage Device, Percutaneous Approach (ICD-10-PCS; principal; 2024-08-05)
DX: L76.34 Postprocedural seroma of skin and subcutaneous tissue following other procedure (principal); L02.211 Cutaneous abscess of abdominal wall; L03.311 Cellulitis of abdominal wall; E78.5 Hyperlipidemia, unspecified; F17.210 Nicotine dependence, cigarettes, uncomplicated; I10 Essential (primary) hypertension; J44.9 Chronic obstructive pulmonary disease, unspecified; N40.0 Benign prostatic hyperplasia without lower urinary tract symptoms; E07.9 Disorder of thyroid, unspecified; Y83.8 Other surgical procedures as the cause of abnormal reaction of the patient, or of later complication, without mention of misadventure at the time of the procedure; Z79.899 Other long term (current) drug therapy; Z88.1 Allergy status to other antibiotic agents; Z88.2 Allergy status to sulfonamides; Z90.49 Acquired absence of other specified parts of digestive tract; Z82.5 Family history of asthma and other chronic lower respiratory diseases
CPT/HCPCS: 10030; 36415; 74177; 76942; 80053; 83605; 85025; 85610; 85730; 87040; 87070; 87075; 87205; 93005; 94640; 96365; 96375; 99285

== ENCOUNTER 2024-08-21 17:43 | Emergency (ER) | payer MEDICARE ==
[2024-08-21 18:06] VITALS: TEMP 97.8
--- NOTE | 2024-08-21 18:36 | ED ---
Skin/Abscess/FB HPI - General Source: patient, RN notes reviewed Mode of arrival: ambulatory Limitations: no limitations - History of Present Illness Onset/Timin -: days(s) <David Duarte - Last Filed: 08/21/24 18:31> <Diane Owens - Last Filed: 08/21/24 23:37> - General Chief complaint: Skin/Abscess/Foreign Body Stated complaint: post op issues Time Seen by Provider: 08/21/24 18:01 - History of Present Illness Initial comments: Quick note: This is a 64-year-old male presenting with possible incision infection x 3 days. Patient endorses undergoing appendectomy and partial removal of intestines on July 06. Patient states he was then hospitalized for the next 13 days., Receiving IV antibiotics, and released on July 19. Patient states he was out in the hospital for 7 days before being readmitted for an additional 7 days receiving IV antibiotics again during that time. States he was discharged with oral antibiotics (amoxicillin and dicyclomine), which she just finished earlier this week. Patient states he followed up with Dr. Tian on Sunday and his surgeon on Sunday with both state his surgical site appeared well without signs of infection. Stated it appeared his laceration edges had not completely healed and chose to leave padma in place for the time being. Patient endorses concern for sepsis and incisional site infection. (David Duarte) 64-year-old male with no significant past medical history resents emergency department chief complaint of right lower quadrant abdominal pain, erythema. Patient had complex abdominal procedure completed in June of this year with Dr. Cerda which resulted in prolonged stay on IV antibiotics. Patient was admitted previously in July for infection and IV antibiotics and follow-up with infectious disease. Patient follow-up with general surgery and infectious disease earlier this week where it was reported that patient's incisional site is healing appropriately and surgical drainage tube was removed. Patient is concerned that the area has been increasingly painful, erythematous. Patient has been experiencing chills with no fevers. Mild nausea with no episodes of emesis. (Diane Owens) - Related Data Home Medications Medication Instructions Recorded Confirmed atenoloL [Tenormin] 50 mg PO DAILY 07/22/18 08/04/24 Acetaminophen Tab [Tylenol] 650 mg PO Q4H PRN 07/10/24 08/04/24 Esomeprazole Magnesium [NexIUM 20 mg PO DAILY PRN 07/10/24 08/04/24 24Hr] Triamterene-Hctz 37.5-25Mg 1 tab PO HS@2000 07/10/24 08/04/24 [Maxzide 37.5-25] Previous Rx's Medication Instructions Recorded Amoxic-Pot Clav 875-125Mg 1 tab PO Q12HR 10 Days #20 tab 08/08/24 [Augmentin 875-125] Doxycycline [Vibramycin] 100 mg PO BID 10 Days #20 capsule 08/08/24 traMADol HCl [Ultram] 50 mg PO Q6H PRN #12 tab 08/08/24 Allergies Allergy/AdvReac Type Severity Reaction Status Date / Time peanut Allergy Severe Anaphylaxis Verified 08/21/24 18:02 [place] nut Allergy Anaphylaxis Verified 08/21/24 18:02 Quinolones Allergy Itching Verified 08/21/24 18:02 ciprofloxacin [From Cipro] AdvReac Rash/Hives Verified 08/21/24 18:02 sulfamethoxazole AdvReac Rapid Verified 08/21/24 18:02 [From Bactrim] Heart Rate trimethoprim [From Bactrim] AdvReac Rapid Verified 08/21/24 18:02 Heart Rate Review of Systems ROS Other: All systems not noted in ROS Statement are negative. <David Duarte - Last Filed: 08/21/24 18:31> ROS Other: All systems not noted in ROS Statement are negative. <Diane Owens - Last Filed: 08/21/24 23:37> ROS Statement: Those systems with pertinent positive or pertinent negative responses have been documented in the HPI. Past Medical History Past Medical History: Chest Pain / Angina, GERD/Reflux, Hyperlipidemia, Hypertension, Osteoarthritis (OA), Prostate Disorder, Thyroid Disorder Additional Past Medical History / Comment(s): high chol - supposed to take ritika strol med but doesnt, Chronic back pain, diverticulitis, enlarged prostate, nodules on thyroid, pilonidal cyst History of Any Multi-Drug Resistant Organisms: None Reported Past Surgical History: Appendectomy, Bowel Resection, Heart Catheterization Additional Past Surgical History / Comment(s): 2011 heart cath which was clear- done by Dr. VC Topete, colonoscopy, left knee drained 12/16/2016 and 12/20/2016 Past Anesthesia/Blood Transfusion Reactions: Previous Problems w/ Anesthesia Additional Past Anesthesia/Blood Transfusion Reaction / Comment(s): Pt states it took him a long time to wake up which he attributes to going into his procedures very tired. Past Psychological History: No Psychological Hx Reported Smoking Status: Current every day smoker Past Alcohol Use History: None Reported Past Drug Use History: None Reported - Past Family History Father Additional Family Medical History / Comment(s): Father of cirrhosis at age 62 yrs. No coronary artery disease history. Mother Additional Family Medical History / Comment(s): Mother of neck fracture at age 76yrs from an accident. She also had history of atrial fibrillation. Sister(s) Additional Family Medical History / Comment(s): Sister after a "leg operation" she developed a leg infection and family was told she of a lung problem. His sister had history of stroke as well. Patient has a second sister that is alive with COPD. Patient has children with no major medical problems. <David Duarte - Last Filed: 08/21/24 18:31> General Exam Limitations: no limitations <David Duarte - Primitivo Filed: 08/21/24 18:31> General appearance: alert, in no apparent distress Eye exam: Present: normal appearance, PERRL, EOMI. Absent: scleral icterus, conjunctival injection, periorbital swelling ENT exam: Present: normal exam, mucous membranes moist Neck exam: Present: normal inspection. Absent: tenderness, meningismus, lymphadenopathy Respiratory exam: Present: normal lung sounds bilaterally. Absent: respiratory distress, wheezes, rales, rhonchi, stridor Cardiovascular Exam: Present: regular rate, normal rhythm, normal heart sounds. Absent: systolic murmur, diastolic murmur, rubs, gallop, clicks GI/Abdominal exam: Present: soft, tenderness (RLQ), normal bowel sounds, other (post-operative incision over the right lower quadrant with padma in place, mild overlying erythema and tenderness to palpation, no drainage). Absent: distended, guarding, rebound, rigid Extremities exam: Present: normal inspection, full ROM, normal capillary refill. Absent: tenderness, pedal edema, joint swelling, calf tenderness Back exam: Present: normal inspection Skin exam: Present: warm, dry, intact, normal color. Absent: rash <Stieler,Diane - Last Filed: 08/21/24 23:37> - General Exam Comments Initial Comments: Visual Physical Exam Vital signs reviewed General: Well-appearing, nontoxic, no acute distress. Head: Normocephalic, atraumatic Eyes: PERRLA, EOMI ENT: Airway patent Chest: Nonlabored breathing Skin: No visual rash, normal skin tone. Medial aspect of right lower quadrant incisional site appears slightly erythematous. No obvious discharge Neuro: Alert and oriented 3 Musculoskeletal: No gross abnormalities (David Duarte) Course Vital Signs 08/21/24 08/21/24 08/21/24 18:02 20:26 21:09 Temperature 97.8 F Pulse Rate 70 82 Respiratory 20 18 18 Rate Blood Pressure 143/84 128/78 O2 Sat by Pulse 100 96 Oximetry Medical Decision Making <David Duarte - Last Filed: 08/21/24 18:31> - Lab Data Result diagrams: 08/21/24 19:22 08/21/24 19:22 <Diane Owens - Last Filed: 08/21/24 23:37> - Medical Decision Making I completed the quick note portion of this chart signed YANDY Napoles (David Duarte) Was pt. sent in by a medical professional or institution ([facility], [facility], urgent care, hospital, or snf...) When possible be specific @ -Patient was advised by general surgery and infectious disease physician for the emergency department for worsening symptoms of right lower quadrant abdominal pain and or erythema to post surgical incision site. Did you speak to anyone other than the patient for history (EMS, parent, family, police, friend...)? What history was obtained from this source @ -No Did you review nursing and triage notes (agree or disagree)? Why? @ -I reviewed and agree with nursing and triage notes Were old charts reviewed (outside hosp., previous admission, EMS record, old EKG, old radiological studies, urgent care reports/EKG's, snf records)? Report findings @ -reviewed CT scan completed 08/04/24 reveals postoperative changes in the right lower quadrant pain with retrovesical intraperitoneal fluid collections and interval enlargement of subcutaneous fluid collection in the right anterior abdominal wall underlying skin stable to be related to seroma versus abscess Differential Diagnosis (chest pain, altered mental status, abdominal pain women, abdominal pain men, vaginal bleeding, weakness, fever, dyspnea, syncope, headache, dizziness, GI bleed, back pain, seizure, CVA, palpatations, mental health, musculoskeletal)? @ -Differential Abdominal Pain Men: Appendicitis, cholecystitis, diverticulosis, ischemic bowel, pancreatitis, hepatitis, UTI, gastroenteritis, AAA, incarcerated hernia, bowel obstruction, constipation, inflammatory bowel, hepatitis, peptic ulcer disease, splenic infarction, perforated viscus, testicular torsion, this is not meant to be an all-inclusive list EKG interpreted by me (3pts min.). @ -none X-rays interpreted by me (1pt min.). @ -None done CT interpreted by me (1pt min.). @ -CT of the abdomen and pelvis with IV contrast reveals improving postsurgical changes to right lower quadrant with no abscess formation or free air evident, seroma has diminished in size U/S interpreted by me (1pt. min.). @ -None done What testing was considered but not performed or refused? (CT, X-rays, U/S, labs)? Why? @ -None What meds were considered but not given or refused? Why? @ -None Did you discuss the management of the patient with other professionals ( professionals i.e. , PA, TENTERER, lab, RT, psych nurse, vp digital marketing social media and crm, boxing promoter, teacher, submarine advisory team watch officer, telephonic case manager)? Give summary @ -No Was smoking cessation discussed for >3mins.? @ -No Was critical care preformed (if so, how long)? @ -No Were there social determinants of health that impacted care today? How? (Homelessness, low income, unemployed, alcoholism, drug addiction, transportation, low edu. Level, literacy, decrease access to med. care, half-way, rehab)? @ -No Was there de-escalation of care discussed even if they declined (Discuss DNR or withdrawal of care, Hospice)? DNR status @ -No What co-morbidities impacted this encounter? (DM, HTN, Smoking, COPD, CAD, Cancer, CVA, ARF, Chemo, Hep., AIDS, mental health diagnosis, sleep apnea, morbid obesity)? @ -None Was patient admitted / discharged? Hospital course, mention meds given and route, prescriptions, significant lab abnormalities, going to OR and other pertinent info. @ -64-year-old with past surgical incision abdominal pain, erythema. Patient was originally evaluated emergency department waiting room as a quick note where laboratory studies were ordered. My evaluation the patient is resting comfortably no signs acute distress. Vital signs are stable, afebrile nontachycardic. Examination reveals mild erythema of the right lower quadrant with postsurgical changes and padma in place with tenderness palpation over the area. There are no signs of rebound tenderness or rigidity. Patient is denying chest pain, shortness of breath, difficulty breathing. Patient is provided with dose of pain medication and will be sent for CT imaging for further evaluation of abdominal pain. He is in agreement with this plan. Laboratory results including CBC, CMP, lactic acid and COVID, flu, RSV are unremarkable and negative. Patient CT scan medical for acute process. Patient was related information from today's findings and is instructed to continue follow-up outpatient with his general surgeon and infectious disease for further evaluation. There is minimal clinical concern for cellulitis and patient is now prescribed antibiotics. All questions have been answered at bedside strict return parameters discussed with the patient is verbalized understanding. Case discussed with my attending Dr. Raphael Undiagnosed new problem with uncertain prognosis? @ -No Drug Therapy requiring intensive monitoring for toxicity (Heparin, Nitro, Insulin, Cardizem)? @ -No Were any procedures done? @ -No Diagnosis/symptom? @ -post operative Abdominal pain Acute, or Chronic, or Acute on Chronic? @ -acute Uncomplicated (without systemic symptoms) or Complicated (systemic symptoms)? @ -uncompleted Side effects of treatment? @ -No Exacerbation, Progression, or Severe Exacerbation? @ -No Poses a threat to life or bodily function? How? (Chest pain, USA, GA, pneumonia, PE, COPD, DKA, ARF, appy, cholecystitis, CVA, Diverticulitis, Homicidal, Suicidal, threat to staff... and all critical care pts) @ -No (Graciela,Dinae) - Lab Data Lab Results 08/21/24 08/21/24 08/21/24 Range/Units 19:20 19:22 19:22 WBC 6.8 (3.8-10.6) k/uL RBC 5.26 (4.30-5.90) m/uL Hgb 15.5 (13.0-17.5) gm/dL Hct 46.5 (39.0-53.0) % MCV 88.4 (80.0-100.0) fL MCH 29.5 (25.0-35.0) pg MCHC 33.3 (31.0-37.0) g/dL RDW 14.4 (11.5-15.5) % Plt Count 178 (150-450) k/uL MPV 8.1 Neutrophils % 58 % Lymphocytes % 31 % Monocytes % 6 % Eosinophils % 2 % Basophils % 1 % Neutrophils # 3.9 (1.3-7.7) k/uL Lymphocytes # 2.1 (1.0-4.8) k/uL Monocytes # 0.4 (0-1.0) k/uL Eosinophils # 0.2 (0-0.7) k/uL Basophils # 0.0 (0-0.2) k/uL Sodium 139 (137-145) mmol/L Potassium 3.9 (3.5-5.1) mmol/L Chloride 104 (98-107) mmol/L Carbon Dioxide 28 (22-30) mmol/L Anion Gap 7 mmol/L BUN 10 (9-20) mg/dL Creatinine 0.90 (0.66-1.25) mg/dL Est GFR (CKD-EPI)AfAm >90 (>60 ml/min/1.73 sqM) Est GFR (CKD-EPI)NonAf >90 (>60 ml/min/1.73 sqM) Glucose 81 (74-99) mg/dL Plasma Lactic Acid Andres (0.7-2.0) mmol/L Calcium 8.9 (8.4-10.2) mg/dL Total Bilirubin 0.7 (0.2-1.3) mg/dL AST 36 (17-59) U/L ALT 42 (4-49) U/L Alkaline Phosphatase 78 (38-126) U/L Total Protein 6.4 (6.3-8.2) g/dL Albumin 3.9 (3.5-5.0) g/dL Influenza Type A (PCR) Not Detected (Not Detectd) Influenza Type B (PCR) Not Detected (Not Detectd) RSV (PCR) Not Detected (Not Detectd) SARS-CoV-2 (PCR) Not Detected (Not Detectd) 08/21/24 Range/Units 19:22 WBC (3.8-10.6) k/uL RBC (4.30-5.90) m/uL Hgb (13.0-17.5) gm/dL Hct (39.0-53.0) % MCV (80.0-100.0) fL MCH (25.0-35.0) pg MCHC (31.0-37.0) g/dL RDW (11.5-15.5) % Plt Count (150-450) k/uL MPV Neutrophils % % Lymphocytes % % Monocytes % % Eosinophils % % Basophils % % Neutrophils # (1.3-7.7) k/uL Lymphocytes # (1.0-4.8) k/uL Monocytes # (0-1.0) k/uL Eosinophils # (0-0.7) k/uL Basophils # (0-0.2) k/uL Sodium (137-145) mmol/L Potassium (3.5-5.1) mmol/L Chloride (98-107) mmol/L Carbon Dioxide (22-30) mmol/L Anion Gap mmol/L BUN (9-20) mg/dL Creatinine (0.66-1.25) mg/dL Est GFR (CKD-EPI)AfAm (>60 ml/min/1.73 sqM) Est GFR (CKD-EPI)NonAf (>60 ml/min/1.73 sqM) Glucose (74-99) mg/dL Plasma Lactic Acid Andres 1.0 (0.7-2.0) mmol/L Calcium (8.4-10.2) mg/dL Total Bilirubin (0.2-1.3) mg/dL AST (17-59) U/L ALT (4-49) U/L Alkaline Phosphatase (38-126) U/L Total Protein (6.3-8.2) g/dL Albumin (3.5-5.0) g/dL Influenza Type A (PCR) (Not Detectd) Influenza Type B (PCR) (Not Detectd) RSV (PCR) (Not Detectd) SARS-CoV-2 (PCR) (Not Detectd) Disposition <David Duarte - Last Filed: 08/21/24 18:31> Is patient prescribed a controlled substance at d/c from ED?: No Time of Disposition: 20:49 <Diane Owens Last Filed: 08/21/24 23:37> Clinical Impression: Abdominal pain, Postoperative abdominal pain Disposition: HOME SELF-CARE Condition: Good Instructions (If sedation given, give patient instructions): Abdominal Pain (ED) Additional Instructions: Please return to the Emergency Department if symptoms worsen or any other concerns. Continue to follow-up outpatient with general surgeon and infectious disease for further evaluation Referrals: None,Stated [Primary Care Provider] - 1-2 days
[2024-08-21 19:37] LABS: Basophils % (A) 1 %; Eosinophils # (A) 0.2 k/uL (0-0.7); Eosinophils % (A) 2 %; HCT 46.5 % (39.0-53.0); HGB 15.5 gm/dL (13.0-17.5); Lymphocytes # (A) 2.1 k/uL (1.0-4.8); Lymphocytes % (A) 31 %; MCH 29.5 pg (25.0-35.0); MCHC 33.3 g/dL (31.0-37.0); MCV 88.4 fL (80.0-100.0); Mean Platelet Volume 8.1; Monocytes # (A) 0.4 k/uL (0-1.0); Monocytes % (A) 6 %; Neutrophils # (A) 3.9 k/uL (1.3-7.7); Neutrophils % (A) 58 %; Platelet Count 178 k/uL (150-450); RBC 5.26 m/uL (4.30-5.90); RDW 14.4 % (11.5-15.5); WBC 6.8 k/uL (3.8-10.6)
[2024-08-21 19:44] LABS: ALT 42 U/L (4-49); AST 36 U/L (17-59); African American GFR (CKD) >90 (>60 ml/min/1.73 sqM); Albumin 3.9 g/dL (3.5-5.0); Alkaline Phosphatase 78 U/L (38-126); Anion Gap 7 mmol/L; Blood Urea Nitrogen 10 mg/dL (9-20); Calcium 8.9 mg/dL (8.4-10.2); Carbon Dioxide 28 mmol/L (22-30); Chloride 104 mmol/L (98-107); Glucose 81 mg/dL (74-99); Non-African American GFR(CKD) >90 (>60 ml/min/1.73 sqM); Potassium 3.9 mmol/L (3.5-5.1); Sodium 139 mmol/L (137-145); Total Bilirubin 0.7 mg/dL (0.2-1.3); Total Protein 6.4 g/dL (6.3-8.2)
[2024-08-21] MEDS: HYDROmorphone 0.5 MG/0.5 ML SYRINGE IVP STA (20:13)
[2024-08-21 20:27] VITALS: BP 128/78; PULSE 82; RESP 18
--- NOTE | 2024-08-21 20:38 | CT ---
EXAMINATION TYPE: CT abdomen pelvis w con DATE OF EXAM: 08/21/2024 COMPARISON: 08/04/2024 INDICATION: RLQ ab pain, erythema, recent surgery. Appendix ruptured and part of patients bowel had t o be removed. DLP: 1561 mGycm, Automated exposure control for dose reduction was used. CONTRAST: 100 ml mL of Isovue 300. Study performed without Oral Contrast TECHNIQUE: Axial images were obtained from above the diaphragm to the pubic rami in the axial plane a t 5 mm thick sections. Reconstructed images are reviewed on the computer in the coronal plane. FINDINGS: Limited CT sections are obtained the lung bases. The lung bases are clear. CT ABDOMEN: Liver: There may be some mild fatty liver. Spleen: Normal Pancreas: Normal Adrenal glands: The adrenal glands are normal. Gallbladder: Normal Kidneys: No masses are evident. No hydronephrosis is present. There is a tiny cyst in the superior lateral left kidney Delayed images were obtained through the kidneys, which remain unremarkable. Aorta: Vascular calcification is within the aorta. Inferior vena cava: Normal. CT PELVIS: Some minimal inflammatory changes in the right lower quadrant adjacent to appendectomy. This is adjac ent to the bowel anastomosis. No abscess formation. No free air is evident. Findings have improved fr om comparison. This study is without oral contrast limiting bowel evaluation. Previous subcutaneous seroma is diminished in size from comparison. Current measurement 2.9 x 2.1 cm, previous measurement 4.7 x 4.1 cm. Small amount of air is present. Infected seroma is not excluded. This could be due to post instrumentation. Appendix: Surgically absent. Urinary bladder: Normal. Genitourinary structures: Prostate is normal Osseous structures: No suspicious lytic or sclerotic lesions. IMPRESSION: 1. Improving postsurgical changes right lower quadrant. No abscess formation or free air evident. 2. Previous seroma is diminished in size. A small amount of air has developed. Correlate for infectio n. [facility], , 08/21/2024 8:36 PM
[2024-08-21] MEDS: ACET/COD 300 MG/30 MG STARTER PACK 6 TAB BTL PO STA (21:05)
[2024-08-22 03:47] LABS: Erythrocyte Sedimentation Rate 15 mm/Hr (0-20)
== END 2024-08-21 21:13 | disposition home or self-care (01) ==
LOC: EC 17:43
CPT/HCPCS: 36415; 74177; 80053; 83605; 85025; 85652; 86140; 87040; 87636; 96374; 99285

== ENCOUNTER → 2024-09-23 | Outpatient (CLI) | payer MEDICARE ==
--- NOTE | 2024-09-23 17:45 | CT ---
EXAMINATION TYPE: CT abdomen pelvis w con CT DLP: 1623.5 mGycm, Automated exposure control for dose reduction was used. DATE OF EXAM: 09/23/2024 4:33 PM COMPARISON: Multiple CT abdomen pelvis with most recent 08/21/2024 CLINICAL INDICATION:Male, 64 years old with history of M54.50 Right Lower back pain; Pain on right si de of abdomen more towards the back. Near surgery site from appendix rupture and part of patients bow el removal back in June. TECHNIQUE: Standard CT of the abdomen and pelvis following the administration of 100 cc of Isovue 3 00 IV contrast material and oral contrast. Coronal and sagittal reformats were performed. FINDINGS: LOWER CHEST: Unremarkable ABDOMEN LIVER: Unremarkable GALLBLADDER AND BILE DUCTS: Unremarkable. PANCREAS: Unremarkable. SPLEEN: Unremarkable. ADRENAL GLANDS: Unremarkable. KIDNEYS AND URETERS: No evidence of hydronephrosis or renal calculus. The kidneys enhance symmetrical ly. Contrast is demonstrated within both collecting systems on the delayed phase. Left renal upper po le 1.1 cm cyst. PELVIS BLADDER: Unremarkable REPRODUCTIVE: Unremarkable. ABDOMEN & PELVIS STOMACH AND BOWEL: Stomach and duodenum are unremarkable. Enteric contrast reaches the transverse col on. Post surgical changes from appendectomy and bowel anastomosis with decreased inflammatory strandi ng from prior exam. No extravasation of enteric contrast. No focal bowel wall thickening. No evidence of bowel obstruction. PERITONEUM: No evidence of pneumoperitoneum or free fluid. VASCULATURE: Minimal atherosclerotic calcifications are present throughout the abdominal aorta and it s branches. No evidence of aortic aneurysm. Pelvic phleboliths. MUSCULOSKELETAL: No acute osseous abnormalities. Mild disc degeneration changes are present throughou t the thoracolumbar spine. LYMPH NODES: No gross evidence for lymphadenopathy. SOFT TISSUE/ABDOMINAL WALL: Postsurgical changes of the right anterior abdominal wall with linear sca rring identified. Resolution of previously demonstrated right anterior wall fluid collection. IMPRESSION: Post surgical changes with resolution of previously demonstrated right anterior abdomen wall fluid co llection. No acute abdominal pelvic process. [facility], , 09/23/2024 5:43 PM
== END | disposition home or self-care (01) ==
LOC: RADCTMAIN 14:28
PROVIDERS: ATTEND Surgery
DX: N28.1 Cyst of kidney, acquired (principal); I70.0 Atherosclerosis of aorta; Z98.890 Other specified postprocedural states; M54.50 Low back pain, unspecified
CPT/HCPCS: 74177; Q9967

== ENCOUNTER 2025-01-13 23:27 | Emergency (ER) | payer BC, MEDICARE ==
[2025-01-13 23:33] VITALS: TEMP 97.6
[2025-01-14 00:32] LABS: Basophils # (A) 0.1 k/uL (0-0.2); Basophils % (A) 0 %; Eosinophils # (A) 0.2 k/uL (0-0.7); Eosinophils % (A) 2 %; HCT 54.6 % (39.0-53.0); HGB 18.2 gm/dL (13.0-17.5); Lymphocytes # (A) 3.4 k/uL (1.0-4.8); Lymphocytes % (A) 28 %; MCH 29.2 pg (25.0-35.0); MCHC 33.4 g/dL (31.0-37.0); MCV 87.6 fL (80.0-100.0); Mean Platelet Volume 7.8; Monocytes # (A) 0.7 k/uL (0-1.0); Monocytes % (A) 6 %; Neutrophils # (A) 7.5 k/uL (1.3-7.7); Neutrophils % (A) 61 %; Platelet Count 207 k/uL (150-450); RBC 6.23 m/uL (4.30-5.90); RDW 14.2 % (11.5-15.5); WBC 12.2 k/uL (3.8-10.6)
[2025-01-14 00:33] LABS: ALT 34 U/L (4-49); AST 28 U/L (17-59); African American GFR (CKD) >90 (>60 ml/min/1.73 sqM); Albumin 4.6 g/dL (3.5-5.0); Alkaline Phosphatase 78 U/L (38-126); Anion Gap 11 mmol/L; Blood Urea Nitrogen 12 mg/dL (9-20); Calcium 9.7 mg/dL (8.4-10.2); Carbon Dioxide 25 mmol/L (22-30); Chloride 101 mmol/L (98-107); Glucose 88 mg/dL (74-99); Non-African American GFR(CKD) 89 (>60 ml/min/1.73 sqM); Potassium 3.7 mmol/L (3.5-5.1); Sodium 137 mmol/L (137-145); Total Bilirubin 0.8 mg/dL (0.2-1.3); Total Protein 7.5 g/dL (6.3-8.2)
[2025-01-14] MEDS: KETOROLAC 15 MG/ML 1 ML VIAL IVP STA (00:40)
[2025-01-14] MEDS: SODIUM CHLORIDE 0.9% 1,000 ML IV ONE (00:41)
--- NOTE | 2025-01-14 01:41 | CT ---
EXAM: CT Abdomen and Pelvis With Intravenous Contrast CLINICAL HISTORY: ITS.REASON CT Reason: abdominal pain RIGHT SIDED PAIN AND BRUISING PT STATES THIS HAS BEEN AN ONGOING ISSUE SINCE HIS APPENDECTOMY/BOWEL RESECTION IN 2023 prior dated 08/21/2024 TECHNIQUE: Axial computed tomography images of the abdomen and pelvis with intravenous contrast. CTDI is 35.1 mGy and DLP is 1793.5 mGy-cm. This CT exam was performed using one or more of the following dose reduction techniques: automated exposure control, adjustment of the mA and/or kV according to patient size, and/or use of iterative reconstruction technique. COMPARISON: CT Abdomen Pelvis dated 08/21/2024 FINDINGS: Lung bases: Unremarkable. No mass. No consolidation. ABDOMEN: Liver: Unremarkable. No mass. Gallbladder and bile ducts: Unremarkable. No calcified stones. No ductal dilation. Pancreas: Unremarkable. No mass. No ductal dilation. Spleen: Unremarkable. No splenomegaly. Adrenals: Unremarkable. No mass. Kidneys and ureters: Left renal cyst. No hydronephrosis. Stomach and bowel: Right lower quadrant hernia subjacent to the incision site. Increased size since the prior and contains multiple bowel loops. No evidence of bowel obstruction. No mucosal thickening. PELVIS: Appendix: Appendectomy as on the prior. Bladder: Unremarkable. No mass. Reproductive: Unremarkable as visualized. ABDOMEN and PELVIS: Intraperitoneal space: Unremarkable. No free air. No significant fluid collection. Bones/joints: Degenerative changes of the spine. No acute fracture. No dislocation. Soft tissues: No fluid collection. Interval resolution of the subcutaneous seroma seen on the prior study. Vasculature: Mild aortoiliac atherosclerotic calcifications. No abdominal aortic aneurysm. Lymph nodes: Unremarkable. No enlarged lymph nodes. IMPRESSION: Right lower quadrant hernia subjacent to the incision site. Increased size since the prior and contains multiple bowel loops. No evidence of bowel obstruction.
[2025-01-14 01:49] LABS: Appearance,Urine Clear (Clear); Bilirubin,Urine Negative (Negative); Blood,Urine Negative (Negative); Color,Urine Colorless; Glucose,Urine (UA) Negative (Negative); Ketones,Urine Negative (Negative); Leukocyte Esterase,Urine Negative (Negative); Nitrite,Urine Negative (Negative); PH, Urine 6.5 (5.0-8.0); Protein,Urine Negative (Negative); Specific Gravity,Urine 1.024 (1.001-1.035); Urobilinogen,Urine <2.0 mg/dL (<2.0)
[2025-01-14 02:38] VITALS: BP 159/86; PULSE 86; RESP 20
--- NOTE | 2025-01-14 02:45 | ED ---
Abdominal Pain HPI - General Chief Complaint: Abdominal Pain Stated Complaint: abd pain/swollen post op Time Seen by Provider: 01/13/25 23:45 Source: patient Mode of arrival: ambulatory Limitations: no limitations - History of Present Illness Initial Comments: 64-year-old male presenting with chief complaint of abdominal pain. Patient has history of appendectomy back on 07/15. States that he has had some "swelling" over the area since then. States that tonight he was having a bit of pain over the area. No vomiting. Patient is still having regular bowel movements. No fever. No urinary symptoms. Patient also reports left hip pain. He does have history of chronic back and hip pain. No new injury or trauma. No numbness tingling or weakness. He does have some pain that radiates from the hip down the leg. No swelling. - Related Data Home Medications Medication Instructions Recorded Confirmed atenoloL [Tenormin] 50 mg PO DAILY 07/22/18 08/04/24 Acetaminophen Tab [Tylenol] 650 mg PO Q4H PRN 07/10/24 08/04/24 Esomeprazole Magnesium [NexIUM 20 mg PO DAILY PRN 07/10/24 08/04/24 24Hr] Triamterene-Hctz 37.5-25Mg 1 tab PO HS@199907/10/24 08/04/24 [Maxzide 37.5-25] Previous Rx's Medication Instructions Recorded Amoxic-Pot Clav 875-125Mg 1 tab PO Q12HR 10 Days #20 tab 08/08/24 [Augmentin 875-125] Doxycycline [Vibramycin] 100 mg PO BID 10 Days #20 capsule 08/08/24 traMADol HCl [Ultram] 50 mg PO Q6H PRN #12 tab 08/08/24 HYDROcodone/APAP 5-325MG [[place] 1 tab PO Q6HR PRN 3 Days #12 tab 08/26/24 5-325] Allergies Allergy/AdvReac Type Severity Reaction Status Date / Time peanut Allergy Severe Anaphylaxis Verified 01/13/25 23:29 [place] nut Allergy Anaphylaxis Verified 01/13/25 23:29 Quinolones Allergy Itching Verified 01/13/25 23:29 ciprofloxacin [From Cipro] AdvReac Rash/Hives Verified 01/13/25 23:29 sulfamethoxazole AdvReac Rapid Verified 01/13/25 23:29 [From Bactrim] Heart Rate trimethoprim [From Bactrim] AdvReac Rapid Verified 01/13/25 23:29 Heart Rate Review of Systems ROS Statement: Those systems with pertinent positive or pertinent negative responses have been documented in the HPI. ROS Other: All systems not noted in ROS Statement are negative. Past Medical History Past Medical History: Chest Pain / Angina, GERD/Reflux, Hyperlipidemia, Hype rtension, Osteoarthritis (OA), Prostate Disorder, Thyroid Disorder Additional Past Medical History / Comment(s): high chol - supposed to take cholestrol med but doesnt, Chronic back pain, diverticulitis, enlarged prostate, nodules on thyroid, pilonidal cyst History of Any Multi-Drug Resistant Organisms: None Reported Past Surgical History: Appendectomy, Bowel Resection, Heart Catheterization Additional Past Surgical History / Comment(s): 2011 heart cath which was clear- done by Dr. VC Topete, colonoscopy, left knee drained 12/16/2016 and 12/20/2016 Past Anesthesia/Blood Transfusion Reactions: Previous Problems w/ Anesthesia Additional Past Anesthesia/Blood Transfusion Reaction / Comment(s): Pt states it took him a long time to wake up which he attributes to going into his procedures very tired. Past Psychological History: No Psychological Hx Reported Smoking Status: Current every day smoker Past Alcohol Use History: None Reported Past Drug Use History: None Reported - Past Family History Father Additional Family Medical History / Comment(s): Father of cirrhosis at age 62 yrs. No coronary artery disease history. Mother Additional Family Medical History / Comment(s): Mother of neck fracture at age 76yrs from an accident. She also had history of atrial fibrillation. Sister(s) Additional Family Medical History / Comment(s): Sister after a "leg operation" she developed a leg infection and family was told she of a lung problem. His sister had history of stroke as well. Patient has a second sister that is alive with COPD. Patient has children with no major medical problems. General Exam Limitations: no limitations General appearance: alert, in no apparent distress Head exam: Present: atraumatic, normocephalic, normal inspection Eye exam: Present: normal appearance, EOMI Neck exam: Present: normal inspection. Absent: meningismus Respiratory exam: Present: normal lung sounds bilaterally. Absent: respiratory distress, wheezes, rales, rhonchi, stridor Cardiovascular Exam: Present: regular rate, normal rhythm, normal heart sounds. Absent: systolic murmur, diastolic murmur, rubs, gallop, clicks GI/Abdominal exam: Present: soft, hernia. Absent: distended, tenderness, guarding, rebound, rigid Neurological exam: Present: alert, oriented X3 Psychiatric exam: Present: normal affect, normal mood Skin exam: Present: warm, dry, normal color Course Vital Signs 01/13/25 01/14/25 23:30 02:38 Temperature 97.6 F Pulse Rate 85 86 Respiratory 18 20 Rate Blood Pressure 153/96 159/86 O2 Sat by Pulse 99 97 Oximetry Medical Decision Making - Medical Decision Making Was pt. sent in by a medical professional or institution (, PA, PLANT PROTECTION SUPERVISOR, urgent care, hospital, or correction...) When possible be specific @ -No Did you speak to anyone other than the patient for history (EMS, parent, family, police, friend...)? What history was obtained from this source @ -No Did you review nursing and triage notes (agree or disagree)? Why? @ -I reviewed and agree with nursing and triage notes Were old charts reviewed (outside hosp., previous admission, EMS record, old EKG , old radiological studies, urgent care reports/EKG's, correction records)? Report findings @ -No old charts were reviewed Differential Diagnosis (chest pain, altered mental status, abdominal pain women, abdominal pain men, vaginal bleeding, weakness, fever, dyspnea, syncope, headache, dizziness, GI bleed, back pain, seizure, CVA, palpatations, mental health, musculoskeletal)? @ -[facility] Differential Abdominal Pain Men: Appendicitis, cholecystitis, diverticulosis, ischemic bowel, pancreatitis, hepatitis, UTI, gastroenteritis, AAA, incarcerated hernia, bowel obstruction, constipation, inflammatory bowel, hepatitis, peptic ulcer disease, splenic infarction, perforated viscus, testicular torsion... This is not meant to be an all-inclusive list EKG interpreted by me (3pts min.). @ -As above X-rays interpreted by me (1pt min.). @ -None done CT interpreted by me (1pt min.). @ -CT shows right lower quadrant hernia subadjacent to the incision site. Increased size since the prior and contains multiple bowel loops. No evidence of bowel obstruction U/S interpreted by me (1pt. min.). @ -None done What testing was considered but not performed or refused? (CT, X-rays, U/S, labs)? Why? @ -None What meds were considered but not given or refused? Why? @ -None Did you discuss the management of the patient with other professionals (professionals i.e. , PA, PLANT PROTECTION SUPERVISOR, lab, RT, psych nurse, social economist, sisal operator, teacher, homicide squad commanding officer, assistant case manager)? Give summary @ -No Was smoking cessation discussed for >3mins.? @ -No Was critical care preformed (if so, how long)? @ -No Were there social determinants of health that impacted care today? How? (Homelessness, low income, unemployed, alcoholism, drug addiction, transportation, low edu. Level, literacy, decrease access to med. care, [facility], rehab)? @ -No Was there de-escalation of care discussed even if they declined (Discuss DNR or withdrawal of care, Hospice)? DNR status @ -No What co-morbidities impacted this encounter? (DM, HTN, Smoking, COPD, CAD, Cancer, CVA, ARF, Chemo, Hep., AIDS, mental health diagnosis, sleep apnea, m orbid obesity)? @ -None Was patient admitted / discharged? Hospital course, mention meds given and route, prescriptions, significant lab abnormalities, going to OR and other pertinent info. @ -64-year-old male presented with chief complaint of abdominal pain. Right lower quadrant pain over the site of his appendectomy back in June. He is also having left hip pain. No injury or trauma. WBC 12.2. Hemoglobin 18.2. CMP is WNL. Urine shows no acute process. CT confirms hernia. Patient has reduction of hernia when laying flat. It is not incarcerated. Patient is instructed to follow-up with his surgeon regarding this hernia. Educated on alarm symptoms. Follow-up with PCP. Report back to ER with any new or worsening symptoms. Discussed return parameters and answered all questions. Patient conveyed verbal understanding and agreed to the plan. I discussed this case in detail with my attending Dr. Jeter Undiagnosed new problem with uncertain prognosis? @ -No Drug Therapy requiring intensive monitoring for toxicity (Heparin, Nitro, Insulin, Cardizem)? @ -No Were any procedures done? @ -No Diagnosis/symptom? @ -Abdominal wall hernia Acute, or Chronic, or Acute on Chronic? @ -Acute Uncomplicated (without systemic symptoms) or Complicated (systemic symptoms)? @ -Uncomplicated Side effects of treatment? @ -No Exacerbation, Progression, or Severe Exacerbation? @ -No Poses a threat to life or bodily function? How? (Chest pain, [place], [place], pneumonia, PE, COPD, DKA, ARF, appy, cholecystitis, CVA, Diverticulitis, Homicidal, Suicidal, threat to staff... and all critical care pts) @ -Low likelihood - Lab Data Result diagrams: 01/14/25 00:01 01/14/25 00:24 Lab Results 01/14/25 01/14/25 01/14/25 Range/Units 00: 00:24 00:24 WBC 12.2 H (3.8-10.6) k/uL RBC 6.23 H (4.30-5.90) m/uL Hgb 18.2 H (13.0-17.5) gm/dL Hct 54.6 H (39.0-53.0) % MCV 87.6 (80.0-100.0) fL MCH 29.2 (25.0-35.0) pg MCHC 33.4 (31.0-37.0) g/dL RDW 14.2 (11.5-15.5) % Plt Count 207 (150-450) k/uL MPV 7.8 Neutrophils % 61 % Lymphocytes % 28 % Monocytes % 6 % Eosinophils % 2 % Basophils % 0 % Neutrophils # 7.5 (1.3-7.7) k/uL Lymphocytes # 3.4 (1.0-4.8) k/uL Monocytes # 0.7 (0-1.0) k/uL Eosinophils # 0.2 (0-0.7) k/uL Basophils # 0.1 (0-0.2) k/uL Sodium 137 (137-145) mmol/L Potassium 3.7 (3.5-5.1) mmol/L Chloride 101 (98-107) mmol/L Carbon Dioxide 25 (22-30) mmol/L Anion Gap 11 mmol/L BUN 12 (9-20) mg/dL Creatinine 0.92 (0.66-1.25) mg/dL Est GFR (CKD-EPI)AfAm >90 (>60 ml/min/1.73 sqM) Est GFR (CKD-EPI)NonAf 89 (>60 ml/min/1.73 sqM) Glucose 88 (74-99) mg/dL Plasma Lactic Acid Andres 1.3 (0.7-2.0) mmol/L Calcium 9.7 (8.4-10.2) mg/dL Total Bilirubin 0.8 (0.2-1.3) mg/dL AST 28 (17-59) U/L ALT 34 (4-49) U/L Alkaline Phosphatase 78 (38-126) U/L Total Protein 7.5 (6.3-8.2) g/dL Albumin 4.6 (3.5-5.0) g/dL Urine Color Urine Appearance (Clear) Urine pH (5.0-8.0) Ur Specific [place] (1.001-1.035) Urine Protein (Negative) Urine Glucose (UA) (Negative) Urine Ketones (Negative) Urine Blood (Negative) Urine Nitrite (Negative) Urine Bilirubin (Negative) Urine Urobilinogen (<2.0) mg/dL Ur Leukocyte Esterase (Negative) 01/14/25 Range/Units 01:42 WBC (3.8-10.6) k/uL RBC (4.30-5.90) m/uL Hgb (13.0-17.5) gm/dL Hct (39.0-53.0) % MCV (80.0-100.0) fL MCH (25.0-35.0) pg MCHC (31.0-37.0) g/dL RDW (11.5-15.5) % Plt Count (150-450) k/uL MPV Neutrophils % % Lymphocytes % % Monocytes % % Eosinophils % % Basophils % % Neutrophils # (1.3-7.7) k/uL Lymphocytes # (1.0-4.8) k/uL Monocytes # (0-1.0) k/uL Eosinophils # (0-0.7) k/uL Basophils # (0-0.2) k/uL Sodium (137-145) mmol/L Potassium (3.5-5.1) mmol/L Chloride (98-107) mmol/L Carbon Dioxide (22-30) mmol/L Anion Gap mmol/L BUN (9-20) mg/dL Creatinine (0.66-1.25) mg/dL Est GFR (CKD-EPI)AfAm (>60 ml/min/1.73 sqM) Est GFR (CKD-EPI)NonAf (>60 ml/min/1.73 sqM) Glucose (74-99) mg/dL Plasma Lactic Acid Andres (0.7-2.0) mmol/L Calcium (8.4-10.2) mg/dL Total Bilirubin (0.2-1.3) mg/dL AST (17-59) U/L ALT (4-49) U/L Alkaline Phosphatase (38-126) U/L Total Protein (6.3-8.2) g/dL Albumin (3.5-5.0) g/dL Urine Color Colorless Urine Appearance Clear (Clear) Urine pH 6.5 (5.0-8.0) Ur Specific [place] 1.024 (1.001-1.035) Urine Protein Negative (Negative) Urine Glucose (UA) Negative (Negative) Urine Ketones Negative (Negative) Urine Blood Negative (Negative) Urine Nitrite Negative (Negative) Urine Bilirubin Negative (Negative) Urine Urobilinogen <2.0 (<2.0) mg/dL Ur Leukocyte Esterase Negative (Negative) Disposition Clinical Impression: Hernia Disposition: HOME SELF-CARE Condition: Good Instructions (If sedation given, give patient instructions): Ventral Hernia (ED) Additional Instructions: Follow-up with your surgeon. Report back to ER with any new or worsening symptoms. Is patient prescribed a controlled substance at d/c from ED?: No Referrals: None,Stated [Primary Care Provider] - 1-2 days Rodrick Cerda DO [Medical Doctor] - 1-2 days Time of Disposition: 02:45
== END 2025-01-14 02:47 | disposition home or self-care (01) ==
LOC: EC 23:27
DX: K43.9 Ventral hernia without obstruction or gangrene (principal); F17.200 Nicotine dependence, unspecified, uncomplicated; Z88.1 Allergy status to other antibiotic agents; Z88.2 Allergy status to sulfonamides; Z91.010 Allergy to peanuts; Z91.018 Allergy to other foods
CPT/HCPCS: 36415; 80053; 83605; 85025; 81003; 74177; 99284; 96374; 96361; J1885; Q9967

== ENCOUNTER → 2025-02-20 | Outpatient (CLI) | payer MEDICARE ==
--- NOTE | 2025-02-20 16:44 | CTL ---
EXAMINATION TYPE: CT Low Dose Lung DATE OF EXAM ORDERED: 02/20/2025 COMPARISON: CTA chest 07/22/2018 CLINICAL INDICATION: Male, 64 years old with history of Z12.2, F17.210; PHH, history of smoking, Lung cancer screening, History of Smoking/tobacco use. TECHNIQUE: Low dose computed tomography scan was performed through the chest at 1 mm thick sections a nd reconstructed images in multiple planes at 1 mm and [address] DLP: 137.[address] CTDI: 4 mGy Automated exposure control for dose reduction was used. CT DIAGNOSTIC QUALITY: Satisfactory FINDINGS: Nodules: Stable right upper lobe 1.8 mm pulmonary nodule (series 6, image 21). Right lower lobe 3.3 mm pulmonary nodule (series 6, image 33). LUNGS: COPD: Severity: None Fibrosis: Severity: None Lymph nodes: None Other findings: Linear scarring and/or atelectasis within the lingula. RIGHT PLEURAL SPACE: Effusion: None Calcification: None Thickening: None Pneumothorax: None LEFT PLEURAL SPACE: Effusion: None Calcification: None Thickening: None Pneumothorax: None HEART: Heart Size: Normal Coronary Calcification: None Pericardial Effusion: None OTHER FINDINGS: Upper abdomen: None Bony thorax: Multilevel degenerative disease of the thoracic spine with anterior osteophytosis. Supraclavicular region: None Other: None IMPRESSION: Couple of pulmonary nodules measuring less than [address] LUNG RAD AND CT CHEST RECOMMENDATION: Lung-Rad 2 Benign Appearance or Behavior: Continue annual sc reening with LDCT in 12 months. S Modifier (other clinically significant findings): None [facility], , 02/20/2025 4:41 PM
== END | disposition home or self-care (01) ==
LOC: RADCTMAIN 16:05
DX: Z12.2 Encounter for screening for malignant neoplasm of respiratory organs (principal); F17.210 Nicotine dependence, cigarettes, uncomplicated; R91.8 Other nonspecific abnormal finding of lung field
CPT/HCPCS: 71271

== ENCOUNTER → 2025-02-23 | Outpatient (CLI) | payer MEDICARE ==
[2025-02-23 21:09] LABS: ALT 28 U/L (10-49); AST 20 U/L (14-35); Albumin 4.1 g/dL (3.8-4.9); Albumin/Globulin Ratio 1.86 Ratio (1.60-3.17); Alkaline Phosphatase 78 U/L (41-126); Blood Urea Nitrogen 15.3 mg/dL (9.0-27.0); Calcium 9.1 mg/dL (8.7-10.3); Carbon Dioxide 23.9 mmol/L (21.6-31.8); Chloride 104 mmol/L (96-109); Chol/HDL Ratio 4.28 Ratio; Globulin 2.2 g/dL (1.6-3.3); Glucose 86 mg/dL (70-110); LDL Cholesterol,Calculated 113.4 mg/dL (0.0-131.0); Sodium 138 mmol/L (135-145); Total Bilirubin 0.7 mg/dL (0.3-1.2); Total Protein 6.3 g/dL (6.2-8.2); VLDL Calculation 18.44 mg/dL (5.00-40.00)
[2025-02-24 10:59] LABS: Basophils # (A) 0.06 X 10*3/uL (0.00-0.10); Basophils % (A) 0.6 %; Eosinophils # (A) 0.24 X 10*3/uL (0.04-0.35); Eosinophils % (A) 2.4 %; HCT 50.8 % (39.6-50.0); HGB 16.9 g/dL (13.0-17.0); Lymphocytes # (A) 2.51 X 10*3/uL (0.90-5.00); Lymphocytes % (A) 25.4 %; MCH 29.7 pg (27.0-32.0); MCHC 33.3 g/dL (32.0-37.0); MCV 89.3 FL (80.0-97.0); Mean Platelet Volume 10.9 FL (9.5-12.2); Monocytes % (A) 6.1 %; NRBC Per 100 WBC 0 X 10*3/uL (0.00-0.01); Neutrophils # (A) 6.44 X 10*3/uL (1.80-7.70); Platelet Count 227 X 10*3/uL (140-440); RBC 5.69 X 10*6/uL (4.40-5.60); RDW 13.9 % (11.5-14.5)
== END | disposition home or self-care (01) ==
LOC: LABWHC1 14:11
DX: Z13.29 Encounter for screening for other suspected endocrine disorder (principal); Z13.220 Encounter for screening for lipoid disorders; I10 Essential (primary) hypertension; K59.00 Constipation, unspecified; K57.32 Diverticulitis of large intestine without perforation or abscess without bleeding; K57.90 Diverticulosis of intestine, part unspecified, without perforation or abscess without bleeding; D72.829 Elevated white blood cell count, unspecified; K43.2 Incisional hernia without obstruction or gangrene; R19.7 Diarrhea, unspecified; R07.9 Chest pain, unspecified
CPT/HCPCS: 36415; 80053; 80061; 83036; 84439; 84443; 85025

== ENCOUNTER 2025-04-27 13:44 | Emergency (ER) | payer MEDICARE ==
[2025-04-27 14:20] VITALS: TEMP 97.9
[2025-04-27 14:48] LABS: Basophils # (A) 0.05 10*3/uL (0.00-0.10); Basophils % (A) 0.5 %; Eosinophils # (A) 0.10 10*3/uL (0.04-0.35); Eosinophils % (A) 1.0 %; HCT 51.6 % (39.6-50.0); HGB 17.7 g/dL (13.0-17.0); Lymphocytes # (A) 1.91 10*3/uL (0.90-5.00); Lymphocytes % (A) 19.9 %; MCH 30.0 pg (27.0-32.0); MCHC 34.3 g/dL (32.0-37.0); MCV 87.5 fL (80.0-97.0); Monocytes # (A) 0.48 10*3/uL (0.20-1.00); Monocytes % (A) 5.0 %; Neutrophils # (A) 7.01 10*3/uL (1.80-7.70); Neutrophils % (A) 73.3 %; Platelet Count 230 10*3/uL (140-440); RBC 5.90 10*6/uL (4.40-5.60); RDW 13.3 % (11.5-14.5); WBC 9.58 10*3/uL (4.50-10.00)
[2025-04-27 14:56] LABS: INR 1.0 (<1.2); Partial Thromboplastin Time 30.3 sec (22.0-30.0); Prothrombin Time 11.1 sec (10.0-12.5)
[2025-04-27 14:58] LABS: ALT 26 U/L (4-49); AST 24 U/L (17-59); African American GFR (CKD) >90 (>60 ml/min/1.73 sqM); Albumin 4.4 g/dL (3.5-5.0); Alkaline Phosphatase 76 U/L (38-126); Anion Gap 9 mmol/L; Blood Urea Nitrogen 10 mg/dL (9-20); Calcium 9.5 mg/dL (8.4-10.2); Carbon Dioxide 26 mmol/L (22-30); Chloride 104 mmol/L (98-107); Glucose 99 mg/dL (74-99); Magnesium 1.8 mg/dL (1.6-2.3); Non-African American GFR(CKD) 85 (>60 ml/min/1.73 sqM); Potassium 4.4 mmol/L (3.5-5.1); Sodium 139 mmol/L (137-145); Total Protein 6.9 g/dL (6.3-8.2)
--- NOTE | 2025-04-27 15:28 | XR ---
EXAMINATION TYPE: XR chest 2V DATE OF EXAM: 04/27/2025 3:24 PM COMPARISON: Chest radiographs from 07/22/2018 TECHNIQUE: XR chest 2V Frontal and lateral views of the chest. CLINICAL INDICATION:Male, 65 years old with history of Weakness; FINDINGS: Lungs/Pleura: There is no evidence of pleural effusion, focal consolidation, or pneumothorax. Pulmonary vascularity: Unremarkable. Heart/mediastinum: Cardiomediastinal silhouette is unremarkable. Musculoskeletal: Multiple level degenerative disc disease changes seen throughout the spine. IMPRESSION: No acute cardiopulmonary disease/process. [facility], , 04/27/2025 3:26 PM
--- NOTE | 2025-04-27 15:55 | ED ---
General Adult HPI - General Source: patient, RN notes reviewed Mode of arrival: ambulatory Limitations: no limitations <David Duarte - Last Filed: 04/27/25 15:50> <Jama Philip - Last Filed: 04/27/25 18:43> - General Chief complaint: Weakness Stated complaint: Jason leg swelling,abd pain Time Seen by Provider: 04/27/25 14:01 - History of Present Illness Initial comments: Quick note: This is a 65-year-old male with history including hypertension, hyperlipidemia, chest pain and sepsis presenting for abdominal pain (/10) x 4 days. Patient endorses associated nausea, weakness, brain fog and BLE pitting e juanito. Patient endorses significant right side abdominal hernia following emergency surgery for his appendix with associated sepsis at that time. Patient was treated by Dr. Cerda and is awaiting surgery to correct his abdominal hernia from Dr. Cerda as well. Patient is concerned that he is becoming septic again and would like this ruled out. Denies fever, chills, chest pain, dyspnea, vomiting/diarrhea. (David Duarte) Dictation was produced using [employer] dictation software. please excuse any grammatical, word or spelling errors. Chief Complaint: 65-year-old male with weakness, confusion and mild abdominal pain History of Present Illness: Patient 65-year-old male presents to the emergency department with abdominal discomfort. He also has had acute weakness confusion with it. States that he has extensive history of hernia. Patient still eating. Still passing gas. States that he has chronic abdominal pain secondary to postoperative hernia. No fever chills or night sweats. Patient want to make sure he is not septic. The ROS documented in this emergency department record has been reviewed and confirmed by me. Those systems with pertinent positive or negative responses have been documented in the HPI. All other systems are other negative and/or noncontributory. (Jama Philip) - Related Data Home Medications Medication Instructions Recorded Confirmed atenoloL [Tenormin] 50 mg PO DAILY 07/22/18 04/27/25 Triamterene-Hctz 37.5-25Mg 1 tab PO HS 07/10/24 04/27/25 [Maxzide 37.5-25] Acetaminophen [Tylenol Arthritis] 650 mg PO TID PRN 04/27/25 04/27/25 Previous Rx's Medication Instructions Recorded oxyCODONE-APAP 10-325MG [Percocet 1 tab PO Q6H PRN 3 Days #12 tab 04/27/25 10-325 mg] Allergies Allergy/AdvReac Type Severity Reaction Status Date / Time peanut Allergy Severe Anaphylaxis Verified 04/27/25 16:55 Burnham nut Allergy Anaphylaxis Verified 04/27/25 16:55 Quinolones Allergy Itching Verified 04/27/25 16:55 tree nut Allergy Anaphylaxis Verified 04/27/25 16:55 ciprofloxacin [From Cipro] AdvReac Rash/Hives/burning Verified 04/27/25 16:55 skin sulfamethoxazole AdvReac Rapid Verified 04/27/25 16:55 [From Bactrim] Heart Rate/unsteady gait trimethoprim [From Bactrim] AdvReac Rapid Verified 04/27/25 16:55 Heart Rate/unsteady gait Review of Systems ROS Other: All systems not noted in ROS Statement are negative. <David Duarte - Last Filed: 04/27/25 15:50> ROS Other: All systems not noted in ROS Statement are negative. <Jama Philip - Last Filed: 04/27/25 18:43> ROS Statement: Those systems with pertinent positive or pertinent negative responses have been documented in the HPI. Past Medical History Past Medical History: Chest Pain / Angina, GERD/Reflux, Hyperlipidemia, Hypertension, Osteoarthritis (OA), Prostate Disorder, Thyroid Disorder Additional Past Medical History / Comment(s): high chol - supposed to take cholestrol med but doesnt, Chronic back pain, diverticulitis, enlarged prostate, nodules on thyroid, pilonidal cyst History of Any Multi-Drug Resistant Organisms: None Reported Past Surgical History: Appendectomy, Bowel Resection, Heart Catheterization Additional Past Surgical History / Comment(s): 2012 heart cath which was clear- done by Dr. VC Topete, colonoscopy, left knee drained 12/16/2016 and 12/20/2016 Past Anesthesia/Blood Transfusion Reactions: Previous Problems w/ Anesthesia Additional Past Anesthesia/Blood Transfusion Reaction / Comment(s): Pt states it took him a long time to wake up which he attributes to going into his procedures very tired. Past Psychological History: No Psychological Hx Reported Smoking Status: Current every day smoker Past Alcohol Use History: None Reported Past Drug Use History: None Reported - Past Family History Father Additional Family Medical History / Comment(s): Father of cirrhosis at age 62 yrs. No coronary artery disease history. Mother Additional Family Medical History / Comment(s): Mother of neck fracture at age 76yrs from an accident. She also had history of atrial fibrillation. Sister(s) Additional Family Medical History / Comment(s): Sister after a "leg operation" she developed a leg infection and family was told she of a lung problem. His sister had history of stroke as well. Patient has a second sister that is alive with COPD. Patient has children with no major medical problems. <David Duarte - Last Filed: 04/27/25 15:50> General Exam Limitations: no limitations <David Duarte - Last Filed: 04/27/25 15:50> <Jama Philip - Last Filed: 04/27/25 18:43> - General Exam Comments Initial Comments: Visual Physical Exam Vital signs reviewed General: Well-appearing, nontoxic, no acute distress. Head: Normocephalic, atraumatic Eyes: PERRLA, EOMI ENT: Airway patent Chest: Nonlabored breathing Skin: No visual rash, normal skin tone Neuro: Alert and oriented 3 Musculoskeletal: No gross abnormalities (David Duarte) PHYSICAL EXAM: General Impression: Alert and oriented x3, not in acute distress HEENT: Normocephalic atraumatic, extra-ocular movements intact, pupils equal and reactive to light bilaterally, mucous membranes moist. Cardiovascular: Heart regular rate and rhythm Chest: Able to complete full sentences, no retractions, no tachypnea Abdomen: abdomen soft, mild diffuse abdominal tenderness, non-distended, no organomegaly Musculoskeletal: Pulses present and equal in all extremities, no peripheral edema Motor: no focal deficits noted Neurological: CN II-XII grossly intact, no focal motor or sensory deficits noted Skin: Intact with no visualized rashes Psych: Normal affect and mood (Jama Philip) Course Vital Signs 04/27/25 14:17 Temperature 97.9 F Pulse Rate 73 Respiratory 20 Rate Blood Pressure 128/86 O2 Sat by Pulse 99 Oximetry Medical Decision Making - Lab Data Result diagrams: 04/27/25 14:38 04/27/25 14:38 <David Duarte - Last Filed: 04/27/25 15:50> - Lab Data Result diagrams: 04/27/25 14:38 04/27/25 14:38 <Jama Philip - Last Filed: 04/27/25 18:43> - Medical Decision Making I completed the quick note portion of this chart signed YANDY Napoles (David Duarte) Was pt. sent in by a medical professional or institution (LADONNA Thorne, [employer], urgent care, hospital, or care home...) When possible be specific @ -No Did you speak to anyone other than the patient for history (EMS, parent, family, police, friend...)? What history was obtained from this source @ -No Did you review nursing and triage notes (agree or disagree)? Why? @ -I reviewed and agree with nursing and triage notes Were old charts reviewed (outside hosp., previous admission, EMS record, old EKG, old radiological studies, urgent care reports/EKG's, care home records)? Report findings @ -No old charts were reviewed Differential Diagnosis (chest pain, altered mental status, abdominal pain women, abdominal pain men, vaginal bleeding, musculoskeletal, weakness, fever, dyspnea, syncope, headache, dizziness, GI bleed, back pain, seizure, CVA, palpatations, mental health)? @ -Differential Abdominal Pain Men: Appendicitis, cholecystitis, diverticulosis, ischemic bowel, pancreatitis, hepatitis, UTI, gastroenteritis, AAA, incarcerated hernia, bowel obstruction, constipation, inflammatory bowel, hepatitis, peptic ulcer disease, splenic infarction, perforated viscus, testicular torsion, this is not meant to be an all-inclusive list EKG interpreted by me (3pts min.). @ -None done X-rays interpreted by me (1pt min.). @ -Chest x-ray shows no acute processes CT interpreted by me (1pt min.). @ -CT ab pelvis shows no acute processes U/S interpreted by me (1pt. min.). @ -None done What testing was considered but not performed or refused? (CT, X-rays, U/S, labs)? Why? @ -None What meds were considered but not given or refused? Why? @ -None Was smoking cessation discussed for >3mins.? @ -No Were there social determinants of health that impacted care today? How? (Homelessness, low income, unemployed, alcoholism, drug addiction, transportation, low edu. Level, literacy, decrease access to med. care, fpc, rehab)? @ -No Was there de-escalation of care discussed even if they declined (Discuss DNR or withdrawal of care, Hospice)? DNR status @ -No What co-morbidities impacted this encounter? (DM, HTN, Smoking, COPD, CAD, Cancer, CVA, ARF, Chemo, Hep., AIDS, mental health diagnosis, sleep apnea, morbid obesity)? @ -Abdominal hernia Was patient admitted / discharged? Hospital course, mention meds given and route, prescriptions, significant lab abnormalities, going to OR and other pertinent info. @ -65-year-old male presents with abdominal pain concern for sepsis. Vital signs stable. Patient well-appearing at the bedside has nonsurgical abdomen. Laboratory evaluation is unremarkable. Urinalysis negative. Abdominal CT and chest x-ray unremarkable. Patient given analgesics for improvement of symptoms. Patient discharged with p.o. analgesics. He has appointment coming up with general surgery for outpatient repair of hernia. Did you discuss the management of the patient with other professionals (professionals i.e. , PA, [employer], lab, RT, psych nurse, social scientist, supervisor [employer] making machine, teacher, chief compliance officer, rn case management)? Give summary @ -No Was critical care preformed (if so, how long)? @ -No Undiagnosed new problem with uncertain prognosis? @ -No Drug Therapy requiring intensive monitoring for toxicity (Heparin, Nitro, Insu lena, Cardizem)? @ -No Were any procedures done? @ -No Diagnosis/symptom? Acute, or Chronic, or Acute on Chronic? Uncomplicated (without systemic symptoms) or Complicated (systemic symptoms)? @ -Abdominal wall hernia Side effects of treatment? @ -No Exacerbation, Progression, or Severe Exacerbation? @ -No Poses a threat to life or bodily function? How? (Chest pain, USA, ME, pneumonia, PE, COPD, DKA, ARF, appy, cholecystitis, CVA, Diverticulitis, Homicidal, Suicidal, threat to staff... and all critical care pts) @ -No (Jama Philip) - Lab Data Lab Results 04/27/25 04/27/25 04/27/25 Range/Units 14:38 14:38 14:38 WBC 9.58 (4.50-10.00) 10*3/uL RBC 5.90 H (4.40-5.60) 10*6/uL Hgb 17.7 H (13.0-17.0) g/dL Hct 51.6 H (39.6-50.0) % MCV 87.5 (80.0-97.0) fL MCH 30.0 (27.0-32.0) pg MCHC 34.3 (32.0-37.0) g/dL Plt Count 230 (140-440) 10*3/uL MPV 10.4 (9.5-12.2) fL Immature Gran % (Auto) 0.3 % Neutrophils % 73.3 % Lymphocytes % 19.9 % Monocytes % 5.0 % Eosinophils % 1.0 % Basophils % 0.5 % Immature Gran # 0.03 (0.00-0.04) 10*3/uL Neutrophils # 7.01 (1.80-7.70) 10*3/uL Lymphocytes # 1.91 (0.90-5.00) 10*3/uL Monocytes # 0.48 (0.20-1.00) 10*3/uL Eosinophils # 0.10 (0.04-0.35) 10*3/uL Basophils # 0.05 (0.00-0.10) 10*3/uL PT 11.1 (10.0-12.5) sec INR 1.0 (<1.2) APTT 30.3 H (22.0-30.0) sec Sodium 139 (137-145) mmol/L Potassium 4.4 (3.5-5.1) mmol/L Chloride 104 (98-107) mmol/L Carbon Dioxide 26 (22-30) mmol/L Anion Gap 9 mmol/L BUN 10 (9-20) mg/dL Creatinine 0.95 (0.66-1.25) mg/dL Est GFR (CKD-EPI)AfAm >90 (>60 ml/min/1.73 sqM) Est GFR (CKD-EPI)NonAf 85 (>60 ml/min/1.73 sqM) Glucose 99 (74-99) mg/dL Plasma Lactic Acid Andres (0.7-2.0) mmol/L Calcium 9.5 (8.4-10.2) mg/dL Phosphorus 3.4 (2.5-4.5) mg/dL Magnesium 1.8 (1.6-2.3) mg/dL Total Bilirubin 0.9 (0.2-1.3) mg/dL AST 24 (17-59) U/L ALT 26 (4-49) U/L Alkaline Phosphatase 76 (38-126) U/L Troponin I (0.000-0.034) ng/mL NT-Pro-B Natriuret Pep pg/mL Total Protein 6.9 (6.3-8.2) g/dL Albumin 4.4 (3.5-5.0) g/dL Lipase (23-300) U/L TSH 0.409 L (0.465-4.680) mIU/L Urine Color Urine Appearance (Clear) Urine pH (5.0-8.0) Ur Specific Gould (1.001-1.035) Urine Protein (Negative) Urine Glucose (UA) (Negative) Urine Ketones (Negative) Urine Blood (Negative) Urine Nitrite (Negative) Urine Bilirubin (Negative) Urine Urobilinogen (<2.0) mg/dL Ur Leukocyte Esterase (Negative) 04/27/25 04/27/25 04/27/25 Range/Units 14:38 14:38 14:38 WBC (4.50-10.00) 10*3/uL RBC (4.40-5.60) 10*6/uL Hgb (13.0-17.0) g/dL Hct (39.6-50.0) % MCV (80.0-97.0) fL MCH (27.0-32.0) pg MCHC (32.0-37.0) g/dL Plt Count (140-440) 10*3/uL MPV (9.5-12.2) fL Immature Gran % (Auto) % Neutrophils % % Lymphocytes % % Monocytes % % Eosinophils % % Basophils % % Immature Gran # (0.00-0.04) 10*3/uL Neutrophils # (1.80-7.70) 10*3/uL Lymphocytes # (0.90-5.00) 10*3/uL Monocytes # (0.20-1.00) 10*3/uL Eosinophils # (0.04-0.35) 10*3/uL Basophils # (0.00-0.10) 10*3/uL PT (10.0-12.5) sec INR (<1.2) APTT (22.0-30.0) sec Sodium (137-145) mmol/L Potassium (3.5-5.1) mmol/L Chloride (98-107) mmol/L Carbon Dioxide (22-30) mmol/L Anion Gap mmol/L BUN (9-20) mg/dL Creatinine (0.66-1.25) mg/dL Est GFR (CKD-EPI)AfAm (>60 ml/min/1.73 sqM) Est GFR (CKD-EPI)NonAf (>60 ml/min/1.73 sqM) Glucose (74-99) mg/dL Plasma Lactic Acid Andres 1.1 (0.7-2.0) mmol/L Calcium (8.4-10.2) mg/dL Phosphorus (2.5-4.5) mg/dL Magnesium (1.6-2.3) mg/dL Total Bilirubin (0.2-1.3) mg/dL AST (17-59) U/L ALT (4-49) U/L Alkaline Phosphatase (38-126) U/L Troponin I <0.012 (0.000-0.034) ng/mL NT-Pro-B Natriuret Pep <20 pg/mL Total Protein (6.3-8.2) g/dL Albumin (3.5-5.0) g/dL Lipase 88 (23-300) U/L TSH (0.465-4.680) mIU/L Urine Color Urine Appearance (Clear) Urine pH (5.0-8.0) Ur Specific Gould (1.001-1.035) Urine Protein (Negative) Urine Glucose (UA) (Negative) Urine Ketones (Negative) Urine Blood (Negative) Urine Nitrite (Negative) Urine Bilirubin (Negative) Urine Urobilinogen (<2.0) mg/dL Ur Leukocyte Esterase (Negative) 04/27/25 Range/Units 15:56 WBC (4.50-10.00) 10*3/uL RBC (4.40-5.60) 10*6/uL Hgb (13.0-17.0) g/dL Hct (39.6-50.0) % MCV (80.0-97.0) fL MCH (27.0-32.0) pg MCHC (32.0-37.0) g/dL Plt Count (140-440) 10*3/uL MPV (9.5-12.2) fL Immature Gran % (Auto) % Neutrophils % % Lymphocytes % % Monocytes % % Eosinophils % % Basophils % % Immature Gran # (0.00-0.04) 10*3/uL Neutrophils # (1.80-7.70) 10*3/uL Lymphocytes # (0.90-5.00) 10*3/uL Monocytes # (0.20-1.00) 10*3/uL Eosinophils # (0.04-0.35) 10*3/uL Basophils # (0.00-0.10) 10*3/uL PT (10.0-12.5) sec INR (<1.2) APTT (22.0-30.0) sec Sodium (137-145) mmol/L Potassium (3.5-5.1) mmol/L Chloride (98-107) mmol/L Carbon Dioxide (22-30) mmol/L Anion Gap mmol/L BUN (9-20) mg/dL Creatinine (0.66-1.25) mg/dL Est GFR (CKD-EPI)AfAm (>60 ml/min/1.73 sqM) Est GFR (CKD-EPI)NonAf (>60 ml/min/1.73 sqM) Glucose (74-99) mg/dL Plasma Lactic Acid Andres (0.7-2.0) mmol/L Calcium (8.4-10.2) mg/dL Phosphorus (2.5-4.5) mg/dL Magnesium (1.6-2.3) mg/dL Total Bilirubin (0.2-1.3) mg/dL AST (17-59) U/L ALT (4-49) U/L Alkaline Phosphatase (38-126) U/L Troponin I (0.000-0.034) ng/mL NT-Pro-B Natriuret Pep pg/mL Total Protein (6.3-8.2) g/dL Albumin (3.5-5.0) g/dL Lipase (23-300) U/L TSH (0.465-4.680) mIU/L Urine Color Light Yellow Urine Appearance Clear (Clear) Urine pH 7.0 (5.0-8.0) Ur Specific Gould 1.013 (1.001-1.035) Urine Protein Negative (Negative) Urine Glucose (UA) Negative (Negative) Urine Ketones Negative (Negative) Urine Blood Negative (Negative) Urine Nitrite Negative (Negative) Urine Bilirubin Negative (Negative) Urine Urobilinogen <2.0 (<2.0) mg/dL Ur Leukocyte Esterase Negative (Negative) Disposition <David Duarte - Last Filed: 04/27/25 15:50> Is patient prescribed a controlled substance at d/c from ED?: Yes Time of Disposition: 18:43 <Jama Philip - Last Filed: 04/27/25 18:43> Clinical Impression: Abdominal pain Disposition: HOME SELF-CARE Condition: Good Instructions (If sedation given, give patient instructions): Abdominal Pain (ED) Prescriptions: oxyCODONE-APAP 10-325MG [Percocet 10-325 mg] 1 tab PO Q6H PRN 3 Days #12 tab PRN Reason: Pain Referrals: Elida Mosley MD [Primary Care Provider] - 1-2 days
[2025-04-27 16:11] LABS: Bilirubin,Urine Negative (Negative); Blood,Urine Negative (Negative); Color,Urine Light Yellow; Glucose,Urine (UA) Negative (Negative); Ketones,Urine Negative (Negative); Leukocyte Esterase,Urine Negative (Negative); Nitrite,Urine Negative (Negative); PH, Urine 7.0 (5.0-8.0); Protein,Urine Negative (Negative); Specific Gravity,Urine 1.013 (1.001-1.035); Urobilinogen,Urine <2.0 mg/dL (<2.0)
[2025-04-27 16:14] LABS: Lipase 88 U/L (23-300)
[2025-04-27 16:24] LABS: NT-Pro-B-Type Natriuretic Pept <20 pg/mL
[2025-04-27] MEDS: ACETAMINOPHEN TAB 500 MG TAB PO STA (16:43)
[2025-04-27] MEDS: HYDROcodone/APAP 5-325MG 1 EACH TAB PO STA (16:46)
--- NOTE | 2025-04-27 18:15 | CT ---
EXAMINATION TYPE: CT abdomen pelvis w con DATE OF EXAM: 04/27/2025 5:51 PM COMPARISON: 01/14/2025. CLINICAL INDICATION: Male, 65 years old with history of Right side abdominal pain with hernia; abdomi nal pain TECHNIQUE: Axial CT abdomen pelvis w con;Sagittal and coronal reformats were created on a separate w orkstation. Contrast used:100 ml mL of Isovue 300 with IV Contrast, (none if empty) Oral contrast used: without Oral Contrast (none if empty) CT DLP: 1548.6 mGycm, Automated exposure control for dose reduction was used. FINDINGS: LOWER CHEST: Unremarkable ABDOMEN LIVER: Unremarkable GALLBLADDER AND BILE DUCTS: Unremarkable. PANCREAS: Unremarkable. SPLEEN: Unremarkable. ADRENAL GLANDS: Unremarkable. KIDNEYS AND URETERS: No evidence of hydronephrosis or obstructing renal calculus. The ureters are unr emarkable. PELVIS BLADDER: No evidence for wall thickening or mass given limitations of exam. REPRODUCTIVE: Unremarkable. ABDOMEN & PELVIS STOMACH AND BOWEL: No evidence of bowel obstruction. Postsurgical changes to the colon. Right lateral abdominal wall herniation as described below no evidence for circulation obstruction. PERITONEUM/RETROPERITONEUM: No evidence of pneumoperitoneum or free fluid. VASCULATURE: Mild atherosclerotic calcifications are present throughout the abdominal aorta and its b ranches. No evidence of aortic aneurysm. MUSCULOSKELETAL: No acute osseous abnormalities. Mild disc degeneration changes are present throughou t the thoracolumbar spine. LYMPH NODES: No gross evidence for lymphadenopathy. SOFT TISSUE/ABDOMINAL WALL: Right lateral abdominal wall herniation measuring up to 9.2 cm at the nec k. Their contain small bowel within the hernia sac. No evidence for obstruction or strangulation. IMPRESSION: 1. Right lateral abdominal wall herniation containing small bowel measuring up to 9.2 cm at the neck . No evidence for obstruction or strangulation. 2. No evidence for acute abdominal process. [facility], , 04/27/2025 6:13 PM
[2025-04-27] MEDS ORDERED: MORPHINE SULFATE 4 MG/ML SYRINGE IV STA (18:31)
[2025-04-27] MEDS: oxyCODONE-APAP 7.5-325MG 1 EACH TAB PO STA (18:54)
[2025-04-27 18:59] VITALS: BP 145/82; PULSE 66; RESP 18
== END 2025-04-27 19:08 | disposition home or self-care (01) ==
LOC: EC 13:44
DX: K43.2 Incisional hernia without obstruction or gangrene (principal); F17.200 Nicotine dependence, unspecified, uncomplicated; Z91.010 Allergy to peanuts; Z91.018 Allergy to other foods; Z88.1 Allergy status to other antibiotic agents; Z88.8 Allergy status to other drugs, medicaments and biological substances; Z88.2 Allergy status to sulfonamides
CPT/HCPCS: 99285; 36415; 93005; 83880; 80053; 83605; 83690; 83735; 84100; 84443; 84484; 85025; 85610; 85730; 81003; 71046; 74177; Q9967